=== PATIENT | male | born 1940 | race Caucasian/White ===

== ENCOUNTER 2016-07-08 17:48 | Outpatient (CLI) | payer MEDICARE, MEDICAID | END 2016-07-08 17:49 | disposition critical access hospital (66) | DX: M25.562 Pain in left knee (principal); Z79.02 Long term (current) use of antithrombotics/antiplatelets; W18.39XA Other fall on same level, initial encounter; Y92.199 Unspecified place in other specified residential institution as the place of occurrence of the external cause | CPT/HCPCS: A0425; A0429 ==

== ENCOUNTER 2016-07-08 18:06 | Emergency (ER) | payer MEDICARE, MEDICAID | END 2016-07-08 20:49 | disposition home or self-care (01) | DX: S09.90XA Unspecified injury of head, initial encounter (principal); W05.0XXA Fall from non-moving wheelchair, initial encounter; Z91.81 History of falling; Y92.013 Bedroom of single-family (private) house as the place of occurrence of the external cause; I25.2 Old myocardial infarction; Z86.73 Personal history of transient ischemic attack (TIA), and cerebral infarction without residual deficits; J44.9 Chronic obstructive pulmonary disease, unspecified; E11.9 Type 2 diabetes mellitus without complications; Z79.4 Long term (current) use of insulin; N40.0 Benign prostatic hyperplasia without lower urinary tract symptoms; Z79.01 Long term (current) use of anticoagulants; F17.200 Nicotine dependence, unspecified, uncomplicated ==

== ENCOUNTER 2016-07-08 21:00 | Outpatient (CLI) | payer MEDICARE, MEDICAID | END 2016-07-08 21:01 | disposition home or self-care (01) | DX: S80.212A Abrasion, left knee, initial encounter (principal); W19.XXXA Unspecified fall, initial encounter | CPT/HCPCS: A0425; A0428 ==

== ENCOUNTER 2017-03-27 09:35 | Outpatient (CLI) | payer MEDICARE, MEDICAID | END 2017-03-27 09:36 | disposition critical access hospital (66) | LOC: EMS 09:35 | PROVIDERS: ATTEND Surgery | DX: R06.02 Shortness of breath (principal); R53.1 Weakness; R53.83 Other fatigue | CPT/HCPCS: A0425; A0429 ==

== ENCOUNTER 2017-03-27 09:58 | Inpatient (IN) | payer MEDICARE, MEDICAID ==
[2017-03-27] MEDS ORDERED: IPRATROPIUM/ALBUTEROL 3 ML NEB INH STA (10:12)
[2017-03-27 10:27] LABS: BASOPHILS # (AUTO) 0.1 10^3/uL (0.0-0.1); BASOPHILS % (AUTO) 0.6 %; EOSINOPHILS # (AUTO) 0.1 10^3/uL (0.0-0.7); EOSINOPHILS % (AUTO) 0.5 %; HGB - HEMOGLOBIN 14.4 g/dL (14.0-18.0); LYMPHOCYTES # (AUTO) 1.5 10^3/uL (1.5-3.5); LYMPHOCYTES % (AUTO) 8.6 %; MEAN CORPUSCULAR HEMOGLOBIN 28.8 pg (27.0-31.0); MEAN CORPUSCULAR VOLUME 87.5 fL (80.0-94.0); MEAN PLATELET VOLUME 8.8 fL (7.4-11.4); MONOCYTES # (AUTO) 0.9 10^3/uL (0.0-1.0); MONOCYTES % (AUTO) 5.1 %; NEUTROPHILS # (AUTO) 15.1 10^3/uL (1.5-6.6); NEUTROPHILS % (AUTO) 85.2 %; PLT - PLATELET COUNT 218 10^3/uL (130-450); RED BLOOD COUNT 4.99 10^6/uL (4.70-6.10); RED CELL DISTRIBUTION WIDTH 14.5 % (12.0-15.0); WHITE BLOOD COUNT 17.8 x10^3/uL (4.8-10.8)
[2017-03-27 10:36] LABS: ALBUMIN 3.8 g/dL (3.2-5.5); ALBUMIN/GLOBULIN RATIO 0.8 (1.0-2.2); BILIRUBIN,TOTAL 1.1 mg/dL (0.2-1.0); CALCIUM 9.4 mg/dL (8.5-10.3); CREATININE 1.9 mg/dL (0.6-1.2); TOTAL PROTEIN 8.4 g/dL (6.7-8.2)
--- NOTE | 2017-03-27 10:41 | XRAY Preliminary Report ---
Exam: XR CHEST 1 VIEW X-RAY IMPRESSION: Irregular opacities in left lung base may represent atelectatic changes, aspiration or in fectious process. [facility] SITE ID: [id number]
--- NOTE | 2017-03-27 10:42 | XRAY Report ---
EXAM: CHEST RADIOGRAPHY EXAM DATE: 03/27/2017 10:32 AM. CLINICAL HISTORY: Dyspnea/rhonchi. COMPARISON: Chest radiograph dated 01/10/2016. TECHNIQUE: 1 view. FINDINGS: Lungs/Pleura: Irregular opacities in the left lower lobe blunting of the left hemidiaphragm. Right luis fernando ng is well aerated and clear. Mediastinum: The heart is enlarged. The pulmonary vasculature is within normal limits. Other: None. IMPRESSION: Irregular opacities in left lung base may represent atelectatic changes, aspiration or in fectious process. [facility] Referring Provider Line: [phone] SITE ID: [id number]
--- NOTE | 2017-03-27 10:48 | ED Physician Documentation ---
PD HPI DYSPNEA - Stated complaint Stated Complaint: SOA - Chief complaint Chief Complaint: Resp - History obtained from History obtained from: Patient, EMS - History of Present Illness Timing - onset: Today Timing - onset during: Rest Timing - duration: Hours Timing - details: Gradual onset, Still present Improved by: O2, Rest, Sitting up Worsened by: Exertion Associated symptoms: Cough Similar symptoms before: Diagnosis (pneumonia) Recently seen: Not recently seen - Additional information Additional information: 76-year-old resident of [facility] has developed acute dyspnea today. He has altered level of consciousness as well. He is not able to give adequate history. Review of Systems Unable to obtain: Confused PD PAST MEDICAL HISTORY - Past Medical History Cardiovascular: RI Respiratory: COPD Neuro: CVA Endocrine/Autoimmune: Type 2 diabetes : Benign prostate hypertrophy Psych: Depression, Anxiety - Past Surgical History Past Surgical History: Yes General: Splenectomy Ortho: Amputation - Present Medications Home Medications: Ambulatory Orders Medication Instructions Recorded Confirmed Docusate Sodium 250Mg Capsule 250 mg PO BID 07/08/13 03/27/17 [Colace] Gabapentin [Neurontin] 900 mg PO TID 07/08/13 03/27/17 Senna [Senokot] 2 tab PO HS 07/08/13 03/27/17 Simvastatin [Zocor] 10 mg PO HS 07/08/13 03/27/17 Trazodone HCl 100 mg PO HS 07/08/13 03/27/17 traMADol [Ultram] 50 mg PO QID 07/08/13 03/27/17 Lisinopril 5 mg PO DAILY 04/10/14 03/27/17 Lactulose 15 ml PO BID PRN #1 bottle 08/30/14 03/27/17 Clopidogrel Bisulfate [Plavix] 75 mg PO DAILY 09/15/14 03/27/17 Albuterol [Ventolin Hfa] 2 puffs INH Q4H PRN #1 inhaler 01/30/15 03/27/17 Sevelamer Carbonate [Renvela] 800 mg PO TIDWM 01/30/15 03/27/17 Bupropion HCl [Bupropion HCl Sr] 300 mg PO DAILY 07/29/15 03/27/17 Polyethylene Glycol 3350 [Miralax] 1 packet PO DAILY PRN 10/09/15 03/27/17 DULoxetine [Cymbalta] 20 mg PO DAILY 03/27/17 03/27/17 Insulin Detemir [Levemir Flextouch] 30 unit SQ BID 03/27/17 03/27/17 Insulin Regular Human [NovoLIN R] 2 - 12 unit SUBQ .SLIDINGSCALE 03/27/17 Insulin Regular Human [NovoLIN R] 10 unit SUBQ 1200,1700 03/27/17 03/27/17 Insulin Regular Human [NovoLIN R] 15 unit SUBQ QDBREAKFAST 03/27/17 03/27/17 Ipratropium/Albuterol Sulfate 3 ml IH Q4H 03/27/17 03/27/17 [Iprat-Albut 0.5-3(2.5) mg/3 ml] Loperamide HCl [Imodium A-D] 2 mg PO QID PRN MDD 8 MG 03/27/17 03/27/17 buPROPion [Wellbutrin Sr] 150 mg PO 1200 03/27/17 03/27/17 - Allergies Allergies/Adverse Reactions: Allergies Allergy/AdvReac Type Severity Reaction Status Date / Time Penicillins Allergy Intermediate Rash Verified 07/08/16 18:15 morphine AdvReac Unknown I go Verified 07/08/16 18:15 berserk - Social History Does the pt smoke?: Yes Smoking Status: Current every day smoker Does the pt drink ETOH?: Yes Does the pt have substance abuse?: No - Immunizations Immunizations are current?: Yes - POLST Patient has POLST: Yes POLST Status: DNR PD ED PE NORMAL - Vitals Vital signs reviewed: Yes (hypertensive and tachycardic) - General General: Well developed/nourished, Other (acute respiratory distress with audible "gurggle") - HEENT HEENT: Atraumatic, PERRL, EOMI, Other (dry mucous membranes) - Neck Neck: Supple, no meningeal sign, No bony TTP - Cardiac Cardiac: Other (distant heart sounds ) - Respiratory Respiratory: Other (audible gurgle and transmitted upper airway sounds bilaterally ) - Abdomen Abdomen: Soft, Non tender - Back Back: No CVA TTP, No spinal TTP - Derm Derm: Normal color, Warm and dry, No rash - Extremities Extremities: No deformity, No edema, Other (right lower ext is AKA) - Neuro Neuro: No motor deficit, No sensory deficit Eye Opening: To Voice Motor: Obeys Commands Verbal: Confused GCS Score: 13 Results - Vitals Vitals: Vital Signs - 24 hr 03/27/17 03/27/17 03/27/17 10:01 10:30 10:37 Temperature 36.1 C L Heart Rate 104 H 103 H 104 H Respiratory 20 18 24 Rate Blood Pressure 148/107 H 124/99 H O2 Saturation 98 98 03/27/17 11:04 Temperature Heart Rate 106 H Respiratory 18 Rate Blood Pressure 148/107 H O2 Saturation 93 Oxygen O2 Source Nasal cannula Oxygen Flow Rate 4 - Labs Labs: Laboratory Tests 03/27/17 03/27/17 03/27/17 10:18 10:18 10:18 WBC 17.8 H RBC 4.99 Hgb 14.4 Hct 43.7 MCV 87.5 MCH 28.8 MCHC 33.0 RDW 14.5 Plt Count 218 MPV 8.8 Neut # 15.1 H Lymph # 1.5 [place] # 0.9 Eos # 0.1 Baso # 0.1 Absolute Nucleated RBC 0.00 Nucleated RBC % 0.0 Sodium 133 L Potassium 4.5 Chloride 95 L Carbon Dioxide 29 Anion Gap 9.0 BUN 29 H Creatinine 1.9 H Estimated GFR (MDRD) 35 L Glucose 128 H Lactic Acid Calcium 9.4 Total Bilirubin 1.1 H AST 19 ALT 21 Alkaline Phosphatase 134 H Troponin I < 0.04 B-Natriuretic Peptide Total Protein 8.4 H Albumin 3.8 Globulin 4.6 H Albumin/Globulin Ratio 0.8 L Lipase 15 L 03/27/17 03/27/17 10:18 10:18 WBC RBC Hgb Hct MCV MCH MCHC RDW Plt Count MPV Neut # Lymph # [place] # Eos # Baso # Absolute Nucleated RBC Nucleated RBC % Sodium Potassium Chloride Carbon Dioxide Anion Gap BUN Creatinine Estimated GFR (MDRD) Glucose Lactic Acid 1.2 Calcium Total Bilirubin AST ALT Alkaline Phosphatase Troponin I B-Natriuretic Peptide 44 Total Protein Albumin Globulin Albumin/Globulin Ratio Lipase - Rads (name of study) 1 view chest Radiology: Prelim report reviewed (Impression: Irregular opacities in the left lung base may represent atelectatic changes, aspiration or infectious process.) , EMP read indepedently, See rad report PD MEDICAL DECISION MAKING - ED course Complexity details: reviewed old records, reviewed results, re-evaluated patient , considered differential, d/w patient ED course: 76-year-old male resident of [facility] with a history of COPD diabetes and stroke has developed acute dyspnea with a gurgling respirations and altered level of consciousness today. He arrives to the emergency department with audible gurggle and transmitted sounds in all lung shipman and his chest x-ray demonstrates what appears to be infiltrate in the left base consistent with possible aspiration. The patient has no improvement with use of a DuoNeb treatment. He does have improvement with oxygen. He appears dry as well. Departure - Departure Disposition: 66 [facility] DC/Xfer Clinical Impression: Pneumonia Qualifiers: Pneumonia type: aspiration pneumonia Aspiration pneumonia type: unspecified Laterality: left Lung location: lower lobe of lung Qualified Code(s): J69.0 - Pneumonitis due to inhalation of food and vomit Condition: Serious Discharge Date/Time: 03/27/17 12:10
[2017-03-27] MEDS ORDERED: SODIUM CHLORIDE 0.9% 1,000 ML IV ONE (10:55)
[2017-03-27] MEDS ORDERED: TEMAZEPAM 15 MG CAPSULE PO PRN (11:27)
[2017-03-27] MEDS ORDERED: ONDANSETRON ODT 4 MG TABLET TL PRN (11:27)
[2017-03-27] MEDS ORDERED: ACETAMINOPHEN 325 MG TABLET PO PRN (11:27)
--- NOTE | 2017-03-27 11:58 | HISTORY & PHYSICAL EXAMINATION ---
Chief Complaint - Chief Complaint Chief Complaint: SOB, AMS History of Present Illness - Admitted From Admitted From:: ED - History Obtained From Records Reviewed: yes History obtained from: chart review, -Emma Exam Limitations: AMS, helped complete interview exam questions, PMH, family history,etc - History of Present Illness HPI Comment/Other: Patient is an ill-appearing 76-year old male with a past medical history of BPH , hypertension, MT-status post cardiac stents, CVA-multiple, diabetes mellitus type 2, depression, anxiety, COPD, splenectomy, right AKA leg, blindness, and peripheral neuropathy. [facility] [place] and became acutely short of breath with congestion and worsening altered mental status. Once in the ED, a chest x-ray was completed and represented likely left lobe pneumonia, atelectasis, aspiration or an infectious process. He will be admitted for IV antibiotics, oxygen support, nebulizers, electrolyte balance, and blood sugar control. Confirmed with , patient wishes to be a DNR. History - Past Medical History Cardiovascular: reports: Hypertension, High cholesterol, Coronary artery disease , Peripheral Vascular Disease, MT Respiratory: reports: COPD, Pneumonia, Shortness of breath Neuro: reports: Dementia, CVA, Peripheral neuropathy Endocrine/Autoimmune: reports: Type 2 diabetes GI: reports: GERD, Chronic constipation : reports: Benign prostate hypertrophy, Incontinence, Frequency HEENT: reports: Chronic vision loss Psych: reports: Depression, Anxiety Musculoskeletal: reports: None Derm: reports: None MRSA Hx?: Yes - Past Surgical History General: reports: Splenectomy Ortho: reports: Amputation Cardiovascular: reports: Coronary stent, Cardiac catheterization, Vascular surgery, Angioplasty Neuro: reports: [employer]ER shunt - Family & Social History Family History: Mother: , Father: , Brother: Alive and Well, Cancer, Diabetes, Type 2 Family History Comment/Other: Patient and his brother were placed in an orphanage at a very young age, so no known past medical history of parents. 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.) - POLST Patient has POLST: Yes POLST Status: DNR Meds/Allgy - Home Medications Home Medications: Ambulatory Orders Medication Instructions Recorded Confirmed Docusate Sodium 250Mg Capsule 250 mg PO BID 07/08/13 03/27/17 [Colace] Gabapentin [Neurontin] 900 mg PO TID 07/08/13 03/27/17 Senna [Senokot] 2 tab PO HS 07/08/13 03/27/17 Simvastatin [Zocor] 10 mg PO HS 07/08/13 03/27/17 Trazodone HCl 100 mg PO HS 07/08/13 03/27/17 traMADol [Ultram] 50 mg PO QID 07/08/13 03/27/17 Lisinopril 5 mg PO DAILY 04/10/14 03/27/17 Lactulose 15 ml PO BID PRN #1 bottle 08/30/14 03/27/17 Clopidogrel Bisulfate [Plavix] 75 mg PO DAILY 09/15/14 03/27/17 Albuterol [Ventolin Hfa] 2 puffs INH Q4H PRN #1 inhaler 01/30/15 03/27/17 Sevelamer Carbonate [Renvela] 800 mg PO TIDWM 01/30/15 03/27/17 Bupropion HCl [Bupropion HCl Sr] 300 mg PO DAILY 07/29/15 03/27/17 Polyethylene Glycol 3350 [Miralax] 1 packet PO DAILY PRN 10/09/15 03/27/17 DULoxetine [Cymbalta] 20 mg PO DAILY 03/27/17 03/27/17 Insulin Detemir [Levemir Flextouch] 30 unit SQ BID 03/27/17 03/27/17 Insulin Regular Human [NovoLIN R] 2 - 12 unit SUBQ .SLIDINGSCALE 03/27/17 Insulin Regular Human [NovoLIN R] 10 unit SUBQ 1200,1700 03/27/17 03/27/17 Insulin Regular Human [NovoLIN R] 15 unit SUBQ QDBREAKFAST 03/27/17 03/27/17 Ipratropium/Albuterol Sulfate 3 ml IH Q4H 03/27/17 03/27/17 [Iprat-Albut 0.5-3(2.5) mg/3 ml] Loperamide HCl [Imodium A-D] 2 mg PO QID PRN MDD 8 MG 03/27/17 03/27/17 buPROPion [Wellbutrin Sr] 150 mg PO 1200 03/27/17 03/27/17 - Allergies Allergies/Adverse Reactions: Allergies Allergy/AdvReac Type Severity Reaction Status Date / Time Penicillins Allergy Intermediate Rash Verified 07/08/16 18:15 morphine AdvReac Unknown I go Verified 07/08/16 18:15 berserk Review of Systems - Constitutional Constitutional: reports: Fatigue, Weakness - Eyes Eyes: reports: Vision loss - Ears, Nose & Throat Ears, Nose & Throat: reports: Hearing loss, Dentures - Cardiovascular Cariovascular: reports: Irregular heart rate - Respiratory Respiratory: reports: Cough, Sputum production, Wheezing, Orthopnea, SOB at rest , SOB with exertion - Gastrointestinal Gastrointestinal: reports: Constipation, Reflux/heartburn - Genitourinary Genitourinary: reports: Dysuria, Frequency, Incontinence, Nocturia - Musculoskeletal Musculoskeletal: reports: Limited range of motion, Muscle weakness - Integumentary Integumentary: reports: Dryness - Neurological Neurological: reports: General weakness, Memory problems, Pre-existing deficit - Psychiatric Psychiatric: reports: Depression, Anxiety - All Other Systems All Other Systems: reports: Reviewed and negative Exam - Vital Signs Reviewed Vital Signs: Yes Vital Signs: Temp Pulse Resp BP Pulse Ox 36.6 C 107 H 18 112/76 93 03/27/17 19:43 03/27/17 19:43 03/27/17 19:43 03/27/17 15:50 03/27/17 19:43 Weight 03/25/17 03/26/17 03/27/17 23:59 23:59 23:59 Weight (kg) 127.006 kg - Physical Exam General Appearance: positive: Alert, Moderate distress, Anxious Eyes Bilateral: positive: Other (inability to focus due to chronic blindness.) ENT: positive: ENT inspection nml, Pharynx nml, Dry mucous membranes Neck: positive: Nml inspection, Thyroid nml, No JVD Respiratory: positive: Chest non-tender, Wheezes, Rales, Rhonchi Cardiovascular: positive: Irregularly irregular, Systolic murmur, Decreased pulse(s) Peripheral Pulses: positive: 1+ (left leg) Abdomen: positive: Tenderness, Hepatomegaly, Abnml bowel sounds Back: positive: Nml inspection Skin: positive: No rash, Warm, Dry, Pallor Extremities: positive: Pedal edema, Joint swelling, Other (right AKA) Neurologic/Psychiatric: positive: Disoriented to place, Disoriented to time, Weakness, Sensory loss, Slurred/abnml speech, Depressed mood/affect, Other ( baseline, chronic AMS.) Reflexes: Bicep (R): 2+, Bicep (L): 2+ Conclusion/Plan - Problem List (1) Pneumonia Conclusion/Plan: Left lower lobe pneumonia noted on chest x-ray that was completed in the ED. Copious, thick pale yellow sputum is noted and needs a yankur near the bed to keep his air way clear. Plan: IV antibiotics. Qualifiers: Pneumonia type: aspiration pneumonia Aspiration pneumonia type: unspecified Laterality: left Lung location: lower lobe of lung Qualified Code(s): J69.0 - Pneumonitis due to inhalation of food and vomit (2) Altered mental status Conclusion/Plan: Patient has baseline dementia, and expressive aphasia related to his multiple medical insults including MT, CVA, heavy ETOH use. Emma, who is patient's designated POA can attest to patient's medical condition and was able to be helpful for his exam. Plan: Treat pneumonia and monitor electrolytes. Qualifiers: Altered mental status type: transient alteration of awareness Qualified Code(s): R40.4 - Transient alteration of awareness (3) CKD stage 3 secondary to diabetes Conclusion/Plan: Patient has a creatinine of 1.9 today. He has a baseline creatinine of ~1.5. Choosing antibiotic choices wisely as to not worsen CKD. Plan: Monitor fluid balance. Avoid nephrotoxins. (4) COPD (chronic obstructive pulmonary disease) Conclusion/Plan: Per , Emma patient is a long time smoker and notes that he would typically smoke 3-4 PPD from the age of [age]. Guafenisen will be added. Plan: Continue care with duo-nebs while in the acute PNA phase. The best treatment is by using a LABA, LAMA and a short acting rescue inhaler. (5) Legally blind Conclusion/Plan: Patient's HEENT exam will reflect; patient not able to focus and has been completely blind since about 2 years ago. cannot remember what led to this condition, but I suspect it may have been from uncontrolled diabetes mellitus type 2. Plan: Patient will be noted as a "feeder" to ensure his meals are set up, and he can be guided with eating. Code status: Patient cannot admit to his medical conditions and is non- decisional upon exam. , Emma who is his designated POA attests to patient wishes of DNR. Prophylaxis: DVT prophylaxis with enoxaparin (renal dosing) since patient is missing one leg. - Lab Results Lab results reviewed: Yes Koby Bones: 03/27/17 10:18 03/27/17 10:18 - Diagnostic Imaging Results Diagnostic Imaging Results: positive: Prelim report reviewed, Final report reviewed - EKG Results EKG Interpreted Independently: Yes Core Measures - Anticipated LOS I expect patient to be DC'd or transferred within 96 hours.: Yes - DVT/VTE - Prophylaxis VTE/DVT Device ordered at admit?: Yes VTE/DVT Prophylaxis med ordered at admit?: Yes - Stroke - Rehab Assessment Rehab services assessment to be ordered?: Yes - AMI - Statin at Admit Aspirin Prescribed on Admit: Yes
[2017-03-27] MEDS: SODIUM CHLORIDE FLUSH 0.9% 10 ML SYRINGE IVP SCH ×2 (12:29→21:51)
[2017-03-27] MEDS: SODIUM CHLORIDE 0.9% 1,000 ML IV SCH (13:10)
[2017-03-27] MEDS ORDERED: IPRATROPIUM/ALBUTEROL 3 ML NEB INH PRN (18:01)
[2017-03-27] MEDS ORDERED: LIDOCAINE 2% URO-JET 5 ML SYRINGE UR SCH (18:04)
[2017-03-27] MEDS: IPRATROPIUM/ALBUTEROL 3 ML NEB INH SCH (19:05)
[2017-03-27 19:32] LABS: BILIRUBIN,URINE NEGATIVE (NEGATIVE); GLUCOSE, URINE (UA) NEGATIVE (NEGATIVE); KETONES,URINE (UA) NEGATIVE (NEGATIVE); LEUKOCYTE ESTERASE, URINE NEGATIVE (NEGATIVE); NITRITE,URINE NEGATIVE (NEGATIVE); OCCULT BLOOD,URINE NEGATIVE (NEGATIVE); PROTEIN,URINE NEGATIVE (NEGATIVE); UROBILINOGEN,URINE 0.2 (NORMAL) E.U./dL (NORMAL)
[2017-03-27 19:35] LABS: CLARITY,URINE CLEAR (CLEAR)
[2017-03-27] MEDS ORDERED: LACTULOSE 10 GM/15 ML BOTTLE PO PRN (19:48)
[2017-03-27] MEDS ORDERED: LOPERAMIDE 2 MG CAPSULE PO PRN (19:48)
[2017-03-27] MEDS ORDERED: SEVELAMER CARBONATE 800 MG PO SCH (20:00)
[2017-03-27] MEDS: FUROSEMIDE 40 MG/4 ML VIAL IVP SCH (21:35)
[2017-03-27] MEDS: AZITHROMYCIN INJ 500 MG in SODIUM CHLORIDE 0.9% 250 ML IV SCH (21:38)
[2017-03-27] MEDS: traZODone 50 MG TABLET PO SCH (21:39)
[2017-03-27] MEDS: SENNA 8.6 MG TABLET PO SCH (21:39)
[2017-03-27] MEDS: ENOXAPARIN 40 MG/0.4 ML SYRINGE SUBQ SCH (21:46)
[2017-03-27] MEDS: INSULIN GLARGINE 300 UNIT/3 ML PEN SUBQ SCH (21:47)
[2017-03-27] MEDS: INSULIN ASPART 300 UNIT/3 ML PEN SUBQ SCH (21:47)
[2017-03-27] MEDS ORDERED: CEFOTAXIME 1 GM VIAL ONE (23:00)
[2017-03-27] MEDS: CEFOTAXIME 2 GM in SODIUM CHLORIDE 0.9% MINIBAG 100 ML IV SCH (23:00)
[2017-03-27] MEDS: SODIUM CHLORIDE FLUSH 0.9% 10 ML SYRINGE IVP PRN (23:01)
[2017-03-28] MEDS ORDERED: MIN OIL/DIMETHICON/COCONUT OIL 92 GM TUBE TOP ONE (01:13)
[2017-03-28] MEDS ORDERED: MIN OIL/DIMETHICON/COCONUT OIL 92 GM TUBE TOP PRN (03:24)
[2017-03-28] MEDS: SODIUM CHLORIDE 0.9% 1,000 ML IV SCH (03:31)
[2017-03-28] MEDS ORDERED: CEFOTAXIME 1 GM VIAL ONE ×2 (05:08→11:50)
[2017-03-28] MEDS ORDERED: SODIUM CHLORIDE 0.9% MINIBAG 100 ML IV ONE (05:09)
[2017-03-28] MEDS: CEFOTAXIME 2 GM in SODIUM CHLORIDE 0.9% MINIBAG 100 ML IV SCH (05:14)
[2017-03-28] MEDS: SODIUM CHLORIDE FLUSH 0.9% 10 ML SYRINGE IVP SCH ×3 (06:23→21:34)
[2017-03-28 06:53] LABS: BASOPHILS % (AUTO) 0.2 %; HGB - HEMOGLOBIN 12.8 g/dL (14.0-18.0); LYMPHOCYTES # (AUTO) 1.2 10^3/uL (1.5-3.5); LYMPHOCYTES % (AUTO) 10.8 %; MEAN CORPUSCULAR HEMOGLOBIN 28.7 pg (27.0-31.0); MEAN CORPUSCULAR HGB CONC 32.2 g/dL (32.0-36.0); MEAN PLATELET VOLUME 8.6 fL (7.4-11.4); MONOCYTES # (AUTO) 0.7 10^3/uL (0.0-1.0); MONOCYTES % (AUTO) 6.3 %; NEUTROPHILS # (AUTO) 9.1 10^3/uL (1.5-6.6); NEUTROPHILS % (AUTO) 82.7 %; PLT - PLATELET COUNT 179 10^3/uL (130-450); RED BLOOD COUNT 4.45 10^6/uL (4.70-6.10); RED CELL DISTRIBUTION WIDTH 14.8 % (12.0-15.0)
[2017-03-28 07:09] LABS: ALBUMIN 3.3 g/dL (3.2-5.5); ALBUMIN/GLOBULIN RATIO 0.8 (1.0-2.2); BILIRUBIN,TOTAL 0.7 mg/dL (0.2-1.0); CALCIUM 8.7 mg/dL (8.5-10.3); CREATININE 1.8 mg/dL (0.6-1.2); MAGNESIUM 1.9 mg/dL (1.7-2.8); PHOSPHORUS 3.8 mg/dL (2.5-4.6); TOTAL PROTEIN 7.5 g/dL (6.7-8.2)
[2017-03-28] MEDS: IPRATROPIUM/ALBUTEROL 3 ML NEB INH SCH ×3 (07:20→14:50)
[2017-03-28 07:24] LABS: HB2 TOTAL 13.9 g/dL; HEMOGLOBIN A1C 0.69 g/dL; HEMOGLOBIN A1C % 6.7 % (4.6-6.2)
[2017-03-28] MEDS: INSULIN ASPART 300 UNIT/3 ML PEN SUBQ SCH ×7 (08:11→21:45)
[2017-03-28] MEDS: INSULIN GLARGINE 300 UNIT/3 ML PEN SUBQ SCH ×2 (08:15→21:45)
--- NOTE | 2017-03-28 08:15 | PROVIDER PROGRESS NOTE ---
Subjective - Prog Note Date Prog Note Date: 03/28/17 Prog Note Time: 08:14 - Subjective Pt reports feeling: No change Subjective: Douglas has no complaints when asked, and his states he is looking more like himself today. He denies SOB, chest pain, N/V or a new cough. Copious sputum production continues, so suction with Yankur continues. Current Medications - Current Medications Current Medications: Active Medications Acetaminophen (Tylenol) 650 mg PO Q4HR PRN PRN Reason: Pain 1 to 4 Albuterol/Ipratropium (Duoneb) 3 ml INH Q4HR PRN PRN Reason: Wheezing Albuterol/Ipratropium (Duoneb) 3 ml INH RTQID [facility] Last Admin: 03/28/17 11:40 Dose: 3 ml Bupropion HCl (Wellbutrin Sr) 150 mg PO 1200 [facility] Last Admin: 03/28/17 11:48 Dose: 150 mg Clopidogrel Bisulfate (Plavix) 75 mg PO DAILY [facility] Last Admin: 03/28/17 09:27 Dose: 75 mg Enoxaparin Sodium (Lovenox) 40 mg SUBQ BID [facility] Last Admin: 03/28/17 09:27 Dose: 40 mg Famotidine (Pepcid) 20 mg PO DAILY [facility] Last Admin: 03/28/17 09:27 Dose: 20 mg Furosemide (Lasix Inj 40 Mg Vial) 40 mg IVP DAILY [facility] Last Admin: 03/28/17 09:25 Dose: 40 mg Azithromycin 500 mg/ Sodium (Chloride) 250 mls @ 250 mls/hr IV DAILY [facility] Last Admin: 03/28/17 09:27 Dose: 250 mls/hr Cefotaxime Sodium 1 gm/ Sodium (Chloride) 100 mls @ 100 mls/hr IV Q8H [facility] Insulin Aspart (Novolog) 5 unit SUBQ AC [facility] PRN Reason: Protocol Last Admin: 03/28/17 11:48 Dose: 5 unit Insulin Aspart (Novolog) 1 - 5 unit SUBQ 0800,1200,1700,2100 [facility] PRN Reason: Protocol Last Admin: 03/28/17 11:49 Dose: 1 unit Insulin Glargine (Lantus Solostar) 30 unit SUBQ BID [facility] Last Admin: 03/28/17 08:15 Dose: 30 unit Lactulose (Enulose) 10 gm PO BID PRN PRN Reason: Constipation Loperamide HCl (Imodium) 2 mg PO QID PRN PRN Reason: Diarrhea Mineral Oil (Cavilon) 1 applic TOP PRN PRN PRN Reason: Skin Care Ondansetron HCl (Zofran Odt) 4 mg TL Q6HR PRN PRN Reason: Nausea / Vomiting Polyethylene Glycol (Miralax) 17 gm PO DAILY [facility] Last Admin: 03/28/17 09:27 Dose: 17 gm Senna (Senokot) 17.2 mg PO [facility] Last Admin: 03/27/17 21:39 Dose: 17.2 mg Sodium Chloride (Normal Saline Flush 0.9%) 10 ml IVP PRN PRN PRN Reason: NEEDED PER PROVIDER ORDERS Last Admin: 03/27/17 23:01 Dose: 10 ml Sodium Chloride (Normal Saline Flush 0.9%) 10 ml IVP Q8HR [facility] Last Admin: 03/28/17 11:49 Dose: Not Given Temazepam (Restoril) 15 mg PO QPM PRN PRN Reason: Insomnia Last Admin: 03/27/17 22:41 Dose: 15 mg Trazodone HCl (Desyrel) 100 mg PO [facility] Last Admin: 03/27/17 21:39 Dose: 100 mg Docusate Sodium 250Mg Capsule [Colace] 250 mg PO BID 07/08/13 Gabapentin [Neurontin] 900 mg PO TID 07/08/13 Senna [Senokot] 2 tab PO 07/08/13 Simvastatin [Zocor] 10 mg PO 07/08/13 Trazodone HCl 100 mg PO 07/08/13 traMADol [Ultram] 50 mg PO QID 07/08/13 Lisinopril 5 mg PO DAILY 04/10/14 Clopidogrel Bisulfate [Plavix] 75 mg PO DAILY 09/15/14 Sevelamer Carbonate [Renvela] 800 mg PO TIDWM 01/30/15 Bupropion HCl [Bupropion HCl Sr] 300 mg PO DAILY 07/29/15 Polyethylene Glycol 3350 [Miralax] 1 packet PO DAILY PRN 10/09/15 DULoxetine [Cymbalta] 20 mg PO DAILY 03/27/17 Insulin Detemir [Levemir Flextouch] 30 unit SQ BID 03/27/17 Insulin Regular Human [NovoLIN R] 2 - 12 unit SUBQ .SLIDINGSCALE 03/27/17 Insulin Regular Human [NovoLIN R] 10 unit SUBQ 1200,1700 03/27/17 Insulin Regular Human [NovoLIN R] 15 unit SUBQ QDBREAKFAST 03/27/17 Ipratropium/Albuterol Sulfate [Iprat-Albut 0.5-3(2.5) mg/3 ml] 3 ml IH Q4H 03/27 Loperamide HCl [Imodium A-D] 2 mg PO QID PRN MDD 8 MG 03/27/17 buPROPion [Wellbutrin Sr] 150 mg PO 1200 03/27/17 Objective - Vital Signs/Intake & Output Reviewed Vital Signs: Yes Vital Signs: Vital Signs x48h Temp Pulse Pulse Resp BP BP Pulse Ox 03/28/17 07:23 36.5 C 95 20 143/56 H 100 03/28/17 07:20 96 18 03/28/17 05:15 37.0 C 97 18 108/91 H 98 Intake & Output: Intake & Output 03/25/17 03/26/17 03/27/17 03/28/17 23:59 23:59 23:59 23:59 Intake Total 2070 1380 Output Total 600 Balance 1470 1380 - Objective General Appearance: positive: No acute distress, Alert Eyes Bilateral: positive: Normal inspection, PERRL ENT: positive: ENT inspection nml, Pharynx nml, Dry mucous membranes Neck: positive: Nml inspection, Thyroid nml, Stiff neck Respiratory: positive: Chest non-tender, Wheezes, Rales Cardiovascular: positive: Irregularly irregular, Tachycardia, Systolic murmur Peripheral Pulses: 1+ Radial (R), 1+ Radial (L) Abdomen: positive: Non-tender, No organomegaly, Nml bowel sounds, Other (rounded , soft.) Back: positive: Nml inspection Skin: positive: No rash, Warm Extremities: positive: Full ROM, Pedal edema, Other (Right AKA) Neurologic/Psychiatric: positive: Disoriented to place, Disoriented to time, Weakness, Sensory loss, Depressed mood/affect Reflexes: Bicep (R): 3+, Bicep (L): 3+ - Lab Results Fish Bones: 03/28/17 06:10 03/28/17 06:10 Other Labs: Lab Results x24hrs 03/28/17 03/28/17 03/28/17 Range/Units 06:10 06:10 06:10 WBC 11.0 H (4.8-10.8) x10^3/uL RBC 4.45 L (4.70-6.10) 10^6/uL Hgb 12.8 L (14.0-18.0) g/dL Hct 39.6 L (42.0-52.0) % MCV 89.0 (80.0-94.0) fL MCH 28.7 (27.0-31.0) pg MCHC 32.2 (32.0-36.0) g/dL RDW 14.8 (12.0-15.0) % Plt Count 179 (130-450) 10^3/uL MPV 8.6 (7.4-11.4) fL Neut # 9.1 H (1.5-6.6) 10^3/uL Lymph # 1.2 L (1.5-3.5) 10^3/uL [place] # 0.7 (0.0-1.0) 10^3/uL Eos # 0.0 (0.0-0.7) 10^3/uL Baso # 0.0 (0.0-0.1) 10^3/uL Absolute Nucleated RBC 0.00 x10^3/uL Nucleated RBC % 0.0 /100WBC Sodium 137 (135-145) mmol/L Potassium 4.1 (3.5-5.0) mmol/L Chloride 102 (101-111) mmol/L Carbon Dioxide 29 (21-32) mmol/L Anion Gap 6.0 (6-13) BUN 33 H (6-20) mg/dL Creatinine 1.8 H (0.6-1.2) mg/dL Estimated GFR (MDRD) 37 L (>89) Glucose 143 H (70-100) mg/dL Glycated Hemoglobin 6.7 H (4.6-6.2) % Estim Average Glucose 146 H (70-100) Calcium 8.7 (8.5-10.3) mg/dL Phosphorus 3.8 (2.5-4.6) mg/dL Magnesium 1.9 (1.7-2.8) mg/dL Total Bilirubin 0.7 (0.2-1.0) mg/dL AST 16 (10-42) IU/L ALT 17 (10-60) IU/L Alkaline Phosphatase 105 (42-121) IU/L Total Protein 7.5 (6.7-8.2) g/dL Albumin 3.3 (3.2-5.5) g/dL Globulin 4.2 (2.1-4.2) g/dL Albumin/Globulin Ratio 0.8 L (1.0-2.2) Urine Color Urine Clarity (CLEAR) Urine pH (5.0-7.5) PH Ur Specific [place] (1.002-1.030) Urine Protein (NEGATIVE) mg/dL Urine Glucose (UA) (NEGATIVE) mg/dL Urine Ketones (NEGATIVE) mg/dL Urine Occult Blood (NEGATIVE) Urine Nitrite (NEGATIVE) Urine Bilirubin (NEGATIVE) Urine Urobilinogen (NORMAL) E.U./dL Ur Leukocyte Esterase (NEGATIVE) Ur Microscopic Review Urine Culture Comments 03/27/17 Range/Units 19:20 WBC (4.8-10.8) x10^3/uL RBC (4.70-6.10) 10^6/uL Hgb (14.0-18.0) g/dL Hct (42.0-52.0) % MCV (80.0-94.0) fL MCH (27.0-31.0) pg MCHC (32.0-36.0) g/dL RDW (12.0-15.0) % Plt Count (130-450) 10^3/uL MPV (7.4-11.4) fL Neut # (1.5-6.6) 10^3/uL Lymph # (1.5-3.5) 10^3/uL [place] # (0.0-1.0) 10^3/uL Eos # (0.0-0.7) 10^3/uL Baso # (0.0-0.1) 10^3/uL Absolute Nucleated RBC x10^3/uL Nucleated RBC % /100WBC Sodium (135-145) mmol/L Potassium (3.5-5.0) mmol/L Chloride (101-111) mmol/L Carbon Dioxide (21-32) mmol/L Anion Gap (6-13) BUN (6-20) mg/dL Creatinine (0.6-1.2) mg/dL Estimated GFR (MDRD) (>89) Glucose (70-100) mg/dL Glycated Hemoglobin (4.6-6.2) % Estim Average Glucose (70-100) Calcium (8.5-10.3) mg/dL Phosphorus (2.5-4.6) mg/dL Magnesium (1.7-2.8) mg/dL Total Bilirubin (0.2-1.0) mg/dL AST (10-42) IU/L ALT (10-60) IU/L Alkaline Phosphatase (42-121) IU/L Total Protein (6.7-8.2) g/dL Albumin (3.2-5.5) g/dL Globulin (2.1-4.2) g/dL Albumin/Globulin Ratio (1.0-2.2) Urine Color YELLOW Urine Clarity CLEAR (CLEAR) Urine pH 6.0 (5.0-7.5) PH Ur Specific [place] 1.020 (1.002-1.030) Urine Protein NEGATIVE (NEGATIVE) mg/dL Urine Glucose (UA) NEGATIVE (NEGATIVE) mg/dL Urine Ketones NEGATIVE (NEGATIVE) mg/dL Urine Occult Blood NEGATIVE (NEGATIVE) Urine Nitrite NEGATIVE (NEGATIVE) Urine Bilirubin NEGATIVE (NEGATIVE) Urine Urobilinogen 0.2 (NORMAL) (NORMAL) E.U./dL Ur Leukocyte Esterase NEGATIVE (NEGATIVE) Ur Microscopic Review NOT INDICATED Urine Culture Comments NOT INDICATED - Diagnostic Imaging Diagnostic Imaging Results: positive: Final report reviewed Assessment/Plan - Problem List (1) Pneumonia Impression: Left lower lobe pneumonia noted on chest x-ray that was completed in the ED. Copious, thick pale yellow sputum is noted and needs a yankur near the bed to keep his air way clear. There are somewhat less secretions noted today. Plan: IV antibiotics, nebulizers. Qualifiers: Pneumonia type: aspiration pneumonia Aspiration pneumonia type: unspecified Laterality: left Lung location: lower lobe of lung Qualified Code(s): J69.0 - Pneumonitis due to inhalation of food and vomit (2) Altered mental status Impression: Patient has baseline dementia, and expressive aphasia related to his multiple medical insults including [place], CVA, heavy ETOH use. Emma, who is patient's designated POA can attest to patient's medical condition and was able to be helpful for his exam. Plan: Treat pneumonia and monitor electrolytes. Qualifiers: Altered mental status type: transient alteration of awareness Qualified Code(s): R40.4 - Transient alteration of awareness (3) CKD stage 3 secondary to diabetes Impression: Patient has a creatinine of 1.8 and an estimated GFR of 37 today. He has a baseline creatinine of ~1.5. Choosing antibiotic choices wisely as to not worsen CKD. Plan: Monitor fluid balance. Avoid nephrotoxins. (4) COPD (chronic obstructive pulmonary disease) Impression: Per , Emma patient is a long time smoker and notes that he would typically smoke 3-4 PPD from the age of [age]. Guafenisen was added. Plan: Continue care with xopenex while in the acute PNA phase. The best treatment is by using a LABA, LAMA and a short acting rescue inhaler. (5) Legally blind Impression: Patient's HEENT exam will reflect; patient not able to focus and has been completely blind since about 2 years ago. cannot remember what led to this condition, but I suspect it may have been from uncontrolled diabetes mellitus type 2. Plan: Patient will be noted as a "feeder" to ensure his meals are set up, and he can be guided with eating.
[2017-03-28] MEDS ORDERED: ENOXAPARIN 40 MG/0.4 ML SYRINGE SUBQ SCH (09:00)
[2017-03-28] MEDS: FUROSEMIDE 40 MG/4 ML VIAL IVP SCH (09:25)
[2017-03-28] MEDS: POLYETHYLENE GLYCOL 3350 17 GM PACKET PO SCH (09:27)
[2017-03-28] MEDS: CLOPIDOGREL 75 MG TABLET PO SCH (09:27)
[2017-03-28] MEDS: AZITHROMYCIN INJ 500 MG in SODIUM CHLORIDE 0.9% 250 ML IV SCH (09:27)
[2017-03-28] MEDS: FAMOTIDINE 20 MG TABLET PO SCH (09:27)
[2017-03-28] MEDS: ENOXAPARIN 40 MG/0.4 ML SYRINGE SUBQ SCH ×2 (09:27→21:35)
[2017-03-28] MEDS ORDERED: LACTULOSE 10 GM /15 ML UDC PO PRN (10:15)
[2017-03-28] MEDS: buPROPion SR 150 MG TABLET PO SCH (11:48)
[2017-03-28] MEDS: SODIUM CHLORIDE 0.9% IV SCH ×2 (12:40→21:34)
[2017-03-28] MEDS: CEFOTAXIME IV SCH ×2 (12:40→21:34)
[2017-03-28] MEDS ORDERED: SODIUM CHLORIDE 0.9% IV SCH (13:00)
[2017-03-28] MEDS ORDERED: CEFOTAXIME IV SCH (13:00)
[2017-03-28] MEDS ORDERED: LIDOCAINE 2% URO-JET 5 ML SYRINGE UR SCH (20:04)
[2017-03-28] MEDS: LEVALBUTEROL 1.25 MG/0.5 ML NEB INH SCH (20:50)
[2017-03-28] MEDS ORDERED: SODIUM CHLORIDE 0.9% 100ML 100 ML IV ONE (21:34)
[2017-03-28] MEDS: SODIUM CHLORIDE FLUSH 0.9% 10 ML SYRINGE IVP PRN (21:34)
[2017-03-28] MEDS: SENNA 8.6 MG TABLET PO SCH (21:35)
[2017-03-28] MEDS: traZODone 50 MG TABLET PO SCH (21:35)
[2017-03-28] MEDS ORDERED: LEVALBUTEROL 1.25 MG/3 ML NEB INH ONE (22:08)
[2017-03-29 05:08] LABS: BASOPHILS % (AUTO) 0.5 %; EOSINOPHILS # (AUTO) 0.1 10^3/uL (0.0-0.7); EOSINOPHILS % (AUTO) 1.2 %; HGB - HEMOGLOBIN 12.4 g/dL (14.0-18.0); LYMPHOCYTES # (AUTO) 1.2 10^3/uL (1.5-3.5); MEAN CORPUSCULAR HEMOGLOBIN 28.7 pg (27.0-31.0); MEAN CORPUSCULAR HGB CONC 32.3 g/dL (32.0-36.0); MEAN CORPUSCULAR VOLUME 88.6 fL (80.0-94.0); MEAN PLATELET VOLUME 8.3 fL (7.4-11.4); MONOCYTES # (AUTO) 0.7 10^3/uL (0.0-1.0); MONOCYTES % (AUTO) 7.9 %; NEUTROPHILS # (AUTO) 6.7 10^3/uL (1.5-6.6); NEUTROPHILS % (AUTO) 76.4 %; PLT - PLATELET COUNT 180 10^3/uL (130-450); RED BLOOD COUNT 4.31 10^6/uL (4.70-6.10); RED CELL DISTRIBUTION WIDTH 14.6 % (12.0-15.0); WHITE BLOOD COUNT 8.7 x10^3/uL (4.8-10.8)
[2017-03-29] MEDS: CEFOTAXIME IV SCH ×3 (05:11→21:17)
[2017-03-29] MEDS: SODIUM CHLORIDE 0.9% IV SCH ×3 (05:11→21:17)
[2017-03-29 05:30] LABS: ALBUMIN 3.1 g/dL (3.2-5.5); ALBUMIN/GLOBULIN RATIO 0.7 (1.0-2.2); BILIRUBIN,TOTAL 0.8 mg/dL (0.2-1.0); CALCIUM 8.9 mg/dL (8.5-10.3); CREATININE 1.3 mg/dL (0.6-1.2); TOTAL PROTEIN 7.6 g/dL (6.7-8.2)
[2017-03-29] MEDS: SODIUM CHLORIDE FLUSH 0.9% 10 ML SYRINGE IVP SCH ×3 (06:38→21:10)
[2017-03-29] MEDS: SODIUM CHLORIDE INHALATION 3 ML NEB INH PRN ×2 (08:25→13:14)
[2017-03-29] MEDS: LEVALBUTEROL 1.25 MG/0.5 ML NEB INH SCH ×2 (08:25→13:14)
[2017-03-29] MEDS: INSULIN ASPART 300 UNIT/3 ML PEN SUBQ SCH ×7 (08:48→21:16)
[2017-03-29] MEDS: FAMOTIDINE 20 MG TABLET PO SCH (09:00)
[2017-03-29] MEDS: CLOPIDOGREL 75 MG TABLET PO SCH (09:00)
[2017-03-29] MEDS: INSULIN GLARGINE 300 UNIT/3 ML PEN SUBQ SCH ×2 (09:01→21:17)
[2017-03-29] MEDS: AZITHROMYCIN INJ 500 MG in SODIUM CHLORIDE 0.9% 250 ML IV SCH (09:03)
[2017-03-29] MEDS: ENOXAPARIN 40 MG/0.4 ML SYRINGE SUBQ SCH ×2 (09:07→21:16)
[2017-03-29] MEDS: FUROSEMIDE 40 MG/4 ML VIAL IVP SCH (09:07)
[2017-03-29] MEDS: POLYETHYLENE GLYCOL 3350 17 GM PACKET PO SCH (09:09)
--- NOTE | 2017-03-29 10:08 | PROVIDER PROGRESS NOTE ---
Subjective - Prog Note Date Prog Note Date: 03/29/17 Prog Note Time: 10:08 - Subjective Pt reports feeling: Improved Subjective: Douglas is improving and notes an easier time breathing with less sputum. He denies SOB, chest pain, N/V or an increased cough. He has been enjoying his food. Current Medications - Current Medications Current Medications: Active Medications Acetaminophen (Tylenol) 650 mg PO Q4HR PRN PRN Reason: Pain 1 to 4 Bupropion HCl (Wellbutrin Sr) 150 mg PO 1200 [facility] Last Admin: 03/28/17 11:48 Dose: 150 mg Clopidogrel Bisulfate (Plavix) 75 mg PO DAILY [facility] Last Admin: 03/29/17 09:00 Dose: 75 mg Enoxaparin Sodium (Lovenox) 40 mg SUBQ BID [facility] Last Admin: 03/29/17 09:07 Dose: 40 mg Famotidine (Pepcid) 20 mg PO DAILY [facility] Last Admin: 03/29/17 09:00 Dose: 20 mg Furosemide (Lasix Inj 40 Mg Vial) 40 mg IVP DAILY [facility] Last Admin: 03/29/17 09:07 Dose: 40 mg Azithromycin 500 mg/ Sodium (Chloride) 250 mls @ 250 mls/hr IV DAILY [facility] Last Admin: 03/29/17 09:03 Dose: 250 mls/hr Cefotaxime Sodium 1 gm/ Sodium (Chloride) 100 mls @ 100 mls/hr IV Q8H [facility] Last Infusion: 03/29/17 06:00 Dose: Infused Insulin Aspart (Novolog) 5 unit SUBQ AC [facility] PRN Reason: Protocol Last Admin: 03/29/17 09:01 Dose: 5 unit Insulin Aspart (Novolog) 1 - 5 unit SUBQ 0800,1200,1700,2100 [facility] PRN Reason: Protocol Last Admin: 03/29/17 08:48 Dose: Not Given Insulin Glargine (Lantus Solostar) 30 unit SUBQ BID [facility] Last Admin: 03/29/17 09:01 Dose: 30 unit Lactulose (Enulose) 10 gm PO BID PRN PRN Reason: Constipation Levalbuterol HCl (Xopenex) 1.25 mg INH RTTID [facility] Last Admin: 03/29/17 08:25 Dose: 1.25 mg Loperamide HCl (Imodium) 2 mg PO QID PRN PRN Reason: Diarrhea Mineral Oil (Cavilon) 1 applic TOP PRN PRN PRN Reason: Skin Care Ondansetron HCl (Zofran Odt) 4 mg TL Q6HR PRN PRN Reason: Nausea / Vomiting Polyethylene Glycol (Miralax) 17 gm PO DAILY [facility] Last Admin: 03/29/17 09:09 Dose: 17 gm Senna (Senokot) 17.2 mg PO [facility] Last Admin: 03/28/17 21:35 Dose: 17.2 mg Sodium Chloride (Normal Saline Flush 0.9%) 10 ml IVP PRN PRN PRN Reason: NEEDED PER PROVIDER ORDERS Last Admin: 03/28/17 21:34 Dose: 10 ml Sodium Chloride (Normal Saline Flush 0.9%) 10 ml IVP Q8HR [facility] Last Admin: 03/29/17 06:38 Dose: Not Given Sodium Chloride (Normal Saline) 3 ml INH PRN PRN PRN Reason: Levalbuterol treatment Last Admin: 03/29/17 08:25 Dose: 3 ml Temazepam (Restoril) 15 mg PO QPM PRN PRN Reason: Insomnia Last Admin: 03/27/17 22:41 Dose: 15 mg Trazodone HCl (Desyrel) 100 mg PO [facility] Last Admin: 03/28/17 21:35 Dose: 100 mg Docusate Sodium 250Mg Capsule [Colace] 250 mg PO BID 07/08/13 Gabapentin [Neurontin] 900 mg PO TID 07/08/13 Senna [Senokot] 2 tab PO 07/08/13 Simvastatin [Zocor] 10 mg PO 07/08/13 Trazodone HCl 100 mg PO 07/08/13 traMADol [Ultram] 50 mg PO QID 07/08/13 Lisinopril 5 mg PO DAILY 04/10/14 Clopidogrel Bisulfate [Plavix] 75 mg PO DAILY 09/15/14 Sevelamer Carbonate [Renvela] 800 mg PO TIDWM 01/30/15 Bupropion HCl [Bupropion HCl Sr] 300 mg PO DAILY 07/29/15 Polyethylene Glycol 3350 [Miralax] 1 packet PO DAILY PRN 10/09/15 DULoxetine [Cymbalta] 20 mg PO DAILY 03/27/17 Insulin Detemir [Levemir Flextouch] 30 unit SQ BID 03/27/17 Insulin Regular Human [NovoLIN R] 2 - 12 unit SUBQ .SLIDINGSCALE 03/27/17 Insulin Regular Human [NovoLIN R] 10 unit SUBQ 1200,1700 03/27/17 Insulin Regular Human [NovoLIN R] 15 unit SUBQ QDBREAKFAST 03/27/17 Ipratropium/Albuterol Sulfate [Iprat-Albut 0.5-3(2.5) mg/3 ml] 3 ml IH Q4H 03/27 Loperamide HCl [Imodium A-D] 2 mg PO QID PRN MDD 8 MG 03/27/17 buPROPion [Wellbutrin Sr] 150 mg PO 1200 03/27/17 Objective - Vital Signs/Intake & Output Reviewed Vital Signs: Yes Vital Signs: Vital Signs x48h Temp Pulse Pulse Resp BP Pulse Ox 03/29/17 08:28 88 18 03/29/17 07:49 20 150/101 H 97 03/29/17 07:44 37.0 C 74 19 100/49 L 97 Intake & Output: Intake & Output 03/26/17 03/27/17 03/28/17 03/29/17 23:59 23:59 23:59 23:59 Intake Total 2070 4000 350 Output Total 600 550 Balance 1470 4000 -200 - Objective General Appearance: positive: No acute distress, Alert Eyes Bilateral: positive: Other Eyes: OU Abnormal EOM, OU Conjunctivae pale, OU Scleral icterus ENT: positive: ENT inspection nml, Pharynx nml, Dry mucous membranes Neck: positive: Nml inspection, Thyroid nml, No JVD, Stiff neck Respiratory: positive: Chest non-tender, No respiratory distress, Wheezes, Rales Cardiovascular: positive: No gallop, Irregularly irregular, Systolic murmur Peripheral Pulses: 1+ Radial (R), 1+ Radial (L) Abdomen: positive: Non-tender, Hepatomegaly, Other (rounded, soft) Rectal: positive: Enlarged prostate Back: positive: Nml inspection Skin: positive: No rash, Warm, Dry, Pallor, Decubitus (coccyx) Extremities: positive: Non-tender, Full ROM Neurologic/Psychiatric: positive: Disoriented to time, Weakness, Sensory loss, Depressed mood/affect, Other (baseline) Reflexes: Bicep (R): 2+, Bicep (L): 2+ - Lab Results Fish Bones: 03/29/17 04:47 03/29/17 04:47 Other Labs: Lab Results x24hrs 03/29/17 03/29/17 03/29/17 Range/Units 07:32 04:47 04:47 WBC (4.8-10.8) x10^3/uL RBC (4.70-6.10) 10^6/uL Hgb (14.0-18.0) g/dL Hct (42.0-52.0) % MCV (80.0-94.0) fL MCH (27.0-31.0) pg MCHC (32.0-36.0) g/dL RDW (12.0-15.0) % Plt Count (130-450) 10^3/uL MPV (7.4-11.4) fL Neut # (1.5-6.6) 10^3/uL Lymph # (1.5-3.5) 10^3/uL [place] # (0.0-1.0) 10^3/uL Eos # (0.0-0.7) 10^3/uL Baso # (0.0-0.1) 10^3/uL Absolute Nucleated RBC x10^3/uL Nucleated RBC % /100WBC Sodium 140 (135-145) mmol/L Potassium 3.8 (3.5-5.0) mmol/L Chloride 102 (101-111) mmol/L Carbon Dioxide 30 (21-32) mmol/L Anion Gap 8.0 (6-13) BUN 29 H (6-20) mg/dL Creatinine 1.3 H (0.6-1.2) mg/dL Estimated GFR (MDRD) 54 L (>89) Glucose 105 H (70-100) mg/dL POC Whole Bld Glucose 125 H (70 - 100) mg/dL Calcium 8.9 (8.5-10.3) mg/dL Total Bilirubin 0.8 (0.2-1.0) mg/dL AST 22 (10-42) IU/L ALT 17 (10-60) IU/L Alkaline Phosphatase 101 (42-121) IU/L B-Natriuretic Peptide 141 H (5-100) pg/mL Total Protein 7.6 (6.7-8.2) g/dL Albumin 3.1 L (3.2-5.5) g/dL Globulin 4.5 H (2.1-4.2) g/dL Albumin/Globulin Ratio 0.7 L (1.0-2.2) 03/29/17 03/28/17 03/28/17 Range/Units 04:47 21:02 16:47 WBC 8.7 (4.8-10.8) x10^3/uL RBC 4.31 L (4.70-6.10) 10^6/uL Hgb 12.4 L (14.0-18.0) g/dL Hct 38.2 L (42.0-52.0) % MCV 88.6 (80.0-94.0) fL MCH 28.7 (27.0-31.0) pg MCHC 32.3 (32.0-36.0) g/dL RDW 14.6 (12.0-15.0) % Plt Count 180 (130-450) 10^3/uL MPV 8.3 (7.4-11.4) fL Neut # 6.7 H (1.5-6.6) 10^3/uL Lymph # 1.2 L (1.5-3.5) 10^3/uL [place] # 0.7 (0.0-1.0) 10^3/uL Eos # 0.1 (0.0-0.7) 10^3/uL Baso # 0.0 (0.0-0.1) 10^3/uL Absolute Nucleated RBC 0.00 x10^3/uL Nucleated RBC % 0.0 /100WBC Sodium (135-145) mmol/L Potassium (3.5-5.0) mmol/L Chloride (101-111) mmol/L Carbon Dioxide (21-32) mmol/L Anion Gap (6-13) BUN (6-20) mg/dL Creatinine (0.6-1.2) mg/dL Estimated GFR (MDRD) (>89) Glucose (70-100) mg/dL POC Whole Bld Glucose 143 H 162 H (70 - 100) mg/dL Calcium (8.5-10.3) mg/dL Total Bilirubin (0.2-1.0) mg/dL AST (10-42) IU/L ALT (10-60) IU/L Alkaline Phosphatase (42-121) IU/L B-Natriuretic Peptide (5-100) pg/mL Total Protein (6.7-8.2) g/dL Albumin (3.2-5.5) g/dL Globulin (2.1-4.2) g/dL Albumin/Globulin Ratio (1.0-2.2) 03/28/17 Range/Units 11:15 WBC (4.8-10.8) x10^3/uL RBC (4.70-6.10) 10^6/uL Hgb (14.0-18.0) g/dL Hct (42.0-52.0) % MCV (80.0-94.0) fL MCH (27.0-31.0) pg MCHC (32.0-36.0) g/dL RDW (12.0-15.0) % Plt Count (130-450) 10^3/uL MPV (7.4-11.4) fL Neut # (1.5-6.6) 10^3/uL Lymph # (1.5-3.5) 10^3/uL [place] # (0.0-1.0) 10^3/uL Eos # (0.0-0.7) 10^3/uL Baso # (0.0-0.1) 10^3/uL Absolute Nucleated RBC x10^3/uL Nucleated RBC % /100WBC Sodium (135-145) mmol/L Potassium (3.5-5.0) mmol/L Chloride (101-111) mmol/L Carbon Dioxide (21-32) mmol/L Anion Gap (6-13) BUN (6-20) mg/dL Creatinine (0.6-1.2) mg/dL Estimated GFR (MDRD) (>89) Glucose (70-100) mg/dL POC Whole Bld Glucose 148 H (70 - 100) mg/dL Calcium (8.5-10.3) mg/dL Total Bilirubin (0.2-1.0) mg/dL AST (10-42) IU/L ALT (10-60) IU/L Alkaline Phosphatase (42-121) IU/L B-Natriuretic Peptide (5-100) pg/mL Total Protein (6.7-8.2) g/dL Albumin (3.2-5.5) g/dL Globulin (2.1-4.2) g/dL Albumin/Globulin Ratio (1.0-2.2) - Diagnostic Imaging Diagnostic Imaging Results: positive: Final report reviewed Assessment/Plan - Problem List (1) Pneumonia Impression: Left lower lobe pneumonia noted on chest x-ray that was completed in the ED. Copious, thick pale yellow sputum is noted and needs a yankur near the bed to keep his air way clear. There are somewhat less secretions noted today. Plan: IV antibiotics, nebulizers. Qualifiers: Pneumonia type: aspiration pneumonia Aspiration pneumonia type: unspecified Laterality: left Lung location: lower lobe of lung Qualified Code(s): J69.0 - Pneumonitis due to inhalation of food and vomit (2) Altered mental status Impression: Patient has baseline dementia, and expressive aphasia related to his multiple medical insults including [place], CVA, heavy ETOH use. Emma, who is patient's designated POA can attest to patient's medical condition and was able to be helpful for his exam. Plan: Treat pneumonia and monitor electrolytes. Qualifiers: Altered mental status type: transient alteration of awareness Qualified Code(s): R40.4 - Transient alteration of awareness (3) CKD stage 3 secondary to diabetes Impression: Patient has a creatinine of 1.3 and an estimated GFR of 54 today. He has a baseline creatinine of ~1.5. Choosing antibiotic choices wisely as to not worsen CKD. Plan: Monitor fluid balance. Continue daily IV lasix which should be continued in PO form at facility. Avoid nephrotoxins. (4) COPD (chronic obstructive pulmonary disease) Impression: Per , Emma patient is a long time smoker and notes that he would typically smoke 3-4 PPD from the age of [age]. Guafenisen was added. Plan: Continue care with xopenex while in the acute PNA phase. The best treatment is by using a LABA, LAMA and a short acting rescue inhaler. (5) Legally blind Impression: Patient's HEENT exam will reflect; patient not able to focus and has been completely blind since about 2 years ago. cannot remember what led to this condition, but I suspect it may have been from uncontrolled diabetes mellitus type 2. Plan: Patient will be noted as a "feeder" to ensure his meals are set up, and he can be guided with eating. (6) Sacral decubitus ulcer Impression: Wound care consulted today who suggests continued turns, Extra secura type cream. Head was placed for wound protection. Plan: Continue current plan and minimized patient being left in the same exact position to ensure healing. Qualifiers: Pressure ulcer stage: stage 3 Qualified Code(s): L89.153 - Pressure ulcer of sacral region, stage 3
[2017-03-29] MEDS: buPROPion SR 150 MG TABLET PO SCH (12:44)
[2017-03-29] MEDS: MICONAZOLE CREAM (EXTRA-THICK) 92 GM TUBE TOP SCH ×2 (16:39→21:17)
[2017-03-29] MEDS: LEVALBUTEROL 1.25 MG/3 ML NEB INH SCH (20:07)
[2017-03-29] MEDS: SENNA 8.6 MG TABLET PO SCH (21:10)
[2017-03-29] MEDS: traZODone 50 MG TABLET PO SCH (21:11)
[2017-03-29] MEDS: SODIUM CHLORIDE FLUSH 0.9% 10 ML SYRINGE IVP PRN (22:00)
[2017-03-30] MEDS: SODIUM CHLORIDE FLUSH 0.9% 10 ML SYRINGE IVP SCH ×3 (05:00→20:59)
[2017-03-30] MEDS: CEFOTAXIME IV SCH ×3 (05:00→20:59)
[2017-03-30] MEDS: SODIUM CHLORIDE 0.9% IV SCH ×3 (05:00→20:59)
[2017-03-30 06:21] LABS: BASOPHILS % (AUTO) 0.3 %; EOSINOPHILS # (AUTO) 0.1 10^3/uL (0.0-0.7); EOSINOPHILS % (AUTO) 1.8 %; HGB - HEMOGLOBIN 12.5 g/dL (14.0-18.0); LYMPHOCYTES % (AUTO) 13.3 %; MEAN CORPUSCULAR HGB CONC 32.9 g/dL (32.0-36.0); MEAN PLATELET VOLUME 8.3 fL (7.4-11.4); MONOCYTES # (AUTO) 0.5 10^3/uL (0.0-1.0); MONOCYTES % (AUTO) 6.3 %; NEUTROPHILS # (AUTO) 6.1 10^3/uL (1.5-6.6); NEUTROPHILS % (AUTO) 78.3 %; PLT - PLATELET COUNT 192 10^3/uL (130-450); RED BLOOD COUNT 4.32 10^6/uL (4.70-6.10); RED CELL DISTRIBUTION WIDTH 14.5 % (12.0-15.0); WHITE BLOOD COUNT 7.8 x10^3/uL (4.8-10.8)
[2017-03-30 06:37] LABS: ALBUMIN 3.1 g/dL (3.2-5.5); ALBUMIN/GLOBULIN RATIO 0.7 (1.0-2.2); BILIRUBIN,TOTAL 0.6 mg/dL (0.2-1.0); CALCIUM 8.8 mg/dL (8.5-10.3); CREATININE 1.2 mg/dL (0.6-1.2); TOTAL PROTEIN 7.4 g/dL (6.7-8.2)
[2017-03-30] MEDS: INSULIN ASPART 300 UNIT/3 ML PEN SUBQ SCH ×7 (07:50→21:00)
[2017-03-30] MEDS: POLYETHYLENE GLYCOL 3350 17 GM PACKET PO SCH (07:52)
[2017-03-30] MEDS ORDERED: POTASSIUM CHLORIDE 20 MEQ TABLET PO ONE (08:22)
[2017-03-30] MEDS: INSULIN GLARGINE 300 UNIT/3 ML PEN SUBQ SCH ×2 (08:25→21:01)
[2017-03-30] MEDS: ENOXAPARIN 40 MG/0.4 ML SYRINGE SUBQ SCH ×2 (08:28→20:51)
[2017-03-30] MEDS: MICONAZOLE CREAM (EXTRA-THICK) 92 GM TUBE TOP SCH ×2 (08:28→20:59)
[2017-03-30] MEDS: CLOPIDOGREL 75 MG TABLET PO SCH (08:28)
[2017-03-30] MEDS: AZITHROMYCIN INJ 500 MG in SODIUM CHLORIDE 0.9% 250 ML IV SCH (08:28)
[2017-03-30] MEDS: FAMOTIDINE 20 MG TABLET PO SCH (08:28)
[2017-03-30] MEDS: FUROSEMIDE 40 MG/4 ML VIAL IVP SCH (08:29)
[2017-03-30] MEDS: LEVALBUTEROL 1.25 MG/3 ML NEB INH SCH ×3 (08:37→21:12)
[2017-03-30] MEDS: buPROPion SR 150 MG TABLET PO SCH (11:46)
--- NOTE | 2017-03-30 15:35 | PROVIDER PROGRESS NOTE ---
Subjective - Prog Note Date Prog Note Date: 03/30/17 - Subjective Pt reports feeling: Improved Subjective: pt state he feel fine but still feel weakness, denies fever, chill, chest pain. Current Medications - Current Medications Current Medications: Active Medications Acetaminophen (Tylenol) 650 mg PO Q4HR PRN PRN Reason: Pain 1 to 4 Last Admin: 03/29/17 17:49 Dose: 650 mg Bupropion HCl (Wellbutrin Sr) 150 mg PO 1200 [facility] Last Admin: 03/30/17 11:46 Dose: 150 mg Clopidogrel Bisulfate (Plavix) 75 mg PO DAILY [facility] Last Admin: 03/30/17 08:28 Dose: 75 mg Enoxaparin Sodium (Lovenox) 40 mg SUBQ BID [facility] Last Admin: 03/30/17 08:28 Dose: 40 mg Famotidine (Pepcid) 20 mg PO DAILY [facility] Last Admin: 03/30/17 08:28 Dose: 20 mg Furosemide (Lasix Inj 40 Mg Vial) 40 mg IVP DAILY [facility] Last Admin: 03/30/17 08:29 Dose: 40 mg Azithromycin 500 mg/ Sodium (Chloride) 250 mls @ 250 mls/hr IV DAILY [facility] Last Infusion: 03/30/17 09:28 Dose: Infused Cefotaxime Sodium 1 gm/ Sodium (Chloride) 100 mls @ 100 mls/hr IV Q8H [facility] Last Infusion: 03/30/17 14:53 Dose: Infused Insulin Aspart (Novolog) 5 unit SUBQ AC [facility] PRN Reason: Protocol Last Admin: 03/30/17 11:47 Dose: 5 unit Insulin Aspart (Novolog) 1 - 5 unit SUBQ 0800,1200,1700,2100 [facility] PRN Reason: Protocol Last Admin: 03/30/17 11:48 Dose: Not Given Insulin Glargine (Lantus Solostar) 30 unit SUBQ BID [facility] Last Admin: 03/30/17 08:25 Dose: 30 unit Lactulose (Enulose) 10 gm PO BID PRN PRN Reason: Constipation Levalbuterol HCl (Xopenex) 1.25 mg INH RTTID [facility] Last Admin: 03/30/17 08:37 Dose: 1.25 mg Loperamide HCl (Imodium) 2 mg PO QID PRN PRN Reason: Diarrhea Miconazole (Secura Extra-Thick) 1 applic TOP BID [facility] Last Admin: 03/30/17 08:28 Dose: 1 applic Mineral Oil (Cavilon) 1 applic TOP PRN PRN PRN Reason: Skin Care Ondansetron HCl (Zofran Odt) 4 mg TL Q6HR PRN PRN Reason: Nausea / Vomiting Polyethylene Glycol (Miralax) 17 gm PO DAILY [facility] Last Admin: 03/30/17 07:52 Dose: Not Given Senna (Senokot) 17.2 mg PO HS [facility] Last Admin: 03/29/17 21:10 Dose: 17.2 mg Sodium Chloride (Normal Saline Flush 0.9%) 10 ml IVP PRN PRN PRN Reason: NEEDED PER PROVIDER ORDERS Last Admin: 03/29/17 22:00 Dose: 10 ml Sodium Chloride (Normal Saline Flush 0.9%) 10 ml IVP Q8HR [facility] Last Admin: 03/30/17 13:52 Dose: 10 ml Sodium Chloride (Normal Saline) 3 ml INH PRN PRN PRN Reason: Levalbuterol treatment Last Admin: 03/29/17 13:14 Dose: 3 ml Temazepam (Restoril) 15 mg PO QPM PRN PRN Reason: Insomnia Last Admin: 03/27/17 22:41 Dose: 15 mg Trazodone HCl (Desyrel) 100 mg PO [facility] Last Admin: 03/29/17 21:11 Dose: 100 mg Docusate Sodium 250Mg Capsule [Colace] 250 mg PO BID 07/08/13 Gabapentin [Neurontin] 900 mg PO TID 07/08/13 Senna [Senokot] 2 tab PO 07/08/13 Simvastatin [Zocor] 10 mg PO HS 07/08/13 Trazodone HCl 100 mg PO HS 07/08/13 traMADol [Ultram] 50 mg PO QID 07/08/13 Lisinopril 5 mg PO DAILY 04/10/14 Clopidogrel Bisulfate [Plavix] 75 mg PO DAILY 09/15/14 Sevelamer Carbonate [Renvela] 800 mg PO TIDWM 01/30/15 Bupropion HCl [Bupropion HCl Sr] 300 mg PO DAILY 07/29/15 Polyethylene Glycol 3350 [Miralax] 1 packet PO DAILY PRN 10/09/15 DULoxetine [Cymbalta] 20 mg PO DAILY 03/27/17 Insulin Detemir [Levemir Flextouch] 30 unit SQ BID 03/27/17 Insulin Regular Human [NovoLIN R] 2 - 12 unit SUBQ .SLIDINGSCALE 03/27/17 Insulin Regular Human [NovoLIN R] 10 unit SUBQ 1200,1700 03/27/17 Insulin Regular Human [NovoLIN R] 15 unit SUBQ QDBREAKFAST 03/27/17 Ipratropium/Albuterol Sulfate [Iprat-Albut 0.5-3(2.5) mg/3 ml] 3 ml IH Q4H 03/27 Loperamide HCl [Imodium A-D] 2 mg PO QID PRN MDD 8 MG 03/27/17 buPROPion [Wellbutrin Sr] 150 mg PO 1200 03/27/17 Objective - Vital Signs/Intake & Output Reviewed Vital Signs: Yes Vital Signs: Vital Signs x48h Temp Pulse Pulse Resp BP Pulse Ox 03/30/17 08:37 85 14 03/30/17 08:11 36.8 C 80 19 128/58 L 96 Intake & Output: Intake & Output 03/27/17 03/28/17 03/29/17 03/30/17 23:59 23:59 23:59 23:59 Intake Total 2070 4000 1950 1790 Output Total 600 2325 1650 Balance 1470 4000 -375 140 - Objective General Appearance: positive: No acute distress, Alert. negative: Lethargic Eyes Bilateral: positive: Normal inspection, PERRL, No lid inflammation, Conjunctivae nml ENT: positive: ENT inspection nml, Pharynx nml, No signs of dehydration. negative: Purulent nasal drainage, Pharyngeal erythema, Oral lesions, Dry mucous membranes Neck: positive: Nml inspection, Thyroid nml, No JVD, Trachea midline. negative : Thyromegaly, Lymphadenopathy (R), Lymphadenopathy (L), Stiff neck, Carotid bruit, Swelling/bruising, Tracheal deviation Respiratory: positive: Chest non-tender, No respiratory distress. negative: Wheezes, Rales Cardiovascular: positive: Regular rate & rhythm, No murmur, No gallop. negative : Irregularly irregular, Extrasystoles, Tachycardia, Bradycardia, Systolic murmur Peripheral Pulses: 2+ Radial (R), 2+ Radial (L), 2+ Dorsalis pedis (R), 2+ Dorsalis pedis (L) Abdomen: positive: Non-tender, No organomegaly, Nml bowel sounds, No distention. negative: Tenderness, Guarding, Rebound Back: positive: Nml inspection. negative: CVA tenderness (R), CVA tenderness (L ) Skin: positive: Color nml, No rash, Warm, Dry. negative: Cyanosis, Diaphoresis , Pallor Extremities: positive: Non-tender, Full ROM. negative: Joint swelling, Ruth Ann's sign/cords Neurologic/Psychiatric: positive: Sensation nml, Mood/affect nml. negative: Sensory loss, Facial droop, Slurred/abnml speech, Depressed mood/affect - Lab Results Fish Bones: 03/30/17 06:00 03/30/17 06:00 Other Labs: Lab Results x24hrs 03/30/17 03/30/17 03/30/17 Range/Units 07:41 06:00 06:00 WBC (4.8-10.8) x10^3/uL RBC (4.70-6.10) 10^6/uL Hgb (14.0-18.0) g/dL Hct (42.0-52.0) % MCV (80.0-94.0) fL MCH (27.0-31.0) pg MCHC (32.0-36.0) g/dL RDW (12.0-15.0) % Plt Count (130-450) 10^3/uL MPV (7.4-11.4) fL Neut # (1.5-6.6) 10^3/uL Lymph # (1.5-3.5) 10^3/uL Hartley # (0.0-1.0) 10^3/uL Eos # (0.0-0.7) 10^3/uL Baso # (0.0-0.1) 10^3/uL Absolute Nucleated RBC x10^3/uL Nucleated RBC % /100WBC Sodium 138 (135-145) mmol/L Potassium 3.4 L (3.5-5.0) mmol/L Chloride 100 L (101-111) mmol/L Carbon Dioxide 30 (21-32) mmol/L Anion Gap 8.0 (6-13) BUN 27 H (6-20) mg/dL Creatinine 1.2 (0.6-1.2) mg/dL Estimated GFR (MDRD) 59 L (>89) Glucose 100 (70-100) mg/dL POC Whole Bld Glucose 95 (70 - 100) mg/dL Calcium 8.8 (8.5-10.3) mg/dL Total Bilirubin 0.6 (0.2-1.0) mg/dL AST 31 (10-42) IU/L ALT 28 (10-60) IU/L Alkaline Phosphatase 111 (42-121) IU/L B-Natriuretic Peptide 17 (5-100) pg/mL Total Protein 7.4 (6.7-8.2) g/dL Albumin 3.1 L (3.2-5.5) g/dL Globulin 4.3 H (2.1-4.2) g/dL Albumin/Globulin Ratio 0.7 L (1.0-2.2) 03/30/17 03/29/17 03/29/17 Range/Units 06:00 20:24 16:34 WBC 7.8 (4.8-10.8) x10^3/uL RBC 4.32 L (4.70-6.10) 10^6/uL Hgb 12.5 L (14.0-18.0) g/dL Hct 38.0 L (42.0-52.0) % MCV 88.0 (80.0-94.0) fL MCH 29.0 (27.0-31.0) pg MCHC 32.9 (32.0-36.0) g/dL RDW 14.5 (12.0-15.0) % Plt Count 192 (130-450) 10^3/uL MPV 8.3 (7.4-11.4) fL Neut # 6.1 (1.5-6.6) 10^3/uL Lymph # 1.0 L (1.5-3.5) 10^3/uL Hartley # 0.5 (0.0-1.0) 10^3/uL Eos # 0.1 (0.0-0.7) 10^3/uL Baso # 0.0 (0.0-0.1) 10^3/uL Absolute Nucleated RBC 0.01 x10^3/uL Nucleated RBC % 0.1 /100WBC Sodium (135-145) mmol/L Potassium (3.5-5.0) mmol/L Chloride (101-111) mmol/L Carbon Dioxide (21-32) mmol/L Anion Gap (6-13) BUN (6-20) mg/dL Creatinine (0.6-1.2) mg/dL Estimated GFR (MDRD) (>89) Glucose (70-100) mg/dL POC Whole Bld Glucose 126 H 131 H (70 - 100) mg/dL Calcium (8.5-10.3) mg/dL Total Bilirubin (0.2-1.0) mg/dL AST (10-42) IU/L ALT (10-60) IU/L Alkaline Phosphatase (42-121) IU/L B-Natriuretic Peptide (5-100) pg/mL Total Protein (6.7-8.2) g/dL Albumin (3.2-5.5) g/dL Globulin (2.1-4.2) g/dL Albumin/Globulin Ratio (1.0-2.2) Assessment/Plan - Problem List (1) Pneumonia Impression: (1) Pneumonia Impression: pt is still low SO2 with O2-dependence, will continue antibiotic treatment daily lab, vital monitor Left lower lobe pneumonia noted on chest x-ray that was completed in the ED. Copious, thick pale yellow sputum is noted and needs a yankur near the bed to keep his air way clear. There are somewhat less secretions noted today. Plan: IV antibiotics, nebulizers. (2) Altered mental status Impression: pt has clear mind than prior continue neuro check continue to treat pneumonia Patient has baseline dementia, and expressive aphasia related to his multiple medical insults including NM, CVA, heavy ETOH use. Emma, who is patient's designated POA can attest to patient's medical condition and was able to be helpful for his exam. Plan: Treat pneumonia and monitor electrolytes. (3) CKD stage 3 secondary to diabetes Impression: Patient has a creatinine of 1.3 and an estimated GFR of 54 today. He has a baseline creatinine of ~1.5. Choosing antibiotic choices wisely as to not worsen CKD. Plan: Monitor fluid balance. Continue daily IV lasix which should be continued in PO form at facility. Avoid nephrotoxins. (4) COPD (chronic obstructive pulmonary disease) Impression: continue NIH treatment vital monitor lab monitor Per , Emma patient is a long time smoker and notes that he would typically smoke 3-4 PPD from the age of [age]. Guafenisen was added. Plan: Continue care with xopenex while in the acute PNA phase. The best treatment is by using a LABA, LAMA and a short acting rescue inhaler. (5) Legally blind Impression: continue support Patient's HEENT exam will reflect; patient not able to focus and has been completely blind since about 2 years ago. cannot remember what led to this condition, but I suspect it may have been from uncontrolled diabetes mellitus type 2. Plan: Patient will be noted as a "feeder" to ensure his meals are set up, and he can be guided with eating. (6) Sacral decubitus ulcer Impression: wound consulted with recommendation, will follow up dressing change antibiotics treatment wound consulted, will follow up Wound care consulted today who suggests continued turns, Extra secura type cream. Head was placed for wound protection. Plan: Continue current plan and minimized patient being left in the same exact position to ensure healing. (7) weakness pt is with profound weakness, nurse will assess pt first, follow up with PT/OT treatment and evaluation. pt is admitted for more than 96 hours:1, based on SO2 low with O2 dependence, 2 , profound weakness, 3, continue sacral wound care Qualifiers: Pneumonia type: aspiration pneumonia Aspiration pneumonia type: unspecified Laterality: left Lung location: lower lobe of lung Qualified Code(s): J69.0 - Pneumonitis due to inhalation of food and vomit
[2017-03-30] MEDS: SENNA 8.6 MG TABLET PO SCH (20:59)
[2017-03-30] MEDS: traZODone 50 MG TABLET PO SCH (20:59)
[2017-03-31] MEDS: CEFOTAXIME IV SCH (05:05)
[2017-03-31] MEDS: SODIUM CHLORIDE FLUSH 0.9% 10 ML SYRINGE IVP SCH (05:05)
[2017-03-31] MEDS: SODIUM CHLORIDE 0.9% IV SCH (05:05)
[2017-03-31 05:52] LABS: BASOPHILS % (AUTO) 0.3 %; EOSINOPHILS # (AUTO) 0.1 10^3/uL (0.0-0.7); EOSINOPHILS % (AUTO) 1.8 %; HGB - HEMOGLOBIN 13.2 g/dL (14.0-18.0); LYMPHOCYTES # (AUTO) 1.1 10^3/uL (1.5-3.5); LYMPHOCYTES % (AUTO) 14.2 %; MEAN CORPUSCULAR HEMOGLOBIN 28.5 pg (27.0-31.0); MEAN CORPUSCULAR HGB CONC 32.5 g/dL (32.0-36.0); MEAN CORPUSCULAR VOLUME 87.9 fL (80.0-94.0); MEAN PLATELET VOLUME 8.2 fL (7.4-11.4); MONOCYTES # (AUTO) 0.6 10^3/uL (0.0-1.0); MONOCYTES % (AUTO) 7.8 %; NEUTROPHILS # (AUTO) 5.8 10^3/uL (1.5-6.6); NEUTROPHILS % (AUTO) 75.9 %; PLT - PLATELET COUNT 217 10^3/uL (130-450); RED BLOOD COUNT 4.63 10^6/uL (4.70-6.10); RED CELL DISTRIBUTION WIDTH 14.6 % (12.0-15.0); WHITE BLOOD COUNT 7.6 x10^3/uL (4.8-10.8)
[2017-03-31 06:03] LABS: ALBUMIN 3.4 g/dL (3.2-5.5); ALBUMIN/GLOBULIN RATIO 0.8 (1.0-2.2); BILIRUBIN,TOTAL 0.6 mg/dL (0.2-1.0); CALCIUM 9.3 mg/dL (8.5-10.3); CREATININE 1.2 mg/dL (0.6-1.2); TOTAL PROTEIN 7.9 g/dL (6.7-8.2)
[2017-03-31] MEDS: INSULIN ASPART 300 UNIT/3 ML PEN SUBQ SCH ×4 (08:50→12:05)
[2017-03-31] MEDS: INSULIN GLARGINE 300 UNIT/3 ML PEN SUBQ SCH (08:51)
[2017-03-31] MEDS: FUROSEMIDE 40 MG/4 ML VIAL IVP SCH (08:52)
[2017-03-31] MEDS: AZITHROMYCIN INJ 500 MG in SODIUM CHLORIDE 0.9% 250 ML IV SCH (08:52)
[2017-03-31] MEDS: ENOXAPARIN 40 MG/0.4 ML SYRINGE SUBQ SCH (08:52)
[2017-03-31] MEDS: FAMOTIDINE 20 MG TABLET PO SCH (08:53)
[2017-03-31] MEDS: POLYETHYLENE GLYCOL 3350 17 GM PACKET PO SCH (08:53)
[2017-03-31] MEDS: CLOPIDOGREL 75 MG TABLET PO SCH (08:53)
[2017-03-31] MEDS: SODIUM CHLORIDE FLUSH 0.9% 10 ML SYRINGE IVP PRN (08:55)
[2017-03-31] MEDS: MICONAZOLE CREAM (EXTRA-THICK) 92 GM TUBE TOP SCH (09:06)
[2017-03-31] MEDS: LEVALBUTEROL 1.25 MG/3 ML NEB INH SCH (10:00)
--- NOTE | 2017-03-31 11:25 | Discharge Plan ---
Discharge Plan Disposition: 01 Home, Self Care Condition: Stable Prescriptions: Azithromycin 250 mg PO DAILY #4 tablet Diet: Diabetic Activity Restrictions: Activity as Tolerated Shower Restrictions: No Assistance Devices: Wheelchair Follow-Up Care: [facility] No Smoking: If you smoke, Please STOP! Call for help. Follow-up with: Mariaa Marx MD [Primary Care Provider] -
--- NOTE | 2017-03-31 11:28 | DISCHARGE SUMMARY ---
Discharge Summary Discharge Date: 03/31/17 Discharging Provider: MILTON Primary Care Provider: Mariaa Shah Condition at Discharge: Stable Discharge Disposition: Home, Self Care Discharge Facility Name: home - DIAGNOSES Admission Diagnoses: (1) Pneumonia (2) Altered mental status (3) CKD stage 3 secondary to diabetes (4) COPD (chronic obstructive pulmonary disease) (5) Legally blind (6) Sacral decubitus ulcer (7) weakness Discharge Diagnoses with Status of Each Condition: (1) Pneumonia after treatment, pt is room air with SO 92%, WBC is down to the normal, no fever , chill, cough (2) Altered mental status baseline, stable (3) CKD stage 3 secondary to diabetes improved (4) COPD (chronic obstructive pulmonary disease) stable, room air with SO2 92% (5) Legally blind stable, (6) Sacral decubitus ulcer chronic per many years per pt's report, continue dressing changing per nurse's instruction. (7) weakness stable, pt is status post of right lower extremity amputation. - HPI History of Present Illness: please refer from Ms. Lopez's HPI on 03/27/17 as the following: Patient is an ill-appearing 76-year old male with a past medical history of BPH , hypertension, ID-status post cardiac stents, CVA-multiple, diabetes mellitus type 2, depression, anxiety, COPD, splenectomy, right AKA leg, blindness, and peripheral neuropathy. [facility] [place] and became acutely short of breath with congestion and worsening altered mental status. Once in the ED, a chest x-ray was completed and represented likely left lobe pneumonia, atelectasis, aspiration or an infectious process. He will be admitted for IV antibiotics, oxygen support, nebulizers, electrolyte balance, and blood sugar control. Confirmed with , patient wishes to be a DNR. - HOSPITAL COURSE Hospital Course: pt was admitted for pneumonia. pt has been continuing treated with antibiotics, and dressing change for ulcer at his back. Pt has no fever, chill, cough, SO2 92 % on room air, WBC is down to normal. pt is prescribed antibiotics to continue his pneumonia treatment course. - ALLERGIES Allergies/Adverse Reactions: Allergies Allergy/AdvReac Type Severity Reaction Status Date / Time Penicillins Allergy Intermediate Rash Verified 07/08/16 18:15 morphine AdvReac Unknown I go Verified 07/08/16 18:15 berserk - MEDICATIONS Home Medications: Ambulatory Orders Medication Instructions Recorded Confirmed Docusate Sodium 250Mg Capsule 250 mg PO BID 07/08/13 03/27/17 [Colace 250Mg Capsule] Gabapentin [Neurontin] 900 mg PO TID 07/08/13 03/27/17 Senna [Senokot] 2 tab PO HS 07/08/13 03/27/17 Simvastatin [Zocor] 10 mg PO HS 07/08/13 03/27/17 Trazodone HCl 100 mg PO HS 07/08/13 03/27/17 traMADol [Ultram] 50 mg PO QID 07/08/13 03/27/17 Lisinopril 5 mg PO DAILY 04/10/14 03/27/17 Lactulose 15 ml PO BID PRN #1 bottle 08/30/14 03/27/17 Clopidogrel Bisulfate [Plavix] 75 mg PO DAILY 09/15/14 03/27/17 Albuterol [Ventolin Hfa] 2 puffs INH Q4H PRN #1 inhaler 01/30/15 03/27/17 Sevelamer Carbonate [Renvela] 800 mg PO TIDWM 01/30/15 03/27/17 Bupropion HCl [Bupropion HCl Sr] 300 mg PO DAILY 07/29/15 03/27/17 Polyethylene Glycol 3350 [Miralax] 1 packet PO DAILY PRN 10/09/15 03/27/17 DULoxetine [Cymbalta] 20 mg PO DAILY 03/27/17 03/27/17 Insulin Detemir [Levemir Flextouch] 30 unit SQ BID 03/27/17 03/27/17 Insulin Regular Human [NovoLIN R] 2 - 12 unit SUBQ .SLIDINGSCALE 03/27/17 Insulin Regular Human [NovoLIN R] 10 unit SUBQ 1200,1700 03/27/17 03/27/17 Insulin Regular Human [NovoLIN R] 15 unit SUBQ QDBREAKFAST 03/27/17 03/27/17 Ipratropium/Albuterol Sulfate 3 ml IH Q4H 03/27/17 03/27/17 [Iprat-Albut 0.5-3(2.5) mg/3 ml] Loperamide HCl [Imodium A-D] 2 mg PO QID PRN MDD 8 MG 03/27/17 03/27/17 buPROPion [Wellbutrin Sr] 150 mg PO 1200 03/27/17 03/27/17 Azithromycin 250 mg PO DAILY #4 tablet 03/31/17 - PHYSICAL EXAM AT DISCHARGE General Appearance: positive: No acute distress, Alert. negative: Lethargic Eyes Bilateral: positive: Normal inspection, PERRL, EOMI, No lid inflammation, Conjunctivae nml ENT: positive: ENT inspection nml, Pharynx nml, No signs of dehydration. negative: Purulent nasal drainage, Pharyngeal erythema, Oral lesions Neck: positive: Nml inspection, Thyroid nml, No JVD, Trachea midline. negative : Thyromegaly, Lymphadenopathy (R), Lymphadenopathy (L), Stiff neck, Carotid bruit, Swelling/bruising, Tracheal deviation Respiratory: positive: Chest non-tender, No respiratory distress, Breath sounds nml. negative: Wheezes, Rales, Rhonchi Cardiovascular: positive: Regular rate & rhythm, No murmur, No gallop. negative : Irregularly irregular, Extrasystoles, Tachycardia, Bradycardia, Systolic murmur, Diastolic murmur Peripheral Pulses: positive: 2+ Abdomen: positive: Non-tender, No organomegaly, Nml bowel sounds, No distention. negative: Tenderness, Guarding, Rebound Back: positive: Nml inspection. negative: CVA tenderness (R), CVA tenderness (L ) Skin: positive: Color nml, No rash, Warm, Dry, Skin rash, Decubitus. negative: Cyanosis, Diaphoresis, Pallor Extremities: positive: Non-tender, Full ROM, Nml appearance. negative: Calf tenderness, Ruth Ann's sign/cords Neurologic/Psychiatric: positive: Motor nml, Sensation nml. negative: Sensory loss, Facial droop, Slurred/abnml speech, Depressed mood/affect - LABS Result Diagrams: 03/31/17 05:30 03/31/17 05:30 - FOLLOW UP Follow Up: May follow up PCP in one week, continue to finish antibiotics course for pneumonia.
[2017-03-31] MEDS: buPROPion SR 150 MG TABLET PO SCH (12:03)
[2017-03-31 13:08] VITALS: BP 129/71
== END 2017-03-31 13:05 | disposition home or self-care (01) | DRG 177 ==
LOC: EDUNIT# → ED 09:58 → MS2 11:27
PROVIDERS: ADMIT Nurse Practitioner; ATTEND Nurse Practitioner Gerontology
DX: J69.0 Pneumonitis due to inhalation of food and vomit (principal); L89.153 Pressure ulcer of sacral region, stage 3; J18.9 Pneumonia, unspecified organism; R40.4 Transient alteration of awareness; E11.9 Type 2 diabetes mellitus without complications; I12.9 Hypertensive chronic kidney disease with stage 1 through stage 4 chronic kidney disease, or unspecified chronic kidney disease; E11.22 Type 2 diabetes mellitus with diabetic chronic kidney disease; N18.3 Chronic kidney disease, stage 3 (moderate); J44.9 Chronic obstructive pulmonary disease, unspecified; H54.8 Legal blindness, as defined in USA; N40.0 Benign prostatic hyperplasia without lower urinary tract symptoms; F41.9 Anxiety disorder, unspecified; F32.9 Major depressive disorder, single episode, unspecified; F17.200 Nicotine dependence, unspecified, uncomplicated; E11.42 Type 2 diabetes mellitus with diabetic polyneuropathy; E11.51 Type 2 diabetes mellitus with diabetic peripheral angiopathy without gangrene; F03.90 Unspecified dementia, unspecified severity, without behavioral disturbance, psychotic disturbance, mood disturbance, and anxiety; I69.920 Aphasia following unspecified cerebrovascular disease; K21.9 Gastro-esophageal reflux disease without esophagitis; N40.1 Benign prostatic hyperplasia with lower urinary tract symptoms; N39.498 Other specified urinary incontinence; R35.0 Frequency of micturition; K59.09 Other constipation; Z66 Do not resuscitate; Z79.51 Long term (current) use of inhaled steroids; Z79.02 Long term (current) use of antithrombotics/antiplatelets; Z79.4 Long term (current) use of insulin; Z79.899 Other long term (current) drug therapy; I25.2 Old myocardial infarction; Z95.5 Presence of coronary angioplasty implant and graft; Z90.81 Acquired absence of spleen; Z89.611 Acquired absence of right leg above knee; Z98.2 Presence of cerebrospinal fluid drainage device; Z87.891 Personal history of nicotine dependence; Z72.89 Other problems related to lifestyle
CPT/HCPCS: 36415; 51701; 71045; 80053; 81001; 81003; 83036; 83605; 83690; 83735; 83880; 84100; 84484; 85025; 87040; 87086; 94640; 96360; 99283; 99284; 99285

== ENCOUNTER 2017-03-31 13:06 | Outpatient (CLI) | payer MEDICARE, MEDICAID | END 2017-03-31 13:07 | disposition home or self-care (01) | LOC: EMS 13:06 | PROVIDERS: ATTEND Surgery | DX: J18.9 Pneumonia, unspecified organism (principal) | CPT/HCPCS: A0425; A0428 ==

== ENCOUNTER 2017-04-18 17:47 | Outpatient (CLI) | payer MEDICARE, MEDICAID | END 2017-04-18 17:48 | disposition critical access hospital (66) | LOC: EMS 17:47 | PROVIDERS: ATTEND Surgery | DX: R53.83 Other fatigue (principal); R46.4 Slowness and poor responsiveness | CPT/HCPCS: A0425; A0429 ==

== ENCOUNTER 2017-04-18 17:49 | Emergency (ER) | payer MEDICARE, MEDICAID ==
[2017-04-18 18:51] LABS: BASOPHILS % (AUTO) 0.4 %; EOSINOPHILS # (AUTO) 0.1 10^3/uL (0.0-0.7); EOSINOPHILS % (AUTO) 1.5 %; HGB - HEMOGLOBIN 12.8 g/dL (14.0-18.0); LYMPHOCYTES # (AUTO) 0.6 10^3/uL (1.5-3.5); LYMPHOCYTES % (AUTO) 7.3 %; MEAN CORPUSCULAR HEMOGLOBIN 28.7 pg (27.0-31.0); MEAN CORPUSCULAR HGB CONC 33.7 g/dL (32.0-36.0); MEAN CORPUSCULAR VOLUME 85.2 fL (80.0-94.0); MEAN PLATELET VOLUME 8.2 fL (7.4-11.4); MONOCYTES # (AUTO) 0.6 10^3/uL (0.0-1.0); MONOCYTES % (AUTO) 6.3 %; NEUTROPHILS # (AUTO) 7.4 10^3/uL (1.5-6.6); NEUTROPHILS % (AUTO) 84.5 %; PLT - PLATELET COUNT 215 10^3/uL (130-450); RED BLOOD COUNT 4.45 10^6/uL (4.70-6.10); RED CELL DISTRIBUTION WIDTH 14.5 % (12.0-15.0); WHITE BLOOD COUNT 8.8 x10^3/uL (4.8-10.8)
[2017-04-18 19:03] LABS: ALBUMIN 3.3 g/dL (3.2-5.5); ALBUMIN/GLOBULIN RATIO 0.8 (1.0-2.2); BILIRUBIN,TOTAL 0.7 mg/dL (0.2-1.0); CREATININE 1.4 mg/dL (0.6-1.2); TOTAL PROTEIN 7.6 g/dL (6.7-8.2)
--- NOTE | 2017-04-18 19:17 | XRAY Report ---
EXAM: CHEST RADIOGRAPHY EXAM DATE: 04/18/2017 06:38 PM. CLINICAL HISTORY: Cough. COMPARISON: 03/27/2017. TECHNIQUE: 1 view. FINDINGS: Lungs/Pleura: Mild central congestive changes. Left basilar atelectasis, less likely infiltrate. Mediastinum: Within exam limitations, the cardiomediastinal contour is normal. Other: None. IMPRESSION: Mild central congestion with left basilar atelectasis, less likely infiltrate. [facility] Referring Provider Line: [phone] SITE ID: [id number]
[2017-04-18 19:59] LABS: BILIRUBIN,URINE NEGATIVE (NEGATIVE); GLUCOSE, URINE (UA) NEGATIVE (NEGATIVE); KETONES,URINE (UA) NEGATIVE (NEGATIVE); LEUKOCYTE ESTERASE, URINE LARGE (NEGATIVE); NITRITE,URINE NEGATIVE (NEGATIVE); OCCULT BLOOD,URINE LARGE (NEGATIVE); PROTEIN,URINE 30 mg/dL (NEGATIVE); UROBILINOGEN,URINE 0.2 (NORMAL) E.U./dL (NORMAL)
[2017-04-18 20:00] LABS: CLARITY,URINE CLOUDY (CLEAR)
--- NOTE | 2017-04-18 20:01 | ED Physician Documentation ---
History of Present Illness - Stated complaint Stated Complaint: DEC LOC - Chief complaint Chief Complaint: General - History obtained from History obtained from: Patient, EMS - History of Present Illness Timing: Today Pain level max: 0 Pain level now: 0 Improved by: nothing Worsened by: nothing - Additonal information Additional information: Patient is a 76-year-old male who lives at a assisted living facility. They state he had a decreased level of consciousness earlier today. No appears normal. He is awake and talking in the emergency department. Answering questions coherently. States he currently feels well. States he has had a mild cough for the past few days. No fevers. No vomiting. No diarrhea. Review of Systems Ten Systems: 10 systems reviewed and negative Constitutional: denies: Fever, Chills Ears: denies: Ear pain Nose: denies: Rhinorrhea / runny nose, Congestion Cardiac: denies: Chest pain / pressure Respiratory: reports: Cough. denies: Dyspnea, Wheezing : denies: Dysuria, Frequency, Hesitancy Skin: denies: Rash Musculoskeletal: denies: Neck pain, Back pain Neurologic: denies: Headache PD PAST MEDICAL HISTORY - Past Medical History Cardiovascular: Hypertension, High cholesterol, Coronary artery disease, Peripheral Vascular Disease, [place] Respiratory: COPD, Pneumonia, Shortness of breath Neuro: Dementia, CVA, Peripheral neuropathy Endocrine/Autoimmune: Type 2 diabetes GI: GERD, Chronic constipation : Benign prostate hypertrophy, Incontinence, Frequency HEENT: Chronic vision loss Psych: Depression, Anxiety Musculoskeletal: None Derm: None - Past Surgical History Past Surgical History: Yes General: Splenectomy Ortho: Amputation Cardiovascular: Coronary stent, Cardiac catheterization, Vascular surgery, Angioplasty 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 - Present Medications Home Medications: Ambulatory Orders Medication Instructions Recorded Confirmed Docusate Sodium 250Mg Capsule 250 mg PO BID 07/08/13 04/18/17 [Colace 250Mg Capsule] Gabapentin [Neurontin] 900 mg PO TID 07/08/13 04/18/17 Senna [Senokot] 2 tab PO HS 07/08/13 04/18/17 Simvastatin [Zocor] 10 mg PO HS 07/08/13 04/18/17 Trazodone HCl 100 mg PO HS 07/08/13 04/18/17 traMADol [Ultram] 50 mg PO QID 07/08/13 04/18/17 Lisinopril 5 mg PO DAILY 04/10/14 04/18/17 Lactulose 15 ml PO BID PRN #1 bottle 08/30/14 04/18/17 Clopidogrel Bisulfate [Plavix] 75 mg PO DAILY 09/15/14 04/18/17 Albuterol [Ventolin Hfa] 2 puffs INH Q4H PRN #1 inhaler 01/30/15 04/18/17 Sevelamer Carbonate [Renvela] 800 mg PO TIDWM 01/30/15 04/18/17 Bupropion HCl [Bupropion HCl Sr] 300 mg PO DAILY 07/29/15 04/18/17 Polyethylene Glycol 3350 [Miralax] 1 packet PO DAILY PRN 10/09/15 04/18/17 DULoxetine [Cymbalta] 20 mg PO DAILY 03/27/17 04/18/17 Insulin Detemir [Levemir Flextouch] 30 unit SQ BID 03/27/17 04/18/17 Insulin Regular Human [NovoLIN R] 2 - 12 unit SUBQ .SLIDINGSCALE 03/27/17 Insulin Regular Human [NovoLIN R] 10 unit SUBQ 1200,1700 03/27/17 04/18/17 Insulin Regular Human [NovoLIN R] 15 unit SUBQ QDBREAKFAST 03/27/17 04/18/17 Ipratropium/Albuterol Sulfate 3 ml IH Q4H 03/27/17 04/18/17 [Iprat-Albut 0.5-3(2.5) mg/3 ml] Loperamide HCl [Imodium A-D] 2 mg PO QID PRN MDD 8 MG 03/27/17 04/18/17 buPROPion [Wellbutrin Sr] 150 mg PO 1200 03/27/17 04/18/17 Azithromycin 250 mg PO DAILY #4 tablet 03/31/17 04/18/17 Ciprofloxacin HCl [Cipro] 500 mg PO BID #20 tablet 04/18/17 - Allergies Allergies/Adverse Reactions: Allergies Allergy/AdvReac Type Severity Reaction Status Date / Time Penicillins Allergy Intermediate Rash Verified 04/18/17 18:14 morphine AdvReac Unknown I go Verified 04/18/17 18:14 berserk - Social History Does the pt smoke?: Yes Smoking Status: Current every day smoker Does the pt drink ETOH?: Yes Does the pt have substance abuse?: No - Immunizations Immunizations are current?: Yes - POLST Patient has POLST: Yes POLST Status: DNR PD ED PE NORMAL - Vitals Vital signs reviewed: Yes - General General: Alert and oriented X 3, No acute distress, Well developed/nourished - HEENT HEENT: Atraumatic, PERRL, Ears normal, Moist mucous membranes - Neck Neck: Supple, no meningeal sign - Cardiac Cardiac: RRR, Strong equal pulses - Respiratory Respiratory: No respiratory distress, Clear bilaterally - Abdomen Abdomen: Soft, Non tender, Non distended - Back Back: No spinal TTP - Derm Derm: Warm and dry, No rash - Extremities Extremities: Other (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.) - Neuro Neuro: Alert and oriented X 3 - Psych Psych: Normal mood, Normal affect Results - Vitals Vitals: Vital Signs - 24 hr 04/18/17 04/18/17 04/18/17 18:10 19:50 20:44 Temperature 36.4 C L Heart Rate 91 89 90 Respiratory 18 16 18 Rate Blood Pressure 105/53 L 95/35 L 120/54 L O2 Saturation 93 93 96 04/18/17 20:49 Temperature 36.3 C L Heart Rate Respiratory Rate Blood Pressure O2 Saturation Oxygen O2 Source Room air - EKG (time done) 1800 Rate: Rate (enter#) (89) Rhythm: NSR [place]: LAD Intervals: Normal [place] QRS: Normal Ischemia: Normal ST segments - Labs Labs: Laboratory Tests 04/18/17 04/18/17 04/18/17 18:45 18:45 18:45 WBC 8.8 RBC 4.45 L Hgb 12.8 L Hct 37.9 L MCV 85.2 MCH 28.7 MCHC 33.7 RDW 14.5 Plt Count 215 MPV 8.2 Neut # 7.4 H Lymph # 0.6 L [place] # 0.6 Eos # 0.1 Baso # 0.0 Absolute Nucleated RBC 0.00 Nucleated RBC % 0.0 Sodium 135 Potassium 4.4 Chloride 100 L Carbon Dioxide 28 Anion Gap 7.0 BUN 29 H Creatinine 1.4 H Estimated GFR (MDRD) 49 L Glucose 118 H Lactic Acid Calcium 9.0 Total Bilirubin 0.7 AST 18 ALT 20 Alkaline Phosphatase 134 H Troponin I < 0.04 Total Protein 7.6 Albumin 3.3 Globulin 4.3 H Albumin/Globulin Ratio 0.8 L Lipase 19 L Urine Color Urine Clarity Urine pH Ur Specific [place] Urine Protein Urine Glucose (UA) Urine Ketones Urine Occult Blood Urine Nitrite Urine Bilirubin Urine Urobilinogen Ur Leukocyte Esterase Urine RBC Urine WBC Ur Squamous Epith Cells Urine Bacteria Ur Microscopic Review Urine Culture Comments 04/18/17 04/18/17 18:45 19:40 WBC RBC Hgb Hct MCV MCH MCHC RDW Plt Count MPV Neut # Lymph # [place] # Eos # Baso # Absolute Nucleated RBC Nucleated RBC % Sodium Potassium Chloride Carbon Dioxide Anion Gap BUN Creatinine Estimated GFR (MDRD) Glucose Lactic Acid 1.0 Calcium Total Bilirubin AST ALT Alkaline Phosphatase Troponin I Total Protein Albumin Globulin Albumin/Globulin Ratio Lipase Urine Color YELLOW Urine Clarity CLOUDY Urine pH 6.0 Ur Specific [place] 1.025 Urine Protein 30 H Urine Glucose (UA) NEGATIVE Urine Ketones NEGATIVE Urine Occult Blood LARGE H Urine Nitrite NEGATIVE Urine Bilirubin NEGATIVE Urine Urobilinogen 0.2 (NORMAL) Ur Leukocyte Esterase LARGE H Urine RBC TNTC H Urine WBC >25 H Ur Squamous Epith Cells NONE SEEN Urine Bacteria Many H Ur Microscopic Review INDICATED Urine Culture Comments INDICATED - Rads (name of study) cxr Radiology: Prelim report reviewed, EMP read contemporaneously, See rad report ( Mild central congestion with left basilar atelectasis, less likely infiltrate) PD MEDICAL DECISION MAKING - ED course Complexity details: reviewed old records, reviewed results, re-evaluated patient , considered differential (No stroke, no intracranial hemorrhage, no sepsis, no pneumonia), d/w patient ED course: Patient is a 76-year-old male who presents to the emergency department after allegedly altered mental status and difficulty waking up earlier today. He is awake alert conversant and normal in the emergency department. No lateralizing signs to suggest stroke. No trauma to suggest head injury. He is found to have a UTI and given IV antibiotics for this, given Rocephin. Will place on antibiotics for home and follow-up with his doctor. Patient counseled regarding signs and symptoms for which I believe and urgent re-evaluation would be necessary. Patient with good understanding of and agreement to plan and is comfortable going home at this time This document was made in part using voice recognition software. While efforts are made to proofread this document, sound alike and grammatical errors may occur. Departure - Departure Disposition: 01 Home, Self Care Clinical Impression: UTI (urinary tract infection) Qualifiers: Urinary tract infection type: acute cystitis Hematuria presence: without hematuria Qualified Code(s): N30.00 - Acute cystitis without hematuria Condition: Good Instructions: ED UTI Cystitis Male Follow-Up: Mariaa Marx MD [Primary Care Provider] - Within 1 week Prescriptions: Ciprofloxacin HCl [Cipro] 500 mg PO BID #20 tablet Comments: Take all antibiotics until gone. Return if you worsen. Discharge Date/Time: 04/18/17 20:51
[2017-04-18 20:10] LABS: BACTERIA,URINE Many /HPF (None Seen); RBC,URINE TNTC /HPF (0-5); SQUAMOUS EPITHELIAL CELL,UR NONE SEEN (<= Few)
[2017-04-18] MEDS ORDERED: cefTRIAXone 1 GM VIAL IVP STA (20:16)
[2017-04-18 20:44] VITALS: BP 120/54
== END 2017-04-18 20:51 | disposition home or self-care (01) ==
LOC: EDUNIT# → ED 17:49
DX: I10 Essential (primary) hypertension (principal); E11.51 Type 2 diabetes mellitus with diabetic peripheral angiopathy without gangrene; E78.00 Pure hypercholesterolemia, unspecified; I25.10 Atherosclerotic heart disease of native coronary artery without angina pectoris; I25.2 Old myocardial infarction; F17.200 Nicotine dependence, unspecified, uncomplicated; Z79.4 Long term (current) use of insulin; Z95.5 Presence of coronary angioplasty implant and graft
CPT/HCPCS: 36415; 51701; 71045; 80053; 81001; 81003; 83605; 83690; 84484; 85025; 87077; 87086; 93005; 96374; 99284

== ENCOUNTER 2017-04-18 20:53 | Outpatient (CLI) | payer MEDICARE, MEDICAID | END 2017-04-18 20:54 | disposition home or self-care (01) | LOC: EMS 20:53 | PROVIDERS: ATTEND Surgery | DX: N39.0 Urinary tract infection, site not specified (principal); Z74.01 Bed confinement status | CPT/HCPCS: A0425; A0428 ==

== ENCOUNTER 2017-04-20 17:14 | Outpatient (CLI) | payer MEDICARE, MEDICAID | END 2017-04-20 17:15 | disposition critical access hospital (66) | LOC: EMS 17:14 | PROVIDERS: ATTEND Surgery | DX: R46.4 Slowness and poor responsiveness (principal) | CPT/HCPCS: A0425; A0429 ==

== ENCOUNTER 2017-04-20 17:31 | Inpatient (IN) | payer MEDICARE, MEDICAID ==
--- NOTE | 2017-04-20 17:54 | ED Physician Documentation ---
PD HPI ALTERED MENTAL STATUS - Stated complaint Stated Complaint: DEC LOC - Chief complaint Chief Complaint: Neuro - History obtained from History obtained from: Patient, EMS, Caregiver - History of Present Illness Timing - onset: How many hours ago (past few hours), Today Timing - duration: Hours Timing - details: Abrupt onset, Still present (at SNF, he was found to be poorly responsive to tactile/painful only. Has had some cough for past couple days. Recently seen for altered mentation and improved in ED, Dx with UTI.) Quality / character: Less responsive Associated symptoms: Dyspnea, Cough. No: Fever, NVD Contributing factors: Recent med change (Cipro added 2 days ago), Recent illness. No: Anticoagulated Basline status: Alert and oriented X 3 Similar symptoms before: Diagnosis (UTi recent; pneumonia about a month ago) Recently seen: Emergency Dept (2 days ago with altered mentation then as well. Dx with UTI and other labs were okay. He did become alert and responsive actually just arriving to ED by EMS. Discharged back. Was in [facility] about a month ago for pneumonia and improved after inpatient treatment.) Review of Systems Unable to obtain: Other (rousable to verbal and tactile; answers simple questions. Not very conversant.) Constitutional: reports: Fatigue. denies: Fever Nose: denies: Congestion Throat: denies: Sore throat GI: denies: Abdominal Pain, Vomiting, Diarrhea : denies: Dysuria Skin: reports: Lesions (sore bottom, per patient). denies: Rash PD PAST MEDICAL HISTORY - Past Medical History Cardiovascular: Hypertension, High cholesterol, Coronary artery disease, Peripheral Vascular Disease, [place] Respiratory: COPD, Pneumonia, Shortness of breath Neuro: Dementia, CVA, Peripheral neuropathy Endocrine/Autoimmune: Type 2 diabetes GI: GERD, Chronic constipation : Benign prostate hypertrophy, Incontinence, Frequency HEENT: Chronic vision loss Psych: Depression, Anxiety Musculoskeletal: None Derm: None - Past Surgical History Past Surgical History: Yes General: Splenectomy Ortho: Amputation Cardiovascular: Coronary stent, Cardiac catheterization, Vascular surgery, Angioplasty 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 - Present Medications Home Medications: Ambulatory Orders Medication Instructions Recorded Confirmed Docusate Sodium 250Mg Capsule 250 mg PO BID 07/08/13 04/18/17 [Colace 250Mg Capsule] Gabapentin [Neurontin] 900 mg PO TID 07/08/13 04/18/17 Senna [Senokot] 2 tab PO HS 07/08/13 04/18/17 Simvastatin [Zocor] 10 mg PO HS 07/08/13 04/18/17 Trazodone HCl 100 mg PO HS 07/08/13 04/18/17 traMADol [Ultram] 50 mg PO QID 07/08/13 04/18/17 Lisinopril 5 mg PO DAILY 04/10/14 04/18/17 Lactulose 15 ml PO BID PRN #1 bottle 08/30/14 04/18/17 Clopidogrel Bisulfate [Plavix] 75 mg PO DAILY 09/15/14 04/18/17 Albuterol [Ventolin Hfa] 2 puffs INH Q4H PRN #1 inhaler 01/30/15 04/18/17 Sevelamer Carbonate [Renvela] 800 mg PO TIDWM 01/30/15 04/18/17 Bupropion HCl [Bupropion HCl Sr] 300 mg PO DAILY 07/29/15 04/18/17 Polyethylene Glycol 3350 [Miralax] 1 packet PO DAILY PRN 10/09/15 04/18/17 DULoxetine [Cymbalta] 20 mg PO DAILY 03/27/17 04/18/17 Insulin Detemir [Levemir Flextouch] 30 unit SQ BID 03/27/17 04/18/17 Insulin Regular Human [NovoLIN R] 2 - 12 unit SUBQ .SLIDINGSCALE 03/27/17 Insulin Regular Human [NovoLIN R] 10 unit SUBQ 1200,1700 03/27/17 04/18/17 Insulin Regular Human [NovoLIN R] 15 unit SUBQ QDBREAKFAST 03/27/17 04/18/17 Ipratropium/Albuterol Sulfate 3 ml IH Q4H 03/27/17 04/18/17 [Iprat-Albut 0.5-3(2.5) mg/3 ml] Loperamide HCl [Imodium A-D] 2 mg PO QID PRN MDD 8 MG 03/27/17 04/18/17 buPROPion [Wellbutrin Sr] 150 mg PO 1200 03/27/17 04/18/17 Azithromycin 250 mg PO DAILY #4 tablet 03/31/17 04/18/17 Ciprofloxacin HCl [Cipro] 500 mg PO BID #20 tablet 04/18/17 - Allergies Allergies/Adverse Reactions: Allergies Allergy/AdvReac Type Severity Reaction Status Date / Time Penicillins Allergy Intermediate Rash Verified 04/20/17 17:42 morphine AdvReac Unknown I go Verified 04/20/17 17:42 berserk - Social History Does the pt smoke?: Yes Smoking Status: Current every day smoker Does the pt drink ETOH?: Yes Does the pt have substance abuse?: No - Family History Family history: reports: Non contributory - Immunizations Immunizations are current?: Yes - POLST Patient has POLST: Yes POLST Status: DNR PD ED PE NORMAL - Vitals Vital signs reviewed: Yes - General General: Well developed/nourished, Other (rousable to verbal and tactile. Adequate gag reflex. Intermittent congested cough. ) - HEENT HEENT: Atraumatic, Ears normal, Pharynx benign. No: Moist mucous membranes - Neck Neck: Supple, no meningeal sign, No adenopathy, No JVD - Cardiac Cardiac: RRR, No murmur - Respiratory Respiratory: No: Clear bilaterally (some congestion perihilar) - Abdomen Abdomen: Soft, Non tender - Back Back: No CVA TTP - Derm Derm: Normal color, Warm and dry, Other (sacral decub about palm sized, with some breakdown to subcut level in spots. ) - Extremities Extremities: Normal ROM s pain, No edema, No calf tenderness / cord - Neuro Neuro: No motor deficit, No sensory deficit. No: Alert and oriented X 3 ( oriented to person and place. ) Eye Opening: To Voice Motor: Localizes to Pain Verbal: Confused GCS Score: 12 - Psych Psych: Normal mood Results - Vitals Vitals: Vital Signs - 24 hr 04/20/17 04/20/17 04/20/17 17:36 19:33 19:42 Temperature 35.4 C L Heart Rate 96 96 97 Respiratory 16 17 24 Rate Blood Pressure 110/63 78/52 L 91/58 L O2 Saturation 96 96 95 04/20/17 04/20/17 04/20/17 19:55 20:14 20:50 Temperature Heart Rate 96 96 97 Respiratory 18 17 17 Rate Blood Pressure 91/58 L 95/60 94/60 O2 Saturation 96 96 96 Oxygen O2 Source Nasal cannula - Labs Labs: Laboratory Tests 04/20/17 04/20/1718 18:00 18:00 18:00 WBC 9.4 RBC 4.59 L Hgb 13.1 L Hct 40.2 L MCV 87.5 MCH 28.6 MCHC 32.7 RDW 14.9 Plt Count 222 MPV 8.4 Neut # 7.8 H Lymph # 0.9 L [place] # 0.7 Eos # 0.0 Baso # 0.1 Absolute Nucleated RBC 0.01 Nucleated RBC % 0.1 Sodium 137 Potassium 4.2 Chloride 98 L Carbon Dioxide 28 Anion Gap 11.0 BUN 41 H Creatinine 2.1 H Estimated GFR (MDRD) 31 L Glucose 128 H Glycated Hemoglobin Estim Average Glucose Lactic Acid 0.9 Calcium 9.3 Total Bilirubin 0.5 AST 28 ALT 24 Alkaline Phosphatase 129 H Total Protein 8.1 Albumin 3.3 Globulin 4.8 H Albumin/Globulin Ratio 0.7 L Lipase 29 Urine Color Urine Clarity Urine pH Ur Specific [place] Urine Protein Urine Glucose (UA) Urine Ketones Urine Occult Blood Urine Nitrite Urine Bilirubin Urine Urobilinogen Ur Leukocyte Esterase Urine RBC Urine WBC Urine WBC [place]umps Ur Squamous Epith Cells Urine Bacteria Ur Microscopic Review Urine Culture Comments 04/20/17 04/20/17 18:00 19:45 WBC RBC Hgb Hct MCV MCH MCHC RDW Plt Count MPV Neut # Lymph # [place] # Eos # Baso # Absolute Nucleated RBC Nucleated RBC % Sodium Potassium Chloride Carbon Dioxide Anion Gap BUN Creatinine Estimated GFR (MDRD) Glucose Glycated Hemoglobin 6.2 Estim Average Glucose 131 H Lactic Acid Calcium Total Bilirubin AST ALT Alkaline Phosphatase Total Protein Albumin Globulin Albumin/Globulin Ratio Lipase Urine Color DARK YELLOW Urine Clarity HAZY Urine pH 6.0 Ur Specific [place] >=1.030 H Urine Protein NEGATIVE Urine Glucose (UA) NEGATIVE Urine Ketones NEGATIVE Urine Occult Blood LARGE H Urine Nitrite NEGATIVE Urine Bilirubin SMALL H Urine Urobilinogen 0.2 (NORMAL) Ur Leukocyte Esterase MODERATE H Urine RBC 11-25 H Urine WBC >25 H Urine WBC [place] PRESENT Ur Squamous Epith Cells FEW Squamous Urine Bacteria Moderate H Ur Microscopic Review INDICATED Urine Culture Comments INDICATED - Rads (name of study) head CT Radiology: Prelim report reviewed (no acute bleeding/process) chest Radiology: Prelim report reviewed (new left lower field infiltrate) PD MEDICAL DECISION MAKING - ED course Complexity details: considered differential (does not seem septic but does have diminished alertness and transient low BP that improved with IV fluids. He was here for few hours with persistent lessened alertness. Seemed stable. However not improving, so talked with Hospitalist about admission. Dx with new pneumonia infiltrate. ), d/w patient Departure - Departure Disposition: 66 [facility] DC/Xfer Clinical Impression: Sacral decubitus ulcer, stage II Altered mental status Qualifiers: Altered mental status type: stupor Qualified Code(s): R40.1 - Stupor Pneumonia Qualifiers: Pneumonia type: due to unspecified organism Laterality: left Lung location: lower lobe of lung Qualified Code(s): J18.1 - Lobar pneumonia, unspecified organism Condition: Stable Discharge Date/Time: 04/20/17 21:50
[2017-04-20] MEDS ORDERED: SODIUM CHLORIDE 0.9% 1,000 ML IV ONE (18:20)
[2017-04-20 18:32] LABS: BASOPHILS # (AUTO) 0.1 10^3/uL (0.0-0.1); BASOPHILS % (AUTO) 0.6 %; EOSINOPHILS % (AUTO) 0.2 %; HGB - HEMOGLOBIN 13.1 g/dL (14.0-18.0); LYMPHOCYTES # (AUTO) 0.9 10^3/uL (1.5-3.5); LYMPHOCYTES % (AUTO) 9.6 %; MEAN CORPUSCULAR HEMOGLOBIN 28.6 pg (27.0-31.0); MEAN CORPUSCULAR HGB CONC 32.7 g/dL (32.0-36.0); MEAN CORPUSCULAR VOLUME 87.5 fL (80.0-94.0); MEAN PLATELET VOLUME 8.4 fL (7.4-11.4); MONOCYTES # (AUTO) 0.7 10^3/uL (0.0-1.0); MONOCYTES % (AUTO) 7.1 %; NEUTROPHILS # (AUTO) 7.8 10^3/uL (1.5-6.6); NEUTROPHILS % (AUTO) 82.5 %; PLT - PLATELET COUNT 222 10^3/uL (130-450); RED BLOOD COUNT 4.59 10^6/uL (4.70-6.10); RED CELL DISTRIBUTION WIDTH 14.9 % (12.0-15.0); WHITE BLOOD COUNT 9.4 x10^3/uL (4.8-10.8)
[2017-04-20 18:41] LABS: ALBUMIN 3.3 g/dL (3.2-5.5); ALBUMIN/GLOBULIN RATIO 0.7 (1.0-2.2); BILIRUBIN,TOTAL 0.5 mg/dL (0.2-1.0); CALCIUM 9.3 mg/dL (8.5-10.3); CREATININE 2.1 mg/dL (0.6-1.2); TOTAL PROTEIN 8.1 g/dL (6.7-8.2)
--- NOTE | 2017-04-20 19:32 | XRAY Preliminary Report ---
Exam: XR CHEST 1 VIEW X-RAY IMPRESSION: New left lung base infiltrate and small effusion. [facility] SITE ID: [id number]
--- NOTE | 2017-04-20 19:42 | XRAY Report ---
EXAM: CHEST RADIOGRAPHY EXAM DATE: 04/20/2017 07:24 PM. CLINICAL HISTORY: Diminished alertness. COMPARISON: 04/10/2017. TECHNIQUE: 1 view. FINDINGS: Lungs/Pleura: Interval development of left retrocardiac airspace opacity and new minimal blunting lef t lateral costophrenic angle. Mildly low lung volumes. No vascular congestion nor pneumothorax. Mediastinum: Within exam limitations, the cardiomediastinal contour is normal. Other: None. IMPRESSION: New left lung base infiltrate and small effusion. [facility] Referring Provider Line: [phone] SITE ID: [id number]
--- NOTE | 2017-04-20 20:00 | CT Report ---
EXAM: CT HEAD EXAM DATE: 04/20/2017 07:33 PM. CLINICAL HISTORY: Altered mentation. COMPARISON: 07/08/2016. TECHNIQUE: Multiaxial CT images were obtained from the foramen magnum to the vertex. Reformats: Coron al. IV contrast: None. In accordance with CT protocol optimization, one or more of the following dose reduction techniques w ere utilized for this exam: automated exposure control, adjustment of mA and/or KV based on patient s ize, or use of iterative reconstructive technique. FINDINGS: Parenchyma: No intraparenchymal hemorrhage. No evidence of mass, midline shift, or CT findings of inf arction. [place]-white differentiation is distinct. Extraaxial Spaces: Normal for age. No subdural or epidural collections identified. Ventricles: Normal in size and position. Sinuses and Orbits: There is mucosal thickening and layering fluid in the sphenoid and maxillary sinu ses. Bones: Previous right craniotomy noted. No acute fracture. Other: None. IMPRESSION: 1. No acute focal intracranial abnormality. 2. Paranasal sinus inflammatory disease. [facility] Referring Provider Line: [phone] SITE ID: [id number]
[2017-04-20 20:19] LABS: GLUCOSE, URINE (UA) NEGATIVE (NEGATIVE); KETONES,URINE (UA) NEGATIVE (NEGATIVE); LEUKOCYTE ESTERASE, URINE MODERATE (NEGATIVE); NITRITE,URINE NEGATIVE (NEGATIVE); OCCULT BLOOD,URINE LARGE (NEGATIVE); PROTEIN,URINE NEGATIVE (NEGATIVE); UROBILINOGEN,URINE 0.2 (NORMAL) E.U./dL (NORMAL)
[2017-04-20] MEDS ORDERED: cefTRIAXone 1 GM in SODIUM CHLORIDE 0.9% MINIBAG 100 ML IV STA (20:20)
[2017-04-20] MEDS ORDERED: AZITHROMYCIN INJ 500 MG in SODIUM CHLORIDE 0.9% 250 ML IV STA (20:21)
[2017-04-20 20:36] LABS: CLARITY,URINE HAZY (CLEAR)
[2017-04-20 20:37] LABS: BACTERIA,URINE Moderate /HPF (None Seen); BILIRUBIN,URINE SMALL (NEGATIVE); ICTOTEST,URINE POSITIVE; SQUAMOUS EPITHELIAL CELL,UR FEW Squamous (<= Few); WBC CLUMPS,URINE PRESENT
[2017-04-20] MEDS ORDERED: ONDANSETRON 4 MG/2 ML VIAL IVP PRN (20:56)
[2017-04-20] MEDS ORDERED: ONDANSETRON ODT 4 MG TABLET TL PRN (20:56)
[2017-04-20] MEDS ORDERED: HYDROcod/ACETAM 5/325 MG TABLET PO PRN (20:56)
[2017-04-20] MEDS ORDERED: ACETAMINOPHEN 325 MG TABLET PO PRN (20:56)
[2017-04-20] MEDS ORDERED: LACTULOSE 10 GM /15 ML UDC PO PRN (20:59)
[2017-04-20] MEDS ORDERED: IPRATROPIUM/ALBUTEROL 3 ML NEB INH PRN (20:59)
[2017-04-20] MEDS ORDERED: NON FORMULARY MED (Simvastatin [Zocor] 10 MG) PO SCH (21:00)
[2017-04-20 21:49] LABS: HB2 TOTAL 14.4 g/dL; HEMOGLOBIN A1C 0.64 g/dL; HEMOGLOBIN A1C % 6.2 % (4.6-6.2)
[2017-04-20] MEDS ORDERED: levoFLOXacin 500 MG/100 ML 500 MG/100 ML BAG IV SCH (22:00)
[2017-04-20] MEDS: SODIUM CHLORIDE FLUSH 0.9% 10 ML SYRINGE IVP SCH (22:15)
[2017-04-20] MEDS: GABAPENTIN 300 MG CAPSULE PO SCH (22:15)
[2017-04-20] MEDS: DOCUSATE SODIUM 250 MG CAPSULE PO SCH (22:15)
[2017-04-20] MEDS: SODIUM CHLORIDE 0.9% 1,000 ML IV SCH (22:15)
[2017-04-20] MEDS ORDERED: VANCOMYCIN PER PHARMACY 1 GM in SODIUM CHLORIDE 0.9% 250 ML IV SCH (23:45)
[2017-04-21] MEDS ORDERED: VANCOMYCIN INJ 1.5 GM in SODIUM CHLORIDE 0.9% 500 ML IV SCH (01:00)
[2017-04-21] MEDS: AZTREONAM 1 GM in SODIUM CHLORIDE 0.9% MINIBAG 100 ML IV SCH ×4 (01:34→19:39)
--- NOTE | 2017-04-21 03:53 | HISTORY & PHYSICAL EXAMINATION ---
Physician: Diane Santiago MD DATE OF ADMISSION: 04/20/2017 PRIMARY CARE PROVIDER: Mariaa Marx MD ADMITTING PROVIDER: Diane Santiago MD CHIEF COMPLAINT: Decreasing level of consciousness. HISTORY OF PRESENT ILLNESS: The patient is an unfortunate, elderly gentleman who has been living at an assisted living facility since early 2010. He has suffered the effects of a craniotomy, a stroke and side effects of diabetes with a right AKA. This has left him with some cognitive deficits, and decreased mobility that no longer allows him to stay at home. He is . He is described as a gentleman with his own philosophy of life. He is frequently not compliant with diet and sugars are above 200. He has suffered the complications with scrotal abscesses, buttock wounds, coccyx wounds, heel wounds. He is intermittently followed by Home Health for wound care. He has presented with altered mental status and pneumonia in July 2015 and, again , had altered mental status with shortness of breath 03/29/2017. He was treated with pneumonia here at this facility. He was sent home to his assisted living facility, [facility], and that was on March 31. He then returned to the emergency room April 18, with a UTI. He is on azithromycin and ciprofloxacin. Today, he was noted to have decreasing level of consciousness. Increasing confusion, much like he did in the past in 2015 with pneumonia. He was evaluated by Dr. Saravia and temperature was 35.4, blood pressure was mildly low at 95/60. Blood pressure did improve with a bolus of IV fluids. He is able to respond yes/no to questions. However, this patient is described as in and out of the facility on a wheelchair, usually awake and talkative. This is a definite diminishment in his usual level of consciousness. Head CT showed no acute changes. He has an old craniotomy scar. Chest x-ray shows a new left lung base infiltrate and small effusion when compared to the 04/10/2017 chest x-ray. He is not hypoxic. He has had an acute change in BUN and creatinine at 41 and 2.1 respectively. On April 18 he was 29 and 1.4. On March 31 he was 27 and 1.2. White cell count is normal. Urinalysis from April 18 was felt to be infected. Today, on April 20, the same amount of occult blood, leukocyte esterase, white cells, red cells are present, as well as squamous cells and moderate bacteria. Preliminary culture from April 18 urine shows enterococcus. PAST MEDICAL HISTORY 1. 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 2. Peripheral vascular disease, status post right AKA. 3. Coronary artery disease with a history of CA. 4. COPD, not on home oxygen. 5. History of stroke and subsequent cognitive deficits. 6. Right temporal craniotomy with craniectomy. 7. Cataract removal and lens implant, July 2015. 8. Hypertension. 9. Hyperlipidemia. 10. Depression with anxiety. In the past, he has had thoughts of killing himself. 11. Posttraumatic stress disorder. 12. Benign prostatic hypertrophy with lower urinary tract symptoms of obstruction. 13. Degenerative joint disease with chronic pain in his back and shoulders. 14. Chronic phantom leg pain. 15. Morbid obesity. 16. Tobacco abuse. 17. History of chronic kidney disease stage 3. ALLERGIES 1. PENICILLIN. 2. MORPHINE. MEDICATIONS He is on: 1. Albuterol metered dose inhaler 2 puffs every 4 hours as needed. 2. Falguni cream to affected areas q.i.d. 3. Colace 10 mg daily p.r.n. constipation. 4. Bupropion sustained release 150 mg at noon and 300 mg in the morning. 5. Cymbalta 20 mg daily, and avoid giving with tramadol and trazodone. 6. DuoNeb via nebulizer every 4 hours as needed. 7. Gabapentin 300 mg capsule, 3 capsules 4 times daily at breakfast, lunch, dinner and bedtime. 8. Renvela 800 mg with breakfast, lunch, and dinner. 9. Simvastatin 10 mg in the evening. 10. Tramadol 50 mg in the morning, lunch, dinner bedtime. 11. Trazodone 100 mg at night p.r.n. insomnia, and may repeat once if still awake at 2 a.m. SOCIAL HISTORY: He is , has 5 children. lives in [place]. He was living in [facility] in [place], and then he was moved to [facility] , which is now [facility], on 11/19/2010. With many visits from Home Health, the patient has been told many times that his level of care is quite high. He really should not be living at [facility]. It is unclear where the barriers are for him to be placed. However, is very satisfied with his level of care at [facility] and, as such, he stays there. He is usually in a wheelchair, and goes throughout the facility. Not compliant with diet usually. He smokes daily. Drinks alcohol on occasion. Uses cannabis on occasion. FAMILY HISTORY: Brother and sister have diabetes. He and his brother were placed in an orphanage at a very young age, so he does not know who his parents were. Brother has cancer, diabetes. It does state that although he sneaks a cigarette every once in a while, he did quit most of his smoking 2 years ago. The patient is DNR status with a POLST form. REVIEW OF SYSTEMS: Unobtainable at this time. The patient is only able to answer yes/no with no spontaneous speech. In reviewing home health notes for his wounds, he transfers to and from a wheelchair independently. In not truly compliant with wound care at times. Has chronic rectal incontinence with leakage of stool. PHYSICAL EXAMINATION He is seen in [facility] after having admitting orders done in the ED. In the ED, he did get a liter of normal saline, ceftriaxone and azithromycin. VITAL SIGNS: Temperature is 36.4. Initially was 35.4. Pulse is 93, blood pressure is 159/124, respirations 20, he is 92% with 2 liters. GENERAL: On examination, he is a large, balding, white male who looks stated age. While he may have male pattern baldness, he has a large, full, salt and pepper, red-cervantes morales and mustache. Eyes are closed, and he does open them at my request, but answers are mumbled yes, no. No spontaneous conversation on his part. He does not appear to be in any acute respiratory distress. HEAD AND NECK: Other than the balding shows him to have dry lips, mildly dry tongue, but tongue is pink. Edentulous. Pupils reactive. Sclerae are nonicteric. No facial asymmetry. He does have a right craniotomy indentation in his parietal skull, also partly in the temporal skull. Neck has shotty adenopathy. No goiter or bruits. Supple. LUNGS: Coarse upper airway sounds, but no crackles, rhonchi or wheezing and no increased respiratory effort. HEART: PMI is normally placed with a regular rate and rhythm. No murmurs, rubs or gallops. ABDOMEN: Soft, nontender, hypoactive bowel sounds. No masses palpable. As far as February 2017 home health notes inguinal abscesses and scrotal abscesses. I am not seeing any tonight. EXTREMITIES: Show him to have the right AKA. The stump is closed and healed. Left leg warm. Dorsalis pedis pulse not palpable, but capillary refill is at 4 seconds with the great toe. He seems to have small excoriations along the calf, but there is no abscesses or infection. NEUROLOGIC: The patient is unable to let me know if he is oriented to person, place or time. Again, he responds yes or no with regard to pain questions, but is not spontaneously conversational. Slack facies. Sonorous respiration. Does respond to voice. There is spontaneous movement of upper extremities to move sheets and to be comfortable. LABORATORY STUDIES: Show him to have acute on chronic kidney insufficiency with a BUN of 41 and creatinine 2.1. Random glucose is 128 and A1c is 6.2%. Lactic acid 0.9. Lipase 29. White cell count 9.4, hemoglobin 13.1, hematocrit 40.2. Urinalysis continues to have occult blood, leukocyte esterase, red cells, white cells, squamous cells, moderate bacteria. Again, enterococcus grew out. Again, chest x-ray shows a new acute left lower lobe infiltrate. ASSESSMENT/PLAN 1. Metabolic encephalopathy secondary to infection. Plan is to place the patient in inpatient status with greater than expected 2 midnights. I will attest that I do not plan on admitting this patient greater than 96 hours. In 96 hours, he will be evaluated for discharge and/or transfer. In addition to treating infection, we will monitor for any other causes of encephalopathy. Check urine tox screen. 2. Pneumonia. He has a history of MRSA wound infection. Treated for pneumonia March 31. He was given azithromycin and Rocephin in the emergency room. This is more a healthcare-associated pneumonia since it has been within 30 days of discharge from recent pneumonia. [place] antibiotic guide regimen reviewed. I will give Levaquin and either vancomycin or linezolid. Adjust dose for acute renal insufficiency. Since linezolid has severe drug interaction with SSRI, will go with Vancomycin. He is also allergic to PCN so will also use aztrenam. Blood cultures ordered and will be reviewed. Continue oxygen for low grade hypoxia. 3. Urinary tract infection. Enterococcus on previous culture. Plan will be linezolid to cover both healthcare-associated pneumonia and enterococcus since he is allergic to PCN. Adjust antibiotics as needed. Repeat urinalysis already done and repeat culture ordered. 4. Type 2 diabetes mellitus, controlled, with complications, on long-term insulin. Plan: Because of reduced p.o. intake with obtundation, we will reduce his Levemir dose and change it to Lantus 20 b.i.d. from 30 b.i.d. Start that in the morning. Continue short-acting insulin 15 units before breakfast, 10 before lunch and 10 before dinner. Adjust on the basis if hypoglycemia occurs. 5. Acute kidney insufficiency, superimposed on chronic kidney disease stage 3. IV fluids of 0.9 normal saline at 1-2 liters then IV lock and reassess. Oral mucosa is slightly dry, indicating mild dehydration. 6. Hypertension. Resume usual medications. 7. Depression, posttraumatic stress disorder, anxiety, etc. Resume usual medications of Cymbalta, bupropion, trazodone. We will avoid trazodone too much tonight to see if that is part of his obtundation. 8. Chronic pain syndrome. He is on 900 mg of gabapentin 4 times a day. He seems to tolerate this by description at the assisted living facility. I hesitate to give him so much at this time because of obtundation, but will resume if necessary. 9. DO NOT RESUSCITATE/DO NOT INTUBATE status per POLST form. 10. Deep venous thrombosis prophylaxis will be with Lovenox. TD: 04/21/2017 04:52 PAWEL
[2017-04-21] MEDS: SODIUM CHLORIDE FLUSH 0.9% 10 ML SYRINGE IVP SCH ×3 (05:41→21:48)
[2017-04-21 06:10] LABS: BASOPHILS % (AUTO) 0.4 %; EOSINOPHILS # (AUTO) 0.1 10^3/uL (0.0-0.7); EOSINOPHILS % (AUTO) 0.8 %; HGB - HEMOGLOBIN 11.5 g/dL (14.0-18.0); LYMPHOCYTES # (AUTO) 0.7 10^3/uL (1.5-3.5); LYMPHOCYTES % (AUTO) 10.8 %; MEAN CORPUSCULAR HEMOGLOBIN 29.2 pg (27.0-31.0); MEAN CORPUSCULAR HGB CONC 32.7 g/dL (32.0-36.0); MEAN CORPUSCULAR VOLUME 89.1 fL (80.0-94.0); MEAN PLATELET VOLUME 8.2 fL (7.4-11.4); MONOCYTES # (AUTO) 0.5 10^3/uL (0.0-1.0); MONOCYTES % (AUTO) 7.9 %; NEUTROPHILS # (AUTO) 5.1 10^3/uL (1.5-6.6); NEUTROPHILS % (AUTO) 80.1 %; PLT - PLATELET COUNT 176 10^3/uL (130-450); RED BLOOD COUNT 3.96 10^6/uL (4.70-6.10); RED CELL DISTRIBUTION WIDTH 15.1 % (12.0-15.0); WHITE BLOOD COUNT 6.4 x10^3/uL (4.8-10.8)
[2017-04-21 06:11] LABS: CALCIUM 8.3 mg/dL (8.5-10.3); CREATININE 1.6 mg/dL (0.6-1.2)
[2017-04-21] MEDS: GABAPENTIN 300 MG CAPSULE PO SCH ×3 (07:23→20:40)
[2017-04-21] MEDS: INSULIN ASPART 300 UNIT/3 ML PEN SUBQ SCH ×6 (09:51→21:45)
[2017-04-21] MEDS: ENOXAPARIN 40 MG/0.4 ML SYRINGE SUBQ SCH (10:07)
[2017-04-21] MEDS: SEVELAMER 800 MG TABLET PO SCH ×3 (10:07→16:26)
[2017-04-21] MEDS: LISINOPRIL 5 MG TABLET PO SCH (10:07)
[2017-04-21] MEDS: CLOPIDOGREL 75 MG TABLET PO SCH (10:07)
[2017-04-21] MEDS: INSULIN GLARGINE 300 UNIT/3 ML PEN SUBQ SCH ×2 (10:07→21:44)
[2017-04-21] MEDS: DULoxetine 20 MG CAPSULE PO SCH (10:07)
[2017-04-21] MEDS: buPROPion SR 150 MG TABLET PO SCH ×2 (10:08→11:52)
[2017-04-21] MEDS: LACTOB/S.THERMOPHL/BIFIDO CAPSULE PO SCH ×2 (10:08→16:26)
[2017-04-21] MEDS: DOCUSATE SODIUM 250 MG CAPSULE PO SCH ×2 (10:08→20:41)
[2017-04-21 10:09] LABS: MUDS CUTOFF CONCENTRATIONS CUTOFF CONC BELOW:
[2017-04-21] MEDS: POLYETHYLENE GLYCOL 3350 17 GM PACKET PO SCH (10:09)
[2017-04-21 10:27] LABS: AMPHETAMINE SCREEN,URINE NEGATIVE (NEGATIVE); BENZODIAZEPINES SCREEN, URINE NEGATIVE (NEGATIVE); COCAINE SCREEN URINE NEGATIVE (NEGATIVE); METHADONE SCREEN, URINE NEGATIVE (NEGATIVE); METHAMPHETAMINES SCREEN, URINE NEGATIVE (NEGATIVE); OPIATE SCREEN, URINE POSITIVE (NEGATIVE); OXYCODONE SCREEN, URINE NEGATIVE (NEGATIVE); PROPOXYPHENE SCREEN, URINE NEGATIVE (NEGATIVE); TRICYCLIC ANTIDEPRESSANT,URINE NEGATIVE (NEGATIVE)
[2017-04-21] MEDS: SODIUM CHLORIDE 0.9% 1,000 ML IV SCH (11:51)
--- NOTE | 2017-04-21 13:04 | PROVIDER PROGRESS NOTE ---
Subjective - Prog Note Date Prog Note Date: 04/21/17 Prog Note Time: 08:00 - Subjective Pt reports feeling: Improved Subjective: Douglas offers no complaints and admit to sleeping last night. He denies SOB, chest pain or N/V. He continues to have a chronic productive cough. was not in the room for this exam. Current Medications - Current Medications Current Medications: Active Medications Acetaminophen (Tylenol) 650 mg PO Q4HR PRN PRN Reason: Pain 1 to 4 Acetaminophen/Hydrocodone Bitart ([place] 5/325) 1 tab PO Q4HR PRN PRN Reason: Pain 5 to 7 Last Admin: 04/21/17 02:12 Dose: 1 tab Albuterol/Ipratropium (Duoneb) 3 ml INH Q4H PRN PRN Reason: Wheezing Atorvastatin Calcium (Lipitor) 10 mg PO [facility] Bupropion HCl (Wellbutrin Sr) 150 mg PO 1200 [facility] Last Admin: 04/21/17 11:52 Dose: 150 mg Bupropion HCl (Wellbutrin Sr) 300 mg PO 0800 [facility] Last Admin: 04/21/17 10:08 Dose: 300 mg Clopidogrel Bisulfate (Plavix) 75 mg PO DAILY [facility] Last Admin: 04/21/17 10:07 Dose: 75 mg Docusate Sodium (Colace 250mg Capsule) 250 mg PO BID [facility] Last Admin: 04/21/17 10:08 Dose: 250 mg Duloxetine HCl (Cymbalta) 20 mg PO DAILY [facility] Last Admin: 04/21/17 10:07 Dose: 20 mg Enoxaparin Sodium (Lovenox) 40 mg SUBQ DAILY [facility] Last Admin: 04/21/17 10:07 Dose: 40 mg Gabapentin (Neurontin) 900 mg PO TID [facility] Last Admin: 04/21/17 07:23 Dose: 900 mg Sodium Chloride (Normal Saline 0.9%) 1,000 mls @ 100 mls/hr IV .Q10H [facility] Last Admin: 04/21/17 11:51 Dose: 100 mls/hr Levofloxacin (Levaquin 250 Mg/50 Ml) 250 mg in 50 mls @ 50 mls/hr IV Q24H [facility] Aztreonam 1 gm/ Sodium (Chloride) 100 mls @ 200 mls/hr IV Q6HR [facility] Last Admin: 04/21/17 11:51 Dose: 200 mls/hr Vancomycin HCl 1 gm/ Sodium (Chloride) 250 mls @ 167 mls/hr IV Q12H [facility] Insulin Aspart (Novolog) 15 unit SUBQ QDBREAKFAST EILEEN PRN Reason: Protocol Last Admin: 04/21/17 10:08 Dose: 15 unit Insulin Aspart (Novolog) 10 unit SUBQ QDLUNCH EILEEN PRN Reason: Protocol Last Admin: 04/21/17 11:55 Dose: 10 unit Insulin Aspart (Novolog) 10 unit SUBQ QDDINNER [facility] PRN Reason: Protocol Insulin Aspart (Novolog) 1 - 5 unit SUBQ 0800,1200,1700,2100 E[facility] PRN Reason: Protocol Last Admin: 04/21/17 11:28 Dose: Not Given Insulin Glargine (Lantus Solostar) 20 unit SUBQ QDBREAKFAST [facility] Last Admin: 04/21/17 10:07 Dose: 20 unit Insulin Glargine (Lantus Solostar) 20 unit SUBQ QPM [facility] Lactobacil/Bifidobact/Streptococcus (Vsl#3) 1 cap PO BIDWM [facility] Last Admin: 04/21/17 10:08 Dose: 1 cap Lactulose (Enulose) 10 gm PO BID PRN PRN Reason: Constipation Lisinopril (Zestril) 5 mg PO DAILY [facility] Last Admin: 04/21/17 10:07 Dose: 5 mg Ondansetron HCl (Zofran Inj) 4 mg IVP Q6HR PRN PRN Reason: Nausea / Vomiting Ondansetron HCl (Zofran Odt) 4 mg TL Q6HR PRN PRN Reason: Nausea / Vomiting Polyethylene Glycol (Miralax) 17 gm PO DAILY [facility] Last Admin: 04/21/17 10:09 Dose: 17 gm Sevelamer HCl (Renagel) 800 mg PO TIDWM [facility] Last Admin: 04/21/17 11:52 Dose: 800 mg Sodium Chloride (Normal Saline Flush 0.9%) 10 ml IVP PRN PRN PRN Reason: NEEDED PER PROVIDER ORDERS Sodium Chloride (Normal Saline Flush 0.9%) 10 ml IVP Q8HR [facility] Last Admin: 04/21/17 12:02 Dose: 10 ml Docusate Sodium 250Mg Capsule [Colace 250Mg Capsule] 250 mg PO BID 07/08/13 Gabapentin [Neurontin] 900 mg PO 0800,1200,1700,2100 07/08/13 Simvastatin [Zocor] 10 mg PO QPM 07/08/13 Trazodone HCl 100 mg PO QPM 07/08/13 traMADol [Ultram] 50 mg PO 0800,1200,1700,2100 07/08/13 Lisinopril 5 mg PO DAILY 04/10/14 Clopidogrel Bisulfate [Plavix] 75 mg PO DAILY 09/15/14 Sevelamer Carbonate [Renvela] 800 mg PO TIDWM 01/30/15 DULoxetine [Cymbalta] 20 mg PO QPM 03/27/17 Insulin Detemir [Levemir Flextouch] 30 unit SQ BID 03/27/17 Insulin Regular Human [NovoLIN R] 2 - 12 unit SUBQ TIDWM PRN 03/27/17 Insulin Regular Human [NovoLIN R] 10 unit SUBQ 1200,1700 03/27/17 Insulin Regular Human [NovoLIN R] 15 unit SUBQ QDBREAKFAST 03/27/17 Ipratropium/Albuterol Sulfate [Iprat-Albut 0.5-3(2.5) mg/3 ml] 3 ml IH Q4H PRN 03/27/17 buPROPion [Wellbutrin Sr] 150 mg PO 1200 03/27/17 Bupropion HCl [Bupropion HCl Sr] 300 mg PO 0800 04/21/17 Polyethylene Glycol 3350 [Miralax] 17 gm PO DAILY 04/21/17 Senna [Senokot] 17.2 mg PO QPM 04/21/17 traZODone [Desyrel] 100 mg PO 0200 PRN 04/21/17 Objective - Vital Signs/Intake & Output Reviewed Vital Signs: Yes Vital Signs: Vital Signs x48h Temp Pulse Resp BP 04/21/17 07:45 36.1 C L 86 20 130/70 Intake & Output: Intake & Output 04/18/17 04/19/17 04/20/17 04/21/17 23:59 23:59 23:59 23:59 Intake Total 840 1943.333 Balance 840 1943.333 - Objective General Appearance: positive: No acute distress, Alert Eyes Bilateral: positive: Normal inspection Eyes: OU Conjunctivae pale, OU Scleral icterus ENT: positive: ENT inspection nml, Pharynx nml, Dry mucous membranes Neck: positive: Nml inspection, Thyroid nml, No JVD, Stiff neck Respiratory: positive: Chest non-tender, No respiratory distress, Wheezes, Rales , Rhonchi Cardiovascular: positive: Irregularly irregular, Systolic murmur, Decreased pulse(s) Peripheral Pulses: 1+ Popliteal (R), 1+ Popliteal (L) Abdomen: positive: Non-tender, Hepatomegaly, Other (obese, firm-chronic) Back: positive: Nml inspection Skin: positive: No rash, Warm, Dry Extremities: positive: Non-tender, Full ROM, Pedal edema (mild-left leg. right AKA) Neurologic/Psychiatric: positive: Disoriented to time, Weakness, Sensory loss, Slurred/abnml speech, Depressed mood/affect - Lab Results Fish Bones: 04/22/17 05:40 04/22/17 05:40 Other Labs: Lab Results x24hrs 04/21/17 04/21/17 04/21/17 Range/Units 09:25 05:50 05:50 WBC 6.4 (4.8-10.8) x10^3/uL RBC 3.96 L (4.70-6.10) 10^6/uL Hgb 11.5 L (14.0-18.0) g/dL Hct 35.3 L (42.0-52.0) % MCV 89.1 (80.0-94.0) fL MCH 29.2 (27.0-31.0) pg MCHC 32.7 (32.0-36.0) g/dL RDW 15.1 H (12.0-15.0) % Plt Count 176 (130-450) 10^3/uL MPV 8.2 (7.4-11.4) fL Neut # 5.1 (1.5-6.6) 10^3/uL Lymph # 0.7 L (1.5-3.5) 10^3/uL Knott # 0.5 (0.0-1.0) 10^3/uL Eos # 0.1 (0.0-0.7) 10^3/uL Baso # 0.0 (0.0-0.1) 10^3/uL Absolute Nucleated RBC 0.00 x10^3/uL Nucleated RBC % 0.0 /100WBC Sodium 139 (135-145) mmol/L Potassium 4.0 (3.5-5.0) mmol/L Chloride 106 (101-111) mmol/L Carbon Dioxide 25 (21-32) mmol/L Anion Gap 8.0 (6-13) BUN 40 H (6-20) mg/dL Creatinine 1.6 H (0.6-1.2) mg/dL Estimated GFR (MDRD) 42 L (>89) Glucose 109 H (70-100) mg/dL Calcium 8.3 L (8.5-10.3) mg/dL Urine Opiates Screen POSITIVE H (NEGATIVE) Ur Oxycodone Screen NEGATIVE (NEGATIVE) Urine Methadone Screen NEGATIVE (NEGATIVE) Ur Propoxyphene Screen NEGATIVE (NEGATIVE) Ur Barbiturates Screen NEGATIVE (NEGATIVE) Ur Tricyclics Screen NEGATIVE (NEGATIVE) Ur Phencyclidine Scrn NEGATIVE (NEGATIVE) Ur Amphetamine Screen NEGATIVE (NEGATIVE) U Methamphetamines Scrn NEGATIVE (NEGATIVE) U Benzodiazepines Scrn NEGATIVE (NEGATIVE) Urine Cocaine Screen NEGATIVE (NEGATIVE) U Cannabinoids Screen NEGATIVE (NEGATIVE) - Diagnostic Imaging Diagnostic Imaging Results: positive: Final report reviewed, Discussed with radiologist Diagnostic Imaging Comments: FINDINGS: Lungs/Pleura: Interval development of left retrocardiac airspace opacity and new minimal blunting left lateral costophrenic angle. Mildly low lung volumes. No vascular congestion nor pneumothorax. Mediastinum: Within exam limitations, the cardiomediastinal contour is normal. Other: None. IMPRESSION: New left lung base infiltrate and small effusion. Assessment/Plan - Problem List (1) Acute metabolic encephalopathy Impression: This is likely secondary to infection, but testing for other causes were completed on admission. Plan: Monitor mental status. (2) HCAP (healthcare-associated pneumonia) Impression: A chest x-ray at the time of admission indicates a left lobe infiltrate and a small effusion, that appears to be a new finding. Patient was given Azithromycin and Rocephin in the ED. Plan: Continue with IV antibiotics, attempt to obtain a sputum sample and respiratory therapy using nebulizers and oxygen. (3) UTI (urinary tract infection) Impression: Patient was noted to be + for Enterococcus on a previous culture. A new UA was obtained and is pending. Plan: Continue with IV antibiotics as per admitting MD. Qualifiers: Urinary tract infection type: acute cystitis Hematuria presence: without hematuria Qualified Code(s): N30.00 - Acute cystitis without hematuria (4) CKD stage 3 secondary to diabetes Impression: Baseline creatinine is 1.2 and GFR is 73 at the time of admission. Plan: Continue gentle IVFs. 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 Plan: SSI, blood sugar checks and monitor labs. (6) Hypertension Impression: Patient was hypertensive upon arriving in ED, now down to 100's systolic and 60' s diastolic. Plan: Monitor vital signs, and continue home medications with parameters.
[2017-04-21 13:45] LABS: VANCOMYCIN,RANDOM 11.5 ug/mL
[2017-04-21] MEDS ORDERED: VANCOMYCIN INJ 1 GM in SODIUM CHLORIDE 0.9% 250 ML IV SCH (14:00)
[2017-04-21] MEDS ORDERED: INSULIN ASPART 300 UNIT/3 ML PEN SUBQ SCH (17:00)
[2017-04-21] MEDS: ATORVASTATIN 10 MG TABLET PO SCH (20:40)
[2017-04-22] MEDS: AZTREONAM 1 GM in SODIUM CHLORIDE 0.9% MINIBAG 100 ML IV SCH ×4 (01:05→18:24)
[2017-04-22] MEDS: SODIUM CHLORIDE 0.9% 1,000 ML IV SCH ×3 (02:10→13:48)
[2017-04-22] MEDS: SODIUM CHLORIDE FLUSH 0.9% 10 ML SYRINGE IVP SCH ×3 (05:49→21:03)
[2017-04-22 05:55] LABS: BASOPHILS % (AUTO) 0.5 %; EOSINOPHILS # (AUTO) 0.1 10^3/uL (0.0-0.7); EOSINOPHILS % (AUTO) 2.6 %; HGB - HEMOGLOBIN 11.3 g/dL (14.0-18.0); LYMPHOCYTES # (AUTO) 0.6 10^3/uL (1.5-3.5); LYMPHOCYTES % (AUTO) 13.8 %; MEAN CORPUSCULAR HEMOGLOBIN 28.5 pg (27.0-31.0); MEAN CORPUSCULAR HGB CONC 32.6 g/dL (32.0-36.0); MEAN CORPUSCULAR VOLUME 87.4 fL (80.0-94.0); MONOCYTES # (AUTO) 0.4 10^3/uL (0.0-1.0); MONOCYTES % (AUTO) 8.3 %; NEUTROPHILS # (AUTO) 3.4 10^3/uL (1.5-6.6); NEUTROPHILS % (AUTO) 74.8 %; PLT - PLATELET COUNT 163 10^3/uL (130-450); RED BLOOD COUNT 3.96 10^6/uL (4.70-6.10); RED CELL DISTRIBUTION WIDTH 15.1 % (12.0-15.0); WHITE BLOOD COUNT 4.5 x10^3/uL (4.8-10.8)
[2017-04-22 06:05] LABS: ALBUMIN 2.5 g/dL (3.2-5.5); ALBUMIN/GLOBULIN RATIO 0.6 (1.0-2.2); BILIRUBIN,TOTAL 0.3 mg/dL (0.2-1.0); CALCIUM 8.1 mg/dL (8.5-10.3); MAGNESIUM 1.8 mg/dL (1.7-2.8); TOTAL PROTEIN 6.6 g/dL (6.7-8.2)
[2017-04-22] MEDS: GABAPENTIN 300 MG CAPSULE PO SCH ×3 (06:10→21:02)
--- NOTE | 2017-04-22 08:26 | PROVIDER PROGRESS NOTE ---
Subjective - Prog Note Date Prog Note Date: 04/22/17 Prog Note Time: 08:26 - Subjective Pt reports feeling: Improved Subjective: Douglas offers no complaints but complaints of having no appetite. He denies discomfort or a new cough. He was updated about a call to his for a medical update. Current Medications - Current Medications Current Medications: Active Medications Acetaminophen (Tylenol) 650 mg PO Q4HR PRN PRN Reason: Pain 1 to 4 Acetaminophen/Hydrocodone Bitart ([place] 5/325) 1 tab PO Q4HR PRN PRN Reason: Pain 5 to 7 Last Admin: 04/21/17 02:12 Dose: 1 tab Albuterol/Ipratropium (Duoneb) 3 ml INH Q4H PRN PRN Reason: Wheezing Atorvastatin Calcium (Lipitor) 10 mg PO HS [facility] Last Admin: 04/23/17 21:25 Dose: 10 mg Bupropion HCl (Wellbutrin Sr) 300 mg PO 0800 [facility] Last Admin: 04/23/17 10:45 Dose: 300 mg Clopidogrel Bisulfate (Plavix) 75 mg PO DAILY [facility] Last Admin: 04/23/17 10:45 Dose: 75 mg Duloxetine HCl (Cymbalta) 20 mg PO DAILY [facility] Last Admin: 04/23/17 10:45 Dose: 20 mg Enoxaparin Sodium (Lovenox) 40 mg SUBQ DAILY [facility] Last Admin: 04/23/17 10:48 Dose: 40 mg Gabapentin (Neurontin) 600 mg PO TID [facility] Last Admin: 04/23/17 21:26 Dose: 600 mg Aztreonam 1 gm/ Sodium (Chloride) 100 mls @ 200 mls/hr IV Q6HR [facility] Last Infusion: 04/23/17 20:02 Dose: Infused Vancomycin HCl 1 gm/ Sodium (Chloride) 250 mls @ 167 mls/hr IV Q12H [facility] Last Infusion: 04/23/17 15:51 Dose: Infused Insulin Aspart (Novolog) 1 - 5 unit SUBQ 0800,1200,1700,2100 EILEEN PRN Reason: Protocol Last Admin: 04/23/17 21:14 Dose: Not Given Insulin Aspart (Novolog) 5 unit SUBQ TIDWM [facility] Last Admin: 04/23/17 16:58 Dose: Not Given Insulin Glargine (Lantus Solostar) 20 unit SUBQ QDBREAKFAST [facility] Last Admin: 04/23/17 10:43 Dose: 20 unit Lactulose (Enulose) 10 gm PO BID PRN PRN Reason: Constipation Lisinopril (Zestril) 5 mg PO DAILY [facility] Last Admin: 04/23/17 10:45 Dose: 5 mg Miconazole (Secura Extra-Thick) 1 applic TOP BID [facility] Last Admin: 04/23/17 21:14 Dose: Not Given Multivitamins/Minerals (Theragran M) 1 tab PO DAILYWM [facility] Last Admin: 04/23/17 10:46 Dose: 1 tab Ondansetron HCl (Zofran Inj) 4 mg IVP Q6HR PRN PRN Reason: Nausea / Vomiting Ondansetron HCl (Zofran Odt) 4 mg TL Q6HR PRN PRN Reason: Nausea / Vomiting Polyethylene Glycol (Miralax) 17 gm PO DAILY [facility] Last Admin: 04/23/17 10:45 Dose: 17 gm Polyethylene Glycol (Miralax) 17 gm PO DAILY [facility] Saccharomyces Boulardii (Florastor) 250 mg PO BIDWM [facility] Last Admin: 04/23/17 16:58 Dose: 250 mg Senna (Senokot) 17.2 mg PO QPM [facility] Last Admin: 04/23/17 21:25 Dose: 17.2 mg Sodium Chloride (Normal Saline Flush 0.9%) 10 ml IVP PRN PRN PRN Reason: NEEDED PER PROVIDER ORDERS Sodium Chloride (Normal Saline Flush 0.9%) 10 ml IVP Q8HR [facility] Last Admin: 04/23/17 21:30 Dose: 10 ml Docusate Sodium 250Mg Capsule [Colace 250Mg Capsule] 250 mg PO BID 07/08/13 Gabapentin [Neurontin] 900 mg PO 0800,1200,1700,2100 07/08/13 Simvastatin [Zocor] 10 mg PO QPM 07/08/13 Trazodone HCl 100 mg PO QPM 07/08/13 traMADol [Ultram] 50 mg PO 0800,1200,1700,2100 07/08/13 Lisinopril 5 mg PO DAILY 04/10/14 Clopidogrel Bisulfate [Plavix] 75 mg PO DAILY 09/15/14 Sevelamer Carbonate [Renvela] 800 mg PO TIDWM 01/30/15 DULoxetine [Cymbalta] 20 mg PO QPM 03/27/17 Insulin Detemir [Levemir Flextouch] 30 unit SQ BID 03/27/17 Insulin Regular Human [NovoLIN R] 2 - 12 unit SUBQ TIDWM PRN 03/27/17 Insulin Regular Human [NovoLIN R] 10 unit SUBQ 1200,1700 03/27/17 Insulin Regular Human [NovoLIN R] 15 unit SUBQ QDBREAKFAST 03/27/17 Ipratropium/Albuterol Sulfate [Iprat-Albut 0.5-3(2.5) mg/3 ml] 3 ml IH Q4H PRN 03/27/17 buPROPion [Wellbutrin Sr] 150 mg PO 1200 03/27/17 Bupropion HCl [Bupropion HCl Sr] 300 mg PO 0800 04/21/17 Polyethylene Glycol 3350 [Miralax] 17 gm PO DAILY 04/21/17 Senna [Senokot] 17.2 mg PO QPM 04/21/17 traZODone [Desyrel] 100 mg PO 0200 PRN 04/21/17 Objective - Vital Signs/Intake & Output Reviewed Vital Signs: Yes Vital Signs: Vital Signs x48h Temp Pulse Resp BP Pulse Ox 04/22/17 07:40 36.4 C L 73 20 123/59 L 99 04/22/17 00:43 36.1 C L 85 20 122/73 94 Intake & Output: Intake & Output 04/19/17 04/20/17 04/21/17 04/22/17 23:59 23:59 23:59 23:59 Intake Total 840 3783.333 350 Balance 840 3783.333 350 - Objective General Appearance: positive: No acute distress, Alert, Lethargic Eyes Bilateral: positive: Normal inspection Eyes: OU Abnormal pupil, OU Scleral icterus ENT: positive: ENT inspection nml, Pharynx nml, Dry mucous membranes Neck: positive: Nml inspection, Thyroid nml, No JVD, Trachea midline, Stiff neck Respiratory: positive: Chest non-tender, Rhonchi (low bases.) Cardiovascular: positive: Irregularly irregular, Systolic murmur, Decreased pulse(s) Abdomen: positive: Non-tender, Nml bowel sounds, Other (obese, soft.) Back: positive: Nml inspection Skin: positive: No rash, Warm, Dry Extremities: positive: Non-tender, Full ROM, Pedal edema, Other (R AKA, chronic) Neurologic/Psychiatric: positive: Disoriented to place, Disoriented to time, Weakness, Sensory loss Reflexes: Bicep (R): 1+, Bicep (L): 1+ - Lab Results Fish Bones: 04/23/17 04:52 04/23/17 04:52 Other Labs: Lab Results x24hrs 04/22/17 04/22/17 04/21/17 Range/Units 05:40 05:40 13:29 WBC 4.5 L (4.8-10.8) x10^3/uL RBC 3.96 L (4.70-6.10) 10^6/uL Hgb 11.3 L (14.0-18.0) g/dL Hct 34.7 L (42.0-52.0) % MCV 87.4 (80.0-94.0) fL MCH 28.5 (27.0-31.0) pg MCHC 32.6 (32.0-36.0) g/dL RDW 15.1 H (12.0-15.0) % Plt Count 163 (130-450) 10^3/uL MPV 8.0 (7.4-11.4) fL Neut # 3.4 (1.5-6.6) 10^3/uL Lymph # 0.6 L (1.5-3.5) 10^3/uL [place] # 0.4 (0.0-1.0) 10^3/uL Eos # 0.1 (0.0-0.7) 10^3/uL Baso # 0.0 (0.0-0.1) 10^3/uL Absolute Nucleated RBC 0.00 x10^3/uL Nucleated RBC % 0.0 /100WBC Sodium 135 (135-145) mmol/L Potassium 3.9 (3.5-5.0) mmol/L Chloride 103 (101-111) mmol/L Carbon Dioxide 24 (21-32) mmol/L Anion Gap 8.0 (6-13) BUN 21 H (6-20) mg/dL Creatinine 1.0 (0.6-1.2) mg/dL Estimated GFR (MDRD) 73 L (>89) Glucose 89 (70-100) mg/dL Calcium 8.1 L (8.5-10.3) mg/dL Magnesium 1.8 (1.7-2.8) mg/dL Total Bilirubin 0.3 (0.2-1.0) mg/dL AST 28 (10-42) IU/L ALT 26 (10-60) IU/L Alkaline Phosphatase 92 (42-121) IU/L Total Protein 6.6 L (6.7-8.2) g/dL Albumin 2.5 L (3.2-5.5) g/dL Globulin 4.1 (2.1-4.2) g/dL Albumin/Globulin Ratio 0.6 L (1.0-2.2) Last Dose Date 04/21/17 Last Dose Time 04:20 Random Vancomycin 11.5 ug/mL Urine Opiates Screen (NEGATIVE) Ur Oxycodone Screen (NEGATIVE) Urine Methadone Screen (NEGATIVE) Ur Propoxyphene Screen (NEGATIVE) Ur Barbiturates Screen (NEGATIVE) Ur Tricyclics Screen (NEGATIVE) Ur Phencyclidine Scrn (NEGATIVE) Ur Amphetamine Screen (NEGATIVE) U Methamphetamines Scrn (NEGATIVE) U Benzodiazepines Scrn (NEGATIVE) Urine Cocaine Screen (NEGATIVE) U Cannabinoids Screen (NEGATIVE) 04/21/17 Range/Units 09:25 WBC (4.8-10.8) x10^3/uL RBC (4.70-6.10) 10^6/uL Hgb (14.0-18.0) g/dL Hct (42.0-52.0) % MCV (80.0-94.0) fL MCH (27.0-31.0) pg MCHC (32.0-36.0) g/dL RDW (12.0-15.0) % Plt Count (130-450) 10^3/uL MPV (7.4-11.4) fL Neut # (1.5-6.6) 10^3/uL Lymph # (1.5-3.5) 10^3/uL [place] # (0.0-1.0) 10^3/uL Eos # (0.0-0.7) 10^3/uL Baso # (0.0-0.1) 10^3/uL Absolute Nucleated RBC x10^3/uL Nucleated RBC % /100WBC Sodium (135-145) mmol/L Potassium (3.5-5.0) mmol/L Chloride (101-111) mmol/L Carbon Dioxide (21-32) mmol/L Anion Gap (6-13) BUN (6-20) mg/dL Creatinine (0.6-1.2) mg/dL Estimated GFR (MDRD) (>89) Glucose (70-100) mg/dL Calcium (8.5-10.3) mg/dL Magnesium (1.7-2.8) mg/dL Total Bilirubin (0.2-1.0) mg/dL AST (10-42) IU/L ALT (10-60) IU/L Alkaline Phosphatase (42-121) IU/L Total Protein (6.7-8.2) g/dL Albumin (3.2-5.5) g/dL Globulin (2.1-4.2) g/dL Albumin/Globulin Ratio (1.0-2.2) Last Dose Date Last Dose Time Random Vancomycin ug/mL Urine Opiates Screen POSITIVE H (NEGATIVE) Ur Oxycodone Screen NEGATIVE (NEGATIVE) Urine Methadone Screen NEGATIVE (NEGATIVE) Ur Propoxyphene Screen NEGATIVE (NEGATIVE) Ur Barbiturates Screen NEGATIVE (NEGATIVE) Ur Tricyclics Screen NEGATIVE (NEGATIVE) Ur Phencyclidine Scrn NEGATIVE (NEGATIVE) Ur Amphetamine Screen NEGATIVE (NEGATIVE) U Methamphetamines Scrn NEGATIVE (NEGATIVE) U Benzodiazepines Scrn NEGATIVE (NEGATIVE) Urine Cocaine Screen NEGATIVE (NEGATIVE) U Cannabinoids Screen NEGATIVE (NEGATIVE) Assessment/Plan - Problem List (1) Acute metabolic encephalopathy Impression: This is likely secondary to infection, but testing for other causes were completed on admission. Lactic acid was normal on 04/20/17. Patient nearing baseline mental status during today's exam. , Emma was updated via phone. Plan: Monitor mental status. (2) HCAP (healthcare-associated pneumonia) Impression: A chest x-ray at the time of admission indicates a left lobe infiltrate and a small effusion, that appears to be a new finding. Patient was given Azithromycin and Rocephin in the ED. Patient remains on vancomycin and Aztreonam 1GM every 6 hours IV. Cultures are pending. Plan: Continue with IV antibiotics, attempt to obtain a sputum sample and respiratory therapy using nebulizers and oxygen. (3) UTI (urinary tract infection) Impression: A urine sample from 04/18/17 show sensitivites to Vancomycin, so patient will remain on this treatment. Plan: Monitor urine output and watch for worsening mental status. Qualifiers: Urinary tract infection type: acute cystitis Hematuria presence: without hematuria Qualified Code(s): N30.00 - Acute cystitis without hematuria (4) CKD stage 3 secondary to diabetes Impression: Baseline creatinine is 1.2 and GFR is 73 at the time of admission. Plan: IVFs were discontinued due to heart failure history and potential of fluid overload. 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 On this admission, it was determined that patient is down at least 60 lbs from a few months ago and has had a poor appetite. Lantus and SSI have been adjusted based on blood glucose, which has been low. Plan: SSI, blood sugar checks and monitor labs. (6) Hypertension Impression: Patient was hypertensive upon arriving in ED, now down to 100's systolic and 60' s diastolic. Blood pressure today was 158/74. Plan: Monitor vital signs, and continue home medications with parameters.
[2017-04-22] MEDS: INSULIN ASPART 300 UNIT/3 ML PEN SUBQ SCH ×8 (09:07→21:04)
[2017-04-22] MEDS: INSULIN GLARGINE 300 UNIT/3 ML PEN SUBQ SCH ×2 (09:08→21:14)
[2017-04-22] MEDS: SEVELAMER 800 MG TABLET PO SCH ×2 (09:09→12:47)
[2017-04-22] MEDS: LACTOB/S.THERMOPHL/BIFIDO CAPSULE PO SCH (09:09)
[2017-04-22] MEDS: CLOPIDOGREL 75 MG TABLET PO SCH (09:09)
[2017-04-22] MEDS: DULoxetine 20 MG CAPSULE PO SCH (09:09)
[2017-04-22] MEDS: DOCUSATE SODIUM 250 MG CAPSULE PO SCH ×2 (09:09→21:02)
[2017-04-22] MEDS: ENOXAPARIN 40 MG/0.4 ML SYRINGE SUBQ SCH (09:09)
[2017-04-22] MEDS: LISINOPRIL 5 MG TABLET PO SCH (09:09)
[2017-04-22] MEDS: buPROPion SR 150 MG TABLET PO SCH ×2 (09:09→12:47)
[2017-04-22] MEDS: MICONAZOLE CREAM (EXTRA-THICK) 92 GM TUBE TOP SCH ×2 (09:10→21:03)
[2017-04-22] MEDS: POLYETHYLENE GLYCOL 3350 17 GM PACKET PO SCH (09:10)
[2017-04-22] MEDS ORDERED: VANCOMYCIN INJ 1 GM in SODIUM CHLORIDE 0.9% 250 ML IV SCH (14:00)
[2017-04-22 14:08] LABS: VANCOMYCIN,RANDOM 7.4 ug/mL
[2017-04-22] MEDS: MULTIVITAMIN W/MINERALS TABLET PO SCH (16:37)
[2017-04-22] MEDS: SACCHAROMYCES BOULARDII 250 MG CAPSULE PO SCH ×2 (16:37→16:38)
[2017-04-22] MEDS: ATORVASTATIN 10 MG TABLET PO SCH (21:02)
[2017-04-23] MEDS: AZTREONAM 1 GM in SODIUM CHLORIDE 0.9% MINIBAG 100 ML IV SCH ×4 (00:03→19:19)
[2017-04-23] MEDS: VANCOMYCIN INJ 1 GM in SODIUM CHLORIDE 0.9% 250 ML IV SCH ×2 (02:21→13:59)
[2017-04-23] MEDS: SODIUM CHLORIDE 0.9% 1,000 ML IV SCH ×2 (02:22→02:25)
[2017-04-23] MEDS: SODIUM CHLORIDE FLUSH 0.9% 10 ML SYRINGE IVP SCH ×3 (02:29→21:30)
[2017-04-23 05:34] LABS: BASOPHILS % (AUTO) 0.3 %; EOSINOPHILS # (AUTO) 0.1 10^3/uL (0.0-0.7); EOSINOPHILS % (AUTO) 1.3 %; HGB - HEMOGLOBIN 11.8 g/dL (14.0-18.0); LYMPHOCYTES # (AUTO) 0.9 10^3/uL (1.5-3.5); LYMPHOCYTES % (AUTO) 17.7 %; MEAN CORPUSCULAR HEMOGLOBIN 28.6 pg (27.0-31.0); MEAN CORPUSCULAR HGB CONC 32.6 g/dL (32.0-36.0); MEAN CORPUSCULAR VOLUME 87.7 fL (80.0-94.0); MEAN PLATELET VOLUME 8.2 fL (7.4-11.4); MONOCYTES # (AUTO) 0.4 10^3/uL (0.0-1.0); MONOCYTES % (AUTO) 7.1 %; NEUTROPHILS # (AUTO) 3.9 10^3/uL (1.5-6.6); NEUTROPHILS % (AUTO) 73.6 %; PLT - PLATELET COUNT 190 10^3/uL (130-450); RED BLOOD COUNT 4.14 10^6/uL (4.70-6.10); RED CELL DISTRIBUTION WIDTH 14.5 % (12.0-15.0); WHITE BLOOD COUNT 5.2 x10^3/uL (4.8-10.8)
[2017-04-23 05:40] LABS: ALBUMIN 2.7 g/dL (3.2-5.5); ALBUMIN/GLOBULIN RATIO 0.6 (1.0-2.2); BILIRUBIN,TOTAL 0.4 mg/dL (0.2-1.0); CALCIUM 8.5 mg/dL (8.5-10.3); MAGNESIUM 1.8 mg/dL (1.7-2.8); PHOSPHORUS 2.7 mg/dL (2.5-4.6); TOTAL PROTEIN 6.9 g/dL (6.7-8.2)
[2017-04-23] MEDS: GABAPENTIN 300 MG CAPSULE PO SCH ×3 (05:41→21:26)
[2017-04-23] MEDS: INSULIN ASPART 300 UNIT/3 ML PEN SUBQ SCH ×7 (10:40→21:14)
[2017-04-23] MEDS: INSULIN GLARGINE 300 UNIT/3 ML PEN SUBQ SCH (10:43)
[2017-04-23] MEDS: SACCHAROMYCES BOULARDII 250 MG CAPSULE PO SCH ×2 (10:44→16:58)
[2017-04-23] MEDS: DOCUSATE SODIUM 250 MG CAPSULE PO SCH (10:44)
[2017-04-23] MEDS: MICONAZOLE CREAM (EXTRA-THICK) 92 GM TUBE TOP SCH ×2 (10:45→21:14)
[2017-04-23] MEDS: buPROPion SR 150 MG TABLET PO SCH ×2 (10:45→14:00)
[2017-04-23] MEDS: DULoxetine 20 MG CAPSULE PO SCH (10:45)
[2017-04-23] MEDS: POLYETHYLENE GLYCOL 3350 17 GM PACKET PO SCH (10:45)
[2017-04-23] MEDS: CLOPIDOGREL 75 MG TABLET PO SCH (10:45)
[2017-04-23] MEDS: LISINOPRIL 5 MG TABLET PO SCH (10:45)
[2017-04-23] MEDS: MULTIVITAMIN W/MINERALS TABLET PO SCH (10:46)
[2017-04-23] MEDS: ENOXAPARIN 40 MG/0.4 ML SYRINGE SUBQ SCH (10:48)
--- NOTE | 2017-04-23 14:04 | PROVIDER PROGRESS NOTE ---
Subjective - Prog Note Date Prog Note Date: 04/23/17 Prog Note Time: 14:04 - Subjective Pt reports feeling: No change Subjective: Douglas offers no complaints and was informed of , Emma's update via phone. He denies pain or increased SOB. Chronic cough still noted. Current Medications - Current Medications Current Medications: Active Medications Acetaminophen (Tylenol) 650 mg PO Q4HR PRN PRN Reason: Pain 1 to 4 Acetaminophen/Hydrocodone Bitart ([place] 5/325) 1 tab PO Q4HR PRN PRN Reason: Pain 5 to 7 Last Admin: 04/21/17 02:12 Dose: 1 tab Albuterol/Ipratropium (Duoneb) 3 ml INH Q4H PRN PRN Reason: Wheezing Atorvastatin Calcium (Lipitor) 10 mg PO HS [facility] Last Admin: 04/23/17 21:25 Dose: 10 mg Bupropion HCl (Wellbutrin Sr) 300 mg PO 0800 [facility] Last Admin: 04/23/17 10:45 Dose: 300 mg Clopidogrel Bisulfate (Plavix) 75 mg PO DAILY [facility] Last Admin: 04/23/17 10:45 Dose: 75 mg Duloxetine HCl (Cymbalta) 20 mg PO DAILY [facility] Last Admin: 04/23/17 10:45 Dose: 20 mg Enoxaparin Sodium (Lovenox) 40 mg SUBQ DAILY [facility] Last Admin: 04/23/17 10:48 Dose: 40 mg Gabapentin (Neurontin) 600 mg PO TID [facility] Last Admin: 04/23/17 21:26 Dose: 600 mg Aztreonam 1 gm/ Sodium (Chloride) 100 mls @ 200 mls/hr IV Q6HR [facility] Last Infusion: 04/23/17 20:02 Dose: Infused Vancomycin HCl 1 gm/ Sodium (Chloride) 250 mls @ 167 mls/hr IV Q12H [facility] Last Infusion: 04/23/17 15:51 Dose: Infused Insulin Aspart (Novolog) 1 - 5 unit SUBQ 0800,1200,1700,2100 EILEEN PRN Reason: Protocol Last Admin: 04/23/17 21:14 Dose: Not Given Insulin Aspart (Novolog) 5 unit SUBQ TIDWM [facility] Last Admin: 04/23/17 16:58 Dose: Not Given Insulin Glargine (Lantus Solostar) 20 unit SUBQ QDBREAKFAST [facility] Last Admin: 04/23/17 10:43 Dose: 20 unit Lactulose (Enulose) 10 gm PO BID PRN PRN Reason: Constipation Lisinopril (Zestril) 5 mg PO DAILY [facility] Last Admin: 04/23/17 10:45 Dose: 5 mg Miconazole (Secura Extra-Thick) 1 applic TOP BID [facility] Last Admin: 04/23/17 21:14 Dose: Not Given Multivitamins/Minerals (Theragran M) 1 tab PO DAILYWM [facility] Last Admin: 04/23/17 10:46 Dose: 1 tab Ondansetron HCl (Zofran Inj) 4 mg IVP Q6HR PRN PRN Reason: Nausea / Vomiting Ondansetron HCl (Zofran Odt) 4 mg TL Q6HR PRN PRN Reason: Nausea / Vomiting Polyethylene Glycol (Miralax) 17 gm PO DAILY [facility] Last Admin: 04/23/17 10:45 Dose: 17 gm Polyethylene Glycol (Miralax) 17 gm PO DAILY [facility] Saccharomyces Boulardii (Florastor) 250 mg PO BIDWM [facility] Last Admin: 04/23/17 16:58 Dose: 250 mg Senna (Senokot) 17.2 mg PO QPM [facility] Last Admin: 04/23/17 21:25 Dose: 17.2 mg Sodium Chloride (Normal Saline Flush 0.9%) 10 ml IVP PRN PRN PRN Reason: NEEDED PER PROVIDER ORDERS Sodium Chloride (Normal Saline Flush 0.9%) 10 ml IVP Q8HR [facility] Last Admin: 04/23/17 21:30 Dose: 10 ml Docusate Sodium 250Mg Capsule [Colace 250Mg Capsule] 250 mg PO BID 07/08/13 Gabapentin [Neurontin] 900 mg PO 0800,1200,1700,2100 07/08/13 Simvastatin [Zocor] 10 mg PO QPM 07/08/13 Trazodone HCl 100 mg PO QPM 07/08/13 traMADol [Ultram] 50 mg PO 0800,1200,1700,2100 07/08/13 Lisinopril 5 mg PO DAILY 04/10/14 Clopidogrel Bisulfate [Plavix] 75 mg PO DAILY 09/15/14 Sevelamer Carbonate [Renvela] 800 mg PO TIDWM 01/30/15 DULoxetine [Cymbalta] 20 mg PO QPM 03/27/17 Insulin Detemir [Levemir Flextouch] 30 unit SQ BID 03/27/17 Insulin Regular Human [NovoLIN R] 2 - 12 unit SUBQ TIDWM PRN 03/27/17 Insulin Regular Human [NovoLIN R] 10 unit SUBQ 1200,1700 03/27/17 Insulin Regular Human [NovoLIN R] 15 unit SUBQ QDBREAKFAST 03/27/17 Ipratropium/Albuterol Sulfate [Iprat-Albut 0.5-3(2.5) mg/3 ml] 3 ml IH Q4H PRN 03/27/17 buPROPion [Wellbutrin Sr] 150 mg PO 1200 03/27/17 Bupropion HCl [Bupropion HCl Sr] 300 mg PO 0800 04/21/17 Polyethylene Glycol 3350 [Miralax] 17 gm PO DAILY 04/21/17 Senna [Senokot] 17.2 mg PO QPM 04/21/17 traZODone [Desyrel] 100 mg PO 0200 PRN 04/21/17 Objective - Vital Signs/Intake & Output Reviewed Vital Signs: Yes Vital Signs: Vital Signs x48h Temp Pulse Resp BP Pulse Ox 04/23/17 08:00 36.2 C L 81 18 147/84 H 97 Intake & Output: Intake & Output 04/20/17 04/21/17 04/22/17 04/23/17 23:59 23:59 23:59 23:59 Intake Total 840 3783.333 2483.333 1566.667 Balance 840 3783.333 2483.333 1566.667 - Objective General Appearance: positive: No acute distress, Alert Eyes Bilateral: positive: Normal inspection Eyes: OU Conjunctivae pale, OU Scleral icterus ENT: positive: ENT inspection nml, Pharynx nml, Dry mucous membranes Neck: positive: Nml inspection, Thyroid nml Respiratory: positive: Chest non-tender, No respiratory distress, Rhonchi Cardiovascular: positive: No gallop, Irregularly irregular, Systolic murmur Abdomen: positive: Non-tender, Nml bowel sounds, Hepatomegaly Back: positive: Nml inspection Skin: positive: No rash, Warm, Dry Extremities: positive: Non-tender, Pedal edema, Joint swelling, Other (R AKA) Neurologic/Psychiatric: positive: Disoriented to place, Disoriented to time, Weakness, Sensory loss, Slurred/abnml speech, Depressed mood/affect, Other ( baseline) Reflexes: Bicep (R): 1+, Bicep (L): 1+ - Lab Results Fish Bones: 04/23/17 04:52 04/23/17 04:52 Other Labs: Lab Results x24hrs 04/23/17 04/23/17 04/22/17 Range/Units 04:52 04:52 13:33 WBC 5.2 (4.8-10.8) x10^3/uL RBC 4.14 L (4.70-6.10) 10^6/uL Hgb 11.8 L (14.0-18.0) g/dL Hct 36.3 L (42.0-52.0) % MCV 87.7 (80.0-94.0) fL MCH 28.6 (27.0-31.0) pg MCHC 32.6 (32.0-36.0) g/dL RDW 14.5 (12.0-15.0) % Plt Count 190 (130-450) 10^3/uL MPV 8.2 (7.4-11.4) fL Neut # 3.9 (1.5-6.6) 10^3/uL Lymph # 0.9 L (1.5-3.5) 10^3/uL [place] # 0.4 (0.0-1.0) 10^3/uL Eos # 0.1 (0.0-0.7) 10^3/uL Baso # 0.0 (0.0-0.1) 10^3/uL Absolute Nucleated RBC 0.00 x10^3/uL Nucleated RBC % 0.0 /100WBC Sodium 138 (135-145) mmol/L Potassium 3.9 (3.5-5.0) mmol/L Chloride 103 (101-111) mmol/L Carbon Dioxide 24 (21-32) mmol/L Anion Gap 11.0 (6-13) BUN 14 (6-20) mg/dL Creatinine 1.0 (0.6-1.2) mg/dL Estimated GFR (MDRD) 73 L (>89) Glucose 95 (70-100) mg/dL Calcium 8.5 (8.5-10.3) mg/dL Phosphorus 2.7 (2.5-4.6) mg/dL Magnesium 1.8 (1.7-2.8) mg/dL Total Bilirubin 0.4 (0.2-1.0) mg/dL AST 25 (10-42) IU/L ALT 23 (10-60) IU/L Alkaline Phosphatase 108 (42-121) IU/L Total Protein 6.9 (6.7-8.2) g/dL Albumin 2.7 L (3.2-5.5) g/dL Globulin 4.2 (2.1-4.2) g/dL Albumin/Globulin Ratio 0.6 L (1.0-2.2) Last Dose Date 04/21/17 Last Dose Time 20:52 Random Vancomycin 7.4 ug/mL Assessment/Plan - Problem List (1) Acute metabolic encephalopathy Impression: This is likely secondary to infection, but testing for other causes were completed on admission. Lactic acid was normal on 04/20/17. Patient nearing baseline mental status during today's exam. , Emma was updated via phone again this morning and she will likely visit tomorrow as she has been ill. Plan: Monitor mental status. (2) HCAP (healthcare-associated pneumonia) Impression: A chest x-ray at the time of admission indicates a left lobe infiltrate and a small effusion, that appears to be a new finding. Patient was given Azithromycin and Rocephin in the ED. Patient remains on vancomycin and Aztreonam 1GM every 6 hours IV. Cultures are were +MRSA and +UA. Plan: Continue with IV antibiotics, attempt to obtain a sputum sample and respiratory therapy using nebulizers and oxygen. (3) UTI (urinary tract infection) Impression: A urine sample from 04/18/17 and 04/20/17 show sensitivites to Vancomycin, so patient will remain on this treatment. Plan: Monitor urine output and watch for worsening mental status. Qualifiers: Urinary tract infection type: acute cystitis Hematuria presence: without hematuria Qualified Code(s): N30.00 - Acute cystitis without hematuria (4) CKD stage 3 secondary to diabetes Impression: Baseline creatinine is 1.2 and GFR is 73 at the time of admission. Plan: IVFs were discontinued due to heart failure history and potential of fluid overload. We will continue to monitor labs. 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 On this admission, it was determined that patient is down at least 60 lbs from a few months ago and has had a poor appetite. Lantus and SSI have been adjusted based on blood glucose, which has been low. Plan: SSI, blood sugar checks and monitor labs. (6) Hypertension Impression: Patient was hypertensive upon arriving in ED, now down to 100's systolic and 60' s diastolic. Blood pressure today was 158/74. Plan: Monitor vital signs, and continue home medications with parameters.
[2017-04-23] MEDS ORDERED: SENNA 8.6 MG TABLET PO SCH (21:00)
[2017-04-23] MEDS: ATORVASTATIN 10 MG TABLET PO SCH (21:25)
[2017-04-24] MEDS: AZTREONAM 1 GM in SODIUM CHLORIDE 0.9% MINIBAG 100 ML IV SCH ×2 (01:21→06:07)
[2017-04-24] MEDS: SODIUM CHLORIDE FLUSH 0.9% 10 ML SYRINGE IVP PRN ×2 (01:24→03:34)
[2017-04-24 01:41] LABS: VANCOMYCIN,TROUGH 13.7 ug/mL (5.0-15.0)
[2017-04-24 01:52] LABS: ALBUMIN 2.9 g/dL (3.2-5.5); ALBUMIN/GLOBULIN RATIO 0.7 (1.0-2.2); BILIRUBIN,TOTAL 0.5 mg/dL (0.2-1.0); CALCIUM 8.4 mg/dL (8.5-10.3); CREATININE 0.9 mg/dL (0.6-1.2); MAGNESIUM 1.8 mg/dL (1.7-2.8); PHOSPHORUS 2.9 mg/dL (2.5-4.6); TOTAL PROTEIN 7.1 g/dL (6.7-8.2)
[2017-04-24] MEDS: VANCOMYCIN INJ 1 GM in SODIUM CHLORIDE 0.9% 250 ML IV SCH (01:57)
[2017-04-24] MEDS: GABAPENTIN 300 MG CAPSULE PO SCH (06:04)
[2017-04-24] MEDS: SODIUM CHLORIDE FLUSH 0.9% 10 ML SYRINGE IVP SCH (06:07)
[2017-04-24] MEDS: ENOXAPARIN 40 MG/0.4 ML SYRINGE SUBQ SCH (08:56)
[2017-04-24] MEDS: buPROPion SR 150 MG TABLET PO SCH (08:56)
[2017-04-24] MEDS: LISINOPRIL 5 MG TABLET PO SCH (08:56)
[2017-04-24] MEDS: CLOPIDOGREL 75 MG TABLET PO SCH (08:56)
[2017-04-24] MEDS: SACCHAROMYCES BOULARDII 250 MG CAPSULE PO SCH (08:56)
[2017-04-24] MEDS: MULTIVITAMIN W/MINERALS TABLET PO SCH (08:56)
[2017-04-24] MEDS: DULoxetine 20 MG CAPSULE PO SCH (08:56)
[2017-04-24] MEDS: INSULIN ASPART 300 UNIT/3 ML PEN SUBQ SCH ×4 (08:59→11:54)
[2017-04-24] MEDS ORDERED: POLYETHYLENE GLYCOL 3350 17 GM PACKET PO SCH (09:00)
[2017-04-24] MEDS: POLYETHYLENE GLYCOL 3350 17 GM PACKET PO SCH (09:00)
[2017-04-24] MEDS: INSULIN GLARGINE 300 UNIT/3 ML PEN SUBQ SCH (09:04)
--- NOTE | 2017-04-24 10:23 | Discharge Plan ---
"Discharge Plan for SNF / [facility] - DC Plan and Transition Orders Disposition: 03 SNF DC/Xfer Condition: Stable SNF Transition [facility] Discharge Diagnosis: Metabolic encephalopathy, Pneumonia, UTI, DM type 2, chronic pain syndrome, hypertension. Medicare Certification: I certify that [facility] Hospital detention care is medically necessary on a continuing basis for any of the conditions for which she/he is receiving care during hospitalization. Notify PCP of admission and forward orders to primary provider for signature. Weight on admission and weekly. Call PCP immediately if weight increases by 10 pounds or if patient develops dyspnea, chest pain/tightness or edema. House Bowel Program: yes If no BM after 2 days, nurse may give M.O.M. 30ml PO PRN and /or ducolax Supp 1 [place] and /or PATI 250mg P.O., and/or senna 1-2 tabs PO. On day 3 nurse may give repeat above order until residents constipation is resolved. Immunizations:Annual Influenza Vaccine: yes.(between Nov 20 and June 19.) Unless allergy or already given Two-Step PPD: yes per [facility] [id number] or appropriate documentation of approved exceptions Treatments & Other Orders: Wound care to buttock/coccyx wound Oxygen Orders: 1-4L nasal cannula to keep oxygen greater than 90%. Lab Tests or X-Rays Orders: not indicated. Orthopedic Orders: N/A. Medications: PLEASE REFER TO THE DISCHARGE MEDICATION LIST. Insulin Orders? yes Diagnosis: Diabetes Initiate hypo and hyperglycemia protocols for BG <70 and BG >375. May check BG prn for signs/symptoms of dysglycemia. Frequency of BG checks: AC/Meal/HS Basal Insulin: Lantus 30 units at HS Correction Insulin: - Select the type of insulin below Choose: Novolog/[id number] units /ml insulin inject subq per orders indicate below LOW DOSE XX MODERATE DOSE MODERATE/HIGH DOSE HIGH DOSE GB UNITS GB UNITS GB UNITS GB UNITS 61-140 0 UNITS 61-140 0 UNITS 61-140 0 UNITS 61-140 0 UNITS 141-175 1 UNITS 141-175 1 UNITS 141-175 2 UNITS 141-175 3 UNITS 176-225 2 UNITS 176-225 3 UNITS 176-225 4 UNITS 176-225 5 UNITS 226-275 3 UNITS 226-275 5 UNITS 226-275 6 UNITS 226-275 7 UNITS 276-325 4 UNITS 276-325 7 UNITS 276-325 8 UNITS 276-325 9 UNITS 326-375 5 UNITS 326-375 9 UNITS 326-375 10 UNITS 326-375 11 UNITS >375 CONTACT MD >375 CONTACT MD >375 CONTACT MD >375 CONTACT MD Allergies and Adverse Reactions: Allergies Allergy/AdvReac Type Severity Reaction Status Date / Time Penicillins Allergy Intermediate Rash Verified 04/20/17 17:42 morphine AdvReac Unknown I go Verified 04/20/17 17:42 [email or web address] - Medications New Prescriptions: Gabapentin [Neurontin] 600 mg PO TID #540 capsule Insulin Detemir [Levemir Flextouch] 100 unit SQ DAILY PM #1 insuln.pen Levofloxacin [Levaquin] 750 mg PO DAILY 7 Days #7 tablet Saccharomyces Boulardii [Florastor] 250 mg PO BID 14 Days #28 capsule - Diet Type: Geriatric Texture: Regular May have monthly special meal: Yes - Therapies | Activity Therapy: Evaluation | Treat if indicated: Speech, PT, OT Rehabilitation Potential: Maximize functional status, Maintain present ADL Functional Weight Bearing: Full Weight Assistance Devices: Wheelchair, Walker Additional Instructions: Care to continue at [facility]. Continue a short coarse of antibiotics and please note some daily medication changes."
[2017-04-24 10:53] VITALS: BP 135/54
--- NOTE | 2017-04-24 11:28 | DISCHARGE SUMMARY ---
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) Controlled type 2 diabetes mellitus with complication, with long-term current use of insulin (E11.8) Hypertension (I10) Chronic pain disorder (G89.4) Discharge Diagnoses with Status of Each Condition: Acute metabolic encephalopathy (G93.41) HCAP (healthcare-associated pneumonia) (J18.9) UTI (urinary tract infection) (N39.0) 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) Chronic pain disorder (G89.4) Controlled type 2 diabetes mellitus with complication, with long-term current use of insulin (E11.8) Hypertension (I10) - ALLERGIES Allergies/Adverse Reactions: Allergies Allergy/AdvReac Type Severity Reaction Status Date / Time Penicillins Allergy Intermediate Rash Verified 04/20/17 17:42 morphine AdvReac Unknown I go Verified 04/20/17 17:42 berserk - MEDICATIONS Home Medications: Ambulatory Orders Medication Instructions Recorded Confirmed Trazodone HCl 100 mg PO QPM 07/08/13 04/21/17 Clopidogrel Bisulfate [Plavix] 75 mg PO DAILY 09/15/14 04/21/17 Albuterol [Ventolin Hfa] 2 puffs INH Q4H PRN #1 inhaler 01/30/15 04/21/17 Bupropion HCl [Bupropion HCl Sr] 300 mg PO 0800 #30 04/24/17 04/21/17 DULoxetine [Cymbalta] 20 mg PO QPM #30 04/24/17 04/21/17 Docusate Sodium 250Mg Capsule 250 mg PO BID #30 04/24/17 04/21/17 [Colace 250Mg Capsule] Gabapentin [Neurontin] 600 mg PO TID #540 capsule 04/24/17 Insulin Detemir [Levemir Flextouch] 100 unit SQ DAILY PM #1 insuln.pen 04/24/17 Ipratropium/Albuterol Sulfate 3 ml IH Q4H PRN #1 04/24/17 04/21/17 [Iprat-Albut 0.5-3(2.5) mg/3 ml] Levofloxacin [Levaquin] 750 mg PO DAILY 7 Days #7 tablet 04/24/17 Lisinopril 5 mg PO DAILY #30 04/24/17 04/21/17 Multivitamin W/Minerals [Theragran 1 tab PO DAILYWM #30 tablet 04/24/17 M] Polyethylene Glycol 3350 [Miralax] 17 gm PO DAILY #30 04/24/17 04/21/17 Saccharomyces Boulardii [Florastor] 250 mg PO BID 14 Days #28 capsule 04/24/17 Senna [Senokot] 17.2 mg PO QPM #30 04/24/17 04/21/17 Simvastatin [Zocor] 10 mg PO QPM #30 04/24/17 04/21/17 traMADol [Ultram] 50 mg PO DAILY #30 04/24/17 04/21/17 - PHYSICAL EXAM AT DISCHARGE General Appearance: positive: No acute distress, Alert Eyes Bilateral: positive: Normal inspection ENT: positive: ENT inspection nml, Dry mucous membranes Neck: positive: Nml inspection, Thyroid nml, No JVD Respiratory: positive: Chest non-tender, No respiratory distress, Wheezes, Rhonchi Cardiovascular: positive: No gallop, Irregularly irregular, Systolic murmur, Decreased pulse(s) Peripheral Pulses: positive: 1+ Abdomen: positive: Non-tender, No organomegaly, Nml bowel sounds, No distention Back: positive: Nml inspection Skin: positive: No rash, Warm, Dry Extremities: positive: Non-tender, Full ROM, Pedal edema Neurologic/Psychiatric: positive: Disoriented to time, Weakness, Sensory loss, Depressed mood/affect Reflexes: Bicep (R): 3+, Bicep (L): 3+ - LABS Result Diagrams: 04/23/17 04:52 04/24/17 01:25 - DIAGNOSTIC IMAGING Diagnostic Imaging Results: Final report reviewed - FOLLOW UP Follow Up: Disposition: SNF DC/Xfer Condition: Stable SNF Transition Orders: Admit to: [facility] under the care of Mariaa Marx. Discharge Diagnosis: Metabolic encephalopathy, Pneumonia, UTI, DM type 2, chronic pain syndrome, hypertension. Medicare Certification: I certify that [facility] care is medically necessary on a continuing basis for any of the conditions for which she/he is receiving care during hospitalization. Notify PCP of admission and forward orders to primary provider for signature. Weight on admission and weekly. Call PCP immediately if weight increases by 10 pounds or if patient develops dyspnea, chest pain/tightness or edema. House Bowel Program: yes If no BM after 2 days, nurse may give M.O.M. 30ml PO PRN and /or ducolax Supp 1 DC and /or PATI 250mg P.O., and/or senna 1-2 tabs PO. On day 3 nurse may give repeat above order until residents constipation is resolved. Immunizations:Annual Influenza Vaccine: yes.(between Nov 20 and June 19.) Unless allergy or already given Two-Step PPD: yes per [facility] [id number] or appropriate documentation of approved exceptions Treatments & Other Orders: Wound care to buttock/coccyx wound Oxygen Orders: 1-4L nasal cannula to keep oxygen greater than 90%. Lab Tests or X-Rays Orders: not indicated. Orthopedic Orders: N/A. Medications: PLEASE REFER TO THE DISCHARGE MEDICATION LIST. - TIME SPENT Time Spent in Discharge (Minutes): 45
== END 2017-04-24 13:45 | disposition home or self-care (01) | DRG 70 ==
LOC: EDUNIT# → SUPCPDRO 17:31 → ED 17:31 → MS2 20:56
PROVIDERS: ADMIT Specialist; ATTEND Nurse Practitioner
DX: L89.152 Pressure ulcer of sacral region, stage 2 (principal); R40.1 Stupor; J18.1 Lobar pneumonia, unspecified organism; I10 Essential (primary) hypertension; E78.00 Pure hypercholesterolemia, unspecified; G93.41 Metabolic encephalopathy; J18.9 Pneumonia, unspecified organism; F03.90 Unspecified dementia, unspecified severity, without behavioral disturbance, psychotic disturbance, mood disturbance, and anxiety; Q04.3 Other reduction deformities of brain; N39.0 Urinary tract infection, site not specified; N17.9 Acute kidney failure, unspecified; I12.9 Hypertensive chronic kidney disease with stage 1 through stage 4 chronic kidney disease, or unspecified chronic kidney disease; E11.22 Type 2 diabetes mellitus with diabetic chronic kidney disease; N18.3 Chronic kidney disease, stage 3 (moderate); G89.4 Chronic pain syndrome; J44.9 Chronic obstructive pulmonary disease, unspecified; F17.210 Nicotine dependence, cigarettes, uncomplicated; B95.2 Enterococcus as the cause of diseases classified elsewhere; Y95 Nosocomial condition; E11.42 Type 2 diabetes mellitus with diabetic polyneuropathy; E11.51 Type 2 diabetes mellitus with diabetic peripheral angiopathy without gangrene; I25.10 Atherosclerotic heart disease of native coronary artery without angina pectoris; E78.5 Hyperlipidemia, unspecified; F41.8 Other specified anxiety disorders; F43.10 Post-traumatic stress disorder, unspecified; N40.1 Benign prostatic hyperplasia with lower urinary tract symptoms; N39.498 Other specified urinary incontinence; R35.0 Frequency of micturition; R15.9 Full incontinence of feces; K59.09 Other constipation; I69.319 Unspecified symptoms and signs involving cognitive functions following cerebral infarction; R26.2 Difficulty in walking, not elsewhere classified; H54.7 Unspecified visual loss; E66.01 Morbid (severe) obesity due to excess calories; Z68.29 Body mass index [BMI] 29.0-29.9, adult; M19.90 Unspecified osteoarthritis, unspecified site; M54.9 Dorsalgia, unspecified; M25.512 Pain in left shoulder; M25.511 Pain in right shoulder; G54.6 Phantom limb syndrome with pain; Z66 Do not resuscitate; Z79.02 Long term (current) use of antithrombotics/antiplatelets; Z79.51 Long term (current) use of inhaled steroids; Z79.4 Long term (current) use of insulin; Z79.2 Long term (current) use of antibiotics; Z79.899 Other long term (current) drug therapy; Z90.49 Acquired absence of other specified parts of digestive tract; Z89.611 Acquired absence of right leg above knee; Z87.01 Personal history of pneumonia (recurrent); I25.2 Old myocardial infarction; Z99.3 Dependence on wheelchair
CPT/HCPCS: 36415; 70450; 71045; 80048; 80053; 80202; 80306; 81001; 81003; 83036; 83605; 83690; 83735; 84100; 85025; 87040; 87077; 87086; 87640; 93005; 96361; 96365; 96366; 96368; 99283; 99284

== ENCOUNTER 2017-05-30 11:26 | Outpatient (CLI) | payer MEDICARE, MEDICAID | END 2017-05-30 11:27 | disposition critical access hospital (66) | LOC: EMS 11:26 | PROVIDERS: ATTEND Surgery | DX: M25.551 Pain in right hip (principal); M25.552 Pain in left hip; W06.XXXA Fall from bed, initial encounter; Y92.122 Bedroom in nursing home as the place of occurrence of the external cause | CPT/HCPCS: A0425; A0429 ==

== ENCOUNTER 2017-05-30 11:45 | Emergency (ER) | payer MEDICARE, MEDICAID ==
[2017-05-30] MEDS ORDERED: ACETAMINOPHEN 325 MG TABLET PO STA (11:53)
--- NOTE | 2017-05-30 11:58 | ED Physician Documentation ---
History of Present Illness - Stated complaint Stated Complaint: PNA - Additonal information Additional information: hx from pt and EMS 76 male lives at [facility] back to [facility] X 1 week after a long inpt stay for pna he is supposed to have assistance for transfers but tried to transfer him self and fell eddie hip and R femur pain (AKA on that side) he did not hit his head - no JONES or neck pain Review of Systems Ears: denies: Drainage/discharge Nose: denies: Epistaxis Cardiac: denies: Chest pain / pressure GI: denies: Abdominal Pain Musculoskeletal: reports: Extremity pain, Joint pain. denies: Neck pain, Back pain Neurologic: denies: Headache, Head injury Endocrine: reports: Easy bruising / bleeding (plavix) PD PAST MEDICAL HISTORY - Past Medical History Cardiovascular: Hypertension, High cholesterol, Coronary artery disease, Peripheral Vascular Disease, [place] Respiratory: COPD, Pneumonia, Shortness of breath Neuro: Dementia, CVA, Peripheral neuropathy Endocrine/Autoimmune: Type 2 diabetes GI: GERD, Chronic constipation : Benign prostate hypertrophy, Incontinence, Frequency HEENT: Chronic vision loss Psych: Depression, Anxiety Musculoskeletal: None Derm: None - Past Surgical History Past Surgical History: Yes General: Splenectomy Ortho: Amputation Cardiovascular: Coronary stent, Cardiac catheterization, Vascular surgery, Angioplasty 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 - Present Medications Home Medications: Ambulatory Orders Medication Instructions Recorded Confirmed Trazodone HCl 100 mg PO QPM 07/08/13 04/21/17 Clopidogrel Bisulfate [Plavix] 75 mg PO DAILY 09/15/14 04/21/17 Albuterol [Ventolin Hfa] 2 puffs INH Q4H PRN #1 inhaler 01/30/15 04/21/17 Bupropion HCl [Bupropion HCl Sr] 300 mg PO 0800 #30 04/24/17 04/21/17 DULoxetine [Cymbalta] 20 mg PO QPM #30 04/24/17 04/21/17 Docusate Sodium 250Mg Capsule 250 mg PO BID #30 04/24/17 04/21/17 [Colace 250Mg Capsule] Gabapentin [Neurontin] 600 mg PO TID #540 capsule 04/24/17 Insulin Detemir [Levemir Flextouch] 100 unit SQ DAILY PM #1 insuln.pen 04/24/17 Ipratropium/Albuterol Sulfate 3 ml IH Q4H PRN #1 04/24/17 04/21/17 [Iprat-Albut 0.5-3(2.5) mg/3 ml] Levofloxacin [Levaquin] 750 mg PO DAILY 7 Days #7 tablet 04/24/17 Lisinopril 5 mg PO DAILY #30 04/24/17 04/21/17 Multivitamin W/Minerals [Theragran 1 tab PO DAILYWM #30 tablet 04/24/17 M] Polyethylene Glycol 3350 [Miralax] 17 gm PO DAILY #30 04/24/17 04/21/17 Saccharomyces Boulardii [Florastor] 250 mg PO BID 14 Days #28 capsule 04/24/17 Senna [Senokot] 17.2 mg PO QPM #30 04/24/17 04/21/17 Simvastatin [Zocor] 10 mg PO QPM #30 04/24/17 04/21/17 traMADol [Ultram] 50 mg PO DAILY #30 04/24/17 04/21/17 - Allergies Allergies/Adverse Reactions: Allergies Allergy/AdvReac Type Severity Reaction Status Date / Time Penicillins Allergy Intermediate Rash Verified 05/30/17 12:06 morphine AdvReac Unknown I go Verified 05/30/17 12:06 berserk - Social History Does the pt smoke?: Yes Smoking Status: Current every day smoker Does the pt drink ETOH?: Yes Does the pt have substance abuse?: No - Immunizations Immunizations are current?: Yes - POLST Patient has POLST: Yes POLST Status: DNR PD ED PE NORMAL - Vitals Vital signs reviewed: Yes - General General: Alert and oriented X 3 - HEENT HEENT: Atraumatic, PERRL - Neck Neck: Supple, no meningeal sign, No bony TTP - Cardiac Cardiac: RRR - Respiratory Respiratory: No respiratory distress, Clear bilaterally - Abdomen Abdomen: Non tender - Derm Derm: Normal color - Extremities Extremities: Other (no randall deformity, both hips TTP and some pain with ROM, also TTP to tump of R AKA wchihc pt states is unusual, no bruising, MSV intact to L foot) - Neuro Neuro: Alert and oriented X 3 Results - Vitals Vitals: Vital Signs - 24 hr 05/30/17 11:58 Temperature 36.4 C L Heart Rate 84 Respiratory 15 Rate Blood Pressure 157/60 H O2 Saturation 95 Oxygen O2 Source Room air - Rads (name of study) pelvis eddie hips Radiology: See rad report (no fx seen but less than optimal of L hip consider CT ) R femur Radiology: See rad report (no fx) CT pelvis hips Radiology: See rad report (no fx, stool in rectal vault) PD MEDICAL DECISION MAKING - ED course ED course: no fx on xray or CT long stay as CT read was delayed contipation on imaging - pt had BM while in ED will rec miralax pt nurse Lilo called and [facility]/ [facility] advised nurse Lilo that the pt cannot safely sit in a wheelchair unassisted (see her note) - therefore he qualified for BLS transport back Departure - Departure Disposition: 01 Home, Self Care Clinical Impression: Fall Qualifiers: Encounter type: initial encounter Qualified Code(s): W19.XXXA - Unspecified fall, initial encounter Contusion, hip Qualifiers: Encounter type: initial encounter Laterality: unspecified laterality Qualified Code(s): S70.00XA - Contusion of unspecified hip, initial encounter Condition: Good Instructions: ED Contusion Hip Follow-Up: Mariaa Marx MD [Primary Care Provider] - Comments: Thankfully the xrays and CT scan did not show any fractures of your pelvis hip or femur It is OK for you to go back to [facility] Continue your usual medications for pain - ice may help as well Always ask for assistance with transfers Also the imaging showed that you may be constipated - Continue the miralax and senna that your were prescribed when you were discharged from the hospital. Can also use a Fleets enema or glycerin suppository as needed
[2017-05-30] MEDS ORDERED: oxyCODONE 5 MG TABLET PO STA (12:37)
--- NOTE | 2017-05-30 13:52 | XRAY Report ---
EXAM: RIGHT FEMUR RADIOGRAPHY EXAM DATE: 05/30/2017 01:32 PM. CLINICAL HISTORY: Right leg pain after fall. COMPARISON: None. TECHNIQUE: 2 views, 4 films. FINDINGS: Bones: Status post above-knee amputation without evidence of fracture. Joints: No dislocation. Small clips overlie the right hip joint. Soft Tissues: Atherosclerosis. IMPRESSION: 1. Status post right above-knee amputation without evidence of acute fracture. [facility] Referring Provider Line: [phone] SITE ID: [id number]
--- NOTE | 2017-05-30 13:52 | XRAY Preliminary Report ---
Exam: XR FEMUR 2V RT IMPRESSION: 1. Status post right above-knee amputation without evidence of acute fracture. [facility] SITE ID: [id number]
--- NOTE | 2017-05-30 14:09 | XRAY Report ---
EXAM: BILATERAL HIP RADIOGRAPHY EXAM DATE: 05/30/2017 01:33 PM. CLINICAL HISTORY: Fall bilateral hip pain. COMPARISON: Left hip and pelvis 01/10/2016. TECHNIQUE: 2 views each. FINDINGS: Bones: Underlying osteopenia. The left proximal femur is suboptimally seen due to internal rotation o n the AP view. Medial cortical margin of the femur may be slightly offset, but this may be projection al. Right Hip: No dislocation. Left Hip: No dislocation. Soft Tissues: Atherosclerosis. IMPRESSION: 1. Osteopenia without definite pelvic or right hip fracture although the left femoral neck is subopti maria antonia seen due to prominent internal rotation of the left hip on the AP view. This could obscure a manzo btle or nondisplaced fracture. Suggest repeat AP view of the left hip in external rotation (if the pa tient is unable to externally rotate, then CT of the left hip would be indicated). [facility] Referring Provider Line: [phone] SITE ID: [id number]
[2017-05-30] MEDS ORDERED: GABAPENTIN 100 MG CAPSULE PO STA (15:30)
[2017-05-30] MEDS ORDERED: traMADol 50 MG TABLET PO STA (15:31)
--- NOTE | 2017-05-30 17:59 | CT Report ---
EXAM: CT BONY PELVIS WITHOUT CONTRAST EXAM DATE: 05/30/2017 03:39 PM. CLINICAL HISTORY: Grey hips / pelvis. COMPARISON: None. TECHNIQUE: Thin-section axial images were acquired of the pelvis without contrast. Post-processing: C oronal and sagittal reformats. In accordance with CT protocol optimization, one or more of the following dose reduction techniques w ere utilized for this exam: automated exposure control, adjustment of mA and/or KV based on patient s ize, or use of iterative reconstructive technique. FINDINGS: Bones: No fracture or bone lesion. There are moderate to severe degenerative changes of the lumbar sa cral spine. Sacroiliac Joints: No widening, erosions, or sclerosis. Symphysis Pubis: Unremarkable. Right Hip: The joint space is preserved. No calcified loose bodies. Left Hip: The joint space is preserved. No calcified loose bodies. Musculature: No fatty atrophy. I right renal stone is noted, 4 mm. There is a distal stool ball. Pelvic Cavity: The visualized bowel, bladder, and reproductive organs are unremarkable on this noncon trast exam. Other: No lymphadenopathy. No free air or free fluid. There is scarring of the right groin soft tissu es. The other visualized soft tissues are unremarkable. IMPRESSION: No acute bone findings. No significant degenerative changes of the hips. There is a distal stool ball. Correlate clinically for obstipation. [facility] Referring Provider Line: [phone] SITE ID: [id number]
[2017-05-30 19:21] VITALS: BP 144/62
== END 2017-05-30 19:21 | disposition home or self-care (01) ==
LOC: EDUNIT# → ED 11:45
DX: S70.00XA Contusion of unspecified hip, initial encounter (principal); W05.0XXA Fall from non-moving wheelchair, initial encounter; I25.10 Atherosclerotic heart disease of native coronary artery without angina pectoris; I10 Essential (primary) hypertension; E11.51 Type 2 diabetes mellitus with diabetic peripheral angiopathy without gangrene; Z79.4 Long term (current) use of insulin; F03.90 Unspecified dementia, unspecified severity, without behavioral disturbance, psychotic disturbance, mood disturbance, and anxiety; F17.200 Nicotine dependence, unspecified, uncomplicated; Z95.5 Presence of coronary angioplasty implant and graft; Z89.611 Acquired absence of right leg above knee; Z86.73 Personal history of transient ischemic attack (TIA), and cerebral infarction without residual deficits; Z90.81 Acquired absence of spleen; Z98.2 Presence of cerebrospinal fluid drainage device
CPT/HCPCS: 72192; 73521; 73552; 99283; A9270

== ENCOUNTER 2017-05-30 19:18 | Outpatient (CLI) | payer MEDICARE, MEDICAID | END 2017-05-30 19:19 | disposition home or self-care (01) | LOC: EMS 19:18 | PROVIDERS: ATTEND Surgery | DX: S70.02XA Contusion of left hip, initial encounter (principal); M54.9 Dorsalgia, unspecified; W19.XXXA Unspecified fall, initial encounter; Y92.099 Unspecified place in other non-institutional residence as the place of occurrence of the external cause | CPT/HCPCS: A0425; A0429 ==

== ENCOUNTER 2017-08-01 14:14 | Outpatient (CLI) | payer MEDICARE, MEDICAID | END 2017-08-01 14:15 | disposition critical access hospital (66) | LOC: EMS 14:14 | PROVIDERS: ATTEND Surgery | DX: R73.09 Other abnormal glucose (principal); R40.1 Stupor | CPT/HCPCS: A0425; A0427 ==

== ENCOUNTER 2017-08-01 14:32 | Inpatient (IN) | payer MEDICARE, MEDICAID ==
[2017-08-01] MEDS ORDERED: SODIUM CHLORIDE 0.9% 1,000 ML IV ONE (14:43)
--- NOTE | 2017-08-01 14:48 | ED Physician Documentation ---
PD HPI ALTERED MENTAL STATUS - Stated complaint Stated Complaint: diabetic problem - History obtained from History obtained from: EMS - History of Present Illness Timing - onset: Today Timing - duration: Hours Timing - details: Abrupt onset, Still present Quality / character: Unresponsive Associated symptoms: Seizure activity, Other (diaphoresis) Contributing factors: Diabetic. 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 He is brought to the hospital unresponsive and when medics arrived they found his blood sugar was 60 they administered D50 and got no response from the patient. Sugar did go up to 170. He was diaphoretic. The patient is reliant on lift to get him in and out of bed and he spends most of his time in a wheelchair. He is usually interactive and talkative. The patient's visited him yesterday and states that yesterday she had lunch with him and that he felt very fatigued but was otherwise interactive. Today he has had bouts of upper extremity shaking that appear to be seizure-like activity. He has had a history previously of metabolic encephalopathy related to infection. He spent significant time in the hospital in March with pneumonia and then with urinary tract infection. His last organism cultured was Enterococcus faecalis. Review of Systems Unable to obtain: Unresponsive, Other (The is able to indicate that yesterday he was interactive but fatigued.) PD PAST MEDICAL HISTORY - Past Medical History Cardiovascular: Hypertension, High cholesterol, Coronary artery disease, Peripheral Vascular Disease, [place] Respiratory: COPD, Pneumonia, Shortness of breath Endocrine/Autoimmune: Type 2 diabetes GI: GERD, Chronic constipation : Benign prostate hypertrophy, Incontinence, Frequency HEENT: Chronic vision loss Psych: Depression, Anxiety Musculoskeletal: None Derm: None - Past Surgical History Past Surgical History: Yes General: Splenectomy Ortho: Amputation Cardiovascular: Coronary stent, Cardiac catheterization, Vascular surgery, Angioplasty 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 - Present Medications Home Medications: Ambulatory Orders Medication Instructions Recorded Confirmed Trazodone HCl 100 mg PO QPM 07/08/13 04/21/17 Clopidogrel Bisulfate [Plavix] 75 mg PO DAILY 09/15/14 04/21/17 Albuterol [Ventolin Hfa] 2 puffs INH Q4H PRN #1 inhaler 01/30/15 04/21/17 Bupropion HCl [Bupropion HCl Sr] 300 mg PO 0800 #30 04/24/17 04/21/17 DULoxetine [Cymbalta] 20 mg PO QPM #30 04/24/17 04/21/17 Docusate Sodium 250Mg Capsule 250 mg PO BID #30 04/24/17 04/21/17 [Colace 250Mg Capsule] Gabapentin [Neurontin] 600 mg PO TID #540 capsule 04/24/17 Insulin Detemir [Levemir Flextouch] 100 unit SQ DAILY PM #1 insuln.pen 04/24/17 Ipratropium/Albuterol Sulfate 3 ml IH Q4H PRN #1 04/24/17 04/21/17 [Iprat-Albut 0.5-3(2.5) mg/3 ml] Levofloxacin [Levaquin] 750 mg PO DAILY 7 Days #7 tablet 04/24/17 Lisinopril 5 mg PO DAILY #30 04/24/17 04/21/17 Multivitamin W/Minerals [Theragran 1 tab PO DAILYWM #30 tablet 04/24/17 M] Polyethylene Glycol 3350 [Miralax] 17 gm PO DAILY #30 04/24/17 04/21/17 Saccharomyces Boulardii [Florastor] 250 mg PO BID 14 Days #28 capsule 04/24/17 Senna [Senokot] 17.2 mg PO QPM #30 04/24/17 04/21/17 Simvastatin [Zocor] 10 mg PO QPM #30 04/24/17 04/21/17 traMADol [Ultram] 50 mg PO DAILY #30 04/24/17 04/21/17 - Allergies Allergies/Adverse Reactions: Allergies Allergy/AdvReac Type Severity Reaction Status Date / Time Penicillins Allergy Intermediate Rash Verified 05/30/17 12:06 morphine AdvReac Unknown I go Verified 05/30/17 12:06 berserk - Social History Does the pt smoke?: Yes Smoking Status: Current every day smoker Does the pt drink ETOH?: Yes Does the pt have substance abuse?: No - Immunizations Immunizations are current?: Yes - POLST Patient has POLST: Yes POLST Status: DNR PD ED PE NORMAL - Vitals Vital signs reviewed: Yes (hypotensive ) - General General: Well developed/nourished, Other (The patient is unresponsive lying with his eyes closed breathing regularly and does not appear to be in distress. ) - HEENT HEENT: Atraumatic, PERRL, Other (The eyes are closed tightly and deviated upward. ) - Neck Neck: Supple, no meningeal sign, No bony TTP - Cardiac Cardiac: Other (heart sounds are distant) - Respiratory Respiratory: No respiratory distress, Other (diminished breath sounds bilaterally ) - Abdomen Abdomen: Soft, Non tender, Other (obese) - Back Back: No CVA TTP, No spinal TTP - Derm Derm: Normal color, Warm and dry - Extremities Extremities: Other (There is ) - Neuro Neuro: Other (unresponsive moves all ext with painful stimuli) Eye Opening: To Pain Motor: Withdraws to Pain Verbal: Incomprehensible GCS Score: 8 Results - Vitals Vitals: Vital Signs - 24 hr 08/01/17 08/01/17 14:43 16:46 Temperature 35.8 C L Heart Rate 74 75 Respiratory 12 76 H Rate Blood Pressure 107/57 L 128/65 O2 Saturation 93 99 Oxygen O2 Source Nasal cannula - EKG (time done) 1449 Rate: Rate (enter#) (83) Rhythm: NSR Intervals: Prolonged AL QRS: Poor R wave progression Ischemia: Q waves (inferior ) Compare to prior EKG: Changed from prior EKG (03-24-2017 rate has decreased) Computer interpretation: Agree with computer - Labs Labs: Laboratory Tests 08/01/17 08/01/17 08/01/17 14:45 14:45 14:45 WBC 7.8 RBC 4.74 Hgb 13.2 L Hct 40.1 L MCV 84.5 MCH 27.8 MCHC 32.9 RDW 14.9 Plt Count 206 MPV 8.2 Neut # 6.1 Lymph # 1.[address] [place] # 0.5 Eos # 0.2 Baso # 0.0 Absolute Nucleated RBC 0.01 Nucleated RBC % 0.1 Sodium 134 L Potassium 4.1 Chloride 99 L Carbon Dioxide 28 Anion Gap 7.0 BUN 28 H Creatinine 1.6 H Estimated GFR (MDRD) 42 L Glucose 140 H Lactic Acid 0.7 Calcium 9.0 Total Bilirubin 0.6 AST 21 ALT 17 Alkaline Phosphatase 133 H Total Protein 8.1 Albumin 3.6 Globulin 4.5 H Albumin/Globulin Ratio 0.8 L Lipase 19 L Urine Color Urine Clarity Urine pH Ur Specific [place] Urine Protein Urine Glucose (UA) Urine Ketones Urine Occult Blood Urine Nitrite Urine Bilirubin Urine Urobilinogen Ur Leukocyte Esterase Urine RBC Urine WBC Urine WBC Clumps Ur Squamous Epith Cells Urine Bacteria Urine Yeast Ur Microscopic Review Urine Culture Comments 08/01/17 16:35 WBC RBC Hgb Hct MCV MCH MCHC RDW Plt Count MPV Neut # Lymph # [place] # Eos # Baso # Absolute Nucleated RBC Nucleated RBC % Sodium Potassium Chloride Carbon Dioxide Anion Gap BUN Creatinine Estimated GFR (MDRD) Glucose Lactic Acid Calcium Total Bilirubin AST ALT Alkaline Phosphatase Total Protein Albumin Globulin Albumin/Globulin Ratio Lipase Urine Color YELLOW Urine Clarity HAZY Urine pH 6.0 Ur Specific [place] >=1.030 H Urine Protein NEGATIVE Urine Glucose (UA) NEGATIVE Urine Ketones NEGATIVE Urine Occult Blood MODERATE H Urine Nitrite NEGATIVE Urine Bilirubin NEGATIVE Urine Urobilinogen 0.2 (NORMAL) Ur Leukocyte Esterase SMALL H Urine RBC TNTC H Urine WBC >25 H Urine WBC Clumps PRESENT Ur Squamous Epith Cells NONE SEEN Urine Bacteria Moderate H Urine Yeast PRESENT Ur Microscopic Review INDICATED Urine Culture Comments INDICATED - Rads (name of study) 1 view chest Radiology: Prelim report reviewed (Impression: 1. Low lung volumes. No radiographic acute cardiopulmonary process evident.), EMP read indepedently, See rad report CT head without Radiology: Prelim report reviewed (Impression: No intracranial hemorrhage, masses, or other discrete acute intracranial process identified. Additional findings as above.), EMP read indepedently, See rad report PD MEDICAL DECISION MAKING - ED course Complexity details: reviewed old records, reviewed results, re-evaluated patient , considered differential, d/w family ED course: 76-year-old diabetic male has developed altered level of consciousness and is significantly altered. He has a [place] Coma Scale of 8. He has had this happen to him previously with infection. He has been diagnosed previously with metabolic encephalopathy related to infection. On initial evaluation the patient's chest appears clear he is afebrile has a normal white blood cell count he does have pyuria and bacteriuria. A Head catheter is placed and he is begun on ceftriaxone and vancomycin. His prior urine grew Enterococcus faecalis. allergic to pcn. Dr. Foss is consulted in the case and graciously agrees to care for the patient in the hospital. Departure - Departure Disposition: 66 [facility] DC/Xfer Clinical Impression: Acute metabolic encephalopathy UTI (urinary tract infection) Qualifiers: Urinary tract infection type: acute cystitis Hematuria presence: without hematuria Qualified Code(s): N30.00 - Acute cystitis without hematuria Condition: Serious
[2017-08-01 14:53] LABS: BASOPHILS % (AUTO) 0.6 %; EOSINOPHILS # (AUTO) 0.2 10^3/uL (0.0-0.7); HGB - HEMOGLOBIN 13.2 g/dL (14.0-18.0); LYMPHOCYTES % (AUTO) 13.3 %; MEAN CORPUSCULAR HEMOGLOBIN 27.8 pg (27.0-31.0); MEAN CORPUSCULAR HGB CONC 32.9 g/dL (32.0-36.0); MEAN CORPUSCULAR VOLUME 84.5 fL (80.0-94.0); MEAN PLATELET VOLUME 8.2 fL (7.4-11.4); MONOCYTES # (AUTO) 0.5 10^3/uL (0.0-1.0); MONOCYTES % (AUTO) 5.9 %; NEUTROPHILS # (AUTO) 6.1 10^3/uL (1.5-6.6); NEUTROPHILS % (AUTO) 78.2 %; PLT - PLATELET COUNT 206 10^3/uL (130-450); RED BLOOD COUNT 4.74 10^6/uL (4.70-6.10); RED CELL DISTRIBUTION WIDTH 14.9 % (12.0-15.0); WHITE BLOOD COUNT 7.8 x10^3/uL (4.8-10.8)
[2017-08-01 15:06] LABS: ALBUMIN 3.6 g/dL (3.2-5.5); ALBUMIN/GLOBULIN RATIO 0.8 (1.0-2.2); BILIRUBIN,TOTAL 0.6 mg/dL (0.2-1.0); CREATININE 1.6 mg/dL (0.6-1.2); TOTAL PROTEIN 8.1 g/dL (6.7-8.2)
--- NOTE | 2017-08-01 15:30 | XRAY Report ---
EXAM: CHEST RADIOGRAPHY EXAM DATE: 08/01/2017 03:22 PM. CLINICAL HISTORY: Altered LOC. COMPARISON: 04/20/2017. TECHNIQUE: 1 view. FINDINGS: Lungs/Pleura: Lung volumes are low. Linear basilar opacities likely reflect atelectasis. No other con solidation. No pneumothorax. Mediastinum: Stable heart size and mediastinum. Other: None. IMPRESSION: 1. Low lung volumes. No radiographic acute cardiopulmonary process evident. [facility] Referring Provider Line: [phone] SITE ID: [id number]
--- NOTE | 2017-08-01 15:30 | CT Preliminary Report ---
Exam: CT HEAD W/O Impression: No intracranial hemorrhage, masses, or other discrete acute intracranial process identified. Addition al findings as above. SITE ID: [id number]
--- NOTE | 2017-08-01 15:35 | CT Report ---
EXAM: CT HEAD WITHOUT CONTRAST COMPARISON: CT head, 04/20/2017. CLINICAL HISTORY: Unresponsive.No trauma. TECHNIQUE: Axial CT images were obtained from the foramen magnum to the vertex without contrast In accordance with CT protocol optimization, one or more of the following dose reduction techniques w ere utilized for this exam: automated exposure control, adjustment of mA and/or KV based on patient s ize, or use of iterative reconstructive technique. FINDINGS: No intracranial hemorrhage. No masses. No unexpected intra-axial or extra-axial fluid collections. Asymmetric enlargement of the right temporal horn is likely related to asymmetric right hippocampal v olume loss. Postoperative findings after prior right-sided craniotomy are noted. Ventriculomegaly is concordant with volume loss. No lytic or blastic bone lesions are seen. No middle ear effusions. Mastoids are clear. Temporomandibular joints are normally located. Zygomatic arches are intact. No dense vessels. IMPRESSION: No intracranial hemorrhage, masses, or other discrete acute intracranial process identified. Addition al findings as above. Referring Provider Line: [phone] SITE ID: [id number]
[2017-08-01] MEDS ORDERED: LORazepam 2 MG/ML VIAL IVP STA (16:15)
[2017-08-01] MEDS ORDERED: LORazepam 2 MG/ML VIAL ONE (16:27)
[2017-08-01 16:38] LABS: BILIRUBIN,URINE NEGATIVE (NEGATIVE); GLUCOSE, URINE (UA) NEGATIVE (NEGATIVE); KETONES,URINE (UA) NEGATIVE (NEGATIVE); LEUKOCYTE ESTERASE, URINE SMALL (NEGATIVE); NITRITE,URINE NEGATIVE (NEGATIVE); OCCULT BLOOD,URINE MODERATE (NEGATIVE); PROTEIN,URINE NEGATIVE (NEGATIVE); UROBILINOGEN,URINE 0.2 (NORMAL) E.U./dL (NORMAL)
[2017-08-01 16:39] LABS: CLARITY,URINE HAZY (CLEAR)
[2017-08-01 16:44] LABS: BACTERIA,URINE Moderate /HPF (None Seen); RBC,URINE TNTC /HPF (0-5); SQUAMOUS EPITHELIAL CELL,UR NONE SEEN (<= Few); WBC CLUMPS,URINE PRESENT; YEAST,URINE PRESENT
[2017-08-01] MEDS ORDERED: cefTRIAXone 1 GM in SODIUM CHLORIDE 0.9% MINIBAG 100 ML IV STA (16:54)
[2017-08-01] MEDS ORDERED: VANCOMYCIN INJ 1 GM in SODIUM CHLORIDE 0.9% 500 ML IV STA (16:55)
--- NOTE | 2017-08-01 17:26 | HISTORY & PHYSICAL EXAMINATION ---
Chief Complaint - Chief Complaint Chief Complaint: unresponsive History of Present Illness - Admitted From Admitted From:: ED - History Obtained From Records Reviewed: yes History obtained from: chart review, , patient Exam Limitations: AMS - History of Present Illness HPI Comment/Other: Douglas Bowles is an ill-appearing 76-year old male with an extensive past medical history of BPH, hypertension, IN-status post cardiac stents, CVA- multiple, diabetes mellitus type 2, depression, anxiety, COPD, splenectomy, right AKA leg, blindness, and peripheral neuropathy. He resides at [facility] in [place] and was found unresponsive with little movement. EMS was called and he had a blood sugar of only 60, and continued to be unresponsive and once in the ED showed little improvement. A chest x-ray was completed and showed atelectasis with low lung volumes, a head CT shows no bleeding, masses or other discrete intracranial process identified. A urine sample taken is suspicious for UTI, and appeared "milky". He will be admitted for IV antibiotics, oxygen support, nebulizers, electrolyte balance, and blood sugar control. Confirmed with , patient wishes to be a DNR. History - Past Medical History Cardiovascular: reports: Hypertension, High cholesterol, Coronary artery disease , Peripheral Vascular Disease, IN Respiratory: reports: COPD, Pneumonia, Shortness of breath Endocrine/Autoimmune: reports: Type 2 diabetes GI: reports: GERD, Chronic constipation : reports: Benign prostate hypertrophy, Incontinence, Frequency HEENT: reports: Chronic vision loss Psych: reports: Depression, Anxiety Musculoskeletal: reports: None Derm: reports: None MRSA Hx?: Yes - Past Surgical History General: reports: Splenectomy Ortho: reports: Amputation Cardiovascular: reports: Coronary stent, Cardiac catheterization, Vascular surgery, Angioplasty Neuro: reports: PART TIME FLEXIBLE CLERK shunt - Family & Social History Family History: Mother: , Father: , Brother: Alive and Well Family History Comment/Other: Mother: , Father: , Brother: Alive and Well, Cancer,. Patient and his brother were placed in an orphanage at a very young age, so no known past medical history of parents. Living arrangement: half-way Living arrangement: Assisted living ([facility] resident) Social History Notes: The patient is to [place]. Has 5 children, his lives in [place]. He resides at [facility]. He is wheelchair bound, he has been a life long smoker, alcoholism, and occasionally has used marijuana. He is a DNR. - Substance History Use: Uses substance without health or social issues: NONE, Tobacco, Alcohol Abuse: Recurrent use of substance despite neg consequences: NONE Dependence: Experiences withdrawal or developed tolerances: NONE - POLST Patient has POLST: Yes POLST Status: DNR Meds/Allgy - Home Medications Home Medications: Ambulatory Orders Medication Instructions Recorded Confirmed Trazodone HCl 100 mg PO QPM 07/08/13 08/02/17 Clopidogrel Bisulfate [Plavix] 75 mg PO DAILY 09/15/14 08/02/17 Albuterol [Ventolin Hfa] 2 puffs INH Q4H PRN #1 inhaler 01/30/15 08/02/17 Bupropion HCl [Bupropion HCl Sr] 300 mg PO 0800 #30 04/24/17 08/02/17 DULoxetine [Cymbalta] 20 mg PO QPM #30 04/24/17 08/02/17 Docusate Sodium 250Mg Capsule 250 mg PO BID #30 04/24/17 08/02/17 [Colace 250Mg Capsule] Gabapentin [Neurontin] 600 mg PO TID #540 capsule 04/24/17 08/02/17 Ipratropium/Albuterol Sulfate 3 ml IH Q4H PRN #1 04/24/17 08/02/17 [Iprat-Albut 0.5-3(2.5) mg/3 ml] Lisinopril 5 mg PO DAILY #30 04/24/17 08/02/17 Multivitamin W/Minerals [Theragran 1 tab PO DAILYWM #30 tablet 04/24/17 08/02/17 M] Senna [Senokot] 17.2 mg PO QPM #30 04/24/17 08/02/17 Simvastatin [Zocor] 10 mg PO QPM #30 04/24/17 08/02/17 Acetaminophen 650 mg PO Q6H PRN 08/02/17 08/02/17 Insulin Detemir [Levemir Flextouch] 30 unit SQ BID 08/02/17 08/02/17 Insulin Regular Human [NovoLIN R] 10 unit SUBQ TIDWM 08/02/17 08/02/17 Lactulose 15 ml PO BID PRN 08/02/17 08/02/17 Polyethylene Glycol 3350 17 g PO DAILY 08/02/17 08/02/17 traMADol [Ultram] 50 mg PO QID 08/02/17 08/02/17 - Allergies Allergies/Adverse Reactions: Allergies Allergy/AdvReac Type Severity Reaction Status Date / Time Penicillins Allergy Intermediate Rash Verified 05/30/17 12:06 morphine AdvReac Unknown I go Verified 05/30/17 12:06 berserk Review of Systems - Constitutional Constitutional: reports: Fatigue, Fever, Chills, Weakness, Poor appetite - Eyes Eyes: reports: Field loss, Vision loss - Ears, Nose & Throat Ears, Nose & Throat: reports: Hearing loss, Postnasal drainage - Cardiovascular Cariovascular: reports: Decr. exercise tolerance - Gastrointestinal Gastrointestinal: reports: Poor appetite - Genitourinary Genitourinary: reports: Dysuria, Frequency, Incontinence, Nocturia - Integumentary Integumentary: reports: Dryness - Neurological Neurological: reports: General weakness, Memory problems, Pre-existing deficit, Incoordination - Hematologic/Lymphatic Hematologic/Lymphatic: reports: Recurrent infections - All Other Systems All Other Systems: reports: Reviewed and negative Exam - Vital Signs Reviewed Vital Signs: Yes Vital Signs: Vital Signs x48h Temp Pulse Resp BP Pulse Ox 08/01/17 16:46 75 76 H 128/65 99 08/01/17 14:43 35.8 C L 74 12 107/57 L 93 - Physical Exam General Appearance: positive: No acute distress, Lethargic ENT: positive: Pharyngeal erythema, Dry mucous membranes Neck: positive: No JVD, Stiff neck Respiratory: positive: Chest non-tender, Wheezes, Rhonchi Cardiovascular: positive: No gallop, Irregularly irregular, Systolic murmur, Decreased pulse(s) Conclusion/Plan - Problem List (1) Unresponsive Conclusion/Plan: The patient was found down for an unknown amount of time and has been unresponsive in the ED. According to his , Emma, this has happened before. She explains, "Last time he woke up in 3 days". The patient had a recorded blood glucose of 60, and dextrose was given. Plan: Telemetry to record any episodes of asystole, or other signs of cardiac damage. Troponins are ordered for later this evening. (2) UTI (urinary tract infection) Conclusion/Plan: A new indwelling webb was inserted and there is milky, yellow urine in the tubing. A urine sample was obtained and preliminary results are + for UA. The patient also shows signs of sepsis, so blood cultures were obtained. Plan: Treat with IV antibiotics and await culture results. Qualifiers: Urinary tract infection type: acute cystitis Hematuria presence: without hematuria Qualified Code(s): N30.00 - Acute cystitis without hematuria (3) Fall Conclusion/Plan: The patient has a history of falls with injury. He was found down, so I suspect that he fell to the floor to get that way. Unknown etiology for this event, but it may have been in the setting of this acute illness. 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 Plan: Continue to monitor, fall precautions. Qualifiers: Encounter type: initial encounter Qualified Code(s): W19.XXXA - Unspecified fall, initial encounter (4) T2DM (type 2 diabetes mellitus) Conclusion/Plan: Per our most recent medication list the patient is on a very large long acting insulin dose. The last known blood sugar was 140 this afternoon when a BMP was checked. The patient was reported to have good control lately of daily Blood sugars per 's report. His appetite has been unchanged until yesterday, when he had a poor appetite and began showing signs of confusion. Plan: SSI ordered for during meals, monitor BS at the bedside, and a very gentle dose of 20 units Lantus was prescribed in this acute illness setting. Qualifiers: Diabetes mellitus retirement insulin use: unspecified retirement insulin use status Diabetes mellitus complication status: without complication Qualified Code(s): E11.9 - Type 2 diabetes mellitus without complications (5) Legally blind Conclusion/Plan: The patient has been blind for several years, but can usually recognize at least his . Upon arriving to the nursing floor, nursing reports the patient being able to state his name, but his claims that he does not see her. Plan: Continuity of nursing care and frequent nursing rounds. - Lab Results Lab results reviewed: Yes Fish Bones: 08/02/17 05:13 08/02/17 05:13 - Diagnostic Imaging Results Diagnostic Imaging Results: positive: Prelim report reviewed, Final report reviewed Diagnostic Imaging Results Comments: EXAM: CT HEAD WITHOUT CONTRAST COMPARISON: CT head, 04/20/2017. CLINICAL HISTORY: Unresponsive.No trauma. TECHNIQUE: Axial CT images were obtained from the foramen magnum to the vertex without contrast In accordance with CT protocol optimization, one or more of the following dose reduction techniques were utilized for this exam: automated exposure control, adjustment of mA and/or KV based on patient size, or use of iterative reconstructive technique. FINDINGS: No intracranial hemorrhage. No masses. No unexpected intra-axial or extra-axial fluid collections. Asymmetric enlargement of the right temporal horn is likely related to asymmetric right hippocampal volume loss. Postoperative findings after prior right-sided craniotomy are noted. Ventriculomegaly is concordant with volume loss. No lytic or blastic bone lesions are seen. No middle ear effusions. Mastoids are clear. Temporomandibular joints are normally located. Zygomatic arches are intact. No dense vessels. IMPRESSION: No intracranial hemorrhage, masses, or other discrete acute intracranial process identified. Additional findings as above. EXAM: CHEST RADIOGRAPHY EXAM DATE: 08/01/2017 03:22 PM. CLINICAL HISTORY: Altered LOC. COMPARISON: 04/20/2017. TECHNIQUE: 1 view. FINDINGS: Lungs/Pleura: Lung volumes are low. Linear basilar opacities likely reflect atelectasis. No other consolidation. No pneumothorax. Mediastinum: Stable heart size and mediastinum. Other: None. IMPRESSION: 1. Low lung volumes. No radiographic acute cardiopulmonary process evident. - EKG Results EKG Interpreted Independently: Yes EKG Comparison: Unchanged from prior EKG Core Measures - Anticipated LOS I expect patient to be DC'd or transferred within 96 hours.: Yes - DVT/VTE - Prophylaxis VTE/DVT Device ordered at admit?: No Not Ordered - Medical Reason: Contraindicated (no legs) VTE/DVT Prophylaxis med ordered at admit?: Yes - Stroke - Rehab Assessment Rehab services assessment to be ordered?: Yes - AMI - Statin at Admit Aspirin Prescribed on Admit: Yes
[2017-08-01] MEDS ORDERED: VANCOMYCIN PER PHARMACY 100 GM in SODIUM CHLORIDE 0.9% 250 ML IV SCH (22:00)
[2017-08-01] MEDS: INSULIN GLARGINE 300 UNIT/3 ML PEN SUBQ SCH (22:40)
[2017-08-01] MEDS: INSULIN ASPART 300 UNIT/3 ML PEN SUBQ SCH (22:41)
[2017-08-01] MEDS ORDERED: ZINC OXIDE 20% OINT 28.35 GM TUBE TOP PRN (23:01)
[2017-08-01] MEDS ORDERED: MIN OIL/DIMETHICON/COCONUT OIL 92 GM TUBE TOP PRN (23:01)
[2017-08-01] MEDS: LEVALBUTEROL 1.25 MG/3 ML NEB INH SCH (23:49)
[2017-08-02] MEDS: SODIUM CHLORIDE FLUSH 0.9% 10 ML SYRINGE IVP SCH ×3 (00:36→17:17)
[2017-08-02] MEDS: SODIUM CHLORIDE FLUSH 0.9% 10 ML SYRINGE IVP PRN ×3 (01:03→17:24)
[2017-08-02] MEDS: LORazepam 2 MG/ML VIAL IVP PRN ×4 (01:03→19:26)
[2017-08-02 05:22] LABS: BASOPHILS # (AUTO) 0.1 10^3/uL (0.0-0.1); EOSINOPHILS # (AUTO) 0.1 10^3/uL (0.0-0.7); EOSINOPHILS % (AUTO) 1.6 %; HGB - HEMOGLOBIN 12.9 g/dL (14.0-18.0); LYMPHOCYTES # (AUTO) 1.2 10^3/uL (1.5-3.5); LYMPHOCYTES % (AUTO) 13.3 %; MEAN CORPUSCULAR HEMOGLOBIN 28.3 pg (27.0-31.0); MEAN CORPUSCULAR HGB CONC 33.1 g/dL (32.0-36.0); MEAN CORPUSCULAR VOLUME 85.4 fL (80.0-94.0); MEAN PLATELET VOLUME 8.4 fL (7.4-11.4); MONOCYTES # (AUTO) 0.5 10^3/uL (0.0-1.0); NEUTROPHILS # (AUTO) 6.9 10^3/uL (1.5-6.6); NEUTROPHILS % (AUTO) 78.1 %; PLT - PLATELET COUNT 240 10^3/uL (130-450); RED BLOOD COUNT 4.56 10^6/uL (4.70-6.10); RED CELL DISTRIBUTION WIDTH 15.1 % (12.0-15.0); WHITE BLOOD COUNT 8.9 x10^3/uL (4.8-10.8)
[2017-08-02 05:44] LABS: ALBUMIN 3.6 g/dL (3.2-5.5); ALBUMIN/GLOBULIN RATIO 0.8 (1.0-2.2); BILIRUBIN,TOTAL 0.7 mg/dL (0.2-1.0); CREATININE 1.3 mg/dL (0.6-1.2); TOTAL PROTEIN 7.9 g/dL (6.7-8.2)
[2017-08-02 05:46] LABS: HB2 TOTAL 14.9 g/dL; HEMOGLOBIN A1C 0.85 g/dL; HEMOGLOBIN A1C % 7.4 % (4.6-6.2)
[2017-08-02] MEDS ORDERED: LINEZOLID 600 MG/300 ML 600 MG/300 ML BAG IV SCH (07:00)
[2017-08-02] MEDS: LEVALBUTEROL 1.25 MG/3 ML NEB INH SCH (07:40)
[2017-08-02] MEDS: INSULIN ASPART 300 UNIT/3 ML PEN SUBQ SCH ×4 (09:57→21:08)
[2017-08-02] MEDS: POLYETHYLENE GLYCOL 3350 17 GM PACKET PO SCH (09:58)
[2017-08-02] MEDS: PIPERACILLIN/TAZOBACTAM 3.375 GM in SODIUM CHLORIDE 0.9% MINIBAG 100 ML IV SCH ×2 (16:15→23:13)
[2017-08-02] MEDS: VANCOMYCIN INJ 1 GM in SODIUM CHLORIDE 0.9% 500 ML IV SCH (16:16)
--- NOTE | 2017-08-02 19:08 | PROVIDER PROGRESS NOTE ---
Subjective - Prog Note Date Prog Note Date: 08/02/17 Prog Note Time: 09:00 - Subjective Pt reports feeling: Improved Subjective: is at the bedside and states that she believes her can recognize her presence. He appears more agitated. Current Medications - Current Medications Current Medications: Active Medications Vancomycin HCl 1 gm/ Sodium (Chloride) 500 mls @ 250 mls/hr IV Q12H [facility] Last Infusion: 08/02/17 18:40 Dose: Infused Piperacillin Sod/Tazobactam (Sod 3.375 gm/ Sodium Chloride) 100 mls @ 25 mls/ hr IV Q8H [facility] Last Admin: 08/02/17 16:15 Dose: 25 mls/hr Insulin Aspart (Novolog) 1 - 5 unit SUBQ 0800,1200,1700,2100 [facility] PRN Reason: Protocol Last Admin: 08/02/17 17:24 Dose: 1 unit Insulin Glargine (Lantus Solostar) 20 unit SUBQ QPM [facility] Last Admin: 08/01/17 22:40 Dose: 20 unit Levalbuterol HCl (Xopenex) 1.25 mg INH Q4H PRN PRN Reason: Shortness of Air/Wheezing Lorazepam (Ativan Inj (Vial)) 0.5 mg IVP Q2H PRN PRN Reason: Anxiety Last Admin: 08/02/17 17:23 Dose: 0.5 mg Mineral Oil (Cavilon) 1 applic TOP PRN PRN PRN Reason: Skin Care Last Admin: 08/02/17 01:02 Dose: 1 applic Multi-Ingredient Ointment (Zinc Oxide) 1 applic TOP PRN PRN PRN Reason: Skin Care Polyethylene Glycol (Miralax) 17 gm PO DAILY [facility] Last Admin: 08/02/17 09:58 Dose: 17 gm Sodium Chloride (Normal Saline Flush 0.9%) 10 ml IVP PRN PRN PRN Reason: NEEDED PER PROVIDER ORDERS Last Admin: 08/02/17 17:24 Dose: 10 ml Sodium Chloride (Normal Saline Flush 0.9%) 10 ml IVP 0100,0900,1700 [facility] Last Admin: 08/02/17 17:17 Dose: Not Given Trazodone HCl 100 mg PO QPM 07/08/13 Clopidogrel Bisulfate [Plavix] 75 mg PO DAILY 09/15/14 Acetaminophen 650 mg PO Q6H PRN 08/02/17 Insulin Detemir [Levemir Flextouch] 30 unit SQ BID 08/02/17 Insulin Regular Human [NovoLIN R] 10 unit SUBQ TIDWM 08/02/17 Lactulose 15 ml PO BID PRN 08/02/17 Polyethylene Glycol 3350 17 g PO DAILY 08/02/17 traMADol [Ultram] 50 mg PO QID 08/02/17 Objective - Vital Signs/Intake & Output Reviewed Vital Signs: Yes Vital Signs: Vital Signs x48h Temp Pulse Resp BP Pulse Ox 08/02/17 16:30 37.3 C 97 18 196/75 H 95 08/02/17 14:26 36.2 C L 129 H 21 149/95 H 99 Intake & Output: Intake & Output 07/30/17 07/31/17 08/01/17 08/02/17 23:59 23:59 23:59 23:59 Intake Total 600 1045 Output Total 550 1450 Balance 50 -405 - Objective General Appearance: positive: Alert, Moderate distress, Anxious Eyes Bilateral: positive: Other (pre-existing deficits related to chronic blindness.) Eyes: OU Conjunctivae pale, OU Scleral icterus ENT: positive: Pharyngeal erythema, Dry mucous membranes Neck: positive: No JVD, Trachea midline Respiratory: positive: Chest non-tender, No respiratory distress, Rhonchi Cardiovascular: positive: No gallop, Irregularly irregular, Systolic murmur, Decreased pulse(s) Peripheral Pulses: 1+ Radial (R), 1+ Radial (L) Abdomen: positive: Non-tender, Abnml bowel sounds, Other (obese, soft) Back: positive: Nml inspection Skin: positive: No rash, Warm, Dry, Cyanosis, Pallor, Decubitus (chronic buttock , see chart) Extremities: positive: Pedal edema, Joint swelling, Other (R BKA) Neurologic/Psychiatric: positive: Disoriented to person, Disoriented to place, Disoriented to time, Weakness, Sensory loss, Slurred/abnml speech (appears to have hallucinations, reaching for items in the air, talking to people who are not present.), Depressed mood/affect Reflexes: Bicep (R): 1+, Bicep (L): 1+ - Lab Results Fish Bones: 08/05/17 08:53 08/05/17 04:30 Other Labs: Lab Results x24hrs 08/02/17 08/02/17 08/02/17 Range/Units 05:13 05:13 05:13 WBC (4.8-10.8) x10^3/uL RBC (4.70-6.10) 10^6/uL Hgb (14.0-18.0) g/dL Hct (42.0-52.0) % MCV (80.0-94.0) fL MCH (27.0-31.0) pg MCHC (32.0-36.0) g/dL RDW (12.0-15.0) % Plt Count (130-450) 10^3/uL MPV (7.4-11.4) fL Neut # (1.5-6.6) 10^3/uL Lymph # (1.5-3.5) 10^3/uL Ritchie # (0.0-1.0) 10^3/uL Eos # (0.0-0.7) 10^3/uL Baso # (0.0-0.1) 10^3/uL Absolute Nucleated RBC x10^3/uL Nucleated RBC % /100WBC ESR 39 H (0-20) mm/Hr Sodium (135-145) mmol/L Potassium (3.5-5.0) mmol/L Chloride (101-111) mmol/L Carbon Dioxide (21-32) mmol/L Anion Gap (6-13) BUN (6-20) mg/dL Creatinine (0.6-1.2) mg/dL Estimated GFR (MDRD) (>89) Glucose (70-100) mg/dL Glycated Hemoglobin (4.6-6.2) % Estim Average Glucose (70-100) Lactic Acid 0.8 (0.5-2.2) mmol/L Calcium (8.5-10.3) mg/dL Total Bilirubin (0.2-1.0) mg/dL AST (10-42) IU/L ALT (10-60) IU/L Alkaline Phosphatase (42-121) IU/L Troponin I < 0.04 (<0.49) ng/mL C-Reactive Protein (0-1.0) mg/dL Total Protein (6.7-8.2) g/dL Albumin (3.2-5.5) g/dL Globulin (2.1-4.2) g/dL Albumin/Globulin Ratio (1.0-2.2) 08/02/17 08/02/17 08/02/17 Range/Units 05:13 05:13 05:13 WBC 8.9 (4.8-10.8) x10^3/uL RBC 4.56 L (4.70-6.10) 10^6/uL Hgb 12.9 L (14.0-18.0) g/dL Hct 38.9 L (42.0-52.0) % MCV 85.4 (80.0-94.0) fL MCH 28.3 (27.0-31.0) pg MCHC 33.1 (32.0-36.0) g/dL RDW 15.1 H (12.0-15.0) % Plt Count 240 (130-450) 10^3/uL MPV 8.4 (7.4-11.4) fL Neut # 6.9 H (1.5-6.6) 10^3/uL Lymph # 1.2 L (1.5-3.5) 10^3/uL Ritchie # 0.5 (0.0-1.0) 10^3/uL Eos # 0.1 (0.0-0.7) 10^3/uL Baso # 0.1 (0.0-0.1) 10^3/uL Absolute Nucleated RBC 0.00 x10^3/uL Nucleated RBC % 0.0 /100WBC ESR (0-20) mm/Hr Sodium 135 (135-145) mmol/L Potassium 4.8 (3.5-5.0) mmol/L Chloride 101 (101-111) mmol/L Carbon Dioxide 27 (21-32) mmol/L Anion Gap 7.0 (6-13) BUN 23 H (6-20) mg/dL Creatinine 1.3 H (0.6-1.2) mg/dL Estimated GFR (MDRD) 54 L (>89) Glucose 106 H (70-100) mg/dL Glycated Hemoglobin 7.4 H (4.6-6.2) % Estim Average Glucose 166 H (70-100) Lactic Acid (0.5-2.2) mmol/L Calcium 9.0 (8.5-10.3) mg/dL Total Bilirubin 0.7 (0.2-1.0) mg/dL AST 20 (10-42) IU/L ALT 16 (10-60) IU/L Alkaline Phosphatase 126 H (42-121) IU/L Troponin I (<0.49) ng/mL C-Reactive Protein 3.0 H (0-1.0) mg/dL Total Protein 7.9 (6.7-8.2) g/dL Albumin 3.6 (3.2-5.5) g/dL Globulin 4.3 H (2.1-4.2) g/dL Albumin/Globulin Ratio 0.8 L (1.0-2.2) 08/01/17 08/01/17 Range/Units 22:03 22:03 WBC (4.8-10.8) x10^3/uL RBC (4.70-6.10) 10^6/uL Hgb (14.0-18.0) g/dL Hct (42.0-52.0) % MCV (80.0-94.0) fL MCH (27.0-31.0) pg MCHC (32.0-36.0) g/dL RDW (12.0-15.0) % Plt Count (130-450) 10^3/uL MPV (7.4-11.4) fL Neut # (1.5-6.6) 10^3/uL Lymph # (1.5-3.5) 10^3/uL Ritchie # (0.0-1.0) 10^3/uL Eos # (0.0-0.7) 10^3/uL Baso # (0.0-0.1) 10^3/uL Absolute Nucleated RBC x10^3/uL Nucleated RBC % /100WBC ESR (0-20) mm/Hr Sodium (135-145) mmol/L Potassium (3.5-5.0) mmol/L Chloride (101-111) mmol/L Carbon Dioxide (21-32) mmol/L Anion Gap (6-13) BUN (6-20) mg/dL Creatinine (0.6-1.2) mg/dL Estimated GFR (MDRD) (>89) Glucose (70-100) mg/dL Glycated Hemoglobin (4.6-6.2) % Estim Average Glucose (70-100) Lactic Acid 0.7 (0.5-2.2) mmol/L Calcium (8.5-10.3) mg/dL Total Bilirubin (0.2-1.0) mg/dL AST (10-42) IU/L ALT (10-60) IU/L Alkaline Phosphatase (42-121) IU/L Troponin I < 0.04 (<0.49) ng/mL C-Reactive Protein (0-1.0) mg/dL Total Protein (6.7-8.2) g/dL Albumin (3.2-5.5) g/dL Globulin (2.1-4.2) g/dL Albumin/Globulin Ratio (1.0-2.2) - Diagnostic Imaging Diagnostic Imaging Results: positive: Final report reviewed ABX Reporting Has patient been on IV antibiotics over the past 48 hours?: Yes Assessment/Plan - Problem List (1) Unresponsive Impression: The patient was found down for an unknown amount of time and has been unresponsive in the ED. According to his , Emma, this has happened before. She explains, "Last time he woke up in 3 days". The patient had a recorded blood glucose of 60, and dextrose was given by EMS. Once he arrived on the nursing floor, he was minimally responsive and later today upon exam he could at least state his name and was hallucinating. I suspect that his unresponsiveness was caused by his acute illness and now that he has antibiotics , and gentle IV fluids, this will continue to improve. Plan: Continue to monitor and provide frequent nursing care. , Emma remains at the bedside and will plan on spending a few nights. (2) UTI (urinary tract infection) Impression: A new indwelling webb was inserted and there is milky, yellow urine in the tubing while in the ED. A urine sample was obtained and preliminary results are + for UA. The patient also shows signs of sepsis, so blood cultures were obtained, which are reported as NGTD today. The appearance of his urine today is now normal without sediment or mucous and is a medium yellow color. Plan: Treat with IV antibiotics and await culture results. Qualifiers: Urinary tract infection type: acute cystitis Hematuria presence: without hematuria Qualified Code(s): N30.00 - Acute cystitis without hematuria (3) Fall Impression: The patient has a history of falls with injury. He was found down, so it is likely that he also encountered a fall. Unknown etiology for this event, but it may have been in the setting of this acute illness. The patient is status post right BKA and he is blind, which makes falls likely, especially in the setting of AMS. Plan: Continue to monitor, fall precautions. Qualifiers: Encounter type: initial encounter Qualified Code(s): W19.XXXA - Unspecified fall, initial encounter (4) T2DM (type 2 diabetes mellitus) Impression: The patient is a known diabetic and is insulin dependent. Pharmacy was able to clarify the actual doses, and he remains on Lantus daily at 20 units, SSI and blood sugar checks before meals. I appreciate nutritional consult and on past hospital stays, he has been hypoglycemic so we will make discrete changes if any to his routine and allow for hyperglycemia. An early AM blood sugar was 108. The patient was reported to have good control lately of daily Blood sugars per 's report. His denies recent weight loss or hypoglycemia. Plan: SSI ordered for during meals, monitor BS at the bedside, and a very gentle dose of 20 units Lantus continues. Qualifiers: Diabetes mellitus intermediate card tender insulin use: unspecified intermediate card tender insulin use status Diabetes mellitus complication status: without complication Qualified Code(s): E11.9 - Type 2 diabetes mellitus without complications (5) Legally blind Impression: The patient has been blind for several years, but can usually recognize at least his . Upon exam today, Douglas appears at his baseline regarding vision loss. Plan: Continuity of nursing care and frequent nursing rounds.
[2017-08-02] MEDS ORDERED: SODIUM CHLORIDE 0.9% 500 ML IV PRN (20:13)
[2017-08-02] MEDS ORDERED: HALOPERIDOL 5 MG/ML VIAL IM SCH (21:01)
[2017-08-02] MEDS: INSULIN GLARGINE 300 UNIT/3 ML PEN SUBQ SCH (22:05)
[2017-08-03] MEDS: SODIUM CHLORIDE FLUSH 0.9% 10 ML SYRINGE IVP SCH ×3 (01:26→16:34)
[2017-08-03] MEDS: ACETAMINOPHEN 325 MG TABLET PO PRN ×2 (02:08→21:06)
[2017-08-03] MEDS: LORazepam 2 MG/ML VIAL IVP PRN (02:08)
[2017-08-03] MEDS: VANCOMYCIN INJ 1 GM in SODIUM CHLORIDE 0.9% 500 ML IV SCH ×2 (03:00→15:11)
[2017-08-03 06:06] LABS: BASOPHILS % (AUTO) 0.4 %; EOSINOPHILS # (AUTO) 0.1 10^3/uL (0.0-0.7); EOSINOPHILS % (AUTO) 0.9 %; HGB - HEMOGLOBIN 13.2 g/dL (14.0-18.0); LYMPHOCYTES # (AUTO) 1.7 10^3/uL (1.5-3.5); MEAN CORPUSCULAR HEMOGLOBIN 27.2 pg (27.0-31.0); MEAN CORPUSCULAR HGB CONC 32.4 g/dL (32.0-36.0); MEAN CORPUSCULAR VOLUME 83.9 fL (80.0-94.0); MEAN PLATELET VOLUME 8.4 fL (7.4-11.4); MONOCYTES # (AUTO) 0.5 10^3/uL (0.0-1.0); MONOCYTES % (AUTO) 5.5 %; NEUTROPHILS # (AUTO) 7.4 10^3/uL (1.5-6.6); NEUTROPHILS % (AUTO) 76.2 %; PLT - PLATELET COUNT 234 10^3/uL (130-450); RED BLOOD COUNT 4.85 10^6/uL (4.70-6.10); RED CELL DISTRIBUTION WIDTH 14.6 % (12.0-15.0); WHITE BLOOD COUNT 9.7 x10^3/uL (4.8-10.8)
[2017-08-03 06:32] LABS: ALBUMIN 3.5 g/dL (3.2-5.5); ALBUMIN/GLOBULIN RATIO 0.8 (1.0-2.2); BILIRUBIN,TOTAL 0.8 mg/dL (0.2-1.0); CREATININE 1.2 mg/dL (0.6-1.2); CRP - C-REACTIVE PROTEIN 3.2 mg/dL (0-1.0); HB2 TOTAL 14.7 g/dL; HEMOGLOBIN A1C 0.82 g/dL; HEMOGLOBIN A1C % 7.3 % (4.6-6.2); TOTAL PROTEIN 8.1 g/dL (6.7-8.2)
[2017-08-03] MEDS: GABAPENTIN 300 MG CAPSULE PO SCH ×3 (06:57→21:06)
[2017-08-03] MEDS: PIPERACILLIN/TAZOBACTAM 3.375 GM in SODIUM CHLORIDE 0.9% MINIBAG 100 ML IV SCH ×3 (06:57→22:26)
[2017-08-03] MEDS: LEVALBUTEROL 1.25 MG/3 ML NEB INH PRN ×2 (07:46→15:33)
[2017-08-03] MEDS ORDERED: POLYETHYLENE GLYCOL 3350 238 GM BOTTLE PO SCH (09:00)
[2017-08-03] MEDS ORDERED: POLYETHYLENE GLYCOL 3350 17 GM PACKET PO SCH (09:00)
--- NOTE | 2017-08-03 10:53 | PROVIDER PROGRESS NOTE ---
Subjective - Prog Note Date Prog Note Date: 08/03/17 - Subjective Pt reports feeling: Improved Subjective: pt is alert and sleep, difficult to be aroused. pt's report he is much better than before. No fever, chill, chest pain and SOB are reported. Current Medications - Current Medications Current Medications: Active Medications Acetaminophen (Tylenol) 650 mg PO Q6H PRN PRN Reason: PAIN Last Admin: 08/03/17 02:08 Dose: 650 mg Atorvastatin Calcium (Lipitor) 5 mg PO QPM EILEEN Bupropion HCl (Wellbutrin Sr) 300 mg PO 0800 EILEEN Clopidogrel Bisulfate (Plavix) 75 mg PO DAILY EILEEN Docusate Sodium (Colace 250mg Capsule) 250 mg PO BID EILEEN Duloxetine HCl (Cymbalta) 20 mg PO QPM EILEEN Gabapentin (Neurontin) 600 mg PO TID [facility] Last Admin: 08/03/17 06:57 Dose: 600 mg Vancomycin HCl 1 gm/ Sodium (Chloride) 500 mls @ 250 mls/hr IV Q12H [facility] Last Infusion: 08/03/17 05:00 Dose: Infused Piperacillin Sod/Tazobactam (Sod 3.375 gm/ Sodium Chloride) 100 mls @ 25 mls/ hr IV Q8H EILEEN Last Infusion: 08/03/17 11:03 Dose: Infused Sodium Chloride (Normal Saline 0.9%) 500 mls @ 10 mls/hr IV .Q48H PRN PRN Reason: Peripheral Line Protocol Last Admin: 08/02/17 20:45 Dose: 10 mls/hr Insulin Aspart (Novolog) 1 - 5 unit SUBQ 0800,1200,1700,2100 EILEEN PRN Reason: Protocol Last Admin: 08/02/17 21:08 Dose: Not Given Insulin Glargine (Lantus Solostar) 20 unit SUBQ QPM EILEEN Last Admin: 08/02/17 22:05 Dose: 20 unit Levalbuterol HCl (Xopenex) 1.25 mg INH Q4H PRN PRN Reason: Shortness of Air/Wheezing Last Admin: 08/03/17 07:46 Dose: 1.25 mg Lisinopril (Zestril) 5 mg PO DAILY EILEEN Lorazepam (Ativan Inj (Vial)) 0.5 mg IVP Q2H PRN PRN Reason: Anxiety Last Admin: 08/03/17 02:08 Dose: 0.5 mg Mineral Oil (Cavilon) 1 applic TOP PRN PRN PRN Reason: Skin Care Last Admin: 08/02/17 01:02 Dose: 1 applic Multi-Ingredient Ointment (Zinc Oxide) 1 applic TOP PRN PRN PRN Reason: Skin Care Polyethylene Glycol (Miralax) 17 gm PO DAILY [facility] Last Admin: 08/02/17 09:58 Dose: 17 gm Senna (Senokot) 17.2 mg PO QPM [facility] Sodium Chloride (Normal Saline Flush 0.9%) 10 ml IVP PRN PRN PRN Reason: NEEDED PER PROVIDER ORDERS Last Admin: 08/02/17 17:24 Dose: 10 ml Sodium Chloride (Normal Saline Flush 0.9%) 10 ml IVP 0100,0900,1700 [facility] Last Admin: 08/03/17 01:26 Dose: Not Given Trazodone HCl 100 mg PO QPM 07/08/13 Clopidogrel Bisulfate [Plavix] 75 mg PO DAILY 09/15/14 Acetaminophen 650 mg PO Q6H PRN 08/02/17 Insulin Detemir [Levemir Flextouch] 30 unit SQ BID 08/02/17 Insulin Regular Human [NovoLIN R] 10 unit SUBQ TIDWM 08/02/17 Lactulose 15 ml PO BID PRN 08/02/17 Polyethylene Glycol 3350 17 g PO DAILY 08/02/17 traMADol [Ultram] 50 mg PO QID 08/02/17 Objective - Vital Signs/Intake & Output Reviewed Vital Signs: Yes Vital Signs: Vital Signs x48h Temp Pulse Pulse Resp BP Pulse Ox 08/03/17 08:55 36.9 C 80 20 150/64 H 93 08/03/17 07:48 89 16 Intake & Output: Intake & Output 07/31/17 08/01/17 08/02/17 08/03/17 23:59 23:59 23:59 23:59 Intake Total 600 1145 830 Output Total 550 1450 500 Balance 50 -305 330 - Objective General Appearance: positive: No acute distress, Alert Eyes Bilateral: positive: Normal inspection, PERRL. negative: No lid inflammation, Conjunctivae nml ENT: positive: ENT inspection nml, Pharynx nml, No signs of dehydration. negative: Purulent nasal drainage, Pharyngeal erythema, Oral lesions Neck: positive: Nml inspection, Thyroid nml, No JVD, Trachea midline. negative : Thyromegaly, Lymphadenopathy (R), Lymphadenopathy (L), Stiff neck, Carotid bruit, Swelling/bruising, Tracheal deviation Respiratory: positive: Chest non-tender, No respiratory distress, Breath sounds nml. negative: Wheezes, Rales, Rhonchi Cardiovascular: positive: Regular rate & rhythm, No murmur, No gallop. negative : Irregularly irregular, Extrasystoles, Tachycardia, Bradycardia, Systolic murmur, Diastolic murmur Peripheral Pulses: 2+ Radial (R), 2+ Radial (L), 2+ Dorsalis pedis (R), 2+ Dorsalis pedis (L) Abdomen: positive: Non-tender, No organomegaly, Nml bowel sounds, No distention. negative: Tenderness, Guarding, Rebound Back: positive: Nml inspection. negative: CVA tenderness (R), CVA tenderness (L ) Skin: positive: Color nml, Warm, Dry, Decubitus. negative: Cyanosis, Diaphoresis, Pallor Neurologic/Psychiatric: positive: Sensation nml. negative: Sensory loss, Facial droop - Lab Results Fish Bones: 08/03/17 05:44 08/03/17 05:44 Other Labs: Lab Results x24hrs 08/03/17 08/03/17 08/03/17 Range/Units 07:56 05:44 05:44 WBC (4.8-10.8) x10^3/uL RBC (4.70-6.10) 10^6/uL Hgb (14.0-18.0) g/dL Hct (42.0-52.0) % MCV (80.0-94.0) fL MCH (27.0-31.0) pg MCHC (32.0-36.0) g/dL RDW (12.0-15.0) % Plt Count (130-450) 10^3/uL MPV (7.4-11.4) fL Neut # (1.5-6.6) 10^3/uL Lymph # (1.5-3.5) 10^3/uL [place] # (0.0-1.0) 10^3/uL Eos # (0.0-0.7) 10^3/uL Baso # (0.0-0.1) 10^3/uL Absolute Nucleated RBC x10^3/uL Nucleated RBC % /100WBC ESR (0-20) mm/Hr Sodium (135-145) mmol/L Potassium (3.5-5.0) mmol/L Chloride (101-111) mmol/L Carbon Dioxide (21-32) mmol/L Anion Gap (6-13) BUN (6-20) mg/dL Creatinine (0.6-1.2) mg/dL Estimated GFR (MDRD) (>89) Glucose (70-100) mg/dL POC Whole Bld Glucose 102 H (70 - 100) mg/dL Glycated Hemoglobin 7.3 H (4.6-6.2) % Estim Average Glucose 163 H (70-100) Calcium (8.5-10.3) mg/dL Magnesium (1.7-2.8) mg/dL Total Bilirubin (0.2-1.0) mg/dL AST (10-42) IU/L ALT (10-60) IU/L Alkaline Phosphatase (42-121) IU/L C-Reactive Protein (0-1.0) mg/dL B-Natriuretic Peptide 54 (5-100) pg/mL Total Protein (6.7-8.2) g/dL Albumin (3.2-5.5) g/dL Globulin (2.1-4.2) g/dL Albumin/Globulin Ratio (1.0-2.2) 08/03/17 08/03/17 08/03/17 Range/Units 05:44 05:44 05:44 WBC 9.7 (4.8-10.8) x10^3/uL RBC 4.85 (4.70-6.10) 10^6/uL Hgb 13.2 L (14.0-18.0) g/dL Hct 40.7 L (42.0-52.0) % MCV 83.9 (80.0-94.0) fL MCH 27.2 (27.0-31.0) pg MCHC 32.4 (32.0-36.0) g/dL RDW 14.6 (12.0-15.0) % Plt Count 234 (130-450) 10^3/uL MPV 8.4 (7.4-11.4) fL Neut # 7.4 H (1.5-6.6) 10^3/uL Lymph # 1.7 (1.5-3.5) 10^3/uL [place] # 0.5 (0.0-1.0) 10^3/uL Eos # 0.1 (0.0-0.7) 10^3/uL Baso # 0.0 (0.0-0.1) 10^3/uL Absolute Nucleated RBC 0.00 x10^3/uL Nucleated RBC % 0.1 /100WBC ESR 45 H (0-20) mm/Hr Sodium 138 (135-145) mmol/L Potassium 4.2 (3.5-5.0) mmol/L Chloride 105 (101-111) mmol/L Carbon Dioxide 26 (21-32) mmol/L Anion Gap 7.0 (6-13) BUN 22 H (6-20) mg/dL Creatinine 1.2 (0.6-1.2) mg/dL Estimated GFR (MDRD) 59 L (>89) Glucose 102 H (70-100) mg/dL POC Whole Bld Glucose (70 - 100) mg/dL Glycated Hemoglobin (4.6-6.2) % Estim Average Glucose (70-100) Calcium 9.0 (8.5-10.3) mg/dL Magnesium 2.0 (1.7-2.8) mg/dL Total Bilirubin 0.8 (0.2-1.0) mg/dL AST 25 (10-42) IU/L ALT 19 (10-60) IU/L Alkaline Phosphatase 129 H (42-121) IU/L C-Reactive Protein 3.2 H (0-1.0) mg/dL B-Natriuretic Peptide (5-100) pg/mL Total Protein 8.1 (6.7-8.2) g/dL Albumin 3.5 (3.2-5.5) g/dL Globulin 4.6 H (2.1-4.2) g/dL Albumin/Globulin Ratio 0.8 L (1.0-2.2) 08/02/17 08/02/17 08/02/17 Range/Units 20:46 16:46 11:54 WBC (4.8-10.8) x10^3/uL RBC (4.70-6.10) 10^6/uL Hgb (14.0-18.0) g/dL Hct (42.0-52.0) % MCV (80.0-94.0) fL MCH (27.0-31.0) pg MCHC (32.0-36.0) g/dL RDW (12.0-15.0) % Plt Count (130-450) 10^3/uL MPV (7.4-11.4) fL Neut # (1.5-6.6) 10^3/uL Lymph # (1.5-3.5) 10^3/uL [place] # (0.0-1.0) 10^3/uL Eos # (0.0-0.7) 10^3/uL Baso # (0.0-0.1) 10^3/uL Absolute Nucleated RBC x10^3/uL Nucleated RBC % /100WBC ESR (0-20) mm/Hr Sodium (135-145) mmol/L Potassium (3.5-5.0) mmol/L Chloride (101-111) mmol/L Carbon Dioxide (21-32) mmol/L Anion Gap (6-13) BUN (6-20) mg/dL Creatinine (0.6-1.2) mg/dL Estimated GFR (MDRD) (>89) Glucose (70-100) mg/dL POC Whole Bld Glucose 160 H 148 H 149 H (70 - 100) mg/dL Glycated Hemoglobin (4.6-6.2) % Estim Average Glucose (70-100) Calcium (8.5-10.3) mg/dL Magnesium (1.7-2.8) mg/dL Total Bilirubin (0.2-1.0) mg/dL AST (10-42) IU/L ALT (10-60) IU/L Alkaline Phosphatase (42-121) IU/L C-Reactive Protein (0-1.0) mg/dL B-Natriuretic Peptide (5-100) pg/mL Total Protein (6.7-8.2) g/dL Albumin (3.2-5.5) g/dL Globulin (2.1-4.2) g/dL Albumin/Globulin Ratio (1.0-2.2) 08/02/17 08/01/17 Range/Units 07:45 20:31 WBC (4.8-10.8) x10^3/uL RBC (4.70-6.10) 10^6/uL Hgb (14.0-18.0) g/dL Hct (42.0-52.0) % MCV (80.0-94.0) fL MCH (27.0-31.0) pg MCHC (32.0-36.0) g/dL RDW (12.0-15.0) % Plt Count (130-450) 10^3/uL MPV (7.4-11.4) fL Neut # (1.5-6.6) 10^3/uL Lymph # (1.5-3.5) 10^3/uL [place] # (0.0-1.0) 10^3/uL Eos # (0.0-0.7) 10^3/uL Baso # (0.0-0.1) 10^3/uL Absolute Nucleated RBC x10^3/uL Nucleated RBC % /100WBC ESR (0-20) mm/Hr Sodium (135-145) mmol/L Potassium (3.5-5.0) mmol/L Chloride (101-111) mmol/L Carbon Dioxide (21-32) mmol/L Anion Gap (6-13) BUN (6-20) mg/dL Creatinine (0.6-1.2) mg/dL Estimated GFR (MDRD) (>89) Glucose (70-100) mg/dL POC Whole Bld Glucose 108 H 93 (70 - 100) mg/dL Glycated Hemoglobin (4.6-6.2) % Estim Average Glucose (70-100) Calcium (8.5-10.3) mg/dL Magnesium (1.7-2.8) mg/dL Total Bilirubin (0.2-1.0) mg/dL AST (10-42) IU/L ALT (10-60) IU/L Alkaline Phosphatase (42-121) IU/L C-Reactive Protein (0-1.0) mg/dL B-Natriuretic Peptide (5-100) pg/mL Total Protein (6.7-8.2) g/dL Albumin (3.2-5.5) g/dL Globulin (2.1-4.2) g/dL Albumin/Globulin Ratio (1.0-2.2) ABX Reporting Has patient been on IV antibiotics over the past 48 hours?: Yes Assessment/Plan - Problem List (1) Altered mental status Impression: Conclusion/Plan: CT of head unremarkable pt is alert, response. per pt's report, he is close to his baseline order ammonia level, B12, TSH neuro check, The patient was found down for an unknown amount of time and has been unresponsive in the ED. According to his , Emma, this has happened before. She explains, "Last time he woke up in 3 days". The patient had a recorded blood glucose of 60, and dextrose was given. Plan: Telemetry to record any episodes of asystole, or other signs of cardiac damage. Troponins are ordered for later this evening. (2) UTI (urinary tract infection) Conclusion/Plan: continue Zosyn, follow up UA culture A new indwelling webb was inserted and there is milky, yellow urine in the tubing. A urine sample was obtained and preliminary results are + for UA. The patient also shows signs of sepsis, so blood cultures were obtained. Plan: Treat with IV antibiotics and await culture results. (3) Fall/syncope Conclusion/Plan: ECHO reveals unremarkable neuro check, fall precaution EKG without acute findings The patient has a history of falls with injury. He was found down, so I suspect that he fell to the floor to get that way. Unknown etiology for this event, but it may have been in the setting of this acute illness. 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 Plan: Continue to monitor, fall precautions. (4) T2DM (type 2 diabetes mellitus) Conclusion/Plan: continue slide scale, hypoglycemia protocol continue ACHS Per our most recent medication list the patient is on a very large long acting insulin dose. The last known blood sugar was 140 this afternoon when a BMP was checked. The patient was reported to have good control lately of daily Blood sugars per 's report. His appetite has been unchanged until yesterday, when he had a poor appetite and began showing signs of confusion. Plan: SSI ordered for during meals, monitor BS at the bedside, and a very gentle dose of 20 units Lantus was prescribed in this acute illness setting. (5) Legally blind Conclusion/Plan: no acute abnormal finding. continue support The patient has been blind for several years, but can usually recognize at least his . Upon arriving to the nursing floor, nursing reports the patient being able to state his name, but his claims that he does not see her. Plan: Continuity of nursing care and frequent nursing rounds. (6) chronic pressure ulcer consult with MAC, follow up with dress change continue antibiotics treatment continue Q2H pressure release, turn side to side.
[2017-08-03] MEDS: INSULIN ASPART 300 UNIT/3 ML PEN SUBQ SCH ×3 (12:17→21:07)
[2017-08-03] MEDS: buPROPion SR 150 MG TABLET PO SCH (15:10)
[2017-08-03] MEDS: DOCUSATE SODIUM 250 MG CAPSULE PO SCH ×2 (15:10→21:07)
[2017-08-03] MEDS: CLOPIDOGREL 75 MG TABLET PO SCH (15:10)
[2017-08-03] MEDS: LISINOPRIL 5 MG TABLET PO SCH (15:11)
[2017-08-03] MEDS: POLYETHYLENE GLYCOL 3350 17 GM PACKET PO SCH (15:11)
[2017-08-03] MEDS ORDERED: NON FORMULARY MED (Simvastatin [Zocor] 10 MG) PO SCH (21:00)
[2017-08-03] MEDS: SENNA 8.6 MG TABLET PO SCH (21:06)
[2017-08-03] MEDS: ATORVASTATIN 10 MG TABLET PO SCH (21:06)
[2017-08-03] MEDS: DULoxetine 20 MG CAPSULE PO SCH (21:07)
[2017-08-03] MEDS: INSULIN GLARGINE 300 UNIT/3 ML PEN SUBQ SCH (21:11)
[2017-08-04] MEDS: SODIUM CHLORIDE FLUSH 0.9% 10 ML SYRINGE IVP SCH ×3 (01:22→21:13)
[2017-08-04 03:01] LABS: BASOPHILS # (AUTO) 0.3 10^3/uL (0.0-0.1); BASOPHILS % (AUTO) 2.8 %; EOSINOPHILS # (AUTO) 0.2 10^3/uL (0.0-0.7); EOSINOPHILS % (AUTO) 1.9 %; HGB - HEMOGLOBIN 12.9 g/dL (14.0-18.0); LYMPHOCYTES % (AUTO) 11.1 %; MEAN CORPUSCULAR HEMOGLOBIN 27.8 pg (27.0-31.0); MEAN CORPUSCULAR VOLUME 84.3 fL (80.0-94.0); MEAN PLATELET VOLUME 8.6 fL (7.4-11.4); MONOCYTES # (AUTO) 0.4 10^3/uL (0.0-1.0); NEUTROPHILS # (AUTO) 7.5 10^3/uL (1.5-6.6); NEUTROPHILS % (AUTO) 80.2 %; PLT - PLATELET COUNT 234 10^3/uL (130-450); RED BLOOD COUNT 4.65 10^6/uL (4.70-6.10); RED CELL DISTRIBUTION WIDTH 14.5 % (12.0-15.0); WHITE BLOOD COUNT 9.4 x10^3/uL (4.8-10.8)
[2017-08-04 03:10] LABS: VANCOMYCIN,TROUGH 15.2 ug/mL (5.0-15.0)
[2017-08-04 03:26] LABS: ALBUMIN 3.4 g/dL (3.2-5.5); ALBUMIN/GLOBULIN RATIO 0.8 (1.0-2.2); BILIRUBIN,TOTAL 0.7 mg/dL (0.2-1.0); CALCIUM 9.1 mg/dL (8.5-10.3); CREATININE 1.1 mg/dL (0.6-1.2); CRP - C-REACTIVE PROTEIN 2.8 mg/dL (0-1.0); MAGNESIUM 1.9 mg/dL (1.7-2.8); TOTAL PROTEIN 7.8 g/dL (6.7-8.2)
[2017-08-04] MEDS: VANCOMYCIN INJ 1 GM in SODIUM CHLORIDE 0.9% 500 ML IV SCH ×2 (04:06→18:40)
[2017-08-04] MEDS: GABAPENTIN 300 MG CAPSULE PO SCH ×3 (06:30→23:42)
[2017-08-04] MEDS: PIPERACILLIN/TAZOBACTAM 3.375 GM in SODIUM CHLORIDE 0.9% MINIBAG 100 ML IV SCH ×3 (07:01→21:13)
[2017-08-04] MEDS: INSULIN ASPART 300 UNIT/3 ML PEN SUBQ SCH ×4 (10:25→21:09)
[2017-08-04] MEDS: POLYETHYLENE GLYCOL 3350 17 GM PACKET PO SCH (10:38)
[2017-08-04] MEDS: LISINOPRIL 5 MG TABLET PO SCH (10:39)
[2017-08-04] MEDS: buPROPion SR 150 MG TABLET PO SCH (10:39)
[2017-08-04] MEDS: DOCUSATE SODIUM 250 MG CAPSULE PO SCH ×2 (10:39→21:02)
[2017-08-04] MEDS: CLOPIDOGREL 75 MG TABLET PO SCH (10:39)
--- NOTE | 2017-08-04 14:37 | PROVIDER PROGRESS NOTE ---
Subjective - Prog Note Date Prog Note Date: 08/04/17 - Subjective Pt reports feeling: Improved Subjective: pt is alert and oriented, and answer questions logically. pt denies fever, cough , CP, SOB. plan to d/c on tomorrow Current Medications - Current Medications Current Medications: Active Medications Acetaminophen (Tylenol) 650 mg PO Q6H PRN PRN Reason: PAIN Last Admin: 08/03/17 21:06 Dose: 650 mg Atorvastatin Calcium (Lipitor) 5 mg PO QPM [facility] Last Admin: 08/03/17 21:06 Dose: 5 mg Bupropion HCl (Wellbutrin Sr) 300 mg PO 0800 [facility] Last Admin: 08/04/17 10:39 Dose: 300 mg Clopidogrel Bisulfate (Plavix) 75 mg PO DAILY [facility] Last Admin: 08/04/17 10:39 Dose: 75 mg Docusate Sodium (Colace 250mg Capsule) 250 mg PO BID [facility] Last Admin: 08/04/17 10:39 Dose: 250 mg Duloxetine HCl (Cymbalta) 20 mg PO QPM [facility] Last Admin: 08/03/17 21:07 Dose: 20 mg Gabapentin (Neurontin) 600 mg PO TID [facility] Last Admin: 08/04/17 06:30 Dose: 600 mg Sodium Chloride (Normal Saline 0.9%) 500 mls @ 10 mls/hr IV .Q48H PRN PRN Reason: Peripheral Line Protocol Last Admin: 08/02/17 20:45 Dose: 10 mls/hr Vancomycin HCl 1 gm/ Sodium (Chloride) 500 mls @ 250 mls/hr IV Q12H [facility] Piperacillin Sod/Tazobactam (Sod 3.375 gm/ Sodium Chloride) 100 mls @ 200 mls/ hr IV Q6H [facility] Insulin Aspart (Novolog) 1 - 5 unit SUBQ 0800,1200,1700,2100 EILEEN PRN Reason: Protocol Last Admin: 08/04/17 12:46 Dose: Not Given Insulin Glargine (Lantus Solostar) 20 unit SUBQ QPM [facility] Last Admin: 08/03/17 21:11 Dose: 20 unit Levalbuterol HCl (Xopenex) 1.25 mg INH Q4H PRN PRN Reason: Shortness of Air/Wheezing Last Admin: 08/03/17 15:33 Dose: 1.25 mg Lisinopril (Zestril) 5 mg PO DAILY [facility] Last Admin: 08/04/17 10:39 Dose: 5 mg Lorazepam (Ativan Inj (Vial)) 0.5 mg IVP Q2H PRN PRN Reason: Anxiety Last Admin: 08/03/17 02:08 Dose: 0.5 mg Mineral Oil (Cavilon) 1 applic TOP PRN PRN PRN Reason: Skin Care Last Admin: 08/02/17 01:02 Dose: 1 applic Multi-Ingredient Ointment (Zinc Oxide) 1 applic TOP PRN PRN PRN Reason: Skin Care Polyethylene Glycol (Miralax) 17 gm PO DAILY [facility] Last Admin: 08/04/17 10:38 Dose: 17 gm Senna (Senokot) 17.2 mg PO QPM [facility] Last Admin: 08/03/17 21:06 Dose: 17.2 mg Sodium Chloride (Normal Saline Flush 0.9%) 10 ml IVP PRN PRN PRN Reason: NEEDED PER PROVIDER ORDERS Last Admin: 08/02/17 17:24 Dose: 10 ml Sodium Chloride (Normal Saline Flush 0.9%) 10 ml IVP 0100,0900,1700 [facility] Last Admin: 08/04/17 10:26 Dose: Not Given Trazodone HCl 100 mg PO QPM 07/08/13 Clopidogrel Bisulfate [Plavix] 75 mg PO DAILY 09/15/14 Acetaminophen 650 mg PO Q6H PRN 08/02/17 Insulin Detemir [Levemir Flextouch] 30 unit SQ BID 08/02/17 Insulin Regular Human [NovoLIN R] 10 unit SUBQ TIDWM 08/02/17 Lactulose 15 ml PO BID PRN 08/02/17 Polyethylene Glycol 3350 17 g PO DAILY 08/02/17 traMADol [Ultram] 50 mg PO QID 08/02/17 Objective - Vital Signs/Intake & Output Reviewed Vital Signs: Yes Vital Signs: Vital Signs x48h Temp Pulse Resp BP Pulse Ox 08/04/17 07:45 36.7 C 83 19 137/75 H 96 Intake & Output: Intake & Output 08/01/17 08/02/17 08/03/17 08/04/17 23:59 23:59 23:59 23:59 Intake Total 600 1145 2170.000 1140 Output Total 550 1450 1300 500 Balance 50 -305 870.000 640 - Objective General Appearance: positive: No acute distress, Alert. negative: Lethargic Eyes Bilateral: positive: Normal inspection, PERRL, No lid inflammation, Conjunctivae nml ENT: positive: ENT inspection nml, Pharynx nml, No signs of dehydration. negative: Purulent nasal drainage, Pharyngeal erythema, Oral lesions Neck: positive: Nml inspection, Thyroid nml, No JVD, Trachea midline. negative : Thyromegaly, Lymphadenopathy (R), Lymphadenopathy (L), Stiff neck, Carotid bruit, Swelling/bruising, Tracheal deviation Respiratory: positive: Chest non-tender, No respiratory distress, Breath sounds nml. negative: Wheezes, Rales, Rhonchi Cardiovascular: positive: Regular rate & rhythm, No murmur, No gallop. negative : Irregularly irregular, Extrasystoles, Tachycardia, Bradycardia, JVD present, Systolic murmur, Diastolic murmur Peripheral Pulses: 2+ Radial (R), 2+ Radial (L), 2+ Dorsalis pedis (R), 2+ Dorsalis pedis (L) Abdomen: positive: Non-tender, No organomegaly, Nml bowel sounds, No distention. negative: Tenderness, Guarding, Rebound Back: positive: Nml inspection. negative: CVA tenderness (R), CVA tenderness (L ) Skin: positive: Color nml, No rash, Warm, Dry, Decubitus. negative: Cyanosis, Diaphoresis, Pallor Extremities: positive: Non-tender, Nml appearance. negative: Calf tenderness, Joint swelling, Ruth Ann's sign/cords Neurologic/Psychiatric: positive: Oriented x3, Sensation nml, Mood/affect nml. negative: Sensory loss, Facial droop, Slurred/abnml speech, Depressed mood/ affect - Lab Results Fish Bones: 08/04/17 02:49 08/04/17 02:49 Other Labs: Lab Results x24hrs 08/04/17 08/04/17 08/04/17 Range/Units 11:32 07:48 02:49 WBC (4.8-10.8) x10^3/uL RBC (4.70-6.10) 10^6/uL Hgb (14.0-18.0) g/dL Hct (42.0-52.0) % MCV (80.0-94.0) fL MCH (27.0-31.0) pg MCHC (32.0-36.0) g/dL RDW (12.0-15.0) % Plt Count (130-450) 10^3/uL MPV (7.4-11.4) fL Neut # (1.5-6.6) 10^3/uL Lymph # (1.5-3.5) 10^3/uL [place] # (0.0-1.0) 10^3/uL Eos # (0.0-0.7) 10^3/uL Baso # (0.0-0.1) 10^3/uL Absolute Nucleated RBC x10^3/uL Nucleated RBC % /100WBC ESR (0-20) mm/Hr Sodium (135-145) mmol/L Potassium (3.5-5.0) mmol/L Chloride (101-111) mmol/L Carbon Dioxide (21-32) mmol/L Anion Gap (6-13) BUN (6-20) mg/dL Creatinine (0.6-1.2) mg/dL Estimated GFR (MDRD) (>89) Glucose (70-100) mg/dL POC Whole Bld Glucose 121 H 117 H (70 - 100) mg/dL Calcium (8.5-10.3) mg/dL Magnesium (1.7-2.8) mg/dL Total Bilirubin (0.2-1.0) mg/dL AST (10-42) IU/L ALT (10-60) IU/L Alkaline Phosphatase (42-121) IU/L Ammonia (7-35) umol/L C-Reactive Protein (0-1.0) mg/dL B-Natriuretic Peptide (5-100) pg/mL Total Protein (6.7-8.2) g/dL Albumin (3.2-5.5) g/dL Globulin (2.1-4.2) g/dL Albumin/Globulin Ratio (1.0-2.2) Vitamin B12 (180-914) pg/mL TSH 0.53 (0.34-5.60) uIU/mL Last Dose Date Last Dose Time Vancomycin Trough (5.0-15.0) ug/mL 0508/04/17 08/04/17 Range/Units 02:49 02:49 02:49 WBC (4.8-10.8) x10^3/uL RBC (4.70-6.10) 10^6/uL Hgb (14.0-18.0) g/dL Hct (42.0-52.0) % MCV (80.0-94.0) fL MCH (27.0-31.0) pg MCHC (32.0-36.0) g/dL RDW (12.0-15.0) % Plt Count (130-450) 10^3/uL MPV (7.4-11.4) fL Neut # (1.5-6.6) 10^3/uL Lymph # (1.5-3.5) 10^3/uL [place] # (0.0-1.0) 10^3/uL Eos # (0.0-0.7) 10^3/uL Baso # (0.0-0.1) 10^3/uL Absolute Nucleated RBC x10^3/uL Nucleated RBC % /100WBC ESR (0-20) mm/Hr Sodium (135-145) mmol/L Potassium (3.5-5.0) mmol/L Chloride (101-111) mmol/L Carbon Dioxide (21-32) mmol/L Anion Gap (6-13) BUN (6-20) mg/dL Creatinine (0.6-1.2) mg/dL Estimated GFR (MDRD) (>89) Glucose (70-100) mg/dL POC Whole Bld Glucose (70 - 100) mg/dL Calcium (8.5-10.3) mg/dL Magnesium (1.7-2.8) mg/dL Total Bilirubin (0.2-1.0) mg/dL AST (10-42) IU/L ALT (10-60) IU/L Alkaline Phosphatase (42-121) IU/L Ammonia 14.9 (7-35) umol/L C-Reactive Protein (0-1.0) mg/dL B-Natriuretic Peptide 30 (5-100) pg/mL Total Protein (6.7-8.2) g/dL Albumin (3.2-5.5) g/dL Globulin (2.1-4.2) g/dL Albumin/Globulin Ratio (1.0-2.2) Vitamin B12 486 (180-914) pg/mL TSH (0.34-5.60) uIU/mL Last Dose Date Last Dose Time Vancomycin Trough (5.0-15.0) ug/mL 08/04/17 08/04/17 08/04/17 Range/Units 02:49 02:49 02:49 WBC (4.8-10.8) x10^3/uL RBC (4.70-6.10) 10^6/uL Hgb (14.0-18.0) g/dL Hct (42.0-52.0) % MCV (80.0-94.0) fL MCH (27.0-31.0) pg MCHC (32.0-36.0) g/dL RDW (12.0-15.0) % Plt Count (130-450) 10^3/uL MPV (7.4-11.4) fL Neut # (1.5-6.6) 10^3/uL Lymph # (1.5-3.5) 10^3/uL [place] # (0.0-1.0) 10^3/uL Eos # (0.0-0.7) 10^3/uL Baso # (0.0-0.1) 10^3/uL Absolute Nucleated RBC x10^3/uL Nucleated RBC % /100WBC ESR 48 H (0-20) mm/Hr Sodium 138 (135-145) mmol/L Potassium 3.9 (3.5-5.0) mmol/L Chloride 105 (101-111) mmol/L Carbon Dioxide 25 (21-32) mmol/L Anion Gap 8.0 (6-13) BUN 22 H (6-20) mg/dL Creatinine 1.1 (0.6-1.2) mg/dL Estimated GFR (MDRD) 65 L (>89) Glucose 140 H (70-100) mg/dL POC Whole Bld Glucose (70 - 100) mg/dL Calcium 9.1 (8.5-10.3) mg/dL Magnesium 1.9 (1.7-2.8) mg/dL Total Bilirubin 0.7 (0.2-1.0) mg/dL AST 22 (10-42) IU/L ALT 19 (10-60) IU/L Alkaline Phosphatase 118 (42-121) IU/L Ammonia (7-35) umol/L C-Reactive Protein 2.8 H (0-1.0) mg/dL B-Natriuretic Peptide (5-100) pg/mL Total Protein 7.8 (6.7-8.2) g/dL Albumin 3.4 (3.2-5.5) g/dL Globulin 4.4 H (2.1-4.2) g/dL Albumin/Globulin Ratio 0.8 L (1.0-2.2) Vitamin B12 (180-914) pg/mL TSH (0.34-5.60) uIU/mL Last Dose Date UNK Last Dose Time UNK Vancomycin Trough 15.2 H (5.0-15.0) ug/mL 08/04/17 08/03/17 08/03/17 Range/Units 02:49 20:19 16:02 WBC 9.4 (4.8-10.8) x10^3/uL RBC 4.65 L (4.70-6.10) 10^6/uL Hgb 12.9 L (14.0-18.0) g/dL Hct 39.2 L (42.0-52.0) % MCV 84.3 (80.0-94.0) fL MCH 27.8 (27.0-31.0) pg MCHC 33.0 (32.0-36.0) g/dL RDW 14.5 (12.0-15.0) % Plt Count 234 (130-450) 10^3/uL MPV 8.6 (7.4-11.4) fL Neut # 7.5 H (1.5-6.6) 10^3/uL Lymph # 1.0 L (1.5-3.5) 10^3/uL [place] # 0.4 (0.0-1.0) 10^3/uL Eos # 0.2 (0.0-0.7) 10^3/uL Baso # 0.3 H (0.0-0.1) 10^3/uL Absolute Nucleated RBC 0.00 x10^3/uL Nucleated RBC % 0.0 /100WBC ESR (0-20) mm/Hr Sodium (135-145) mmol/L Potassium (3.5-5.0) mmol/L Chloride (101-111) mmol/L Carbon Dioxide (21-32) mmol/L Anion Gap (6-13) BUN (6-20) mg/dL Creatinine (0.6-1.2) mg/dL Estimated GFR (MDRD) (>89) Glucose (70-100) mg/dL POC Whole Bld Glucose 136 H 128 H (70 - 100) mg/dL Calcium (8.5-10.3) mg/dL Magnesium (1.7-2.8) mg/dL Total Bilirubin (0.2-1.0) mg/dL AST (10-42) IU/L ALT (10-60) IU/L Alkaline Phosphatase (42-121) IU/L Ammonia (7-35) umol/L C-Reactive Protein (0-1.0) mg/dL B-Natriuretic Peptide (5-100) pg/mL Total Protein (6.7-8.2) g/dL Albumin (3.2-5.5) g/dL Globulin (2.1-4.2) g/dL Albumin/Globulin Ratio (1.0-2.2) Vitamin B12 (180-914) pg/mL TSH (0.34-5.60) uIU/mL Last Dose Date Last Dose Time Vancomycin Trough (5.0-15.0) ug/mL ABX Reporting Has patient been on IV antibiotics over the past 48 hours?: Yes Assessment/Plan - Problem List (1) Altered mental status Impression: Impression: resolved today, pt logically talked with and answer questions with me. continue neuro check CT of head unremarkable pt is alert, response. per pt's report, he is close to his baseline order ammonia level, B12, TSH neuro check, The patient was found down for an unknown amount of time and has been unresponsive in the ED. According to his , Emma, this has happened before. She explains, "Last time he woke up in 3 days". The patient had a recorded blood glucose of 60, and dextrose was given. Plan: Telemetry to record any episodes of asystole, or other signs of cardiac damage. Troponins are ordered for later this evening. (2) UTI (urinary tract infection) Conclusion/Plan: UA culture negative continue antibiotics to finish the course continue Zosyn, follow up UA culture A new indwelling webb was inserted and there is milky, yellow urine in the tubing. A urine sample was obtained and preliminary results are + for UA. The patient also shows signs of sepsis, so blood cultures were obtained. Plan: Treat with IV antibiotics and await culture results. (3) Fall/syncope Conclusion/Plan: continue neuro check, fall precaution ECHO reveals unremarkable neuro check, fall precaution EKG without acute findings The patient has a history of falls with injury. He was found down, so I suspect that he fell to the floor to get that way. Unknown etiology for this event, but it may have been in the setting of this acute illness. 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 Plan: Continue to monitor, fall precautions. (4) T2DM (type 2 diabetes mellitus) Conclusion/Plan: continue slide scale, hypoglycemia protocol continue ACHS Per our most recent medication list the patient is on a very large long acting insulin dose. The last known blood sugar was 140 this afternoon when a BMP was checked. The patient was reported to have good control lately of daily Blood sugars per 's report. His appetite has been unchanged until yesterday, when he had a poor appetite and began showing signs of confusion. Plan: SSI ordered for during meals, monitor BS at the bedside, and a very gentle dose of 20 units Lantus was prescribed in this acute illness setting. (5) Legally blind Conclusion/Plan: no acute abnormal finding. continue support The patient has been blind for several years, but can usually recognize at least his . Upon arriving to the nursing floor, nursing reports the patient being able to state his name, but his claims that he does not see her. Plan: Continuity of nursing care and frequent nursing rounds. (6) chronic pressure ulcer continue dress change continue Q2H pressure release, turn side to side. consult with MAC, follow up with dress change continue antibiotics treatment continue Q2H pressure release, turn side to side.
[2017-08-04] MEDS: ATORVASTATIN 10 MG TABLET PO SCH (20:57)
[2017-08-04] MEDS: SENNA 8.6 MG TABLET PO SCH (20:58)
[2017-08-04] MEDS: DULoxetine 20 MG CAPSULE PO SCH (21:08)
[2017-08-04] MEDS: INSULIN GLARGINE 300 UNIT/3 ML PEN SUBQ SCH (21:11)
[2017-08-05] MEDS: PIPERACILLIN/TAZOBACTAM 3.375 GM in SODIUM CHLORIDE 0.9% MINIBAG 100 ML IV SCH ×4 (01:46→20:14)
[2017-08-05] MEDS: SODIUM CHLORIDE FLUSH 0.9% 10 ML SYRINGE IVP SCH ×3 (02:43→17:36)
[2017-08-05] MEDS: ACETAMINOPHEN 325 MG TABLET PO PRN (03:52)
[2017-08-05] MEDS: VANCOMYCIN INJ 1 GM in SODIUM CHLORIDE 0.9% 500 ML IV SCH ×2 (03:52→17:27)
[2017-08-05] MEDS: GABAPENTIN 300 MG CAPSULE PO SCH ×3 (05:46→21:50)
[2017-08-05 07:44] LABS: ALBUMIN 3.1 g/dL (3.2-5.5); ALBUMIN/GLOBULIN RATIO 0.7 (1.0-2.2); BILIRUBIN,TOTAL 0.6 mg/dL (0.2-1.0); CALCIUM 8.6 mg/dL (8.5-10.3); CREATININE 1.2 mg/dL (0.6-1.2); TOTAL PROTEIN 7.3 g/dL (6.7-8.2)
[2017-08-05] MEDS: buPROPion SR 150 MG TABLET PO SCH (07:59)
[2017-08-05] MEDS: CLOPIDOGREL 75 MG TABLET PO SCH (08:00)
[2017-08-05] MEDS: INSULIN ASPART 300 UNIT/3 ML PEN SUBQ SCH ×4 (08:00→21:57)
[2017-08-05] MEDS: LISINOPRIL 5 MG TABLET PO SCH (08:00)
[2017-08-05] MEDS: DOCUSATE SODIUM 250 MG CAPSULE PO SCH ×2 (08:01→21:50)
[2017-08-05] MEDS: POLYETHYLENE GLYCOL 3350 17 GM PACKET PO SCH (08:01)
[2017-08-05 09:38] LABS: BASOPHILS # (AUTO) 0.4 10^3/uL (0.0-0.1); BASOPHILS % (AUTO) 4.1 %; EOSINOPHILS # (AUTO) 0.1 10^3/uL (0.0-0.7); EOSINOPHILS % (AUTO) 1.5 %; HGB - HEMOGLOBIN 12.4 g/dL (14.0-18.0); LYMPHOCYTES # (AUTO) 1.3 10^3/uL (1.5-3.5); LYMPHOCYTES % (AUTO) 14.9 %; MEAN CORPUSCULAR HEMOGLOBIN 27.6 pg (27.0-31.0); MEAN CORPUSCULAR HGB CONC 32.8 g/dL (32.0-36.0); MEAN CORPUSCULAR VOLUME 84.3 fL (80.0-94.0); MEAN PLATELET VOLUME 8.6 fL (7.4-11.4); MONOCYTES # (AUTO) 0.5 10^3/uL (0.0-1.0); MONOCYTES % (AUTO) 5.1 %; NEUTROPHILS # (AUTO) 6.6 10^3/uL (1.5-6.6); NEUTROPHILS % (AUTO) 74.4 %; PLT - PLATELET COUNT 229 10^3/uL (130-450); RED BLOOD COUNT 4.49 10^6/uL (4.70-6.10); WHITE BLOOD COUNT 8.9 x10^3/uL (4.8-10.8)
[2017-08-05] MEDS: SACCHAROMYCES BOULARDII 250 MG CAPSULE PO SCH ×2 (10:48→17:27)
--- NOTE | 2017-08-05 12:54 | Discharge Plan ---
"Discharge Plan for SNF / [facility] - DC Plan and Transition Orders Disposition: 06 Home Health Service Condition: Poor SNF Transition Orders: Admit to: [[facility] home in [place]] under the care of [Doctor REDDY Marx] Discharge Diagnosis: [UTI, unresponsive, DM2, CVA, Fall, legally blind] Medicare Certification: I khanna not certify that Post Hospital half-way care is medically necessary on a continuing basis for any of the conditions for which she/he is receiving care during hospitalization. Notify PCP of admission and forward orders to primary provider for signature. Weight on admission and [94kg]. Call PCP immediately if weight increases by [4 ] pounds or if patient develops dyspnea, chest pain/tightness or edema. House Bowel Program: [Yes] If no BM after 2 days, nurse may give M.O.M. 30ml PO PRN and /or ducolax Supp 1 [place] and /or PATI 250mg P.O., and/or senna 1-2 tabs PO. On day 3 nurse may give repeat above order until residents constipation is resolved. Immunizations: Annual Influenza Vaccine: [Yes]. (between Nov 20 and June 19.) Unless allergy or already given Two-Step PPD: [Yes] per [facility] 248-235 or appropriate documentation of approved exceptions Treatments & Other Orders: [May follow up Dr. Reddy Marx at arrival to the facility, have home health nurse for nurse and wound care] Oxygen Orders: [PRN] Lab Tests or X-Rays Orders: [follow up PCP] Orthopedic Orders: [N]. Medications: PLEASE REFER TO THE DISCHARGE MEDICATION LIST. Insulin Orders? [Yes, may follow up home medication list] Diagnosis: Diabetes Initiate hypo and hyperglycemia protocols for BG <70 and BG >375. May check BG prn for signs/symptoms of dysglycemia. Frequency of BG checks: [AC/Meal/HS] Basal Insulin: [] Lantus 100 units / ml inject subq as follows: [] [] Other: [] Correction Insulin: - Select the type of insulin below [Choose: Novolog/Humalog]100 units /ml insulin inject subq per orders indicate below [] LOW DOSE [] MODERATE DOSE [] MODERATE/HIGH DOSE [] HIGH DOSE GB UNITS GB UNITS GB UNITS GB UNITS 61-140 0 UNITS 61-140 0 UNITS 61-140 0 UNITS 61-140 0 UNITS 141-175 1 UNITS 141-175 1 UNITS 141-175 2 UNITS 141-175 3 UNITS 176-225 2 UNITS 176-225 3 UNITS 176-225 4 UNITS 176-225 5 UNITS 226-275 3 UNITS 226-275 5 UNITS 226-275 6 UNITS 226-275 7 UNITS 276-325 4 UNITS 276-325 7 UNITS 276-325 8 UNITS 276-325 9 UNITS 326-375 5 UNITS 326-375 9 UNITS 326-375 10 UNITS 326-375 11 UNITS >375 CONTACT MD >375 CONTACT MD >375 CONTACT MD >375 CONTACT MD Custom Dosing: [Choose: None/Novolog/Humalog] 100 units/ml Insulin inject subq as follows: GB Units 61-140 [] Units 141-175 [] Units 176-225 [] Units 226-275 [] Units 276-325 []Units 326-375 [] Units >375 Contact MD Allergies and Adverse Reactions: Allergies Allergy/AdvReac Type Severity Reaction Status Date / Time Penicillins Allergy Intermediate Rash Verified 05/30/17 12:06 morphine AdvReac Unknown I go Verified 05/30/17 12:06 [email or web address] - Medications New Prescriptions: Sulfamethox/Trimeth 800/160 [Bactrim Ds 800/160] 1 each PO BID #14 tablet - Diet Type: Geriatric Texture: Regular Liquids: Thin May have monthly special meal: Yes - Therapies | Activity Activity: Activity as Tolerated Additional Instructions: May follow up PCP at the arrival to the facility, have home health nurse for nurse and wound care"
--- NOTE | 2017-08-05 13:17 | DISCHARGE SUMMARY ---
Discharge Summary Discharge Date: 08/05/17 Condition at Discharge: Poor Discharge Disposition: 06 Home Health Service - ALLERGIES Allergies/Adverse Reactions: Allergies Allergy/AdvReac Type Severity Reaction Status Date / Time Penicillins Allergy Intermediate Rash Verified 05/30/17 12:06 morphine AdvReac Unknown I go Verified 05/30/17 12:06 [email or web address] - MEDICATIONS Home Medications: Ambulatory Orders Medication Instructions Recorded Confirmed Trazodone HCl 100 mg PO QPM 07/08/13 08/02/17 Clopidogrel Bisulfate [Plavix] 75 mg PO DAILY 09/15/14 08/02/17 Albuterol [Ventolin Hfa] 2 puffs INH Q4H PRN #1 inhaler 01/30/15 08/02/17 Bupropion HCl [Bupropion HCl Sr] 300 mg PO 0800 #30 04/24/17 08/02/17 DULoxetine [Cymbalta] 20 mg PO QPM #30 04/24/17 08/02/17 Docusate Sodium 250Mg Capsule 250 mg PO BID #30 04/24/17 08/02/17 [Colace 250Mg Capsule] Gabapentin [Neurontin] 600 mg PO TID #540 capsule 04/24/17 08/02/17 Ipratropium/Albuterol Sulfate 3 ml IH Q4H PRN #1 04/24/17 08/02/17 [Iprat-Albut 0.5-3(2.5) mg/3 ml] Lisinopril 5 mg PO DAILY #30 04/24/17 08/02/17 Multivitamin W/Minerals [Theragran 1 tab PO DAILYWM #30 tablet 04/24/17 08/02/17 M] Senna [Senokot] 17.2 mg PO QPM #30 04/24/17 08/02/17 Simvastatin [Zocor] 10 mg PO QPM #30 04/24/17 08/02/17 Acetaminophen 650 mg PO Q6H PRN 08/02/17 08/02/17 Insulin Detemir [Levemir Flextouch] 30 unit SQ BID 08/02/17 08/02/17 Insulin Regular Human [NovoLIN R] 10 unit SUBQ TIDWM 08/02/17 08/02/17 Lactulose 15 ml PO BID PRN 08/02/17 08/02/17 Polyethylene Glycol 3350 17 g PO DAILY 08/02/17 08/02/17 traMADol [Ultram] 50 mg PO QID 08/02/17 08/02/17 Sulfamethox/Trimeth 800/160 1 each PO BID #14 tablet 08/05/17 [Bactrim Ds 800/160] - LABS Result Diagrams: 08/05/17 08:53 08/05/17 04:30
--- NOTE | 2017-08-05 14:59 | PROVIDER PROGRESS NOTE ---
Subjective - Prog Note Date Prog Note Date: 08/05/17 - Subjective Pt reports feeling: Improved Subjective: pt was alert and oriented when I assessed pt at the morning. I was planning to d /c pt. After I put the discharge order in [facility]i-Care's, the nurse report pt's report pt is not oriented, and confused again. I am very surprised as the nurse' s review. I went to see pt again, pt state" it is not daytime, it is night time , can I go to home tomorrow?" but it is daytime. Hold the d/c order now. Current Medications - Current Medications Current Medications: Active Medications Acetaminophen (Tylenol) 650 mg PO Q6H PRN PRN Reason: PAIN Last Admin: 08/05/17 03:52 Dose: 650 mg Atorvastatin Calcium (Lipitor) 5 mg PO QPM [facility] Last Admin: 08/04/17 20:57 Dose: 5 mg Bupropion HCl (Wellbutrin Sr) 300 mg PO 0800 EILEEN Last Admin: 08/05/17 07:59 Dose: 300 mg Clopidogrel Bisulfate (Plavix) 75 mg PO DAILY [facility] Last Admin: 08/05/17 08:00 Dose: 75 mg Docusate Sodium (Colace 250mg Capsule) 250 mg PO BID EILEEN Last Admin: 08/05/17 08:01 Dose: 250 mg Duloxetine HCl (Cymbalta) 20 mg PO QPM EILEEN Last Admin: 08/04/17 21:08 Dose: 20 mg Gabapentin (Neurontin) 600 mg PO TID [facility] Last Admin: 08/05/17 14:28 Dose: 600 mg Sodium Chloride (Normal Saline 0.9%) 500 mls @ 10 mls/hr IV .Q48H PRN PRN Reason: Peripheral Line Protocol Last Admin: 08/02/17 20:45 Dose: 10 mls/hr Vancomycin HCl 1 gm/ Sodium (Chloride) 500 mls @ 250 mls/hr IV Q12H [facility] Last Infusion: 08/05/17 07:33 Dose: Infused Piperacillin Sod/Tazobactam (Sod 3.375 gm/ Sodium Chloride) 100 mls @ 200 mls/ hr IV Q6H [facility] Last Admin: 08/05/17 14:33 Dose: 200 mls/hr Insulin Aspart (Novolog) 1 - 5 unit SUBQ 0800,1200,1700,2100 EILEEN PRN Reason: Protocol Last Admin: 08/05/17 13:00 Dose: 1 unit Insulin Glargine (Lantus Solostar) 20 unit SUBQ QPM [facility] Last Admin: 08/04/17 21:11 Dose: 20 unit Levalbuterol HCl (Xopenex) 1.25 mg INH Q4H PRN PRN Reason: Shortness of Air/Wheezing Last Admin: 08/03/17 15:33 Dose: 1.25 mg Lisinopril (Zestril) 5 mg PO DAILY [facility] Last Admin: 08/05/17 08:00 Dose: 5 mg Lorazepam (Ativan Inj (Vial)) 0.5 mg IVP Q2H PRN PRN Reason: Anxiety Last Admin: 08/03/17 02:08 Dose: 0.5 mg Mineral Oil (Cavilon) 1 applic TOP PRN PRN PRN Reason: Skin Care Last Admin: 08/02/17 01:02 Dose: 1 applic Multi-Ingredient Ointment (Zinc Oxide) 1 applic TOP PRN PRN PRN Reason: Skin Care Polyethylene Glycol (Miralax) 17 gm PO DAILY [facility] Last Admin: 08/05/17 08:01 Dose: 17 gm Saccharomyces Boulardii (Florastor) 250 mg PO BIDWM [facility] Last Admin: 08/05/17 10:48 Dose: 250 mg Senna (Senokot) 17.2 mg PO QPM [facility] Last Admin: 08/04/17 20:58 Dose: 17.2 mg Sodium Chloride (Normal Saline Flush 0.9%) 10 ml IVP PRN PRN PRN Reason: NEEDED PER PROVIDER ORDERS Last Admin: 08/02/17 17:24 Dose: 10 ml Sodium Chloride (Normal Saline Flush 0.9%) 10 ml IVP 0100,0900,1700 [facility] Last Admin: 08/05/17 08:49 Dose: Not Given Trazodone HCl 100 mg PO QPM 07/08/13 Clopidogrel Bisulfate [Plavix] 75 mg PO DAILY 09/15/14 Acetaminophen 650 mg PO Q6H PRN 08/02/17 Insulin Detemir [Levemir Flextouch] 30 unit SQ BID 08/02/17 Insulin Regular Human [NovoLIN R] 10 unit SUBQ TIDWM 08/02/17 Lactulose 15 ml PO BID PRN 08/02/17 Polyethylene Glycol 3350 17 g PO DAILY 08/02/17 traMADol [Ultram] 50 mg PO QID 08/02/17 Objective - Vital Signs/Intake & Output Vital Signs: Vital Signs x48h Temp Pulse Resp BP Pulse Ox 08/05/17 09:36 36.5 C 79 18 125/62 94 Intake & Output: Intake & Output 08/02/17 08/03/17 08/04/17 08/05/17 23:59 23:59 23:59 23:59 Intake Total 1145 2170.000 1940 1620 Output Total 1450 1300 1750 450 Balance -305 870.867 928 7131 - Objective General Appearance: positive: No acute distress, Alert. negative: Lethargic Eyes Bilateral: positive: Normal inspection, PERRL, No lid inflammation, Conjunctivae nml ENT: positive: ENT inspection nml, Pharynx nml, No signs of dehydration. negative: Purulent nasal drainage, Pharyngeal erythema, Oral lesions Neck: positive: Nml inspection, Thyroid nml, No JVD, Trachea midline. negative : Thyromegaly, Lymphadenopathy (R), Lymphadenopathy (L), Stiff neck, Carotid bruit, Swelling/bruising, Tracheal deviation Respiratory: positive: Chest non-tender, No respiratory distress, Breath sounds nml. negative: Wheezes, Rales, Rhonchi Cardiovascular: positive: Regular rate & rhythm, No murmur, No gallop. negative : Irregularly irregular, Extrasystoles, Tachycardia, Bradycardia, Systolic murmur, Diastolic murmur Peripheral Pulses: 2+ Radial (R), 2+ Radial (L), 2+ Dorsalis pedis (L) Abdomen: positive: Non-tender, No organomegaly, Nml bowel sounds, No distention. negative: Tenderness, Guarding, Rebound Back: positive: Nml inspection. negative: CVA tenderness (R), CVA tenderness (L ) Skin: positive: Color nml, No rash, Warm, Dry. negative: Cyanosis, Diaphoresis , Pallor Extremities: positive: Non-tender, Full ROM. negative: Calf tenderness, Joint swelling, Ruth Ann's sign/cords Neurologic/Psychiatric: positive: Sensation nml. negative: Weakness, Sensory loss, Facial droop, Slurred/abnml speech, Depressed mood/affect - Lab Results Fish Bones: 08/05/17 08:53 08/05/17 04:30 Other Labs: Lab Results x24hrs 08/05/17 08/05/17 08/05/17 Range/Units 11:23 08:53 07:44 WBC 8.9 (4.8-10.8) x10^3/uL RBC 4.49 L (4.70-6.10) 10^6/uL Hgb 12.4 L (14.0-18.0) g/dL Hct 37.9 L (42.0-52.0) % MCV 84.3 (80.0-94.0) fL MCH 27.6 (27.0-31.0) pg MCHC 32.8 (32.0-36.0) g/dL RDW 15.0 (12.0-15.0) % Plt Count 229 (130-450) 10^3/uL MPV 8.6 (7.4-11.4) fL Neut # 6.6 (1.5-6.6) 10^3/uL Lymph # 1.3 L (1.5-3.5) 10^3/uL [place] # 0.5 (0.0-1.0) 10^3/uL Eos # 0.1 (0.0-0.7) 10^3/uL Baso # 0.4 H (0.0-0.1) 10^3/uL Absolute Nucleated RBC 0.00 x10^3/uL Nucleated RBC % 0.0 /100WBC Sodium (135-145) mmol/L Potassium (3.5-5.0) mmol/L Chloride (101-111) mmol/L Carbon Dioxide (21-32) mmol/L Anion Gap (6-13) BUN (6-20) mg/dL Creatinine (0.6-1.2) mg/dL Estimated GFR (MDRD) (>89) Glucose (70-100) mg/dL POC Whole Bld Glucose 159 H 115 H (70 - 100) mg/dL Calcium (8.5-10.3) mg/dL Magnesium (1.7-2.8) mg/dL Total Bilirubin (0.2-1.0) mg/dL AST (10-42) IU/L ALT (10-60) IU/L Alkaline Phosphatase (42-121) IU/L B-Natriuretic Peptide (5-100) pg/mL Total Protein (6.7-8.2) g/dL Albumin (3.2-5.5) g/dL Globulin (2.1-4.2) g/dL Albumin/Globulin Ratio (1.0-2.2) 08/05/17 08/05/17 08/05/17 Range/Units 04:30 04:30 04:30 WBC (4.8-10.8) x10^3/uL RBC (4.70-6.10) 10^6/uL Hgb (14.0-18.0) g/dL Hct (42.0-52.0) % MCV (80.0-94.0) fL MCH (27.0-31.0) pg MCHC (32.0-36.0) g/dL RDW (12.0-15.0) % Plt Count (130-450) 10^3/uL MPV (7.4-11.4) fL Neut # (1.5-6.6) 10^3/uL Lymph # (1.5-3.5) 10^3/uL [place] # (0.0-1.0) 10^3/uL Eos # (0.0-0.7) 10^3/uL Baso # (0.0-0.1) 10^3/uL Absolute Nucleated RBC x10^3/uL Nucleated RBC % /100WBC Sodium 136 (135-145) mmol/L Potassium 3.5 (3.5-5.0) mmol/L Chloride 104 (101-111) mmol/L Carbon Dioxide 25 (21-32) mmol/L Anion Gap 7.0 (6-13) BUN 14 (6-20) mg/dL Creatinine 1.2 (0.6-1.2) mg/dL Estimated GFR (MDRD) 59 L (>89) Glucose 161 H (70-100) mg/dL POC Whole Bld Glucose (70 - 100) mg/dL Calcium 8.6 (8.5-10.3) mg/dL Magnesium 1.9 (1.7-2.8) mg/dL Total Bilirubin 0.6 (0.2-1.0) mg/dL AST 23 (10-42) IU/L ALT 19 (10-60) IU/L Alkaline Phosphatase 103 (42-121) IU/L B-Natriuretic Peptide 39 (5-100) pg/mL Total Protein 7.3 (6.7-8.2) g/dL Albumin 3.1 L (3.2-5.5) g/dL Globulin 4.2 (2.1-4.2) g/dL Albumin/Globulin Ratio 0.7 L (1.0-2.2) / Range/Units 16:58 WBC (4.8-10.8) x10^3/uL RBC (4.70-6.10) 10^6/uL Hgb (14.0-18.0) g/dL Hct (42.0-52.0) % MCV (80.0-94.0) fL MCH (27.0-31.0) pg MCHC (32.0-36.0) g/dL RDW (12.0-15.0) % Plt Count (130-450) 10^3/uL MPV (7.4-11.4) fL Neut # (1.5-6.6) 10^3/uL Lymph # (1.5-3.5) 10^3/uL [place] # (0.0-1.0) 10^3/uL Eos # (0.0-0.7) 10^3/uL Baso # (0.0-0.1) 10^3/uL Absolute Nucleated RBC x10^3/uL Nucleated RBC % /100WBC Sodium (135-145) mmol/L Potassium (3.5-5.0) mmol/L Chloride (101-111) mmol/L Carbon Dioxide (21-32) mmol/L Anion Gap (6-13) BUN (6-20) mg/dL Creatinine (0.6-1.2) mg/dL Estimated GFR (MDRD) (>89) Glucose (70-100) mg/dL POC Whole Bld Glucose 157 H (70 - 100) mg/dL Calcium (8.5-10.3) mg/dL Magnesium (1.7-2.8) mg/dL Total Bilirubin (0.2-1.0) mg/dL AST (10-42) IU/L ALT (10-60) IU/L Alkaline Phosphatase (42-121) IU/L B-Natriuretic Peptide (5-100) pg/mL Total Protein (6.7-8.2) g/dL Albumin (3.2-5.5) g/dL Globulin (2.1-4.2) g/dL Albumin/Globulin Ratio (1.0-2.2) ABX Reporting Has patient been on IV antibiotics over the past 48 hours?: Yes Assessment/Plan - Problem List (1) Altered mental status Impression: sudden onset of questionable confusion hold d/c order for over night order selector neuro check resolved today, pt logically talked with and answer questions with me. continue neuro check CT of head unremarkable pt is alert, response. per pt's report, he is close to his baseline order ammonia level, B12, TSH neuro check, The patient was found down for an unknown amount of time and has been unresponsive in the ED. According to his , Emma, this has happened before. She explains, "Last time he woke up in 3 days". The patient had a recorded blood glucose of 60, and dextrose was given. Plan: Telemetry to record any episodes of asystole, or other signs of cardiac damage. Troponins are ordered for later this evening. (2) UTI (urinary tract infection) Conclusion/Plan: continue antibiotics UA culture negative continue antibiotics to finish the course continue Zosyn, follow up UA culture A new indwelling webb was inserted and there is milky, yellow urine in the tubing. A urine sample was obtained and preliminary results are + for UA. The patient also shows signs of sepsis, so blood cultures were obtained. Plan: Treat with IV antibiotics and await culture results. (3) Fall/syncope Conclusion/Plan: continue neuro check, fall precaution ECHO reveals unremarkable neuro check, fall precaution EKG without acute findings The patient has a history of falls with injury. He was found down, so I suspect that he fell to the floor to get that way. Unknown etiology for this event, but it may have been in the setting of this acute illness. 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 Plan: Continue to monitor, fall precautions. (4) T2DM (type 2 diabetes mellitus) Conclusion/Plan: continue slide scale, hypoglycemia protocol continue ACHS Per our most recent medication list the patient is on a very large long acting insulin dose. The last known blood sugar was 140 this afternoon when a BMP was checked. The patient was reported to have good control lately of daily Blood sugars per 's report. His appetite has been unchanged until yesterday, when he had a poor appetite and began showing signs of confusion. Plan: SSI ordered for during meals, monitor BS at the bedside, and a very gentle dose of 20 units Lantus was prescribed in this acute illness setting. (5) Legally blind Conclusion/Plan: no acute abnormal finding. continue support The patient has been blind for several years, but can usually recognize at least his . Upon arriving to the nursing floor, nursing reports the patient being able to state his name, but his claims that he does not see her. Plan: Continuity of nursing care and frequent nursing rounds. (6) chronic pressure ulcer continue antibiotics, and dress change continue dress change continue Q2H pressure release, turn side to side. consult with MAC, follow up with dress change continue antibiotics treatment continue Q2H pressure release, turn side to side.
[2017-08-05] MEDS: DULoxetine 20 MG CAPSULE PO SCH (21:47)
[2017-08-05] MEDS: ATORVASTATIN 10 MG TABLET PO SCH (21:48)
[2017-08-05] MEDS: SENNA 8.6 MG TABLET PO SCH (21:49)
[2017-08-05] MEDS: INSULIN GLARGINE 300 UNIT/3 ML PEN SUBQ SCH (21:58)
[2017-08-06] MEDS: SODIUM CHLORIDE FLUSH 0.9% 10 ML SYRINGE IVP SCH ×2 (01:05→09:07)
[2017-08-06] MEDS: PIPERACILLIN/TAZOBACTAM 3.375 GM in SODIUM CHLORIDE 0.9% MINIBAG 100 ML IV SCH ×2 (02:05→09:07)
[2017-08-06] MEDS: VANCOMYCIN INJ 1 GM in SODIUM CHLORIDE 0.9% 500 ML IV SCH (03:57)
[2017-08-06] MEDS: ACETAMINOPHEN 325 MG TABLET PO PRN (04:55)
[2017-08-06] MEDS: GABAPENTIN 300 MG CAPSULE PO SCH (05:43)
--- NOTE | 2017-08-06 08:52 | Discharge Plan ---
"Discharge Plan for SNF / [facility] - DC Plan and Transition Orders Disposition: 06 Home Health Service Condition: Poor SNF Transition Orders: Admit to: [Welcome home at [place]] under the care of [Doctor Mariaa Marx] Discharge Diagnosis: [UTI, urinary incontinence, AMS, legal blind, chronic pressure ulcer, DM2, CKD] Medicare Certification: I do not certify that Post Hospital long term care is medically necessary on a continuing basis for any of the conditions for which she/he is receiving care during hospitalization. Notify PCP of admission and forward orders to primary provider for signature. Weight on admission and [92kg]. Call PCP immediately if weight increases by [4 ] pounds or if patient develops dyspnea, chest pain/tightness or edema. House Bowel Program: [Yes] If no BM after 2 days, nurse may give M.O.M. 30ml PO PRN and /or ducolax Supp 1 LA and /or PATI 250mg P.O., and/or senna 1-2 tabs PO. On day 3 nurse may give repeat above order until residents constipation is resolved. Immunizations: Annual Influenza Vaccine: [Yes]. (between Nov 20 and June 19.) Unless allergy or already given Two-Step PPD: [Yes] per [facility] 248-235 or appropriate documentation of approved exceptions Treatments & Other Orders: [May follow up your PCP at arrival to the facility, may have Head with nurse care for two weeks] Oxygen Orders: [PRN] Lab Tests or X-Rays Orders: [follow up PCP] Orthopedic Orders: [n]. Medications: PLEASE REFER TO THE DISCHARGE MEDICATION LIST. Insulin Orders? [Yes, see home medications list] Diagnosis: Diabetes Initiate hypo and hyperglycemia protocols for BG <70 and BG >375. May check BG prn for signs/symptoms of dysglycemia. Frequency of BG checks: [AC/Meal/HS] Basal Insulin: [] Lantus 100 units / ml inject subq as follows: [] [] Other: [] Correction Insulin: - Select the type of insulin below [Choose: Novolog/Humalog]100 units /ml insulin inject subq per orders indicate below [] LOW DOSE [] MODERATE DOSE [] MODERATE/HIGH DOSE [] HIGH DOSE GB UNITS GB UNITS GB UNITS GB UNITS 61-140 0 UNITS 61-140 0 UNITS 61-140 0 UNITS 61-140 0 UNITS 141-175 1 UNITS 141-175 1 UNITS 141-175 2 UNITS 141-175 3 UNITS 176-225 2 UNITS 176-225 3 UNITS 176-225 4 UNITS 176-225 5 UNITS 226-275 3 UNITS 226-275 5 UNITS 226-275 6 UNITS 226-275 7 UNITS 276-325 4 UNITS 276-325 7 UNITS 276-325 8 UNITS 276-325 9 UNITS 326-375 5 UNITS 326-375 9 UNITS 326-375 10 UNITS 326-375 11 UNITS >375 CONTACT MD >375 CONTACT MD >375 CONTACT MD >375 CONTACT MD Custom Dosing: [Choose: None/Novolog/Humalog] 100 units/ml Insulin inject subq as follows: GB Units 61-140 [] Units 141-175 [] Units 176-225 [] Units 226-275 [] Units 276-325 []Units 326-375 [] Units >375 Contact MD Allergies and Adverse Reactions: Allergies Allergy/AdvReac Type Severity Reaction Status Date / Time Penicillins Allergy Intermediate Rash Verified 05/30/17 12:06 morphine AdvReac Unknown I go Verified 05/30/17 12:06 [email or web address] - Medications New Prescriptions: Ciprofloxacin HCl [Cipro] 500 mg PO BID #14 tablet Saccharomyces Boulardii [Florastor] 250 mg PO BID #14 capsule - Diet Type: Geriatric Texture: Regular Liquids: Thin May have monthly special meal: Yes - Therapies | Activity Rehabilitation Potential: Maximize functional status Activity: Activity as Tolerated Additional Instructions: May follow up PCP at the arrival to the facility, have home health nurse for nurse care, Head care and wound care."
[2017-08-06] MEDS: CLOPIDOGREL 75 MG TABLET PO SCH (09:06)
[2017-08-06] MEDS: INSULIN ASPART 300 UNIT/3 ML PEN SUBQ SCH (09:06)
[2017-08-06] MEDS: buPROPion SR 150 MG TABLET PO SCH (09:06)
[2017-08-06] MEDS: LISINOPRIL 5 MG TABLET PO SCH (09:06)
[2017-08-06] MEDS: DOCUSATE SODIUM 250 MG CAPSULE PO SCH (09:06)
[2017-08-06] MEDS: POLYETHYLENE GLYCOL 3350 17 GM PACKET PO SCH (09:07)
[2017-08-06] MEDS: SACCHAROMYCES BOULARDII 250 MG CAPSULE PO SCH (09:07)
[2017-08-06 13:12] VITALS: BP 146/58
--- NOTE | 2017-08-09 19:05 | DISCHARGE SUMMARY ---
Discharge Summary Discharge Date: 08/06/17 Discharging Provider: MILTON Primary Care Provider: Dr. Mariaa Marx Condition at Discharge: Poor Discharge Disposition: Home Health Service Discharge Facility [facility]: [facility] - DIAGNOSES Admission Diagnoses: (1) Unresponsive (2) UTI (urinary tract infection) (3) Fall (4) T2DM (type 2 diabetes mellitus) (5) Legally blind Discharge Diagnoses with Status of Each Condition: (1) Altered mental status resolved. pt is alert and oriented at discharge time (2) UTI (urinary tract infection) continue to use antibiotic to finish the course (3) Fall return [facility], nurse care (4) T2DM (type 2 diabetes mellitus) stable, continue to be managed by PCP (5) Legally blind return [facility] care (6) chronic pressure ulcer home health nurse for dressing change, continue to use PO antibiotic, and managed by PCP - HPI History of Present Illness: refer from Ms. Bensonse's HPI for pt as the following: Douglas Bowles is an ill-appearing 76-year old male with an extensive past medical history of BPH, hypertension, CT-status post cardiac stents, CVA- multiple, diabetes mellitus type 2, depression, anxiety, COPD, splenectomy, right AKA leg, blindness, and peripheral neuropathy. He resides at [facility] in [place] and was found unresponsive with little movement. EMS was called and he had a blood sugar of only 60, and continued to be unresponsive and once in the ED showed little improvement. A chest x-ray was completed and showed atelectasis with low lung volumes, a head CT shows no bleeding, masses or other discrete intracranial process identified. A urine sample taken is suspicious for UTI, and appeared "milky". He will be admitted for IV antibiotics, oxygen support, nebulizers, electrolyte balance, and blood sugar control. Confirmed with , patient wishes to be a DNR. - ALLERGIES Allergies/Adverse Reactions: Allergies Allergy/AdvReac Type Severity Reaction Status Date / Time Penicillins Allergy Intermediate Rash Verified 05/30/17 12:06 morphine AdvReac Unknown I go Verified 05/30/17 12:06 [email or web address] - MEDICATIONS Home Medications: Ambulatory Orders Medication Instructions Recorded Confirmed Trazodone HCl 100 mg PO QPM 07/08/13 08/02/17 Clopidogrel Bisulfate [Plavix] 75 mg PO DAILY 09/15/14 08/02/17 Albuterol [Ventolin Hfa] 2 puffs INH Q4H PRN #1 inhaler 01/30/15 08/02/17 Bupropion HCl [Bupropion HCl Sr] 300 mg PO 0800 #30 04/24/17 08/02/17 DULoxetine [Cymbalta] 20 mg PO QPM #30 04/24/17 08/02/17 Docusate Sodium 250Mg Capsule 250 mg PO BID #30 04/24/17 08/02/17 [Colace 250Mg Capsule] Gabapentin [Neurontin] 600 mg PO TID #540 capsule 04/24/17 08/02/17 Ipratropium/Albuterol Sulfate 3 ml IH Q4H PRN #1 04/24/17 08/02/17 [Iprat-Albut 0.5-3(2.5) mg/3 ml] Lisinopril 5 mg PO DAILY #30 04/24/17 08/02/17 Multivitamin W/Minerals [Theragran 1 tab PO DAILYWM #30 tablet 04/24/17 08/02/17 M] Senna [Senokot] 17.2 mg PO QPM #30 04/24/17 08/02/17 Simvastatin [Zocor] 10 mg PO QPM #30 04/24/17 08/02/17 Acetaminophen 650 mg PO Q6H PRN 08/02/17 08/02/17 Insulin Detemir [Levemir Flextouch] 30 unit SQ BID 08/02/17 08/02/17 Insulin Regular Human [NovoLIN R] 10 unit SUBQ TIDWM 08/02/17 08/02/17 Lactulose 15 ml PO BID PRN 08/02/17 08/02/17 Polyethylene Glycol 3350 17 g PO DAILY 08/02/17 08/02/17 traMADol [Ultram] 50 mg PO QID 08/02/17 08/02/17 Saccharomyces Boulardii [Florastor] 250 mg PO BID #14 capsule 08/05/17 Ciprofloxacin HCl [Cipro] 500 mg PO BID #14 tablet 08/06/17 - PHYSICAL EXAM AT DISCHARGE General Appearance: positive: No acute distress, Alert. negative: Lethargic Eyes Bilateral: positive: Normal inspection, PERRL, No lid inflammation, Conjunctivae nml ENT: positive: ENT inspection nml, Pharynx nml, No signs of dehydration. negative: Purulent nasal drainage, Pharyngeal erythema, Oral lesions Neck: positive: Nml inspection, Thyroid nml, No JVD, Trachea midline. negative : Thyromegaly, Lymphadenopathy (R), Lymphadenopathy (L), Stiff neck, Swelling/ bruising, Tracheal deviation Respiratory: positive: Chest non-tender, No respiratory distress, Breath sounds nml. negative: Wheezes, Rales, Rhonchi Cardiovascular: positive: Regular rate & rhythm, No murmur, No gallop. negative : Irregularly irregular, Extrasystoles, Tachycardia, Bradycardia, Systolic murmur, Diastolic murmur Peripheral Pulses: positive: 2+, Other (right BKA) Abdomen: positive: Non-tender, No organomegaly, Nml bowel sounds, No distention. negative: Tenderness, Guarding, Rebound Back: positive: Nml inspection. negative: CVA tenderness (R), CVA tenderness (L ) Skin: positive: Color nml, No rash, Warm, Dry. negative: Cyanosis, Diaphoresis , Pallor Extremities: positive: Non-tender, Nml appearance. negative: Calf tenderness, Joint swelling, Ruth Ann's sign/cords Neurologic/Psychiatric: positive: Oriented x3, Sensation nml. negative: Weakness, Sensory loss, Facial droop, Slurred/abnml speech, Depressed mood/ affect - LABS Result Diagrams: 08/05/17 08:53 08/05/17 04:30 - FOLLOW UP Follow Up: May follow up PCP at the arrival to the facility, have home health nurse for nurse care, Head care and wound care - TIME SPENT Time Spent in Discharge (Minutes): 40
== END 2017-08-06 12:45 | disposition home health service (06) | DRG 948 ==
LOC: EDUNIT# → ED 14:32 → MS3 17:20
PROVIDERS: ADMIT Nurse Practitioner; ATTEND Nurse Practitioner Gerontology
DX: G93.41 Metabolic encephalopathy (principal); R40.2430 Glasgow coma scale score 3-8, unspecified time; N30.00 Acute cystitis without hematuria; F17.200 Nicotine dependence, unspecified, uncomplicated; R41.82 Altered mental status, unspecified; N39.0 Urinary tract infection, site not specified; K21.9 Gastro-esophageal reflux disease without esophagitis; E11.9 Type 2 diabetes mellitus without complications; F32.9 Major depressive disorder, single episode, unspecified; F41.9 Anxiety disorder, unspecified; N40.1 Benign prostatic hyperplasia with lower urinary tract symptoms; H54.7 Unspecified visual loss; N39.498 Other specified urinary incontinence; Z99.3 Dependence on wheelchair; R35.0 Frequency of micturition; Z95.5 Presence of coronary angioplasty implant and graft; Z86.73 Personal history of transient ischemic attack (TIA), and cerebral infarction without residual deficits; I10 Essential (primary) hypertension; E78.00 Pure hypercholesterolemia, unspecified; I25.10 Atherosclerotic heart disease of native coronary artery without angina pectoris; I25.2 Old myocardial infarction; J44.9 Chronic obstructive pulmonary disease, unspecified; I73.9 Peripheral vascular disease, unspecified; H54.8 Legal blindness, as defined in USA; Z89.611 Acquired absence of right leg above knee; Z66 Do not resuscitate; W19.XXXA Unspecified fall, initial encounter; Z91.81 History of falling
CPT/HCPCS: 36415; 51702; 70450; 71045; 80053; 81001; 81003; 82140; 82607; 83036; 83605; 83690; 83735; 83880; 84443; 84484; 85025; 85651; 86140; 87040; 87070; 87075; 87077; 87086; 87186; 87205; 93005; 93306; 94640; 96361; 96365; 96375; 99283; 99284; 99285

== ENCOUNTER 2017-08-06 12:50 | Outpatient (CLI) | payer MEDICARE, MEDICAID | END 2017-08-06 12:51 | disposition home or self-care (01) | LOC: EMS 12:50 | PROVIDERS: ATTEND Surgery | DX: N39.0 Urinary tract infection, site not specified (principal); Z74.01 Bed confinement status | CPT/HCPCS: A0425; A0428 ==

== ENCOUNTER 2017-10-07 13:01 | Outpatient (CLI) | payer MEDICARE, MEDICAID ==
--- NOTE | 2017-10-07 16:37 | Ultrasound Report ---
Procedure Date: 10/07/2017 Accession Number: [id number] / [id number] Procedure: US - Duplex Lwr Ext Arterial LT CPT Code: FULL RESULT: EXAM: LEFT LOWER EXTREMITY ARTERIAL DOPPLER ULTRASOUND EXAM DATE: 10/07/2017 03:24 PM. CLINICAL HISTORY: No DP pulse. COMPARISON: None. TECHNIQUE: Real-time sonographic vascular imaging was performed by the catalyst operator gasoline, utilizing color-flow, Doppler flow, and spectral analysis. Multiple labor union business representative static images were saved for review. FINDINGS: At least mild diffuse atherosclerotic calcific plaque throughout the left lower extremity arteries, with more focal foci of moderate plaque causing up to at least 50% stenosis by grayscale and color Doppler, particularly in the left popliteal artery. No evidence of a severe focal stenosis by velocity measurements. Biphasic waveforms present throughout the lower extremity, with the exception of the dorsalis pedis artery which demonstrates monophasic waveform and slowed upstroke, parvus tardus type waveform, suggesting severe upstream stenosis. Peroneal, posterior tibial and anterior tibial arteries demonstrate normal brisk upstrokes. Ankle brachial index of 0.64 consistent with moderate arterial disease. Left Leg: SUPERVISOR MILL: PSV 123 cm/sec. Biphasic waveform. PSFA: PSV 68 cm/sec. Biphasic waveform. MSFA: PSV 82 cm/sec. Biphasic waveform. DSFA: PSV 22 cm/sec. Biphasic waveform. PFA: PSV 99 cm/sec. Biphasic waveform. POP: PSV 19 cm/sec. Biphasic waveform. DOMINIC: PSV 54 cm/sec. Biphasic waveform. BANDAGE WINDING MACHINE OPERATOR: PSV 26 cm/sec. Biphasic waveform. PER: PSV 51 cm/sec. Biphasic waveform. DPA: PSV 17 cm/sec. Monophasic waveform. IMPRESSION: 1. Parvus tardus waveform in the dorsalis pedis artery suggesting significant upstream stenosis, though not definitively visualized by ultrasound. 2. EMILY 0.64 suggesting moderate arterial disease with multifocal calcific atherosclerotic plaque as above. RADIA
== END 2017-10-07 13:02 | disposition home or self-care (01) ==
LOC: DI 13:01
PROVIDERS: ATTEND Internal Medicine
DX: R20.0 Anesthesia of skin (principal); R03.1 Nonspecific low blood-pressure reading
CPT/HCPCS: 93922

== ENCOUNTER 2017-12-19 09:54 | Outpatient (CLI) | payer MEDICARE, MEDICAID | END 2017-12-19 09:55 | disposition critical access hospital (66) | LOC: EMS 09:54 | PROVIDERS: ATTEND Surgery | DX: R53.1 Weakness (principal); R51 Headache; R10.9 Unspecified abdominal pain | CPT/HCPCS: A0425; A0429 ==

== ENCOUNTER 2017-12-19 10:09 | Inpatient (IN) | payer MEDICARE, MEDICAID ==
[2017-12-19] MEDS ORDERED: VANCOMYCIN INJ 1 GM in SODIUM CHLORIDE 0.9% 500 ML IV STA (10:28)
[2017-12-19] MEDS ORDERED: CEFEPIME 1 GM in SODIUM CHLORIDE 0.9% MINIBAG 100 ML IV STA (10:28)
--- NOTE | 2017-12-19 10:32 | ED Physician Documentation ---
History of Present Illness - Stated complaint Stated Complaint: LETHARGIC - Chief complaint Chief Complaint: Neuro - Additonal information Additional information: hx from pt 77 male to ER BIB for hypotension AMS JONES and abd pain lives at [place] apparently was fine at 0530 at 9 noted to be slow to respond to EMS called EMS noted SBP in the 80s and pt to be slow and lethargic but non focal exam no reported fever cough NVD hx UTI s/p RLE amputation uses yanna lift and has sacral breakdown no fall or injury Review of Systems Constitutional: denies: Fever, Chills Cardiac: denies: Chest pain / pressure Respiratory: denies: Dyspnea, Cough GI: reports: Abdominal Pain (upper). denies: Nausea, Vomiting, Diarrhea : denies: Dysuria Skin: reports: Rash (sacral) Neurologic: reports: Generalized weakness, Headache. denies: Head injury Immunocompromised: denies: Immunocompromised PD PAST MEDICAL HISTORY - Past Medical History Cardiovascular: Hypertension, High cholesterol, Coronary artery disease, Peripheral Vascular Disease, [place] Respiratory: COPD, Pneumonia, Shortness of breath Neuro: Dementia, CVA, Other Endocrine/Autoimmune: Type 2 diabetes GI: GERD, Chronic constipation : Benign prostate hypertrophy, Incontinence, Frequency HEENT: Chronic vision loss Psych: Depression, Anxiety Musculoskeletal: None Derm: None - Past Surgical History Past Surgical History: Yes General: Splenectomy Ortho: Amputation Cardiovascular: Coronary stent, Cardiac catheterization, Vascular surgery, Angioplasty Neuro: PROJECT LEAD shunt - Present Medications Home Medications: Ambulatory Orders Medication Instructions Recorded Confirmed Trazodone HCl 50 mg PO QPM PRN 07/08/13 12/19/17 Clopidogrel Bisulfate [Plavix] 75 mg PO DAILY 09/15/14 12/19/17 Albuterol [Ventolin Hfa] 2 puffs INH Q4H PRN #1 inhaler 01/30/15 12/19/17 Bupropion HCl [Bupropion HCl Sr] 300 mg PO 0800 #30 04/24/17 12/19/17 Docusate Sodium 250Mg Capsule 250 mg PO BID #30 04/24/17 12/19/17 [Colace 250Mg Capsule] Ipratropium/Albuterol Sulfate 3 ml IH Q4H PRN #1 04/24/17 12/19/17 [Iprat-Albut 0.5-3(2.5) mg/3 ml] Lisinopril 5 mg PO DAILY #30 04/24/17 12/19/17 Multivitamin W/Minerals [Theragran 1 tab PO DAILYWM #30 tablet 04/24/17 12/19/17 M] Senna [Senokot] 17.2 mg PO QPM #30 04/24/17 12/19/17 Simvastatin [Zocor] 10 mg PO QPM #30 04/24/17 12/19/17 Acetaminophen 650 mg PO Q6H PRN 08/02/17 12/19/17 Insulin Detemir [Levemir Flextouch] 20 unit SQ BID 08/02/17 12/19/17 Insulin Regular Human [NovoLIN R] 0 - 5 unit SUBQ TIDWM 08/02/17 12/19/17 Lactulose 15 ml PO BID PRN 08/02/17 12/19/17 Polyethylene Glycol 3350 17 g PO DAILY 08/02/17 12/19/17 traMADol [Ultram] 50 mg PO 0800,1200,1700,2100 08/02/17 12/19/17 DULoxetine [Cymbalta] 20 mg PO 1400 12/19/17 12/19/17 Gabapentin [Neurontin] 600 mg PO 0800,1200,1700 12/19/17 12/19/17 LORazepam [Lorazepam] 1 mg PO TID PRN 12/19/17 12/19/17 Loperamide HCl [Loperamide] 2 mg PO DAILY PRN MDD 8MG 12/19/17 12/19/17 Magnesium Hydroxide [Milk of 2,400 mg PO TID PRN 12/19/17 12/19/17 Magnesia] Trazodone HCl 100 mg PO QPM 12/19/17 12/19/17 - Allergies Allergies/Adverse Reactions: Allergies Allergy/AdvReac Type Severity Reaction Status Date / Time Penicillins Allergy Intermediate Rash Verified 05/30/17 12:06 morphine AdvReac Unknown I go Verified 05/30/17 12:06 berserk - Social History Does the pt smoke?: Yes Smoking Status: Current every day smoker Does the pt drink ETOH?: Yes Does the pt have substance abuse?: No - Immunizations Immunizations are current?: Yes - POLST Patient has POLST: Yes POLST Status: DNR PD ED PE NORMAL - Vitals Vital signs reviewed: Yes - General General: Other (slow to respond and confused) - HEENT HEENT: Atraumatic, PERRL - Neck Neck: Supple, no meningeal sign - Cardiac Cardiac: RRR - Respiratory Respiratory: Clear bilaterally (anterior) - Abdomen Abdomen: Soft, Other (mild TTP upper abd s peritoneal sx) - Derm Derm: Other (sacral skin breakdown) - Extremities Extremities: Other (R BKA s infection) - Neuro Neuro: Other (arousable, moves all ext, slow and confused) Results - Vitals Vitals: Vital Signs - 24 hr 12/19/17 12/19/17 12/19/17 10:14 10:30 11:24 Temperature 36.1 C L Heart Rate 62 66 67 Respiratory 14 14 14 Rate Blood Pressure 104/53 L 106/57 L 118/35 L O2 Saturation 96 93 94 12/19/17 12/19/17 12/19/17 11:45 11:59 12:16 Temperature Heart Rate 63 73 68 Respiratory 14 20 24 Rate Blood Pressure 94/50 L 92/47 L 85/72 L O2 Saturation 93 97 94 12/19/17 12/19/17 12:32 12:45 Temperature Heart Rate 65 64 Respiratory 12 11 L Rate Blood Pressure 101/52 L 98/49 L O2 Saturation 97 94 Oxygen O2 Source Room air - EKG (time done) 1021 Rate: Rate (enter#) Rhythm: NSR [place]: LAD Intervals: Normal IN Ischemia: Non specific changes - Labs Labs: Laboratory Tests 12/19/17 12/19/17 12/19/17 11:18 11:18 11:18 WBC 7.7 RBC 4.42 L Hgb 12.9 L Hct 38.2 L MCV 86.5 MCH 29.2 MCHC 33.7 RDW 14.5 Plt Count 214 MPV 8.2 Neut # (Auto) 4.9 Lymph # (Auto) 2.0 Lamar # (Auto) 0.4 Eos # (Auto) 0.3 Baso # (Auto) 0.1 Absolute Nucleated RBC 0.00 Nucleated RBC % 0.1 Sodium 136 Potassium 4.0 Chloride 99 L Carbon Dioxide 29 Anion Gap 8.0 BUN 31 H Creatinine 1.3 H Estimated GFR (MDRD) 54 L Glucose 103 H POC Whole Bld Glucose Lactic Acid Calcium 9.0 Total Bilirubin 0.4 AST 18 ALT 22 Alkaline Phosphatase 118 Troponin I < 0.04 Total Protein 8.0 Albumin 3.3 Globulin 4.7 H Albumin/Globulin Ratio 0.7 L Lipase 34 Urine Color Urine Clarity Urine pH Ur Specific Vivian Urine Protein Urine Glucose (UA) Urine Ketones Urine Occult Blood Urine Nitrite Urine Bilirubin Urine Urobilinogen Ur Leukocyte Esterase Urine RBC Urine WBC Ur Squamous Epith Cells Urine Bacteria Ur Microscopic Review Urine Culture Comments 12/19/17 12/19/17 12/19/17 11:18 11:20 11:56 WBC RBC Hgb Hct MCV MCH MCHC RDW Plt Count MPV Neut # (Auto) Lymph # (Auto) Lamar # (Auto) Eos # (Auto) Baso # (Auto) Absolute Nucleated RBC Nucleated RBC % Sodium Potassium Chloride Carbon Dioxide Anion Gap BUN Creatinine Estimated GFR (MDRD) Glucose POC Whole Bld Glucose 194 H Lactic Acid 1.0 Calcium Total Bilirubin AST ALT Alkaline Phosphatase Troponin I Total Protein Albumin Globulin Albumin/Globulin Ratio Lipase Urine Color YELLOW Urine Clarity CLOUDY Urine pH 6.0 Ur Specific Vivian 1.025 Urine Protein NEGATIVE Urine Glucose (UA) NEGATIVE Urine Ketones NEGATIVE Urine Occult Blood MODERATE H Urine Nitrite NEGATIVE Urine Bilirubin NEGATIVE Urine Urobilinogen 0.2 (NORMAL) Ur Leukocyte Esterase LARGE H Urine RBC 6-10 H Urine WBC >25 H Ur Squamous Epith Cells RARE Squamous Urine Bacteria Moderate H Ur Microscopic Review INDICATED Urine Culture Comments INDICATED - Rads (name of study) CTH Radiology: See rad report (no acute) CXR Radiology: See rad report (LLL atelectasis vs less likely pna) CT AP Radiology: See rad report (large amt stool, renal stones, bladder wall thickening suggests cystitis) PD MEDICAL DECISION MAKING - ED course ED course: IVF order from sepsis set did not cross over - so delay in EVF - but antibitoics were ordered immed - Sepsis Event Vital Signs: Vital Signs - 24 hr 12/19/17 12/19/17 12/19/17 10:14 10:30 11:24 Temperature 36.1 C L Heart Rate 62 66 67 Respiratory 14 14 14 Rate Blood Pressure 104/53 L 106/57 L 118/35 L O2 Saturation 96 93 94 12/19/17 12/19/17 12/19/17 11:45 11:59 12:16 Temperature Heart Rate 63 73 68 Respiratory 14 20 24 Rate Blood Pressure 94/50 L 92/47 L 85/72 L O2 Saturation 93 97 94 12/19/17 12/19/17 12:32 12:45 Temperature Heart Rate 65 64 Respiratory 12 11 L Rate Blood Pressure 101/52 L 98/49 L O2 Saturation 97 94 Oxygen O2 Source Room air Departure - Departure Disposition: 66 [facility] DC/Xfer Clinical Impression: UTI (urinary tract infection), Sepsis Discharge Date/Time: 12/19/17 13:47
--- NOTE | 2017-12-19 11:11 | XRAY Report ---
Reason: ams hypotension Procedure Date: 12/19/2017 Accession Number: [id number] / [id number] Procedure: XR - Chest 2 View X-Ray CPT Code: 51161 FULL RESULT: EXAM: CHEST RADIOGRAPHY EXAM DATE: 12/19/2017 10:55 AM. CLINICAL HISTORY: Ams hypotension. COMPARISON: 08/01/2017, 04/20/2017, 04/18/2017, 10/14/2011, chest radiographs. .. TECHNIQUE: 2 views. FINDINGS: Lungs/Pleura: Small lung volumes, likely related to shallow inspiratory effort, results in pulmonary vasculature crowding. Left lower lobe airspace opacification. No pleural effusion or pneumothorax Mediastinum: Heart and mediastinal contours are unremarkable. Other: Healed left clavicular fracture deformity IMPRESSION: Mild left lower lobe airspace disease, favor atelectasis on hypoventilatory image, less likely pneumonia. RADIA
[2017-12-19 11:24] LABS: BASOPHILS # (AUTO) 0.1 10^3/uL (0.0-0.1); BASOPHILS % (AUTO) 0.8 %; EOSINOPHILS # (AUTO) 0.3 10^3/uL (0.0-0.7); EOSINOPHILS % (AUTO) 3.9 %; HGB - HEMOGLOBIN 12.9 g/dL (14.0-18.0); LYMPHOCYTES % (AUTO) 26.2 %; MEAN CORPUSCULAR HEMOGLOBIN 29.2 pg (27.0-31.0); MEAN CORPUSCULAR HGB CONC 33.7 g/dL (32.0-36.0); MEAN CORPUSCULAR VOLUME 86.5 fL (80.0-94.0); MEAN PLATELET VOLUME 8.2 fL (7.4-11.4); MONOCYTES # (AUTO) 0.4 10^3/uL (0.0-1.0); MONOCYTES % (AUTO) 5.7 %; NEUTROPHILS # (AUTO) 4.9 10^3/uL (1.5-6.6); NEUTROPHILS % (AUTO) 63.4 %; PLT - PLATELET COUNT 214 10^3/uL (130-450); RED BLOOD COUNT 4.42 10^6/uL (4.70-6.10); RED CELL DISTRIBUTION WIDTH 14.5 % (12.0-15.0); WHITE BLOOD COUNT 7.7 x10^3/uL (4.8-10.8)
[2017-12-19] MEDS ORDERED: GABAPENTIN 100 MG CAPSULE PO STA (11:27)
[2017-12-19] MEDS ORDERED: ACETAMINOPHEN 325 MG TABLET PO STA (11:28)
[2017-12-19 11:30] LABS: BILIRUBIN,URINE NEGATIVE (NEGATIVE); GLUCOSE, URINE (UA) NEGATIVE (NEGATIVE); KETONES,URINE (UA) NEGATIVE (NEGATIVE); LEUKOCYTE ESTERASE, URINE LARGE (NEGATIVE); NITRITE,URINE NEGATIVE (NEGATIVE); OCCULT BLOOD,URINE MODERATE (NEGATIVE); PROTEIN,URINE NEGATIVE (NEGATIVE); UROBILINOGEN,URINE 0.2 (NORMAL) E.U./dL (NORMAL)
[2017-12-19 11:32] LABS: CLARITY,URINE CLOUDY (CLEAR)
[2017-12-19 11:36] LABS: ALBUMIN 3.3 g/dL (3.2-5.5); ALBUMIN/GLOBULIN RATIO 0.7 (1.0-2.2); BILIRUBIN,TOTAL 0.4 mg/dL (0.2-1.0); CREATININE 1.3 mg/dL (0.6-1.2)
[2017-12-19 11:41] LABS: SQUAMOUS EPITHELIAL CELL,UR RARE Squamous (<= Few)
[2017-12-19] MEDS ORDERED: SODIUM CHLORIDE 0.9% 2,400 ML IV ONE (11:41)
[2017-12-19 11:42] LABS: BACTERIA,URINE Moderate /HPF (None Seen)
--- NOTE | 2017-12-19 12:05 | CT Report ---
Reason: JONES AMS Procedure Date: 12/19/2017 Accession Number: [id number] / [id number] Procedure: CT - Head W/O CPT Code: FULL RESULT: EXAM: CT HEAD EXAM DATE: 12/19/2017 11:12 AM. CLINICAL HISTORY: JONES AMS. COMPARISON: CT head 08/01/2017. TECHNIQUE: Multiaxial CT images were obtained from the foramen magnum to the vertex. Reformats: Sagittal and coronal. IV contrast: None. In accordance with CT protocol optimization, one or more of the following dose reduction techniques were utilized for this exam: automated exposure control, adjustment of mA and/or KV based on patient size, or use of iterative reconstructive technique. FINDINGS: Stable right sided craniotomy changes. Similar mild asymmetric enlargement of the temporal horn of the right lateral ventricle, which may relate to right hippocampal volume loss. Parenchyma: No intraparenchymal hemorrhage. No evidence of mass, midline shift, or CT findings of acute infarction. Montalvo-white differentiation is distinct. Diffuse chronic microangiopathic white matter changes are evident. Extraaxial Spaces: Normal for age. No subdural or epidural collections identified. Ventricles: The ventricles and cortical sulci are enlarged, consistent with age-related tissue loss. Sinuses and orbits: Mild left maxillary sinus mucosal thickening. Imaged paranasal sinuses, orbits, and mastoids otherwise show no significant abnormality. Bones: No evidence of acute fracture or calvarial defect. Other: None. IMPRESSION: 1. No definite acute intracranial abnormality. 2. Stable chronic findings as noted above. RADIA
--- NOTE | 2017-12-19 12:09 | CT Report ---
Reason: upper abd pain AMS hypotension Procedure Date: 12/19/2017 Accession Number: [id number] / [id number] Procedure: CT - Abdomen/Pelvis W/O CPT Code: FULL RESULT: EXAM: CT ABDOMEN AND PELVIS WITHOUT CONTRAST EXAM DATE: 12/19/2017 11:12 AM. CLINICAL HISTORY: Upper abd pain AMS hypotension. COMPARISONS: ABDOMEN/PELVIS W/O 09/15/2014 7:00 PM PELVIS W/O 05/30/2017 3:33 PM. TECHNIQUE: Routine helical CT imaging was performed through the abdomen and pelvis. IV contrast: None. Enteric contrast: No. Reconstructions: Coronal and sagittal. In accordance with CT protocol optimization, one or more of the following dose reduction techniques were utilized for this exam: automated exposure control, adjustment of mA and/or KV based on patient size, or use of iterative reconstructive technique. FINDINGS: Lung Bases: There is a calcified granuloma in the lingula measuring 5 mm. There is mild atelectasis or scarring of the bilateral lung bases. Coronary artery calcifications are present. Liver: Unremarkable noncontrast appearance. Gallbladder/Bile Ducts: The gallbladder is contracted or surgically absent. No biliary dilatation. Spleen: Multiple calcified granulomas are present. The spleen is otherwise unremarkable. Pancreas: Mild fatty atrophy. The pancreas is otherwise unremarkable. Adrenal Glands: Normal. Kidneys: There is a nonobstructing calyceal calculus at the superior pole of the right kidney measuring 7 mm. There is a nonobstructing calyceal calculus near the right inferior pole measuring 3 mm. There is a calculus within the right renal pelvis measuring 7 x 5 mm (series 3 image 43). No left renal calculi visualized. No hydronephrosis of the bilateral kidneys. Peritoneal Cavity/Bowel: No free fluid, free air, or betsey adenopathy. No dilatation of small bowel. There is a moderate to large amount of formed stool throughout the colon. There is a large amount of formed stool in the rectum, which measures up to 8.7 cm in transverse diameter. The appendix is not visualized and may be surgically absent. There is no fluid or inflammatory change adjacent to the cecum to suggest acute appendicitis. Pelvic Organs: There is mild diffuse bladder wall thickening, which may be exaggerated by incomplete distention of the bladder. No bladder calculi. The visualized pelvic organs are otherwise unremarkable. Vasculature: There is extensive atherosclerotic calcification of the abdominal aorta and iliac arteries. No aneurysm. Bones: No acute osseous abnormality. There are multilevel moderate to severe degenerative disk changes of the lumbar spine with at least moderate spinal canal narrowing at the L4-L5 level. There are multiple smooth anterior bridging osteophytes of the lower thoracic spine. There are mild degenerative changes of the bilateral sacroiliac joints and bilateral hip joints. Other: None. IMPRESSION: 1. Moderate to large amount of formed stool throughout the colon, and large amount of formed stool in the rectum. No evidence of small bowel obstruction. 2. Nonobstructing right renal calyceal calculi. No hydronephrosis. 3. Mild diffuse bladder wall thickening raises the possibility of acute cystitis. Bladder wall thickening may be exaggerated by incomplete distention of the bladder. RADIA
--- NOTE | 2017-12-19 13:07 | HISTORY & PHYSICAL EXAMINATION ---
Chief Complaint - Chief Complaint Chief Complaint: AMS, increased fatigue History of Present Illness - Admitted From Admitted From:: ED - History Obtained From Records Reviewed: yes History obtained from: chart review, patient's Exam Limitations: AMS - History of Present Illness HPI Comment/Other: Douglas Bowles is an ill-appearing 77-year old male with an extensive past medical history of BPH, urinary incontinence, urinary frequency, hypertension, hyperlipidemia, CAD, NE-status post cardiac stents, CVA-multiple, dementia, diabetes mellitus type 2-insulin dependent, depression, anxiety, COPD, pneumonia, splenectomy, PVD, right AKA leg, blindness, and peripheral neuropathy. He resides at [facility] in [place] and was found to below his baseline mentation and more lethargic for the past 48 hours. EMS was called and he was brought to the ED for complaints of altered mental status, headaches, and abdominal pain. A chest x-ray was completed and showed atelectasis with low lung volumes, a head CT shows no bleeding, masses or other discrete intracranial process identified. A urine sample taken is suspicious for UTI with cultures indicated. Kidney function seems altered with an elevated creatinine of 1.3, an elevated BUN of 31, and a reduced GFR of 54. A phone called was made by myself to Emma, the patient's to assist with this H & P and re-confirm his code status. The patient normally speaks daily on the phone with Emma, and for the past 2 days, he has been more sluggish in his speech, cannot remember the things that he used to, and she states, "it was almost like he forgot how to talk". Nursing reports from [facility] anithade deny recent falls or injury. On my exam, the patient is not able to answer questions when asked, but will become more alert if touched on the shoulder. He is disorientated, and does not appear to be in respiratory distress. He will be admitted for IV antibiotics, IV fluids for his CESARIO, electrolyte balance, and blood sugar control. Confirmed with , patient wishes to be a DNR. History - Past Medical History Cardiovascular: reports: Hypertension, High cholesterol, Coronary artery disease, Peripheral Vascular Disease, NE, Murmur Respiratory: reports: COPD, Pneumonia, Shortness of breath Neuro: reports: Dementia, CVA, Headaches, Peripheral neuropathy, Other Endocrine/Autoimmune: reports: Type 2 diabetes GI: reports: GERD, Chronic constipation : reports: Benign prostate hypertrophy, Incontinence, Chronic bladder infection, Nocturia, Frequency HEENT: reports: Chronic vision loss, Chronic sinusitis, Chronic hearing loss Psych: reports: Depression, Anxiety Musculoskeletal: reports: Osteoarthritis, Hemiplegia Derm: reports: None MRSA Hx?: Yes - Past Surgical History General: reports: Splenectomy Ortho: reports: Amputation (R AKA) Cardiovascular: reports: Coronary stent, Cardiac catheterization, Vascular surgery, Angioplasty 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 Patient and his brother were placed in an orphanage at a very young age, so no known past medical history of parents. Living arrangement: [facility] Living arrangement: Assisted living ([facility]) Living Situation: With caregiver(s) Social History Notes: The patient is to [place]. Has 5 children, his lives in [place]. He resides at [facility]. He is wheelchair bound, he has been a life long smoker, alcoholism, and occasionally has used marijuana. He is a DNR. - Substance History Use: Uses substance without health or social issues: NONE Abuse: Recurrent use of substance despite neg consequences: NONE Dependence: Experiences withdrawal or developed tolerances: NONE - POLST Patient has POLST: Yes POLST Status: DNR Meds/Allgy - Home Medications Home Medications: Ambulatory Orders Medication Instructions Recorded Confirmed Trazodone HCl 50 mg PO QPM PRN 07/08/13 12/19/17 Clopidogrel Bisulfate [Plavix] 75 mg PO DAILY 09/15/14 12/19/17 Albuterol [Ventolin Hfa] 2 puffs INH Q4H PRN #1 inhaler 01/30/15 12/19/17 Bupropion HCl [Bupropion HCl Sr] 300 mg PO 0800 #30 04/24/17 12/19/17 Docusate Sodium 250Mg Capsule 250 mg PO BID #30 04/24/17 12/19/17 [Colace 250Mg Capsule] Ipratropium/Albuterol Sulfate 3 ml IH Q4H PRN #1 04/24/17 12/19/17 [Iprat-Albut 0.5-3(2.5) mg/3 ml] Lisinopril 5 mg PO DAILY #30 04/24/17 12/19/17 Multivitamin W/Minerals [Theragran 1 tab PO DAILYWM #30 tablet 04/24/17 12/19/17 M] Senna [Senokot] 17.2 mg PO QPM #30 04/24/17 12/19/17 Simvastatin [Zocor] 10 mg PO QPM #30 04/24/17 12/19/17 Acetaminophen 650 mg PO Q6H PRN 08/02/17 12/19/17 Insulin Detemir [Levemir Flextouch] 20 unit SQ BID 08/02/17 12/19/17 Insulin Regular Human [NovoLIN R] 0 - 5 unit SUBQ TIDWM 08/02/17 12/19/17 Lactulose 15 ml PO BID PRN 08/02/17 12/19/17 Polyethylene Glycol 3350 17 g PO DAILY 08/02/17 12/19/17 traMADol [Ultram] 50 mg PO 0800,1200,1700,2100 08/02/17 12/19/17 DULoxetine [Cymbalta] 20 mg PO 1400 12/19/17 12/19/17 Gabapentin [Neurontin] 600 mg PO 0800,1200,1700 12/19/17 12/19/17 LORazepam [Lorazepam] 1 mg PO TID PRN 12/19/17 12/19/17 Loperamide HCl [Loperamide] 2 mg PO DAILY PRN MDD 8MG 12/19/17 12/19/17 Magnesium Hydroxide [Milk of 2,400 mg PO TID PRN 12/19/17 12/19/17 Magnesia] Trazodone HCl 100 mg PO QPM 12/19/17 12/19/17 - Allergies Allergies/Adverse Reactions: Allergies Allergy/AdvReac Type Severity Reaction Status Date / Time Penicillins Allergy Intermediate Rash Verified 05/30/17 12:06 morphine AdvReac Unknown I go Verified 05/30/17 12:06 berserk Review of Systems - Constitutional Constitutional: reports: Fatigue, Malaise, Weakness, Poor appetite - Eyes Eyes: reports: Vision loss - Ears, Nose & Throat Ears, Nose & Throat: reports: Hearing loss, Postnasal drainage - Cardiovascular Cariovascular: reports: Edema, Decr. exercise tolerance - Respiratory Respiratory: reports: SOB with exertion - Gastrointestinal Gastrointestinal: reports: Abdominal distention, Nausea, Reflux/heartburn, Poor appetite - Genitourinary Genitourinary: reports: Dysuria, Incontinence, Nocturia - Musculoskeletal Musculoskeletal: reports: Muscle aches, Limited range of motion, Muscle weakness, Joint swelling - Integumentary Integumentary: reports: Lesions, Dryness, Other (chronic sacral ulcer) - Neurological Neurological: reports: General weakness, Headache, Memory problems, Pre-existing deficit, Abnormal gait, Incoordination, Slurred speech - Psychiatric Psychiatric: reports: Depression - Hematologic/Lymphatic Hematologic/Lymphatic: reports: Anemia, Bruising, Recurrent infections - All Other Systems All Other Systems: reports: Reviewed and negative Prior Level of Functionality: Is dependent on a Rich lift to the chair with care staff where he lives at [facility]. Limited ADL ability. Needs assistance with eating due to blindness. Needs his medications to be administered due to lack of sight. Exam - Vital Signs Reviewed Vital Signs: Yes Vital Signs: Vital Signs x48h Temp Pulse Resp BP Pulse Ox 12/19/17 12:45 64 11 L 98/49 L 94 12/19/17 12:32 65 12 101/52 L 97 12/19/17 12:16 68 24 85/72 L 94 12/19/17 11:59 73 20 92/47 L 97 12/19/17 11:45 63 14 94/50 L 93 12/19/17 11:24 67 14 118/35 L 94 12/19/17 10:30 66 14 106/57 L 93 12/19/17 10:14 36.1 C L 62 14 104/53 L 96 - Physical Exam General Appearance: positive: No acute distress, Lethargic Eyes Bilateral: positive: No lid inflammation, No scleral icterus ENT: positive: Dry mucous membranes Neck: positive: No JVD, Trachea midline Respiratory: positive: Chest non-tender, No respiratory distress, Other (diminished bilaterally) Cardiovascular: positive: Regular rate & rhythm, No gallop, Systolic murmur Peripheral Pulses: positive: 1+ Abdomen: positive: Nml bowel sounds, Guarding, Hepatomegaly, Other (chronically obese, firm) Back: positive: Nml inspection Skin: positive: No rash, Warm, Dry, Cyanosis, Pallor Extremities: positive: Pedal edema (chronic edema to LLE, RLE with AKA), Joint swelling Neurologic/Psychiatric: positive: Disoriented to place, Disoriented to time, Weakness, Sensory loss, Slurred/abnml speech, Depressed mood/affect Reflexes: Bicep (R): 1+, Bicep (L): 1+ Conclusion/Plan - Problem List (1) Pyelonephritis Conclusion/Plan: The patient has a urine sample that shows a likely UTI with having a cloudy appearance, moderate bacteria, elevated urine WBCs of >25. He has been continued on IV Cipro that was first given in the ED. He has profound altered mental status and this is a frequent cause of his admission. Imaging showed a t hickened bladder wall. His presenting complaints were headache, and abdominal pain that are not present after arriving to the nursing floor. Plan: Continue IV cipro, gentle IVFs, strict I/O, bladder scans, and await culture results. (2) Altered mental status Conclusion/Plan: The patient is profoundly disorientated and is not answering questions when asked. Emma, his via phone interview, states that for the past 2 days his mentation has been getting worse with more sluggish speech, and she states, "it is almost like he forgot how to talk". A head CT was completed on this admit, and shows no evidence of acute ischemia or bleeding. This is common for this patient when he presents with acute infections. Plan: Continue to monitor and treat acute illness with IV antibiotics. Qualifiers: Altered mental status type: delirium Qualified Code(s): R41.0 - Disorientation, unspecified (3) CESARIO (acute kidney injury) Conclusion/Plan: The patient has evidence of acute kidney injury with an elevated creatinine of 1.3, an elevated BUN of 31, and a reduced GFR of 54. This is likely a consequence of mild dehydration in the setting of acute illness verses urinary retention caused by chronic BPH. His Lisinopril will be on hold until these labs improve. Plan: Gentle IVFs, bladder scans, monitor daily labs, continue to hold lisinopril. (4) Type 2 diabetes mellitus with diabetic chronic kidney disease Conclusion/Plan: The patient has long standing disease with both microvascular and macrovascular disease. He is prescribed Levemir 20 units BID with a SSI of Novolin R 0-5 units with meals. I have ordered SSI using Aspart and daily lantus at 15 units since I do not have a current HgA1C. Plan: Continue to monitor sugars, encourage meals and use SSI with scheduled Lantus. Qualifiers: Diabetes mellitus terminologist insulin use: with mcc use (5) Dementia Conclusion/Plan: The patient has a history of CVA and had life long alcoholism and life long tobacco dependence. He has cervantes-white matter differentiation that is distinct, diffuse chronic microangiopathic with matter changes that are evident on his current head CT that was completed in the ED for AMS and headaches. Even with the patient's advanced dementia, Emma, the patient's admits to some what meaningful phone conversations on a daily basis prior to this acute infection. Plan: Continue to treat underlying infection, monitor mental status. Qualifiers: Dementia type: vascular dementia Dementia behavioral disturbance: with behavioral disturbance Qualified Code(s): F01.51 - Vascular dementia with behavioral disturbance (6) Phantom limb syndrome Conclusion/Plan: The patient has a right AKA and has had phantom limp pain likely caused by peripheral neuropathy. He is prescribed gabapentin, and Cymbalta at home. Plan: Continue to monitor and hold gabapentin this evening for CESARIO. (7) Legally blind Conclusion/Plan: The patient has been legally blind for the past several years as a consequence to his years of uncontrolled diabetes, and chronic alcoholism. Plan: Fall precautions and frequent nursing cares. (8) COPD (chronic obstructive pulmonary disease) Conclusion/Plan: The patient likely has COPD as a consequence of his life long tobacco dependence. It is not clear as to his current smoking status. The patient is prescribed Proair, and duo-nebs at [facility]. He is not thought to be in any exacerbation upon admission and his lungs are diminished, without wheezes on exam. Plan: Continue Duo-nebs, PRN and incentive spirometry. Qualifiers: COPD type: unspecified COPD Qualified Code(s): J44.9 - Chronic obstructive pulmonary disease, unspecified (9) Hypertension Conclusion/Plan: The patient is prescribed only Lisinopril at home at 5mg PO daily. Upon admission the patient is found to have a blood pressure of 124/53. With his CESARIO, I will hold this for a few days. Plan: Continue to monitor vital signs, telemetry for 24 hours, and hold Lisinopril until kidney function improves. Qualifiers: Hypertension type: secondary to endocrine disorders Qualified Code(s): I15.2 - Hypertension secondary to endocrine disorders (10) Sacral decubitus ulcer, stage II Conclusion/Plan: This is a long standing issue for Douglas, see chart for detailed pictures. The patient has one area of tunnelling and continues to get home health nursing that comes to [facility] for ongoing wound care. It does not appear to be infected and this non-healing wound is most likely from being in his wheelchair for prolonged periods and fail to heal due to his long list of chronic diseases. Plan: Continue wound care, frequent nursing cares with every 2 hour turns, and obtain a WCON consult. (11) MRSA nasal colonization Conclusion/Plan: The patient has this chronically, and a new nasal swab is positive for MRSA upon this admission. He does not currently have purulent wounds on his body. Plan: Contact precautions and infection control to review case. - Lab Results Lab results reviewed: Yes Fish Bones: 12/20/17 06:30 12/20/17 06:30 - Diagnostic Imaging Results Diagnostic Imaging Results: positive: Prelim report reviewed, See rad report - EKG Results EKG Interpreted Independently: Yes EKG Comparison: Unchanged from prior EKG EKG Findings: Junctional in the 60's. Core Measures - Anticipated LOS I expect patient to be DC'd or transferred within 96 hours.: Yes - DVT/VTE - Prophylaxis VTE/DVT Device ordered at admit?: Yes VTE/DVT Prophylaxis med ordered at admit?: Yes - Stroke - Rehab Assessment Rehab services assessment to be ordered?: Yes - AMI - Statin at Admit Aspirin Prescribed on Admit: Yes
[2017-12-19] MEDS ORDERED: LOPERAMIDE 2 MG CAPSULE PO PRN (14:25)
[2017-12-19] MEDS ORDERED: LACTULOSE 10 GM/15 ML BOTTLE PO PRN (14:25)
[2017-12-19] MEDS ORDERED: IPRATROPIUM/ALBUTEROL 3 ML NEB INH PRN (14:28)
[2017-12-19] MEDS ORDERED: MAGNESIUM HYDROXIDE 2,400 MG/30 ML UDC PO PRN (14:49)
[2017-12-19] MEDS: SODIUM CHLORIDE FLUSH 0.9% 10 ML SYRINGE IVP PRN (14:59)
[2017-12-19] MEDS ORDERED: MIN OIL/DIMETHICON/COCONUT OIL 92 GM TUBE TOP PRN (18:59)
[2017-12-19] MEDS: IPRATROPIUM/ALBUTEROL 3 ML NEB INH SCH ×2 (19:30→19:31)
[2017-12-19] MEDS: SODIUM CHLORIDE FLUSH 0.9% 10 ML SYRINGE IVP SCH (20:10)
[2017-12-19] MEDS: CIPROFLOXACIN 400 MG/200 ML 200 ML IV SCH (20:10)
[2017-12-19] MEDS: SODIUM CHLORIDE 0.9% 1,000 ML IV SCH (20:10)
[2017-12-19] MEDS: traZODone 50 MG TABLET PO SCH (21:27)
[2017-12-19] MEDS: SENNA 8.6 MG TABLET PO SCH (21:27)
[2017-12-19] MEDS: ATORVASTATIN 10 MG TABLET PO SCH (21:27)
[2017-12-19] MEDS: DOCUSATE SODIUM 250 MG CAPSULE PO SCH (21:27)
[2017-12-19] MEDS: ACETAMINOPHEN 325 MG TABLET PO PRN (22:56)
[2017-12-20] MEDS ORDERED: traZODone 50 MG TABLET PO PRN
[2017-12-20] MEDS: SODIUM CHLORIDE FLUSH 0.9% 10 ML SYRINGE IVP SCH ×3 (00:55→16:39)
[2017-12-20] MEDS: LORazepam 1 MG TABLET PO PRN (02:12)
[2017-12-20] MEDS: ACETAMINOPHEN 325 MG TABLET PO PRN ×2 (04:46→16:35)
[2017-12-20 06:36] LABS: BASOPHILS # (AUTO) 0.1 10^3/uL (0.0-0.1); BASOPHILS % (AUTO) 0.8 %; EOSINOPHILS # (AUTO) 0.2 10^3/uL (0.0-0.7); EOSINOPHILS % (AUTO) 3.3 %; HGB - HEMOGLOBIN 11.7 g/dL (14.0-18.0); LYMPHOCYTES # (AUTO) 1.1 10^3/uL (1.5-3.5); LYMPHOCYTES % (AUTO) 15.5 %; MEAN CORPUSCULAR HEMOGLOBIN 29.1 pg (27.0-31.0); MEAN CORPUSCULAR HGB CONC 33.8 g/dL (32.0-36.0); MEAN CORPUSCULAR VOLUME 86.1 fL (80.0-94.0); MEAN PLATELET VOLUME 8.1 fL (7.4-11.4); MONOCYTES # (AUTO) 0.3 10^3/uL (0.0-1.0); MONOCYTES % (AUTO) 4.3 %; NEUTROPHILS # (AUTO) 5.5 10^3/uL (1.5-6.6); NEUTROPHILS % (AUTO) 76.1 %; PLT - PLATELET COUNT 180 10^3/uL (130-450); RED BLOOD COUNT 4.02 10^6/uL (4.70-6.10); RED CELL DISTRIBUTION WIDTH 14.4 % (12.0-15.0); WHITE BLOOD COUNT 7.2 x10^3/uL (4.8-10.8)
[2017-12-20 06:49] LABS: ALBUMIN 2.7 g/dL (3.2-5.5); ALBUMIN/GLOBULIN RATIO 0.7 (1.0-2.2); BILIRUBIN,TOTAL 0.4 mg/dL (0.2-1.0); CALCIUM 8.4 mg/dL (8.5-10.3); CREATININE 1.1 mg/dL (0.6-1.2); MAGNESIUM 1.8 mg/dL (1.7-2.8); PHOSPHORUS 2.4 mg/dL (2.5-4.6); TOTAL PROTEIN 6.4 g/dL (6.7-8.2)
[2017-12-20 08:02] LABS: HB2 TOTAL 11.8 g/dL; HEMOGLOBIN A1C 0.54 g/dL; HEMOGLOBIN A1C % 6.3 % (4.6-6.2)
[2017-12-20] MEDS: IPRATROPIUM/ALBUTEROL 3 ML NEB INH SCH (08:35)
[2017-12-20] MEDS: CIPROFLOXACIN 400 MG/200 ML 200 ML IV SCH ×2 (08:45→21:29)
[2017-12-20] MEDS: SODIUM CHLORIDE 0.9% 1,000 ML IV SCH ×2 (08:45→21:44)
[2017-12-20] MEDS: buPROPion SR 150 MG TABLET PO SCH (08:47)
[2017-12-20] MEDS: INSULIN ASPART 300 UNIT/3 ML PEN SUBQ SCH ×4 (08:47→21:32)
[2017-12-20] MEDS: DOCUSATE SODIUM 250 MG CAPSULE PO SCH ×2 (08:47→21:32)
[2017-12-20] MEDS: MAGNESIUM OXIDE 400 MG TABLET PO SCH ×2 (08:47→21:32)
[2017-12-20] MEDS: CLOPIDOGREL 75 MG TABLET PO SCH (08:47)
[2017-12-20] MEDS: INSULIN GLARGINE 300 UNIT/3 ML PEN SUBQ SCH ×2 (08:49→21:37)
[2017-12-20] MEDS: POLYETHYLENE GLYCOL 3350 17 GM PACKET PO SCH ×2 (08:53→08:54)
[2017-12-20] MEDS ORDERED: LACTULOSE 10 GM /15 ML UDC PO PRN (09:00)
[2017-12-20] MEDS: GABAPENTIN 300 MG CAPSULE PO SCH ×2 (12:13→16:35)
[2017-12-20] MEDS: MULTIVITAMIN W/MINERALS TABLET PO SCH (13:44)
[2017-12-20] MEDS: SACCHAROMYCES BOULARDII 250 MG CAPSULE PO SCH (16:35)
--- NOTE | 2017-12-20 17:23 | PROVIDER PROGRESS NOTE ---
Subjective - Prog Note Date Prog Note Date: 12/20/17 Prog Note Time: 17:23 - Subjective Pt reports feeling: Improved Subjective: Douglas is more responsive today and will respond to verbal stimuli, and by the end of today, he was able to talk to Emma on the phone. He denies increased shortness of breath, nausea, vomiting, rashes, increased cough, or chest pain. Current Medications - Current Medications Current Medications: Active Medications Acetaminophen (Tylenol) 650 mg PO Q6HR PRN PRN Reason: Pain or Fever > 38C (100.4F) Last Admin: 12/20/17 16:35 Dose: 650 mg Albuterol/Ipratropium (Duoneb) 3 ml INH RTQ4H PRN PRN Reason: Wheezing Atorvastatin Calcium (Lipitor) 10 mg PO QPM [facility] Last Admin: 12/20/17 21:32 Dose: 10 mg Bupropion HCl (Wellbutrin Sr) 300 mg PO 0800 [facility] Last Admin: 12/20/17 08:47 Dose: 300 mg Clopidogrel Bisulfate (Plavix) 75 mg PO DAILY [facility] Last Admin: 12/20/17 08:47 Dose: 75 mg Docusate Sodium (Colace 250mg Capsule) 250 mg PO BID [facility] Last Admin: 12/20/17 21:32 Dose: 250 mg Gabapentin (Neurontin) 300 mg PO 0800,1200,1700 [facility] Last Admin: 12/20/17 16:35 Dose: 300 mg Ciprofloxacin (Cipro 400 Mg/200 Ml) 200 mls @ 200 mls/hr IV Q12H [facility] Last Admin: 12/20/17 21:29 Dose: 200 mls/hr Sodium Chloride (Normal Saline 0.9%) 1,000 mls @ 50 mls/hr IV .Q20H [facility] Last Infusion: 12/20/17 21:45 Dose: 0 mls/hr Insulin Aspart (Novolog) 1 - 5 unit SUBQ 0800,1200,1700,2100 [facility]; Protocol Last Admin: 12/20/17 21:32 Dose: 2 unit Insulin Glargine (Lantus Solostar) 12 unit SUBQ BID [facility] Lactulose (Enulose) 10 gm PO BID PRN PRN Reason: CONSTIPATION Loperamide HCl (Imodium) 2 mg PO DAILY PRN PRN Reason: LOOSE STOOL Lorazepam (Ativan) 1 mg PO TID PRN PRN Reason: Anxiety Last Admin: 12/20/17 02:12 Dose: 1 mg Magnesium Hydroxide (Milk Of Magnesia) 2,400 mg PO TID PRN PRN Reason: CONSTIPATION Magnesium Oxide (Mag Ox) 400 mg PO BID [facility] Last Admin: 12/20/17 21:32 Dose: 400 mg Mineral Oil (Cavilon) 1 applic TOP PRN PRN PRN Reason: Skin Care Multivitamins/Minerals (Theragran M) 1 tab PO DAILYWM [facility] Last Admin: 12/20/17 13:44 Dose: 1 tab Polyethylene Glycol (Miralax) 17 gm PO DAILY [facility] Last Admin: 12/20/17 08:53 Dose: 17 gm Polyethylene Glycol (Miralax) 17 gm PO DAILY [facility] Last Admin: 12/20/17 08:54 Dose: Not Given Saccharomyces Boulardii (Florastor) 250 mg PO BIDWM [facility] Last Admin: 12/20/17 16:35 Dose: 250 mg Senna (Senokot) 17.2 mg PO QPM [facility] Last Admin: 12/20/17 21:32 Dose: 17.2 mg Sodium Chloride (Normal Saline Flush 0.9%) 10 ml IVP PRN PRN PRN Reason: NEEDED PER PROVIDER ORDERS Last Admin: 12/19/17 14:59 Dose: 10 ml Sodium Chloride (Normal Saline Flush 0.9%) 10 ml IVP 0100,0900,1700 [facility] Last Admin: 12/20/17 16:39 Dose: 10 ml Trazodone HCl (Desyrel) 50 mg PO QPM PRN PRN Reason: SLEEP Trazodone HCl (Desyrel) 100 mg PO QPM [facility] Last Admin: 12/20/17 21:32 Dose: 100 mg Trazodone HCl 50 mg PO QPM PRN 07/08/13 Clopidogrel Bisulfate [Plavix] 75 mg PO DAILY 09/15/14 Acetaminophen 650 mg PO Q6H PRN 08/02/17 Insulin Detemir [Levemir Flextouch] 20 unit SQ BID 08/02/17 Insulin Regular Human [NovoLIN R] 0 - 5 unit SUBQ TIDWM 08/02/17 Lactulose 15 ml PO BID PRN 08/02/17 Polyethylene Glycol 3350 17 g PO DAILY 08/02/17 traMADol [Ultram] 50 mg PO 0800,1200,1700,2100 08/02/17 DULoxetine [Cymbalta] 20 mg PO 1400 12/19/17 Gabapentin [Neurontin] 600 mg PO 0800,1200,1700 12/19/17 LORazepam [Lorazepam] 1 mg PO TID PRN 12/19/17 Loperamide HCl [Loperamide] 2 mg PO DAILY PRN MDD 8MG 12/19/17 Magnesium Hydroxide [Milk of Magnesia] 2,400 mg PO TID PRN 12/19/17 Trazodone HCl 100 mg PO QPM 12/19/17 Objective - Vital Signs/Intake & Output Reviewed Vital Signs: Yes Intake & Output: Intake & Output 12/17/17 12/18/17 12/19/17 12/20/17 23:59 23:59 23:59 23:59 Intake Total 3620 1910 Output Total 700 225 Balance 2920 1685 - Objective General Appearance: positive: No acute distress, Alert, Lethargic Eyes Bilateral: positive: No lid inflammation Eyes: OU Conjunctivae pale ENT: positive: No signs of dehydration Neck: positive: No JVD Respiratory: positive: Chest non-tender, No respiratory distress, Other (diminished throughout) Cardiovascular: positive: Regular rate & rhythm, No gallop, Bradycardia, Systolic murmur Peripheral Pulses: 1+ Radial (R), 1+ Radial (L) Abdomen: positive: Non-tender, Nml bowel sounds, Other (rounded, soft) Back: positive: Nml inspection Skin: positive: No rash, Warm, Dry, Pallor Extremities: positive: Non-tender, Pedal edema, Joint swelling, Other (right BKA, LLE mild edema, chronic.) Neurologic/Psychiatric: positive: Disoriented to place, Disoriented to time, Weakness, Sensory loss, Slurred/abnml speech, Depressed mood/affect, Other (AMS continues) Reflexes: Bicep (R): 2+, Bicep (L): 2+ - Lab Results Fish Bones: 12/20/17 06:30 12/20/17 06:30 Other Labs: Lab Results x24hrs 12/20/17 12/20/17 12/20/17 Range/Units 16:42 11:55 07:43 WBC (4.8-10.8) x10^3/uL RBC (4.70-6.10) 10^6/uL Hgb (14.0-18.0) g/dL Hct (42.0-52.0) % MCV (80.0-94.0) fL MCH (27.0-31.0) pg MCHC (32.0-36.0) g/dL RDW (12.0-15.0) % Plt Count (130-450) 10^3/uL MPV (7.4-11.4) fL Neut # (Auto) (1.5-6.6) 10^3/uL Lymph # (Auto) (1.5-3.5) 10^3/uL York # (Auto) (0.0-1.0) 10^3/uL Eos # (Auto) (0.0-0.7) 10^3/uL Baso # (Auto) (0.0-0.1) 10^3/uL Absolute Nucleated RBC x10^3/uL Nucleated RBC % /100WBC Sodium (135-145) mmol/L Potassium (3.5-5.0) mmol/L Chloride (101-111) mmol/L Carbon Dioxide (21-32) mmol/L Anion Gap (6-13) BUN (6-20) mg/dL Creatinine (0.6-1.2) mg/dL Estimated GFR (MDRD) (>89) Glucose (70-100) mg/dL POC Whole Bld Glucose 129 H 139 H 113 H (70 - 100) mg/dL Glycated Hemoglobin (4.6-6.2) % Estim Average Glucose (70-100) Lactic Acid (0.5-2.2) mmol/L Calcium (8.5-10.3) mg/dL Phosphorus (2.5-4.6) mg/dL Magnesium (1.7-2.8) mg/dL Total Bilirubin (0.2-1.0) mg/dL AST (10-42) IU/L ALT (10-60) IU/L Alkaline Phosphatase (42-121) IU/L Total Protein (6.7-8.2) g/dL Albumin (3.2-5.5) g/dL Globulin (2.1-4.2) g/dL Albumin/Globulin Ratio (1.0-2.2) 12/20/17 12/20/17 12/20/17 Range/Units 06:30 06:30 06:30 WBC 7.2 (4.8-10.8) x10^3/uL RBC 4.02 L (4.70-6.10) 10^6/uL Hgb 11.7 L (14.0-18.0) g/dL Hct 34.6 L (42.0-52.0) % MCV 86.1 (80.0-94.0) fL MCH 29.1 (27.0-31.0) pg MCHC 33.8 (32.0-36.0) g/dL RDW 14.4 (12.0-15.0) % Plt Count 180 (130-450) 10^3/uL MPV 8.1 (7.4-11.4) fL Neut # (Auto) 5.5 (1.5-6.6) 10^3/uL Lymph # (Auto) 1.1 L (1.5-3.5) 10^3/uL York # (Auto) 0.3 (0.0-1.0) 10^3/uL Eos # (Auto) 0.2 (0.0-0.7) 10^3/uL Baso # (Auto) 0.1 (0.0-0.1) 10^3/uL Absolute Nucleated RBC 0.00 x10^3/uL Nucleated RBC % 0.1 /100WBC Sodium 138 (135-145) mmol/L Potassium 4.0 (3.5-5.0) mmol/L Chloride 105 (101-111) mmol/L Carbon Dioxide 26 (21-32) mmol/L Anion Gap 7.0 (6-13) BUN 19 (6-20) mg/dL Creatinine 1.1 (0.6-1.2) mg/dL Estimated GFR (MDRD) 65 L (>89) Glucose 134 H (70-100) mg/dL POC Whole Bld Glucose (70 - 100) mg/dL Glycated Hemoglobin (4.6-6.2) % Estim Average Glucose (70-100) Lactic Acid 1.1 (0.5-2.2) mmol/L Calcium 8.4 L (8.5-10.3) mg/dL Phosphorus 2.4 L (2.5-4.6) mg/dL Magnesium 1.8 (1.7-2.8) mg/dL Total Bilirubin 0.4 (0.2-1.0) mg/dL AST 18 (10-42) IU/L ALT 18 (10-60) IU/L Alkaline Phosphatase 96 (42-121) IU/L Total Protein 6.4 L (6.7-8.2) g/dL Albumin 2.7 L (3.2-5.5) g/dL Globulin 3.7 (2.1-4.2) g/dL Albumin/Globulin Ratio 0.7 L (1.0-2.2) 12/20/17 12/19/17 Range/Units 06:30 20:57 WBC (4.8-10.8) x10^3/uL RBC (4.70-6.10) 10^6/uL Hgb (14.0-18.0) g/dL Hct (42.0-52.0) % MCV (80.0-94.0) fL MCH (27.0-31.0) pg MCHC (32.0-36.0) g/dL RDW (12.0-15.0) % Plt Count (130-450) 10^3/uL MPV (7.4-11.4) fL Neut # (Auto) (1.5-6.6) 10^3/uL Lymph # (Auto) (1.5-3.5) 10^3/uL York # (Auto) (0.0-1.0) 10^3/uL Eos # (Auto) (0.0-0.7) 10^3/uL Baso # (Auto) (0.0-0.1) 10^3/uL Absolute Nucleated RBC x10^3/uL Nucleated RBC % /100WBC Sodium (135-145) mmol/L Potassium (3.5-5.0) mmol/L Chloride (101-111) mmol/L Carbon Dioxide (21-32) mmol/L Anion Gap (6-13) BUN (6-20) mg/dL Creatinine (0.6-1.2) mg/dL Estimated GFR (MDRD) (>89) Glucose (70-100) mg/dL POC Whole Bld Glucose 148 H (70 - 100) mg/dL Glycated Hemoglobin 6.3 H (4.6-6.2) % Estim Average Glucose 134 H (70-100) Lactic Acid (0.5-2.2) mmol/L Calcium (8.5-10.3) mg/dL Phosphorus (2.5-4.6) mg/dL Magnesium (1.7-2.8) mg/dL Total Bilirubin (0.2-1.0) mg/dL AST (10-42) IU/L ALT (10-60) IU/L Alkaline Phosphatase (42-121) IU/L Total Protein (6.7-8.2) g/dL Albumin (3.2-5.5) g/dL Globulin (2.1-4.2) g/dL Albumin/Globulin Ratio (1.0-2.2) ABX Reporting Has patient been on IV antibiotics over the past 48 hours?: Yes Assessment/Plan - Problem List (1) Pyelonephritis Impression: The patient has a urine sample that shows a likely UTI with having a cloudy appearance, moderate bacteria, elevated urine WBCs of >25. He has been continued on IV Cipro that was first given in the ED. He has profound altered mental status and this is a frequent cause of his admission. Imaging showed a thickened bladder wall. His presenting complaints were headache, and abdominal pain that are not present after arriving to the nursing floor. Preliminary urine culture results show gram negative rods, with final cultures pending. Plan: Continue IV cipro, gentle IVFs, strict I/O, bladder scans, and await culture results. (2) CESARIO (acute kidney injury) Impression: The patient had evidence of acute kidney injury with improved labs today; tonya wing an elevated creatinine of 1.1, a BUN of 19, and a reduced GFR of 65. This is likely a consequence of mild dehydration in the setting of acute illness verses urinary retention caused by chronic BPH. His Lisinopril will be on hold until these labs improve. Today, I have adjusted his hourly IVF rate lower to prevent fluid overload. Plan: Gentle IVFs, bladder scans, monitor daily labs, strict I/O, continue to hold lisinopril. (3) Altered mental status Impression: The patient is profoundly disorientated and is not answering questions when asked. Emma, his via phone interview, states that for the past 2 days his mentation has been getting worse with more sluggish speech, and she states, "it is almost like he forgot how to talk". A head CT was completed on this admit, and shows no evidence of acute ischemia or bleeding. This is common for this patient when he presents with acute infections. Plan: Continue to monitor and treat acute illness with IV antibiotics. Qualifiers: Altered mental status type: delirium Qualified Code(s): R41.0 - Disorientation, unspecified (4) Type 2 diabetes mellitus with diabetic chronic kidney disease Impression: The patient has long standing disease with both microvascular and macrovascular disease. He is prescribed Levemir 20 units BID with a SSI of Novolin R 0-5 units with meals. The patient continues on SSI using Aspart and daily lantus that was reduced to 12 units BID based on early AM sugars. A current HgA1C is 6.3%, showing good control and this morning his early AM sugar was a bit low at 113. Plan: Continue to monitor sugars, encourage meals and use SSI with scheduled Lantus. Qualifiers: Diabetes mellitus custodial insulin use: with joint terminal attack controller use (5) Dementia Impression: The patient has a history of CVA and had life long alcoholism and life long tobacco dependence. He has cervantes-white matter differentiation that is distinct, diffuse chronic microangiopathic with matter changes that are evident on head CT that was completed in the ED for AMS and headaches. Even with the patient's advanced dementia, Emma, the patient's admits to some what meaningful phone conversations on a daily basis prior to this acute infection. His AMS is mildly improved today. Plan: Continue to treat underlying infection, monitor mental status. Qualifiers: Dementia type: vascular dementia Dementia behavioral disturbance: with behavioral disturbance Qualified Code(s): F01.51 - Vascular dementia with behavioral disturbance (6) Phantom limb syndrome Impression: The patient has a right AKA and has had phantom limp pain likely caused by peripheral neuropathy. He is prescribed gabapentin, and Cymbalta at home. Plan: Continue to monitor and start gabapentin at 1/2 his usual dose for CESARIO. (7) Legally blind Impression: The patient has been legally blind for the past several years as a consequence to his years of uncontrolled diabetes, and chronic alcoholism. Plan: Fall precautions and frequent nursing cares. (8) COPD (chronic obstructive pulmonary disease) Impression: The patient likely has COPD as a consequence of his life long tobacco dependence. It is not clear as to his current smoking status. The patient is prescribed Proair, and duo-nebs at [facility]. He is not thought to be in any exacerbation upon admission and his lungs are diminished, without wheezes on exam. Plan: Continue Duo-nebs, PRN and incentive spirometry. Qualifiers: COPD type: unspecified COPD Qualified Code(s): J44.9 - Chronic obstructive pulmonary disease, unspecified (9) Hypertension Impression: The patient is prescribed only Lisinopril at home at 5mg PO daily. Upon admission the patient is found to have a blood pressure of 124/53. With his CESARIO, the lisinopril remains on hold. Plan: Continue to monitor vital signs, and hold Lisinopril until kidney function improves. Qualifiers: Hypertension type: secondary to endocrine disorders Qualified Code(s): I15.2 - Hypertension secondary to endocrine disorders (10) Sacral decubitus ulcer, stage II Impression: This is a long standing issue for Douglas, see chart for detailed pictures. The patient has one area of tunnelling and continues to get home health nursing that comes to [facility] for ongoing wound care. It does not appear to be in fected and this non-healing wound is most likely from being in his wheelchair for prolonged periods and fail to heal due to his long list of chronic diseases. Plan: Continue wound care, frequent nursing cares with every 2 hour turns, and obtain a WCON consult. (11) MRSA nasal colonization Impression: The patient has this chronically, and a current nasal swab is positive for MRSA upon this admission. He does not currently have purulent wounds on his body. Plan: Contact precautions and infection control to review case.
[2017-12-20] MEDS: traZODone 50 MG TABLET PO SCH (21:32)
[2017-12-20] MEDS: ATORVASTATIN 10 MG TABLET PO SCH (21:32)
[2017-12-20] MEDS: SENNA 8.6 MG TABLET PO SCH (21:32)
[2017-12-21] MEDS: ACETAMINOPHEN 325 MG TABLET PO PRN (01:59)
[2017-12-21] MEDS: LORazepam 1 MG TABLET PO PRN (02:00)
[2017-12-21 06:47] LABS: BASOPHILS # (AUTO) 0.1 10^3/uL (0.0-0.1); BASOPHILS % (AUTO) 0.7 %; EOSINOPHILS # (AUTO) 0.2 10^3/uL (0.0-0.7); EOSINOPHILS % (AUTO) 2.2 %; HGB - HEMOGLOBIN 11.8 g/dL (14.0-18.0); LYMPHOCYTES # (AUTO) 1.5 10^3/uL (1.5-3.5); LYMPHOCYTES % (AUTO) 15.9 %; MEAN CORPUSCULAR HEMOGLOBIN 29.4 pg (27.0-31.0); MEAN CORPUSCULAR HGB CONC 34.6 g/dL (32.0-36.0); MEAN PLATELET VOLUME 8.2 fL (7.4-11.4); MONOCYTES # (AUTO) 0.5 10^3/uL (0.0-1.0); MONOCYTES % (AUTO) 5.6 %; NEUTROPHILS # (AUTO) 7.2 10^3/uL (1.5-6.6); NEUTROPHILS % (AUTO) 75.6 %; PLT - PLATELET COUNT 203 10^3/uL (130-450); RED BLOOD COUNT 4.02 10^6/uL (4.70-6.10); RED CELL DISTRIBUTION WIDTH 14.4 % (12.0-15.0); WHITE BLOOD COUNT 9.5 x10^3/uL (4.8-10.8)
[2017-12-21] MEDS: SODIUM CHLORIDE FLUSH 0.9% 10 ML SYRINGE IVP SCH ×4 (06:58→16:13)
[2017-12-21 07:03] LABS: ALBUMIN/GLOBULIN RATIO 0.8 (1.0-2.2); BILIRUBIN,TOTAL 0.6 mg/dL (0.2-1.0); CALCIUM 8.9 mg/dL (8.5-10.3); TOTAL PROTEIN 6.9 g/dL (6.7-8.2)
[2017-12-21] MEDS: SODIUM CHLORIDE FLUSH 0.9% 10 ML SYRINGE IVP PRN (07:08)
[2017-12-21] MEDS: NICOTINE 21 MG PATCH TOP SCH (08:40)
[2017-12-21] MEDS: MAGNESIUM OXIDE 400 MG TABLET PO SCH ×2 (08:40→20:16)
[2017-12-21] MEDS: DOCUSATE SODIUM 250 MG CAPSULE PO SCH ×2 (08:40→20:16)
[2017-12-21] MEDS: buPROPion SR 150 MG TABLET PO SCH (08:41)
[2017-12-21] MEDS: CIPROFLOXACIN 400 MG/200 ML 200 ML IV SCH (08:41)
[2017-12-21] MEDS: GABAPENTIN 300 MG CAPSULE PO SCH ×3 (08:41→16:13)
[2017-12-21] MEDS: SACCHAROMYCES BOULARDII 250 MG CAPSULE PO SCH ×2 (08:41→16:13)
[2017-12-21] MEDS: CLOPIDOGREL 75 MG TABLET PO SCH (08:41)
[2017-12-21] MEDS: MULTIVITAMIN W/MINERALS TABLET PO SCH (08:44)
[2017-12-21] MEDS: INSULIN ASPART 300 UNIT/3 ML PEN SUBQ SCH ×4 (08:44→20:48)
[2017-12-21] MEDS: POLYETHYLENE GLYCOL 3350 17 GM PACKET PO SCH ×2 (08:45)
[2017-12-21] MEDS: INSULIN GLARGINE 300 UNIT/3 ML PEN SUBQ SCH ×2 (08:47→20:48)
[2017-12-21] MEDS ORDERED: NITROFURANTOIN MACRO 100 MG CAPSULE PO SCH (10:00)
[2017-12-21] MEDS ORDERED: GENTAMICIN IV SCH (12:00)
[2017-12-21] MEDS ORDERED: GENTAMICIN PER PHARMACY IV SCH (12:00)
[2017-12-21] MEDS ORDERED: SODIUM CHLORIDE 0.9% IV SCH ×2 (12:00)
--- NOTE | 2017-12-21 14:30 | PROVIDER PROGRESS NOTE ---
Subjective - Prog Note Date Prog Note Date: 12/21/17 - Subjective Pt reports feeling: Improved Subjective: pt denies complaints, no fever, chill, CP, SOB. but state his has been on SNF for her fall injury for two months, and he missed his , and did not see his as well. Discuss with pt about the management of his recurrence of UTI, and discharge plan. Current Medications - Current Medications Current Medications: Active Medications Acetaminophen (Tylenol) 650 mg PO Q6HR PRN PRN Reason: Pain or Fever > 38C (100.4F) Last Admin: 12/21/17 01:59 Dose: 650 mg Albuterol/Ipratropium (Duoneb) 3 ml INH RTQ4H PRN PRN Reason: Wheezing Atorvastatin Calcium (Lipitor) 10 mg PO QPM [facility] Last Admin: 12/20/17 21:32 Dose: 10 mg Bupropion HCl (Wellbutrin Sr) 300 mg PO 0800 [facility] Last Admin: 12/21/17 08:41 Dose: 300 mg Clopidogrel Bisulfate (Plavix) 75 mg PO DAILY [facility] Last Admin: 12/21/17 08:41 Dose: 75 mg Docusate Sodium (Colace 250mg Capsule) 250 mg PO BID [facility] Last Admin: 12/21/17 08:40 Dose: 250 mg Gabapentin (Neurontin) 300 mg PO 0800,1200,1700 [facility] Last Admin: 12/21/17 12:25 Dose: 300 mg Sodium Chloride (Normal Saline 0.9%) 1,000 mls @ 50 mls/hr IV .Q20H [facility] Last Infusion: 12/20/17 22:57 Dose: 50 mls/hr Gentamicin Sulfate 500 mg/ (Sodium Chloride) 112.5 mls @ 100 mls/hr IV Q24H [facility] Last Infusion: 12/21/17 13:42 Dose: Infused Insulin Aspart (Novolog) 1 - 5 unit SUBQ 0800,1200,1700,2100 [facility]; Protocol Last Admin: 12/21/17 12:15 Dose: Not Given Insulin Glargine (Lantus Solostar) 12 unit SUBQ BID [facility] Last Admin: 12/21/17 08:47 Dose: 12 unit Lactulose (Enulose) 10 gm PO BID PRN PRN Reason: CONSTIPATION Loperamide HCl (Imodium) 2 mg PO DAILY PRN PRN Reason: LOOSE STOOL Lorazepam (Ativan) 1 mg PO TID PRN PRN Reason: Anxiety Last Admin: 12/21/17 02:00 Dose: 1 mg Magnesium Hydroxide (Milk Of Magnesia) 2,400 mg PO TID PRN PRN Reason: CONSTIPATION Magnesium Oxide (Mag Ox) 400 mg PO BID [facility] Last Admin: 12/21/17 08:40 Dose: 400 mg Mineral Oil (Cavilon) 1 applic TOP PRN PRN PRN Reason: Skin Care Multivitamins/Minerals (Theragran M) 1 tab PO DAILYWM [facility] Last Admin: 12/21/17 08:44 Dose: 1 tab Nicotine (Nicoderm) 1 patch TOP DAILY [facility] Last Admin: 12/21/17 08:40 Dose: 1 patch Polyethylene Glycol (Miralax) 17 gm PO DAILY [facility] Last Admin: 12/21/17 08:45 Dose: Not Given Polyethylene Glycol (Miralax) 17 gm PO DAILY [facility] Last Admin: 12/21/17 08:45 Dose: Not Given Saccharomyces Boulardii (Florastor) 250 mg PO BIDWM [facility] Last Admin: 12/21/17 08:41 Dose: 250 mg Senna (Senokot) 17.2 mg PO QPM [facility] Last Admin: 12/20/17 21:32 Dose: 17.2 mg Sodium Chloride (Normal Saline Flush 0.9%) 10 ml IVP PRN PRN PRN Reason: NEEDED PER PROVIDER ORDERS Last Admin: 12/21/17 07:08 Dose: 10 ml Sodium Chloride (Normal Saline Flush 0.9%) 10 ml IVP 0100,0900,1700 [facility] Last Admin: 12/21/17 08:56 Dose: 10 ml Trazodone HCl (Desyrel) 50 mg PO QPM PRN PRN Reason: SLEEP Trazodone HCl (Desyrel) 100 mg PO QPM [facility] Last Admin: 12/20/17 21:32 Dose: 100 mg Zinc Oxide (Desitin) 113 gm TOP PRN PRN PRN Reason: Skin Care Trazodone HCl 50 mg PO QPM PRN 07/08/13 Clopidogrel Bisulfate [Plavix] 75 mg PO DAILY 09/15/14 Acetaminophen 650 mg PO Q6H PRN 08/02/17 Insulin Detemir [Levemir Flextouch] 20 unit SQ BID 08/02/17 Insulin Regular Human [NovoLIN R] 0 - 5 unit SUBQ TIDWM 08/02/17 Lactulose 15 ml PO BID PRN 08/02/17 Polyethylene Glycol 3350 17 g PO DAILY 08/02/17 traMADol [Ultram] 50 mg PO 0800,1200,1700,2100 08/02/17 DULoxetine [Cymbalta] 20 mg PO 1400 12/19/17 Gabapentin [Neurontin] 600 mg PO 0800,1200,1700 12/19/17 LORazepam [Lorazepam] 1 mg PO TID PRN 12/19/17 Loperamide HCl [Loperamide] 2 mg PO DAILY PRN MDD 8MG 12/19/17 Magnesium Hydroxide [Milk of Magnesia] 2,400 mg PO TID PRN 12/19/17 Trazodone HCl 100 mg PO QPM 12/19/17 Objective - Vital Signs/Intake & Output Reviewed Vital Signs: Yes Vital Signs: Vital Signs x48h Temp Pulse Pulse Resp BP Pulse Ox 12/21/17 11:00 64 16 12/21/17 08:00 36.4 C L 66 18 103/71 95 Intake & Output: Intake & Output 12/18/17 12/19/17 12/20/17 12/21/17 23:59 23:59 23:59 23:59 Intake Total 3620 3560.833 1152.5 Output Total 700 225 175 Balance 2920 3335.833 977.5 - Objective General Appearance: positive: No acute distress, Alert. negative: Lethargic Eyes Bilateral: positive: Normal inspection, PERRL, No lid inflammation, Conjunctivae nml ENT: positive: ENT inspection nml, Pharynx nml, No signs of dehydration. negative: Purulent nasal drainage, Pharyngeal erythema, Oral lesions Neck: positive: Nml inspection, Thyroid nml, No JVD, Trachea midline. negative: Thyromegaly, Stiff neck, Swelling/bruising, Tracheal deviation Respiratory: positive: Chest non-tender, No respiratory distress, Breath sounds nml. negative: Wheezes, Rales, Rhonchi Cardiovascular: positive: Regular rate & rhythm, No murmur, No gallop. negative: Irregularly irregular, Extrasystoles, Tachycardia, JVD present, Systolic murmur, Diastolic murmur Peripheral Pulses: 2+ Radial (R), 2+ Radial (L), 2+ Dorsalis pedis (L) Abdomen: positive: Non-tender, No organomegaly, Nml bowel sounds, No distention. negative: Tenderness, Guarding, Rebound Back: positive: Nml inspection. negative: CVA tenderness (R), CVA tenderness (L) Skin: positive: Color nml, No rash, Warm, Dry. negative: Cyanosis, Diaphoresis, Pallor Extremities: positive: Non-tender. negative: Pedal edema, Calf tenderness, Joint swelling, Ruth Ann's sign/cords Neurologic/Psychiatric: positive: Oriented x3, Sensation nml, Mood/affect nml. negative: Weakness, Sensory loss, Facial droop, Slurred/abnml speech, Depressed mood/affect - Lab Results Fish Bones: 12/21/17 06:33 12/21/17 06:33 Other Labs: Lab Results x24hrs 12/21/17 12/21/17 12/21/17 Range/Units 11:29 07:28 06:33 WBC (4.8-10.8) x10^3/uL RBC (4.70-6.10) 10^6/uL Hgb (14.0-18.0) g/dL Hct (42.0-52.0) % MCV (80.0-94.0) fL MCH (27.0-31.0) pg MCHC (32.0-36.0) g/dL RDW (12.0-15.0) % Plt Count (130-450) 10^3/uL MPV (7.4-11.4) fL Neut # (Auto) (1.5-6.6) 10^3/uL Lymph # (Auto) (1.5-3.5) 10^3/uL [place] # (Auto) (0.0-1.0) 10^3/uL Eos # (Auto) (0.0-0.7) 10^3/uL Baso # (Auto) (0.0-0.1) 10^3/uL Absolute Nucleated RBC x10^3/uL Nucleated RBC % /100WBC Sodium 139 (135-145) mmol/L Potassium 3.6 (3.5-5.0) mmol/L Chloride 104 (101-111) mmol/L Carbon Dioxide 27 (21-32) mmol/L Anion Gap 8.0 (6-13) BUN 12 (6-20) mg/dL Creatinine 1.0 (0.6-1.2) mg/dL Estimated GFR (MDRD) 73 L (>89) Glucose 100 (70-100) mg/dL POC Whole Bld Glucose 132 H 102 H (70 - 100) mg/dL Calcium 8.9 (8.5-10.3) mg/dL Total Bilirubin 0.6 (0.2-1.0) mg/dL AST 19 (10-42) IU/L ALT 20 (10-60) IU/L Alkaline Phosphatase 98 (42-121) IU/L Total Protein 6.9 (6.7-8.2) g/dL Albumin 3.0 L (3.2-5.5) g/dL Globulin 3.9 (2.1-4.2) g/dL Albumin/Globulin Ratio 0.8 L (1.0-2.2) 12/21/17 12/20/17 12/20/17 Range/Units 06:33 21:15 16:42 WBC 9.5 (4.8-10.8) x10^3/uL RBC 4.02 L (4.70-6.10) 10^6/uL Hgb 11.8 L (14.0-18.0) g/dL Hct 34.2 L (42.0-52.0) % MCV 85.0 (80.0-94.0) fL MCH 29.4 (27.0-31.0) pg MCHC 34.6 (32.0-36.0) g/dL RDW 14.4 (12.0-15.0) % Plt Count 203 (130-450) 10^3/uL MPV 8.2 (7.4-11.4) fL Neut # (Auto) 7.2 H (1.5-6.6) 10^3/uL Lymph # (Auto) 1.5 (1.5-3.5) 10^3/uL [place] # (Auto) 0.5 (0.0-1.0) 10^3/uL Eos # (Auto) 0.2 (0.0-0.7) 10^3/uL Baso # (Auto) 0.1 (0.0-0.1) 10^3/uL Absolute Nucleated RBC 0.01 x10^3/uL Nucleated RBC % 0.1 /100WBC Sodium (135-145) mmol/L Potassium (3.5-5.0) mmol/L Chloride (101-111) mmol/L Carbon Dioxide (21-32) mmol/L Anion Gap (6-13) BUN (6-20) mg/dL Creatinine (0.6-1.2) mg/dL Estimated GFR (MDRD) (>89) Glucose (70-100) mg/dL POC Whole Bld Glucose 182 H 129 H (70 - 100) mg/dL Calcium (8.5-10.3) mg/dL Total Bilirubin (0.2-1.0) mg/dL AST (10-42) IU/L ALT (10-60) IU/L Alkaline Phosphatase (42-121) IU/L Total Protein (6.7-8.2) g/dL Albumin (3.2-5.5) g/dL Globulin (2.1-4.2) g/dL Albumin/Globulin Ratio (1.0-2.2) ABX Reporting Has patient been on IV antibiotics over the past 48 hours?: Yes Assessment/Plan - Problem List (1) Pyelonephritis Impression: Impression: 12/21 recurrence UTI. The sensitivity study reveals sensitive to Gentamicin. discuss with pt about d/c plan, plan to [facility] with IV of gentamicin, pt agree that. order PICC line, and called picc team, thank PICC team help start gentamicin, lab for through The patient has a urine sample that shows a likely UTI with having a cloudy appearance, moderate bacteria, elevated urine WBCs of >25. He has been continued on IV Cipro that was first given in the ED. He has profound altered mental status and this is a frequent cause of his admission. Imaging showed a thickened bladder wall. His presenting complaints were headache, and abdominal pain that are not present after arriving to the nursing floor. Preliminary urine culture results show gram negative rods, with final cultures pending. Plan: Continue IV cipro, gentle IVFs, strict I/O, bladder scans, and await culture results. (2) CESARIO (acute kidney injury) Impression: resolved. The patient had evidence of acute kidney injury with improved labs today; showing an elevated creatinine of 1.1, a BUN of 19, and a reduced GFR of 65. This is likely a consequence of mild dehydration in the setting of acute illness verses urinary retention caused by chronic BPH. His Lisinopril will be on hold until these labs improve. Today, I have adjusted his hourly IVF rate lower to prevent fluid overload. Plan: Gentle IVFs, bladder scans, monitor daily labs, strict I/O, continue to hold lisinopril. (3) Altered mental status Impression: as pt's baseline, resolved The patient is profoundly disorientated and is not answering questions when asked. Emma, his via phone interview, states that for the past 2 days his mentation has been getting worse with more sluggish speech, and she states, "it is almost like he forgot how to talk". A head CT was completed on this admit, and shows no evidence of acute ischemia or bleeding. This is common for this patient when he presents with acute infections. Plan: Continue to monitor and treat acute illness with IV antibiotics. (4) Type 2 diabetes mellitus with diabetic chronic kidney disease Impression: The patient has long standing disease with both microvascular and macrovascular disease. He is prescribed Levemir 20 units BID with a SSI of Novolin R 0-5 units with meals. The patient continues on SSI using Aspart and daily lantus that was reduced to 12 units BID based on early AM sugars. A current HgA1C is 6.3%, showing good control and this morning his early AM sugar was a bit low at 113. Plan: Continue to monitor sugars, encourage meals and use SSI with scheduled Lantus. (5) Dementia Impression: The patient has a history of CVA and had life long alcoholism and life long tobacco dependence. He has cervantes-white matter differentiation that is distinct, diffuse chronic microangiopathic with matter changes that are evident on head CT that was completed in the ED for AMS and headaches. Even with the patient's advanced dementia, Emma, the patient's admits to some what meaningful phone conversations on a daily basis prior to this acute infection. His AMS is mildly improved today. Plan: Continue to treat underlying infection, monitor mental status. (6) Phantom limb syndrome Impression: The patient has a right AKA and has had phantom limp pain likely caused by peripheral neuropathy. He is prescribed gabapentin, and Cymbalta at home. Plan: Continue to monitor and start gabapentin at 1/2 his usual dose for CESARIO. (7) Legally blind Impression: The patient has been legally blind for the past several years as a consequence to his years of uncontrolled diabetes, and chronic alcoholism. Plan: Fall precautions and frequent nursing cares. (8) COPD (chronic obstructive pulmonary disease) Impression: The patient likely has COPD as a consequence of his life long tobacco dependence. It is not clear as to his current smoking status. The patient is prescribed Proair, and duo-nebs at [facility]. He is not thought to be in any exacerbation upon admission and his lungs are diminished, without wheezes on exam. Plan: Continue Duo-nebs, PRN and incentive spirometry. (9) Hypertension Impression: The patient is prescribed only Lisinopril at home at 5mg PO daily. Upon admission the patient is found to have a blood pressure of 124/53. With his CESARIO, the lisinopril remains on hold. Plan: Continue to monitor vital signs, and hold Lisinopril until kidney function improves. (10) Sacral decubitus ulcer, stage II Impression: 12/21, continue wound care, nursing care with 2 hours turn, continue support This is a long standing issue for Douglas, see chart for detailed pictures. The patient has one area of tunnelling and continues to get home health nursing that comes to [facility] for ongoing wound care. It does not appear to be infected and this non-healing wound is most likely from being in his wheelchair for prolonged periods and fail to heal due to his long list of chronic diseases. Plan: Continue wound care, frequent nursing cares with every 2 hour turns, and obtain a WCON consult. 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 He does not currently have purulent wounds on his body. Plan: Contact precautions and infection control to review case.
[2017-12-21] MEDS: SODIUM CHLORIDE 0.9% 1,000 ML IV SCH (20:15)
[2017-12-21] MEDS: traZODone 50 MG TABLET PO SCH (20:15)
[2017-12-21] MEDS: ATORVASTATIN 10 MG TABLET PO SCH (20:16)
[2017-12-21] MEDS: SENNA 8.6 MG TABLET PO SCH (20:16)
[2017-12-21 22:59] LABS: GENTAMICIN,RANDOM 7.7 ug/mL
[2017-12-22] MEDS: SODIUM CHLORIDE FLUSH 0.9% 10 ML SYRINGE IVP SCH ×3 (00:38→17:16)
[2017-12-22] MEDS: LORazepam 1 MG TABLET PO PRN (03:15)
[2017-12-22 06:06] LABS: BASOPHILS % (AUTO) 0.6 %; EOSINOPHILS # (AUTO) 0.2 10^3/uL (0.0-0.7); EOSINOPHILS % (AUTO) 2.6 %; HGB - HEMOGLOBIN 12.4 g/dL (14.0-18.0); LYMPHOCYTES # (AUTO) 1.4 10^3/uL (1.5-3.5); LYMPHOCYTES % (AUTO) 18.3 %; MEAN CORPUSCULAR HGB CONC 33.7 g/dL (32.0-36.0); MEAN PLATELET VOLUME 8.2 fL (7.4-11.4); MONOCYTES # (AUTO) 0.5 10^3/uL (0.0-1.0); MONOCYTES % (AUTO) 6.3 %; NEUTROPHILS # (AUTO) 5.5 10^3/uL (1.5-6.6); NEUTROPHILS % (AUTO) 72.2 %; PLT - PLATELET COUNT 209 10^3/uL (130-450); RED BLOOD COUNT 4.29 10^6/uL (4.70-6.10); RED CELL DISTRIBUTION WIDTH 14.6 % (12.0-15.0); WHITE BLOOD COUNT 7.7 x10^3/uL (4.8-10.8)
[2017-12-22 06:20] LABS: ALBUMIN 3.1 g/dL (3.2-5.5); ALBUMIN/GLOBULIN RATIO 0.8 (1.0-2.2); BILIRUBIN,TOTAL 0.6 mg/dL (0.2-1.0); TOTAL PROTEIN 7.1 g/dL (6.7-8.2)
[2017-12-22] MEDS ORDERED: MULTIVITAMIN W/MINERALS TABLET PO SCH (08:00)
[2017-12-22] MEDS: buPROPion SR 150 MG TABLET PO SCH (08:19)
[2017-12-22] MEDS: CLOPIDOGREL 75 MG TABLET PO SCH (08:19)
[2017-12-22] MEDS: GABAPENTIN 300 MG CAPSULE PO SCH ×3 (08:20→17:15)
[2017-12-22] MEDS: LISINOPRIL 5 MG TABLET PO SCH (08:20)
[2017-12-22] MEDS: ENOXAPARIN 40 MG/0.4 ML SYRINGE SUBQ SCH (08:21)
[2017-12-22] MEDS: MAGNESIUM OXIDE 400 MG TABLET PO SCH ×2 (08:21→20:59)
[2017-12-22] MEDS: MULTIVITAMIN W/MINERALS TABLET PO SCH (08:21)
[2017-12-22] MEDS: NICOTINE 21 MG PATCH TOP SCH (08:22)
[2017-12-22] MEDS: SACCHAROMYCES BOULARDII 250 MG CAPSULE PO SCH ×2 (08:22→17:15)
[2017-12-22] MEDS: POLYETHYLENE GLYCOL 3350 17 GM PACKET PO SCH (08:23)
[2017-12-22] MEDS: INSULIN ASPART 300 UNIT/3 ML PEN SUBQ SCH ×4 (08:24→20:59)
[2017-12-22] MEDS: DOCUSATE SODIUM 250 MG CAPSULE PO SCH ×2 (08:24→21:00)
[2017-12-22] MEDS: INSULIN GLARGINE 300 UNIT/3 ML PEN SUBQ SCH ×2 (08:35→20:59)
[2017-12-22] MEDS: SODIUM CHLORIDE FLUSH 0.9% 10 ML SYRINGE IVP PRN (12:26)
--- NOTE | 2017-12-22 16:17 | PROVIDER PROGRESS NOTE ---
Subjective - Prog Note Date Prog Note Date: 12/22/17 - Subjective Pt reports feeling: Improved Subjective: I called ID to consult which antibiotics for pt's d/c. ID recommends continuing finish two dosage of gentamicin in hospital, then pt can be witched to Macrobid po for d/c to home according to sensitivity study. Current Medications - Current Medications Current Medications: Active Medications Acetaminophen (Tylenol) 650 mg PO Q6HR PRN PRN Reason: Pain or Fever > 38C (100.4F) Last Admin: 12/21/17 01:59 Dose: 650 mg Albuterol/Ipratropium (Duoneb) 3 ml INH RTQ4H PRN PRN Reason: Wheezing Atorvastatin Calcium (Lipitor) 10 mg PO QPM [facility] Last Admin: 12/21/17 20:16 Dose: 10 mg Bupropion HCl (Wellbutrin Sr) 300 mg PO 0800 [facility] Last Admin: 12/22/17 08:19 Dose: 300 mg Clopidogrel Bisulfate (Plavix) 75 mg PO DAILY [facility] Last Admin: 12/22/17 08:19 Dose: 75 mg Docusate Sodium (Colace 250mg Capsule) 250 mg PO BID [facility] Last Admin: 12/22/17 08:24 Dose: Not Given Enoxaparin Sodium (Lovenox) 40 mg SUBQ DAILY [facility] Last Admin: 12/22/17 08:21 Dose: 40 mg Gabapentin (Neurontin) 300 mg PO 0800,1200,1700 [facility] Last Admin: 12/22/17 12:38 Dose: 300 mg Sodium Chloride (Normal Saline 0.9%) 1,000 mls @ 50 mls/hr IV .Q20H [facility] Last Admin: 12/21/17 20:15 Dose: 50 mls/hr Gentamicin Sulfate 500 mg/ (Sodium Chloride) 112.5 mls @ 100 mls/hr IV Q24H [facility] Insulin Aspart (Novolog) 1 - 5 unit SUBQ 0800,1200,1700,2100 [facility]; Protocol Last Admin: 12/22/17 11:33 Dose: Not Given Insulin Glargine (Lantus Solostar) 12 unit SUBQ BID [facility] Last Admin: 12/22/17 08:35 Dose: 12 unit Lactulose (Enulose) 10 gm PO BID PRN PRN Reason: CONSTIPATION Lisinopril (Zestril) 5 mg PO DAILY [facility] Last Admin: 12/22/17 08:20 Dose: 5 mg Loperamide HCl (Imodium) 2 mg PO DAILY PRN PRN Reason: LOOSE STOOL Lorazepam (Ativan) 1 mg PO TID PRN PRN Reason: Anxiety Last Admin: 12/22/17 03:15 Dose: 1 mg Magnesium Hydroxide (Milk Of Magnesia) 2,400 mg PO TID PRN PRN Reason: CONSTIPATION Magnesium Oxide (Mag Ox) 400 mg PO BID [facility] Last Admin: 12/22/17 08:21 Dose: 400 mg Mineral Oil (Cavilon) 1 applic TOP PRN PRN PRN Reason: Skin Care Multivitamins/Minerals (Theragran M) 1 tab PO DAILYWM [facility] Last Admin: 12/22/17 08:21 Dose: 1 tab Nicotine (Nicoderm) 1 patch TOP DAILY [facility] Last Admin: 12/22/17 08:22 Dose: 1 patch Polyethylene Glycol (Miralax) 17 gm PO DAILY [facility] Last Admin: 12/22/17 08:23 Dose: Not Given Saccharomyces Boulardii (Florastor) 250 mg PO BIDWM [facility] Last Admin: 12/22/17 08:22 Dose: 250 mg Senna (Senokot) 17.2 mg PO QPM [facility] Last Admin: 12/21/17 20:16 Dose: Not Given Sodium Chloride (Normal Saline Flush 0.9%) 10 ml IVP PRN PRN PRN Reason: NEEDED PER PROVIDER ORDERS Last Admin: 12/22/17 12:26 Dose: 10 ml Sodium Chloride (Normal Saline Flush 0.9%) 10 ml IVP 0100,0900,1700 [facility] Last Admin: 12/22/17 01:04 Dose: 10 ml Trazodone HCl (Desyrel) 50 mg PO QPM PRN PRN Reason: SLEEP Trazodone HCl (Desyrel) 100 mg PO QPM [facility] Last Admin: 12/21/17 20:15 Dose: 100 mg Zinc Oxide (Desitin) 113 gm TOP PRN PRN PRN Reason: Skin Care Trazodone HCl 50 mg PO QPM PRN 07/08/13 Clopidogrel Bisulfate [Plavix] 75 mg PO DAILY 09/15/14 Acetaminophen 650 mg PO Q6H PRN 08/02/17 Insulin Detemir [Levemir Flextouch] 20 unit SQ BID 08/02/17 Insulin Regular Human [NovoLIN R] 0 - 5 unit SUBQ TIDWM 08/02/17 Lactulose 15 ml PO BID PRN 08/02/17 Polyethylene Glycol 3350 17 g PO DAILY 08/02/17 traMADol [Ultram] 50 mg PO 0800,1200,1700,2100 08/02/17 DULoxetine [Cymbalta] 20 mg PO 1400 12/19/17 Gabapentin [Neurontin] 600 mg PO 0800,1200,1700 12/19/17 LORazepam [Lorazepam] 1 mg PO TID PRN 12/19/17 Loperamide HCl [Loperamide] 2 mg PO DAILY PRN MDD 8MG 12/19/17 Magnesium Hydroxide [Milk of Magnesia] 2,400 mg PO TID PRN 12/19/17 Trazodone HCl 100 mg PO QPM 12/19/17 Objective - Vital Signs/Intake & Output Reviewed Vital Signs: Yes Vital Signs: Vital Signs x48h Temp Pulse Resp BP Pulse Ox 12/22/17 15:51 36.4 C L 64 18 132/59 H 97 Intake & Output: Intake & Output 12/19/17 12/20/17 12/21/17 12/22/17 23:59 23:59 23:59 23:59 Intake Total 3620 3560.833 2251.667 400 Output Total 700 225 525 Balance 2920 3335.833 1726.667 400 - Objective General Appearance: positive: No acute distress, Alert. negative: Lethargic Eyes Bilateral: positive: Normal inspection, PERRL, No lid inflammation, Conju nctivae nml ENT: positive: ENT inspection nml, Pharynx nml, No signs of dehydration. negative: Purulent nasal drainage, Pharyngeal erythema, Oral lesions, Dry mucous membranes Neck: positive: Nml inspection, Thyroid nml, No JVD, Trachea midline. negative: Thyromegaly, Lymphadenopathy (R), Lymphadenopathy (L), Stiff neck, Swelling/bruising, Tracheal deviation Respiratory: positive: Chest non-tender, No respiratory distress, Breath sounds nml. negative: Wheezes, Rales, Rhonchi Cardiovascular: positive: Regular rate & rhythm, No murmur, No gallop. negative: Irregularly irregular, Extrasystoles, Bradycardia, JVD present, Systolic murmur, Diastolic murmur Peripheral Pulses: 2+ Radial (R), 2+ Radial (L), 2+ Dorsalis pedis (L) Abdomen: positive: Non-tender, No organomegaly, Nml bowel sounds, No distention. negative: Tenderness, Guarding, Rebound Back: positive: Nml inspection. negative: CVA tenderness (R), CVA tenderness (L) Skin: positive: Color nml, No rash, Warm, Dry. negative: Cyanosis, Diaphoresis, Pallor Extremities: positive: Non-tender. negative: Calf tenderness, Joint swelling, Ruth Ann's sign/cords Neurologic/Psychiatric: positive: Oriented x3, Sensation nml, Mood/affect nml. negative: Weakness, Sensory loss, Facial droop, Slurred/abnml speech, Depressed mood/affect - Lab Results Fish Bones: 12/22/17 05:32 12/22/17 05:32 Other Labs: Lab Results x24hrs 12/22/17 12/22/17 12/22/17 Range/Units 11:26 07:43 05:32 WBC (4.8-10.8) x10^3/uL RBC (4.70-6.10) 10^6/uL Hgb (14.0-18.0) g/dL Hct (42.0-52.0) % MCV (80.0-94.0) fL MCH (27.0-31.0) pg MCHC (32.0-36.0) g/dL RDW (12.0-15.0) % Plt Count (130-450) 10^3/uL MPV (7.4-11.4) fL Neut # (Auto) (1.5-6.6) 10^3/uL Lymph # (Auto) (1.5-3.5) 10^3/uL Greeley # (Auto) (0.0-1.0) 10^3/uL Eos # (Auto) (0.0-0.7) 10^3/uL Baso # (Auto) (0.0-0.1) 10^3/uL Absolute Nucleated RBC x10^3/uL Nucleated RBC % /100WBC Sodium 138 (135-145) mmol/L Potassium 3.7 (3.5-5.0) mmol/L Chloride 103 (101-111) mmol/L Carbon Dioxide 26 (21-32) mmol/L Anion Gap 9.0 (6-13) BUN 11 (6-20) mg/dL Creatinine 1.0 (0.6-1.2) mg/dL Estimated GFR (MDRD) 73 L (>89) Glucose 110 H (70-100) mg/dL POC Whole Bld Glucose 136 H 133 H (70 - 100) mg/dL Calcium 9.0 (8.5-10.3) mg/dL Total Bilirubin 0.6 (0.2-1.0) mg/dL AST 22 (10-42) IU/L ALT 26 (10-60) IU/L Alkaline Phosphatase 116 (42-121) IU/L Total Protein 7.1 (6.7-8.2) g/dL Albumin 3.1 L (3.2-5.5) g/dL Globulin 4.0 (2.1-4.2) g/dL Albumin/Globulin Ratio 0.8 L (1.0-2.2) Last Dose Date Last Dose Time Random Gentamicin ug/mL 12/22/17 12/21/17 12/21/17 Range/Units 05:32 22:02 20:32 WBC 7.7 (4.8-10.8) x10^3/uL RBC 4.29 L (4.70-6.10) 10^6/uL Hgb 12.4 L (14.0-18.0) g/dL Hct 36.9 L (42.0-52.0) % MCV 86.0 (80.0-94.0) fL MCH 29.0 (27.0-31.0) pg MCHC 33.7 (32.0-36.0) g/dL RDW 14.6 (12.0-15.0) % Plt Count 209 (130-450) 10^3/uL MPV 8.2 (7.4-11.4) fL Neut # (Auto) 5.5 (1.5-6.6) 10^3/uL Lymph # (Auto) 1.4 L (1.5-3.5) 10^3/uL Greeley # (Auto) 0.5 (0.0-1.0) 10^3/uL Eos # (Auto) 0.2 (0.0-0.7) 10^3/uL Baso # (Auto) 0.0 (0.0-0.1) 10^3/uL Absolute Nucleated RBC 0.00 x10^3/uL Nucleated RBC % 0.0 /100WBC Sodium (135-145) mmol/L Potassium (3.5-5.0) mmol/L Chloride (101-111) mmol/L Carbon Dioxide (21-32) mmol/L Anion Gap (6-13) BUN (6-20) mg/dL Creatinine (0.6-1.2) mg/dL Estimated GFR (MDRD) (>89) Glucose (70-100) mg/dL POC Whole Bld Glucose 168 H (70 - 100) mg/dL Calcium (8.5-10.3) mg/dL Total Bilirubin (0.2-1.0) mg/dL AST (10-42) IU/L ALT (10-60) IU/L Alkaline Phosphatase (42-121) IU/L Total Protein (6.7-8.2) g/dL Albumin (3.2-5.5) g/dL Globulin (2.1-4.2) g/dL Albumin/Globulin Ratio (1.0-2.2) Last Dose Date 12-21-17 Last Dose Time 1342 Random Gentamicin 7.7 ug/mL 12/21/17 Range/Units 16:29 WBC (4.8-10.8) x10^3/uL RBC (4.70-6.10) 10^6/uL Hgb (14.0-18.0) g/dL Hct (42.0-52.0) % MCV (80.0-94.0) fL MCH (27.0-31.0) pg MCHC (32.0-36.0) g/dL RDW (12.0-15.0) % Plt Count (130-450) 10^3/uL MPV (7.4-11.4) fL Neut # (Auto) (1.5-6.6) 10^3/uL Lymph # (Auto) (1.5-3.5) 10^3/uL Greeley # (Auto) (0.0-1.0) 10^3/uL Eos # (Auto) (0.0-0.7) 10^3/uL Baso # (Auto) (0.0-0.1) 10^3/uL Absolute Nucleated RBC x10^3/uL Nucleated RBC % /100WBC Sodium (135-145) mmol/L Potassium (3.5-5.0) mmol/L Chloride (101-111) mmol/L Carbon Dioxide (21-32) mmol/L Anion Gap (6-13) BUN (6-20) mg/dL Creatinine (0.6-1.2) mg/dL Estimated GFR (MDRD) (>89) Glucose (70-100) mg/dL POC Whole Bld Glucose 124 H (70 - 100) mg/dL Calcium (8.5-10.3) mg/dL Total Bilirubin (0.2-1.0) mg/dL AST (10-42) IU/L ALT (10-60) IU/L Alkaline Phosphatase (42-121) IU/L Total Protein (6.7-8.2) g/dL Albumin (3.2-5.5) g/dL Globulin (2.1-4.2) g/dL Albumin/Globulin Ratio (1.0-2.2) Last Dose Date Last Dose Time Random Gentamicin ug/mL ABX Reporting Has patient been on IV antibiotics over the past 48 hours?: Yes Assessment/Plan - Problem List (1) Pyelonephritis Impression: 12/22 cancelled PICC according ID recommendation, plan d/c tomorrow after finishing of second dosage of gentamicin 12/21 recurrence UTI. The sensitivity study reveals sensitive to Gentamicin. discuss with pt about d/c plan, plan to [facility] with IV of gentamicin, pt agree that. order PICC line, and called picc team, thank PICC team help start gentamicin, lab for through The patient has a urine sample that shows a likely UTI with having a cloudy appearance, moderate bacteria, elevated urine WBCs of >25. He has been continued on IV Cipro that was first given in the ED. He has profound altered mental status and this is a frequent cause of his admission. Imaging showed a thickened bladder wall. His presenting complaints were headache, and abdominal pain that are not present after arriving to the nursing floor. Preliminary urine culture results show gram negative rods, with final cultures pending. Plan: Continue IV cipro, gentle IVFs, strict I/O, bladder scans, and await culture results. (2) CESARIO (acute kidney injury) Impression: resolved. The patient had evidence of acute kidney injury with improved labs today; showing an elevated creatinine of 1.1, a BUN of 19, and a reduced GFR of 65. This is likely a consequence of mild dehydration in the setting of acute illness verses urinary retention caused by chronic BPH. His Lisinopril will be on hold until these labs improve. Today, I have adjusted his hourly IVF rate lower to prevent fluid overload. Plan: Gentle IVFs, bladder scans, monitor daily labs, strict I/O, continue to hold lisinopril. (3) Altered mental status Impression: as pt's baseline, resolved The patient is profoundly disorientated and is not answering questions when asked. Emma, his via phone interview, states that for the past 2 days his mentation has been getting worse with more sluggish speech, and she states, "it is almost like he forgot how to talk". A head CT was completed on this admit, and shows no evidence of acute ischemia or bleeding. This is common for this patient when he presents with acute infections. Plan: Continue to monitor and treat acute illness with IV antibiotics. (4) Type 2 diabetes mellitus with diabetic chronic kidney disease Impression: The patient has long standing disease with both microvascular and macrovascular disease. He is prescribed Levemir 20 units BID with a SSI of Novolin R 0-5 units with meals. The patient continues on SSI using Aspart and daily lantus that was reduced to 12 units BID based on early AM sugars. A current HgA1C is 6.3%, showing good control and this morning his early AM sugar was a bit low at 113. Plan: Continue to monitor sugars, encourage meals and use SSI with scheduled Lantus. (5) Dementia Impression: stable The patient has a history of CVA and had life long alcoholism and life long tobacco dependence. He has cervantes-white matter differentiation that is distinct, diffuse chronic microangiopathic with matter changes that are evident on head CT that was completed in the ED for AMS and headaches. Even with the patient's advanced dementia, Emma, the patient's admits to some what meaningful p jeffry conversations on a daily basis prior to this acute infection. His AMS is mildly improved today. Plan: Continue to treat underlying infection, monitor mental status. (6) Phantom limb syndrome Impression: The patient has a right AKA and has had phantom limp pain likely caused by peripheral neuropathy. He is prescribed gabapentin, and Cymbalta at home. Plan: Continue to monitor and start gabapentin at 1/2 his usual dose for CESARIO. (7) Legally blind Impression: The patient has been legally blind for the past several years as a consequence to his years of uncontrolled diabetes, and chronic alcoholism. Plan: Fall precautions and frequent nursing cares. (8) COPD (chronic obstructive pulmonary disease) Impression: stable The patient likely has COPD as a consequence of his life long tobacco dependence. It is not clear as to his current smoking status. The patient is prescribed Proair, and duo-nebs at [facility]. He is not thought to be in any exacerbation upon admission and his lungs are diminished, without wheezes on exam. Plan: Continue Duo-nebs, PRN and incentive spirometry. (9) Hypertension Impression: The patient is prescribed only Lisinopril at home at 5mg PO daily. Upon admission the patient is found to have a blood pressure of 124/53. With his CESARIO, the lisinopril remains on hold. Plan: Continue to monitor vital signs, and hold Lisinopril until kidney function improves. (10) Sacral decubitus ulcer, stage II Impression: 12/21, continue wound care, nursing care with 2 hours turn, continue support This is a long standing issue for Douglas, see chart for detailed pictures. The patient has one area of tunnelling and continues to get home health nursing that comes to [facility] for ongoing wound care. It does not appear to be infected and this non-healing wound is most likely from being in his wheelchair for prolonged periods and fail to heal due to his long list of chronic diseases. Plan: Continue wound care, frequent nursing cares with every 2 hour turns, and obtain a WCON consult. (11) MRSA nasal colonization continue contact precaution
[2017-12-22] MEDS: COD LIVER OIL/ZINC OXIDE 113 GM TUBE TOP PRN ×2 (17:15→20:59)
[2017-12-22] MEDS: SODIUM CHLORIDE 0.9% 1,000 ML IV SCH (17:15)
[2017-12-22] MEDS: traZODone 50 MG TABLET PO SCH (20:59)
[2017-12-22] MEDS: ATORVASTATIN 10 MG TABLET PO SCH (20:59)
[2017-12-22] MEDS: SENNA 8.6 MG TABLET PO SCH (21:00)
[2017-12-23] MEDS ORDERED: GENTAMICIN IV SCH ×2 (00:30→11:02)
[2017-12-23] MEDS ORDERED: SODIUM CHLORIDE 0.9% IV SCH ×2 (00:30→11:02)
[2017-12-23] MEDS: SODIUM CHLORIDE FLUSH 0.9% 10 ML SYRINGE IVP SCH ×2 (04:31→08:31)
[2017-12-23] MEDS: buPROPion SR 150 MG TABLET PO SCH (08:28)
[2017-12-23] MEDS: MULTIVITAMIN W/MINERALS TABLET PO SCH (08:29)
[2017-12-23] MEDS: GABAPENTIN 300 MG CAPSULE PO SCH ×2 (08:29→12:45)
[2017-12-23] MEDS: CLOPIDOGREL 75 MG TABLET PO SCH (08:30)
[2017-12-23] MEDS: MAGNESIUM OXIDE 400 MG TABLET PO SCH (08:30)
[2017-12-23] MEDS: SACCHAROMYCES BOULARDII 250 MG CAPSULE PO SCH (08:30)
[2017-12-23] MEDS: NICOTINE 21 MG PATCH TOP SCH (08:30)
[2017-12-23] MEDS: LISINOPRIL 5 MG TABLET PO SCH (08:30)
[2017-12-23] MEDS: ENOXAPARIN 40 MG/0.4 ML SYRINGE SUBQ SCH (08:31)
[2017-12-23] MEDS: POLYETHYLENE GLYCOL 3350 17 GM PACKET PO SCH (08:32)
[2017-12-23] MEDS: DOCUSATE SODIUM 250 MG CAPSULE PO SCH (08:32)
[2017-12-23] MEDS: INSULIN ASPART 300 UNIT/3 ML PEN SUBQ SCH ×2 (08:37→12:45)
[2017-12-23] MEDS: INSULIN GLARGINE 300 UNIT/3 ML PEN SUBQ SCH (08:38)
[2017-12-23 10:59] LABS: BASOPHILS % (AUTO) 0.4 %; EOSINOPHILS # (AUTO) 0.2 10^3/uL (0.0-0.7); EOSINOPHILS % (AUTO) 2.5 %; HGB - HEMOGLOBIN 11.6 g/dL (14.0-18.0); LYMPHOCYTES # (AUTO) 1.4 10^3/uL (1.5-3.5); LYMPHOCYTES % (AUTO) 14.5 %; MEAN CORPUSCULAR HEMOGLOBIN 29.3 pg (27.0-31.0); MEAN CORPUSCULAR HGB CONC 34.4 g/dL (32.0-36.0); MEAN CORPUSCULAR VOLUME 85.2 fL (80.0-94.0); MEAN PLATELET VOLUME 8.1 fL (7.4-11.4); MONOCYTES # (AUTO) 0.5 10^3/uL (0.0-1.0); NEUTROPHILS # (AUTO) 7.5 10^3/uL (1.5-6.6); NEUTROPHILS % (AUTO) 77.6 %; PLT - PLATELET COUNT 196 10^3/uL (130-450); RED BLOOD COUNT 3.95 10^6/uL (4.70-6.10); RED CELL DISTRIBUTION WIDTH 14.4 % (12.0-15.0); WHITE BLOOD COUNT 9.6 x10^3/uL (4.8-10.8)
[2017-12-23 11:13] LABS: ALBUMIN 2.8 g/dL (3.2-5.5); ALBUMIN/GLOBULIN RATIO 0.8 (1.0-2.2); BILIRUBIN,TOTAL 0.4 mg/dL (0.2-1.0); CALCIUM 8.6 mg/dL (8.5-10.3); CREATININE 1.1 mg/dL (0.6-1.2); TOTAL PROTEIN 6.5 g/dL (6.7-8.2)
[2017-12-23] MEDS ORDERED: POTASSIUM CHLORIDE 20 MEQ TABLET PO ONE (12:14)
--- NOTE | 2017-12-23 12:17 | Discharge Plan ---
"Discharge Plan for SNF / [facility] - Discharge Plan And Transition Orders Disposition: 01 Home, Self Care Condition: Poor Allergies and Adverse Reactions: Allergies Allergy/AdvReac Type Severity Reaction Status Date / Time Penicillins Allergy Intermediate Rash Verified 05/30/17 12:06 morphine AdvReac Unknown I go Verified 05/30/17 12:06 berserk - SNF / [facility] Transition Orders Admit to (Facility): [facility] Under the care of (Name): Mariaa Shah Discharge Diagnosis: AMS, UTI, acute on chronic renal insufficiency, DM2, Dementia, phantom limb syndrome, legally blind, COPD, sacral decubitus ulcer stage II, HTN Medicare Certification Statement: I do not certify that [facility] group home care is medically necessary on a continuing basis for any of the conditions for which she/he is receiving care during hospitalization. Notify PCP of admission and forward orders to primary provider for signature. Weight on admission and: Daily Call PCP immediately if weight increases by: 2 kg Other Notification Orders: Call PCP immediately if patient develops dyspnea, chest pain/tightness or edema. House Bowel Program: Yes Additional Bowel Program Orders: If no BM after 2 days, nurse may give M.O.M. 30ml PO PRN and/or ducolax Supp 1 MA and/or PATI 250mg P.O., and/or senna 1-2 tabs PO. On day 3 nurse may give repeat above order until residents constipation is resolved. Annual Influenza Vaccine (between Nov 20 and June 19): Yes Two-step PPD per [facility] [phone] or approved exception documents: Yes Medication Orders: PLEASE REFER TO THE DISCHARGE MEDICATION LIST. Insulin Orders?: Yes - Medications New Prescriptions: Nitrofurantoin Monohyd/M-Cryst [Macrobid 100 mg Capsule] 100 mg PO BID #12 capsule - Diet Type: Geriatric Texture: Regular Liquids: Thin May have monthly special meal: Yes - Therapies | Activity Activity: Activity as Tolerated Additional Instructions: You may follow up your PCP when you arrival to [facility]. You was found to have UTI in hospital. You were treated with antibiotics. Please finish the prescribed antibiotics course. Should your symptoms return or worsen, you may present ER or call 911 for help."
--- NOTE | 2017-12-23 13:31 | DISCHARGE SUMMARY ---
Discharge Summary Discharge Date: 12/23/17 Discharging Provider: MILTON Primary Care Provider: Mariaa Weaver Condition at Discharge: Poor Discharge Disposition: 01 Home, Self Care Discharge Facility Name: [facility] Admission Diagnoses: (1) Pyelonephritis (2) Altered mental status (3) CESARIO (acute kidney injury) (4) Type 2 diabetes mellitus with diabetic chronic kidney disease (5) Dementia (6) Phantom limb syndrome (7) Legally blind (8) COPD (chronic obstructive pulmonary disease) (9) Hypertension (10) Sacral decubitus ulcer, stage II (11) MRSA nasal colonization Discharge Diagnoses with Status of Each Condition: (1) Pyelonephritis pt denies dysuria, no fever, chill. WBC is normal. consult with ID, according to UA sensitivity study, pt is prescribed Macrobid for continue antibiotics course (2) Altered mental status resolved (3) CESARIO (acute kidney injury) resolved as the pt's baseline (4) Type 2 diabetes mellitus with diabetic chronic kidney disease stable, follow up PCP (5) Dementia stable, follow up PCP (6) Phantom limb syndrome stable (7) Legally blind stable (8) COPD (chronic obstructive pulmonary disease) stable, follow up PCP (9) Hypertension stable (10) Sacral decubitus ulcer, stage II stable, followup nurse instruction for care of chronic ulcer, follow up PCP management - HPI History of Present Illness: refer from Whitney Hawley's HPI for pt as the following: Douglas Bowles is an ill-appearing 77-year old male with an extensive past medical history of BPH, urinary incontinence, urinary frequency, hypertension, hyperlipidemia, CAD, [place]-status post cardiac stents, CVA-multiple, dementia, diabetes mellitus type 2-insulin dependent, depression, anxiety, COPD, pneumonia, splenectomy, PVD, right AKA leg, blindness, and peripheral neuropathy. He resides at [facility] in [place] and was found to below his baseline mentation and more lethargic for the past 48 hours. EMS was called and he was brought to the ED for complaints of altered mental status, headaches, and abdominal pain. A chest x-ray was completed and showed atelectasis with low lung volumes, a head CT shows no bleeding, masses or other discrete intracranial process identified. A urine sample taken is suspicious for UTI with cultures indicated. Kidney function seems altered with an elevated creatinine of 1.3, an elevated BUN of 31, and a reduced GFR of 54. A phone called was made by myself to Emma, the patient's to assist with this H & P and re-confirm his code status. The patient normally speaks daily on the phone with Emma, and for the past 2 days, he has been more sluggish in his speech, cannot remember the things that he used to, and she states, "it was almost like he forgot how to talk". Nursing reports from [facility] deny recent falls or injury. On my exam, the patient is not able to answer que stions when asked, but will become more alert if touched on the shoulder. He is disorientated, and does not appear to be in respiratory distress. He will be admitted for IV antibiotics, IV fluids for his CESARIO, electrolyte balance, and blood sugar control. Confirmed with , patient wishes to be a DNR. - ALLERGIES Allergies/Adverse Reactions: Allergies Allergy/AdvReac Type Severity Reaction Status Date / Time Penicillins Allergy Intermediate Rash Verified 05/30/17 12:06 morphine AdvReac Unknown I go Verified 05/30/17 12:06 [email or web address] - MEDICATIONS Home Medications: Ambulatory Orders Medication Instructions Recorded Confirmed Trazodone HCl 50 mg PO QPM PRN 07/08/13 12/19/17 Clopidogrel Bisulfate [Plavix] 75 mg PO DAILY 09/15/14 12/19/17 Albuterol [Ventolin Hfa] 2 puffs INH Q4H PRN #1 inhaler 01/30/15 12/19/17 Bupropion HCl [Bupropion HCl Sr] 300 mg PO 0800 #30 04/24/17 12/19/17 Docusate Sodium 250Mg Capsule 250 mg PO BID #30 04/24/17 12/19/17 [Colace 250Mg Capsule] Ipratropium/Albuterol Sulfate 3 ml IH Q4H PRN #1 04/24/17 12/19/17 [Iprat-Albut 0.5-3(2.5) mg/3 ml] Lisinopril 5 mg PO DAILY #30 04/24/17 12/19/17 Multivitamin W/Minerals [Theragran 1 tab PO DAILYWM #30 tablet 04/24/17 12/19/17 M] Senna [Senokot] 17.2 mg PO QPM #30 18 12/19/17 Simvastatin [Zocor] 10 mg PO QPM #30 04/24/17 12/19/17 Acetaminophen 650 mg PO Q6H PRN 08/02/17 12/19/17 Insulin Detemir [Levemir Flextouch] 20 unit SQ BID 08/02/17 12/19/17 Insulin Regular Human [NovoLIN R] 0 - 5 unit SUBQ TIDWM 08/02/17 12/19/17 Lactulose 15 ml PO BID PRN 08/02/17 12/19/17 Polyethylene Glycol 3350 17 g PO DAILY 08/02/17 12/19/17 traMADol [Ultram] 50 mg PO 0800,1200,1700,2100 08/02/17 12/19/17 DULoxetine [Cymbalta] 20 mg PO 1400 12/19/17 12/19/17 Gabapentin [Neurontin] 600 mg PO 0800,1200,1700 12/19/17 12/19/17 LORazepam [Lorazepam] 1 mg PO TID PRN 12/19/17 12/19/17 Loperamide HCl [Loperamide] 2 mg PO DAILY PRN MDD 8MG 12/19/17 12/19/17 Magnesium Hydroxide [Milk of 2,400 mg PO TID PRN 12/19/17 12/19/17 Magnesia] Trazodone HCl 100 mg PO QPM 12/19/17 12/19/17 Nitrofurantoin Monohyd/M-Cryst 100 mg PO BID #12 capsule 12/23/17 [Macrobid 100 mg Capsule] - PHYSICAL EXAM AT DISCHARGE General Appearance: positive: No acute distress, Alert. negative: Lethargic Eyes Bilateral: positive: Normal inspection, PERRL, No lid inflammation, Conjunctivae nml, No scleral icterus ENT: positive: ENT inspection nml, Pharynx nml, No signs of dehydration. neg ative: Purulent nasal drainage, Pharyngeal erythema, Oral lesions Neck: positive: Nml inspection, Thyroid nml, No JVD, Trachea midline. negative: Thyromegaly, Lymphadenopathy (R), Lymphadenopathy (L), Stiff neck, Swelling/bruising, Tracheal deviation Respiratory: positive: Chest non-tender, No respiratory distress, Breath sounds nml. negative: Wheezes, Rales, Rhonchi Cardiovascular: positive: Regular rate & rhythm, No murmur, No gallop. negative: Irregularly irregular, Extrasystoles, Tachycardia, Bradycardia, JVD present, Systolic murmur, Diastolic murmur Peripheral Pulses: positive: 2+ Abdomen: positive: Non-tender, No organomegaly, Nml bowel sounds, No distention. negative: Tenderness, Guarding, Rebound Back: positive: Nml inspection. negative: CVA tenderness (R), CVA tenderness (L) Skin: positive: Color nml, No rash, Warm, Dry. negative: Cyanosis, Diaphoresis, Pallor Extremities: positive: Non-tender. negative: Calf tenderness, Joint swelling, Ruth Ann's sign/cords Neurologic/Psychiatric: positive: Oriented x3, Sensation nml, Mood/affect nml. negative: Weakness, Sensory loss, Facial droop, Slurred/abnml speech, Depressed mood/affect - LABS Result Diagrams: 12/23/17 10:44 12/23/17 10:44 - FOLLOW UP Follow Up: You may follow up your PCP when you arrival to [facility]. You was found to have UTI in hospital. You were treated with antibiotics. Please finish the pre scribed antibiotics course. Should your symptoms return or worsen, you may present ER or call 911 for help. - TIME SPENT Time Spent in Discharge (Minutes): 50
[2017-12-23] MEDS: ACETAMINOPHEN 325 MG TABLET PO PRN (14:56)
[2017-12-23 15:36] VITALS: BP 123/64
[2017-12-24] MEDS ORDERED: SODIUM CHLORIDE 0.9% IV SCH (12:30)
[2017-12-24] MEDS ORDERED: GENTAMICIN IV SCH (12:30)
== END 2017-12-23 17:05 | disposition home or self-care (01) | DRG 872 ==
LOC: EDUNIT# → ED 10:09 → MS2 13:03
PROVIDERS: ADMIT Nurse Practitioner; ATTEND Nurse Practitioner Gerontology
DX: A41.9 Sepsis, unspecified organism (principal); N39.0 Urinary tract infection, site not specified; L98.8 Other specified disorders of the skin and subcutaneous tissue; A41.59 Other Gram-negative sepsis; F01.51 Vascular dementia, unspecified severity, with behavioral disturbance; N10 Acute pyelonephritis; N17.9 Acute kidney failure, unspecified; E11.22 Type 2 diabetes mellitus with diabetic chronic kidney disease; N18.9 Chronic kidney disease, unspecified; G54.6 Phantom limb syndrome with pain; E11.39 Type 2 diabetes mellitus with other diabetic ophthalmic complication; H54.8 Legal blindness, as defined in USA; E11.51 Type 2 diabetes mellitus with diabetic peripheral angiopathy without gangrene; E11.42 Type 2 diabetes mellitus with diabetic polyneuropathy; J44.9 Chronic obstructive pulmonary disease, unspecified; I15.2 Hypertension secondary to endocrine disorders; L89.152 Pressure ulcer of sacral region, stage 2; E86.0 Dehydration; I69.318 Other symptoms and signs involving cognitive functions following cerebral infarction; N40.1 Benign prostatic hyperplasia with lower urinary tract symptoms; N39.498 Other specified urinary incontinence; R35.0 Frequency of micturition; I25.10 Atherosclerotic heart disease of native coronary artery without angina pectoris; E78.5 Hyperlipidemia, unspecified; K21.9 Gastro-esophageal reflux disease without esophagitis; F32.9 Major depressive disorder, single episode, unspecified; F41.9 Anxiety disorder, unspecified; K59.09 Other constipation; F17.200 Nicotine dependence, unspecified, uncomplicated; R35.1 Nocturia; H91.90 Unspecified hearing loss, unspecified ear; Z66 Do not resuscitate; F10.20 Alcohol dependence, uncomplicated; R41.0 Disorientation, unspecified; Z16.24 Resistance to multiple antibiotics; I25.2 Old myocardial infarction; Z95.5 Presence of coronary angioplasty implant and graft; Z22.322 Carrier or suspected carrier of Methicillin resistant Staphylococcus aureus; Z88.0 Allergy status to penicillin; Z79.4 Long term (current) use of insulin; Z79.899 Other long term (current) drug therapy; Z79.02 Long term (current) use of antithrombotics/antiplatelets; Z87.01 Personal history of pneumonia (recurrent); Z89.611 Acquired absence of right leg above knee; Z90.81 Acquired absence of spleen; Z99.3 Dependence on wheelchair
CPT/HCPCS: 36415; 70450; 71046; 74176; 80053; 80170; 81001; 81003; 83036; 83605; 83690; 83735; 84100; 84484; 85025; 87040; 87077; 87086; 87181; 87640; 93005; 94640; 96365; 96366; 99284; 99285

== ENCOUNTER 2018-08-19 08:00 | Outpatient (CLI) | payer MEDICARE, MEDICAID ==
[2018-08-19 16:32] LABS: BASOPHILS % (AUTO) 0.5 %; EOSINOPHILS # (AUTO) 0.4 10^3/uL (0.0-0.7); EOSINOPHILS % (AUTO) 5.3 %; HGB - HEMOGLOBIN 13.3 g/dL (14.0-18.0); LYMPHOCYTES # (AUTO) 1.2 10^3/uL (1.5-3.5); LYMPHOCYTES % (AUTO) 16.2 %; MEAN CORPUSCULAR HEMOGLOBIN 28.1 pg (27.0-31.0); MEAN CORPUSCULAR HGB CONC 32.8 g/dL (32.0-36.0); MEAN CORPUSCULAR VOLUME 85.6 fL (80.0-94.0); MEAN PLATELET VOLUME 8.9 fL (7.4-11.4); MONOCYTES # (AUTO) 0.4 10^3/uL (0.0-1.0); MONOCYTES % (AUTO) 5.7 %; NEUTROPHILS # (AUTO) 5.3 10^3/uL (1.5-6.6); NEUTROPHILS % (AUTO) 72.3 %; PLT - PLATELET COUNT 202 10^3/uL (130-450); RED BLOOD COUNT 4.72 10^6/uL (4.70-6.10); RED CELL DISTRIBUTION WIDTH 14.8 % (12.0-15.0); WHITE BLOOD COUNT 7.4 x10^3/uL (4.8-10.8)
[2018-08-19 16:34] LABS: ALBUMIN 3.3 g/dL (3.2-5.5); ALBUMIN/GLOBULIN RATIO 0.7 (1.0-2.2); BILIRUBIN,TOTAL 0.5 mg/dL (0.2-1.0); CALCIUM 9.4 mg/dL (8.5-10.3); CREATININE 1.1 mg/dL (0.6-1.2)
== END 2018-08-19 23:59 | disposition home or self-care (01) ==
LOC: LAB.R 08:00
DX: Z79.899 Other long term (current) drug therapy (principal)
CPT/HCPCS: 80053; 85025

== ENCOUNTER 2018-08-24 15:21 | Outpatient (CLI) | payer MEDICARE, MEDICAID | END 2018-08-24 15:22 | disposition critical access hospital (66) | LOC: EMS 15:21 | PROVIDERS: ATTEND Surgery | DX: R09.89 Other specified symptoms and signs involving the circulatory and respiratory systems (principal); R50.9 Fever, unspecified; R11.0 Nausea | CPT/HCPCS: A0425; A0429 ==

== ENCOUNTER 2018-08-24 15:41 | Emergency (ER) | payer MEDICARE, MEDICAID ==
[2018-08-24] MEDS ORDERED: GABAPENTIN 100 MG CAPSULE PO STA (16:07)
[2018-08-24] MEDS ORDERED: traMADol 50 MG TABLET PO STA (16:07)
--- NOTE | 2018-08-24 16:10 | ED Physician Documentation ---
History of Present Illness - Stated complaint Stated Complaint: CHILLS - Chief complaint Chief Complaint: Resp - History obtained from History obtained from: Patient, EMS - History of Present Illness Timing: Today (77-year-old gentleman who lives in a local assisted living facility. He has diabetes which has ccost him his eyesight and his right leg. He has had a nonproductive cough for about a week. He was reportedly febrile today. He denies shortness of breath or increased pain but he does have chronic body wide pain.) Review of Systems Ten Systems: 10 systems reviewed and negative Constitutional: reports: Chills. denies: Fever Ears: denies: Loss of hearing, Ear pain Nose: denies: Rhinorrhea / runny nose, Congestion Cardiac: denies: Chest pain / pressure, Palpitations, Pedal edema, Calf pain Respiratory: reports: Cough. denies: Dyspnea GI: denies: Abdominal Pain, Nausea, Vomiting PD PAST MEDICAL HISTORY - Past Medical History Cardiovascular: Hypertension, High cholesterol, Coronary artery disease, Peripheral Vascular Disease, [place], Murmur Respiratory: COPD, Pneumonia, Shortness of breath Neuro: Dementia, CVA, Headaches, Peripheral neuropathy, Other Endocrine/Autoimmune: Type 2 diabetes GI: GERD, Chronic constipation : Benign prostate hypertrophy, Incontinence, Chronic bladder infection, Nocturia, Frequency HEENT: Chronic vision loss, Chronic sinusitis, Chronic hearing loss Psych: Depression, Anxiety Musculoskeletal: Osteoarthritis, Hemiplegia Derm: None - Past Surgical History Past Surgical History: Yes General: Splenectomy Ortho: Amputation (R AKA) Cardiovascular: Coronary stent, Cardiac catheterization, Vascular surgery, Angioplasty 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 - Present Medications Home Medications: Ambulatory Orders Medication Instructions Recorded Confirmed Trazodone HCl 50 mg PO QPM PRN 07/08/13 08/24/18 Clopidogrel Bisulfate [Plavix] 75 mg PO DAILY 09/15/14 08/24/18 Albuterol [Ventolin Hfa] 2 puffs INH Q4H PRN #1 inhaler 01/30/15 08/24/18 Bupropion HCl [Bupropion HCl Sr] 300 mg PO 0800 #30 04/24/17 08/24/18 Docusate Sodium 250Mg Capsule 250 mg PO BID #30 04/24/17 08/24/18 [Colace 250Mg Capsule] Ipratropium/Albuterol Sulfate 3 ml IH Q4H PRN #1 04/24/17 08/24/18 [Iprat-Albut 0.5-3(2.5) mg/3 ml] Lisinopril 5 mg PO DAILY #30 04/24/17 08/24/18 Multivitamin W/Minerals [Theragran 1 tab PO DAILYWM #30 tablet 04/24/17 08/24/18 M] Senna [Senokot] 17.2 mg PO QPM #30 04/24/17 08/24/18 Simvastatin [Zocor] 10 mg PO QPM #30 04/24/17 08/24/18 Acetaminophen 650 mg PO Q6H PRN 08/02/17 08/24/18 Insulin Detemir [Levemir Flextouch] 20 unit SQ BID 08/02/17 08/24/18 Insulin Regular Human [NovoLIN R] 0 - 5 unit SUBQ TIDWM 08/02/17 08/24/18 Lactulose 15 ml PO BID PRN 08/02/17 08/24/18 Polyethylene Glycol 3350 17 g PO DAILY 08/02/17 08/24/18 traMADol [Ultram] 50 mg PO 0800,1200,1700,2100 08/02/17 08/24/18 DULoxetine [Cymbalta] 20 mg PO 1400 12/19/17 08/24/18 Gabapentin [Neurontin] 600 mg PO 0800,1200,1700 12/19/17 08/24/18 LORazepam [Lorazepam] 1 mg PO TID PRN 12/19/17 08/24/18 Loperamide HCl [Loperamide] 2 mg PO DAILY PRN MDD 8MG 12/19/17 08/24/18 Magnesium Hydroxide [Milk of 2,400 mg PO TID PRN 12/19/17 08/24/18 Magnesia] Trazodone HCl 100 mg PO QPM 12/19/17 08/24/18 Doxycycline Hyclate 100 mg PO BID #20 capsule 08/24/18 - Allergies Allergies/Adverse Reactions: Allergies Allergy/AdvReac Type Severity Reaction Status Date / Time Penicillins Allergy Intermediate Rash Verified 08/24/18 15:47 morphine AdvReac Unknown I go Verified 08/24/18 15:47 berserk - Social History Does the pt smoke?: Yes Smoking Status: Current every day smoker Does the pt drink ETOH?: Yes Does the pt have substance abuse?: No - Family History Family history: reports: Non contributory - Immunizations Immunizations are current?: Yes - POLST Patient has POLST: Yes POLST Status: DNR PD ED PE NORMAL - Vitals Vital signs reviewed: Yes - General General: Alert and oriented X 3, No acute distress - HEENT HEENT: Other (Small pupils with nystagmus and poor vision) - Neck Neck: Supple, no meningeal sign, No bony TTP - Cardiac Cardiac: RRR (Distant heart sounds) - Respiratory Respiratory: No respiratory distress, Other (Diminished at the left base and rhonchorous there) - Abdomen Abdomen: Non tender - Derm Derm: Normal color, Warm and dry - Extremities Extremities: Other (Absent right leg) - Neuro Neuro: Alert and oriented X 3, Normal speech Results - Vitals Vitals: Vital Signs - 24 hr 08/24/18 15:43 Temperature 36.8 C Heart Rate 82 Respiratory 14 Rate Blood Pressure 98/72 O2 Saturation 92 Oxygen O2 Source Nasal cannula Oxygen Flow Rate 2 - EKG (time done) 1556 Rate: Rate (enter#) (79) Rhythm: NSR Mason: Normal Intervals: Normal PA QRS: Normal Ischemia: Q waves (inferior). No: ST elevation c/w ischemia Computer interpretation: Agree with computer - Labs Labs: Laboratory Tests 08/24/18 08/24/18 08/24/18 16:09 16:09 16:09 WBC 9.3 RBC 4.99 Hgb 14.2 Hct 43.3 MCV 86.7 MCH 28.4 MCHC 32.7 RDW 15.2 H Plt Count 243 MPV 8.6 Neut # (Auto) 7.1 H Lymph # (Auto) 1.2 L [place] # (Auto) 0.6 Eos # (Auto) 0.4 Baso # (Auto) 0.0 Absolute Nucleated RBC 0.00 Nucleated RBC % 0.0 Sodium 136 Potassium 4.4 Chloride 94 L Carbon Dioxide 33 H Anion Gap 9.0 BUN 23 H Creatinine 1.3 H Estimated GFR (MDRD) 54 L Glucose 159 H Lactic Acid 1.3 Calcium 9.3 Total Bilirubin 0.6 AST 24 ALT 26 Alkaline Phosphatase 161 H Total Protein 8.2 Albumin 3.4 Globulin 4.8 H Albumin/Globulin Ratio 0.7 L Lipase 31 PD MEDICAL DECISION MAKING - ED course ED course: 77-year-old gentleman with multiple comorbidities presents with a cough and reported fever. No pneumonia on chest x-ray and his lab work is reassuring with no white count or lactic acidosis. Given his comorbidities he is treated for bronchitis with doxycycline. 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 Given his comorbidities we are starting on antibiotics. The antibiotics must be taken at least an hour from his multivitamin and calcium supplements. Return anytime if worse or if new symptoms develop. He should follow-up with his doctor in 2 days for recheck.
[2018-08-24 16:21] LABS: BASOPHILS % (AUTO) 0.4 %; EOSINOPHILS # (AUTO) 0.4 10^3/uL (0.0-0.7); EOSINOPHILS % (AUTO) 4.1 %; HGB - HEMOGLOBIN 14.2 g/dL (14.0-18.0); LYMPHOCYTES # (AUTO) 1.2 10^3/uL (1.5-3.5); LYMPHOCYTES % (AUTO) 13.3 %; MEAN CORPUSCULAR HEMOGLOBIN 28.4 pg (27.0-31.0); MEAN CORPUSCULAR HGB CONC 32.7 g/dL (32.0-36.0); MEAN CORPUSCULAR VOLUME 86.7 fL (80.0-94.0); MEAN PLATELET VOLUME 8.6 fL (7.4-11.4); MONOCYTES # (AUTO) 0.6 10^3/uL (0.0-1.0); NEUTROPHILS # (AUTO) 7.1 10^3/uL (1.5-6.6); NEUTROPHILS % (AUTO) 76.2 %; PLT - PLATELET COUNT 243 10^3/uL (130-450); RED BLOOD COUNT 4.99 10^6/uL (4.70-6.10); RED CELL DISTRIBUTION WIDTH 15.2 % (12.0-15.0); WHITE BLOOD COUNT 9.3 x10^3/uL (4.8-10.8)
[2018-08-24 16:33] LABS: ALBUMIN 3.4 g/dL (3.2-5.5); ALBUMIN/GLOBULIN RATIO 0.7 (1.0-2.2); BILIRUBIN,TOTAL 0.6 mg/dL (0.2-1.0); CALCIUM 9.3 mg/dL (8.5-10.3); CREATININE 1.3 mg/dL (0.6-1.2); TOTAL PROTEIN 8.2 g/dL (6.7-8.2)
--- NOTE | 2018-08-24 16:54 | XRAY Report ---
Reason: cough Procedure Date: 08/24/2018 Accession Number: [id number] / [id number] Procedure: XR - Chest 2 View X-Ray CPT Code: 03418 FULL RESULT: EXAM: CHEST RADIOGRAPHY EXAM DATE: 08/24/2018 04:47 PM. CLINICAL HISTORY: Cough. COMPARISON: CHEST 2 VIEW 12/19/2017 10:35 AM. TECHNIQUE: 2 views. FINDINGS: Lungs/Pleura: No focal opacities evident. No pleural effusion. No pneumothorax. Low volumes. Mediastinum: Heart and mediastinal contours are unremarkable. Other: None. IMPRESSION: Low lung volumes, otherwise, no cardiopulmonary abnormality demonstrated. RADIA
[2018-08-24] MEDS ORDERED: DOXYCYCLINE 100 MG TABLET PO STA (17:00)
[2018-08-24 18:38] VITALS: BP 112/67
== END 2018-08-24 18:39 | disposition home or self-care (01) ==
LOC: EDUNIT# → ED 15:41
DX: J40 Bronchitis, not specified as acute or chronic (principal); E11.22 Type 2 diabetes mellitus with diabetic chronic kidney disease; I12.9 Hypertensive chronic kidney disease with stage 1 through stage 4 chronic kidney disease, or unspecified chronic kidney disease; N18.3 Chronic kidney disease, stage 3 (moderate); F17.200 Nicotine dependence, unspecified, uncomplicated; Z79.4 Long term (current) use of insulin
CPT/HCPCS: 36415; 71046; 80053; 83605; 83690; 85025; 87040; 93005; 99283; A9270

== ENCOUNTER 2018-08-24 18:39 | Outpatient (CLI) | payer MEDICARE, MEDICAID | END 2018-08-24 18:40 | disposition home or self-care (01) | LOC: EMS 18:39 | PROVIDERS: ATTEND Surgery | DX: R06.00 Dyspnea, unspecified (principal); R53.1 Weakness; Z74.01 Bed confinement status | CPT/HCPCS: A0425; A0428 ==

== ENCOUNTER 2018-09-07 13:40 | Outpatient (CLI) | payer MEDICARE, MEDICAID ==
[2018-09-07 17:57] LABS: BILIRUBIN,URINE NEGATIVE (NEGATIVE); GLUCOSE, URINE (UA) NEGATIVE (NEGATIVE); KETONES,URINE (UA) NEGATIVE (NEGATIVE); LEUKOCYTE ESTERASE, URINE NEGATIVE (NEGATIVE); NITRITE,URINE NEGATIVE (NEGATIVE); OCCULT BLOOD,URINE TRACE-LYSE (NEGATIVE); PROTEIN,URINE NEGATIVE (NEGATIVE); UROBILINOGEN,URINE 0.2 (NORMAL) E.U./dL (NORMAL)
[2018-09-07 18:01] LABS: CLARITY,URINE CLEAR (CLEAR)
== END 2018-09-07 23:59 | disposition home or self-care (01) ==
LOC: LAB.R 13:40
PROVIDERS: ATTEND Internal Medicine
DX: N39.0 Urinary tract infection, site not specified (principal)
CPT/HCPCS: 81001; 81003; 87086

== ENCOUNTER 2018-09-17 07:00 | Outpatient (CLI) | payer MEDICARE, MEDICAID | END 2018-09-17 07:01 | disposition critical access hospital (66) | LOC: EMS 07:00 | PROVIDERS: ATTEND Surgery | DX: R41.82 Altered mental status, unspecified (principal); R47.81 Slurred speech | CPT/HCPCS: A0425; A0427 ==

== ENCOUNTER 2018-09-17 07:13 | Emergency (ER) | payer MEDICARE, MEDICAID ==
--- NOTE | 2018-09-17 08:02 | ED Physician Documentation ---
PD HPI ALTERED MENTAL STATUS - Stated complaint Stated Complaint: UNRESPONSIVE - Chief complaint Chief Complaint: Neuro - History obtained from History obtained from: Patient, EMS - History of Present Illness Timing - onset: Today Timing - duration: Hours Timing - details: Abrupt onset, Now resolved Quality / character: Unresponsive Associated symptoms: Cough, General weakness. No: Fever, Headache, Stiff neck, Dyspnea, NVD, Urinary sx, Focal weakness, Seizure activity Contributing factors: Diabetic Basline status: Alert and oriented X 3, Bedbound Similar symptoms before: Diagnosis (metabolic encecephalopathy with UTI) Recently seen: Emergency Dept (Seen in the ED with cough and treated with doxy for bronchitis 3 weeks ago.) - Additional information Additional information: 77-year-old diabetic male with a right AKA is a resident of [facility] and was last known normal at 6 AM. He was found unresponsive and unarousable and was transported to the hospital by ambulance. He did begin to talk [facility] and he currently is complaining of a cough. Review of Systems Constitutional: reports: Chills. denies: Fever PD PAST MEDICAL HISTORY - Past Medical History Cardiovascular: Hypertension, High cholesterol, Coronary artery disease, Peripheral Vascular Disease, [place], Murmur Respiratory: COPD, Pneumonia, Shortness of breath Neuro: Dementia, CVA, Headaches, Peripheral neuropathy, Other Endocrine/Autoimmune: Type 2 diabetes GI: GERD, Chronic constipation : Benign prostate hypertrophy, Incontinence, Chronic bladder infection, Nocturia, Frequency HEENT: Chronic vision loss, Chronic sinusitis, Chronic hearing loss Psych: Depression, Anxiety Musculoskeletal: Osteoarthritis, Hemiplegia Derm: None - Past Surgical History Past Surgical History: Yes General: Splenectomy Ortho: Amputation (R AKA) Cardiovascular: Coronary stent, Cardiac catheterization, Vascular surgery, Angioplasty 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 - Present Medications Home Medications: Ambulatory Orders Medication Instructions Recorded Confirmed RX: Trazodone HCl 50 mg PO QPM PRN 07/08/13 08/24/18 RX: Clopidogrel Bisulfate [Plavix] 75 mg PO DAILY 09/15/14 08/24/18 RX: Albuterol [Ventolin Hfa] 2 puffs INH Q4H PRN #1 inhaler 01/30/15 08/24/18 RX: Bupropion HCl [Bupropion HCl 300 mg PO 0800 #30 04/24/17 08/24/18 Sr] RX: Docusate Sodium 250Mg Capsule 250 mg PO BID #30 04/24/17 08/24/18 [Colace 250Mg Capsule] RX: Ipratropium/Albuterol Sulfate 3 ml IH Q4H PRN #1 04/24/17 08/24/18 [Iprat-Albut 0.5-3(2.5) mg/3 ml] RX: Lisinopril 5 mg PO DAILY #30 04/24/17 08/24/18 RX: Multivitamin W/Minerals 1 tab PO DAILYWM #30 tablet 04/24/17 08/24/18 [Theragran M] RX: Senna [Senokot] 17.2 mg PO QPM #30 04/24/17 08/24/18 RX: Simvastatin [Zocor] 10 mg PO QPM #30 04/24/17 08/24/18 RX: Acetaminophen 650 mg PO Q6H PRN 08/02/17 08/24/18 RX: Insulin Detemir [Levemir 20 unit SQ BID 08/02/17 08/24/18 Flextouch] RX: Insulin Regular Human [NovoLIN 0 - 5 unit SUBQ TIDWM 08/02/17 08/24/18 R] RX: Lactulose 15 ml PO BID PRN 08/02/17 08/24/18 RX: Polyethylene Glycol 3350 17 g PO DAILY 08/02/17 08/24/18 RX: traMADol [Ultram] 50 mg PO 0800,1200,1700,2100 08/02/17 08/24/18 RX: DULoxetine [Cymbalta] 20 mg PO 1400 12/19/17 08/24/18 RX: Gabapentin [Neurontin] 600 mg PO 0800,1200,1700 12/19/17 08/24/18 RX: LORazepam [Lorazepam] 1 mg PO TID PRN 12/19/17 08/24/18 RX: Loperamide HCl [Loperamide] 2 mg PO DAILY PRN MDD 8MG 12/19/17 08/24/18 RX: Magnesium Hydroxide [Milk of 2,400 mg PO TID PRN 12/19/17 08/24/18 Magnesia] RX: Trazodone HCl 100 mg PO QPM 12/19/17 08/24/18 RX: Doxycycline Hyclate 100 mg PO BID #20 capsule 08/24/18 RX: Azithromycin [Zithromax] 250 mg PO DAILY #6 tablet 09/17/18 - Allergies Allergies/Adverse Reactions: Allergies Allergy/AdvReac Type Severity Reaction Status Date / Time Penicillins Allergy Intermediate Rash Verified 09/17/18 07:59 morphine AdvReac Unknown I go Verified 09/17/18 07:59 berserk - Social History Does the pt smoke?: Yes Smoking Status: Current every day smoker Does the pt drink ETOH?: Yes Does the pt have substance abuse?: No - Immunizations Immunizations are current?: Yes - POLST Patient has POLST: Yes POLST Status: DNR PD ED PE NORMAL - Vitals Vital signs reviewed: Yes (hypertensive ) - General General: Alert and oriented X 3, No acute distress, Well developed/nourished, Other (blind stare is present but the patient is able to make out that I am wearing a bright colored tie.) - HEENT HEENT: Atraumatic - Neck Neck: Supple, no meningeal sign - Cardiac Cardiac: RRR, No murmur, Other (distant heart sounds. ) - Respiratory Respiratory: No respiratory distress, Clear bilaterally - Abdomen Abdomen: Soft, Non tender - Back Back: No CVA TTP, No spinal TTP - Derm Derm: Normal color, Warm and dry, No rash - Extremities Extremities: Other (There is a right AKA and no inflamation to the stump or the other leg) - Neuro Neuro: Alert and oriented X 3, Normal speech, Other (The patient requires assistance ) Eye Opening: Spontaneous Motor: Obeys Commands Verbal: Oriented GCS Score: 15 - Psych Psych: Normal mood, Normal affect Results - Vitals Vitals: Vital Signs - 24 hr 09/17/18 09/17/18 09/17/18 07:20 08:12 08:58 Temperature 36 C L 35.9 C L 36.6 C Heart Rate 71 76 68 Respiratory 16 11 L 18 Rate Blood Pressure 144/81 H 119/64 90/47 L O2 Saturation 93 95 96 09/17/18 09/17/18 09/17/18 09:30 10:30 11:00 Temperature 36.6 C Heart Rate 76 75 75 Respiratory 18 15 17 Rate Blood Pressure 122/56 L 127/72 130/59 L O2 Saturation 94 97 97 09/17/18 09/17/18 11:30 13:30 Temperature 37.2 C Heart Rate 74 70 Respiratory 16 18 Rate Blood Pressure 124/96 H 109/77 O2 Saturation 98 97 Oxygen O2 Source Room air - EKG (time done) 0815 Rate: Rate (enter#) (69) Rhythm: NSR Intervals: Prolonged ID Ischemia: Q waves Compare to prior EKG: Changed from prior EKG (SPT 08-24-18 the ID interval has increased) Computer interpretation: Agree with computer - Labs Labs: Laboratory Tests 09/17/18 09/17/18 09/17/18 08:01 08:01 08:01 WBC 8.0 RBC 4.55 L Hgb 12.9 L Hct 40.7 L MCV 89.5 MCH 28.4 MCHC 31.7 L RDW 13.9 Plt Count 203 MPV 10.2 Neut # (Auto) 5.6 Lymph # (Auto) 1.5 Travis # (Auto) 0.6 Eos # (Auto) 0.3 Baso # (Auto) 0.0 Absolute Nucleated RBC 0.00 Nucleated RBC % 0.0 Sodium 135 Potassium 4.5 Chloride 99 L Carbon Dioxide 27 Anion Gap 9.0 BUN 33 H Creatinine 1.4 H Estimated GFR (MDRD) 49 L Glucose 124 H Calcium 9.1 Total Bilirubin 0.6 AST 20 ALT 18 Alkaline Phosphatase 137 H Troponin I < 0.04 Total Protein 7.7 Albumin 3.2 Globulin 4.5 H Albumin/Globulin Ratio 0.7 L Lipase 34 Urine Color Urine Clarity Urine pH Ur Specific [place] Urine Protein Urine Glucose (UA) Urine Ketones Urine Occult Blood Urine Nitrite Urine Bilirubin Urine Urobilinogen Ur Leukocyte Esterase Ur Microscopic Review Urine Culture Comments 09/17/18 08:15 WBC RBC Hgb Hct MCV MCH MCHC RDW Plt Count MPV Neut # (Auto) Lymph # (Auto) Travis # (Auto) Eos # (Auto) Baso # (Auto) Absolute Nucleated RBC Nucleated RBC % Sodium Potassium Chloride Carbon Dioxide Anion Gap BUN Creatinine Estimated GFR (MDRD) Glucose Calcium Total Bilirubin AST ALT Alkaline Phosphatase Troponin I Total Protein Albumin Globulin Albumin/Globulin Ratio Lipase Urine Color YELLOW Urine Clarity CLEAR Urine pH 6.0 Ur Specific [place] 1.020 Urine Protein NEGATIVE Urine Glucose (UA) NEGATIVE Urine Ketones NEGATIVE Urine Occult Blood TRACE-INTA Urine Nitrite NEGATIVE Urine Bilirubin NEGATIVE Urine Urobilinogen 0.2 (NORMAL) Ur Leukocyte Esterase NEGATIVE Ur Microscopic Review NOT INDICATED Urine Culture Comments NOT INDICATED - Rads (name of study) chest Radiology: Prelim report reviewed (Impression: Mild lateral left basilar opacity, probable atelectasis.), EMP read indepedently, See rad report Procedures - IVC sono (time) 0755 Bedside IVC sono: IVC measures (cm) (1.3), Dehydration (est 1 liter deficit) PD MEDICAL DECISION MAKING - ED course Complexity details: reviewed old records, reviewed results, re-evaluated patient, considered differential, d/w patient ED course: 77-year-old male who became unresponsive this morning is responsive here in the emergency department he is found to have infiltrate on his chest x-ray and is treated for pneumonia. He does not meet criteria for admission into the hospital. Departure - Departure Disposition: 01 Home, Self Care Clinical Impression: Pneumonia Condition: Stable Instructions: ED Pneumonia Adult Follow-Up: Mariaa Marx MD [Provider Admit Priv/Credential] - Prescriptions: RX: Azithromycin [Zithromax] 250 mg PO DAILY #6 tablet Discharge Date/Time: 09/17/18 14:02
[2018-09-17 08:08] LABS: BASOPHILS % (AUTO) 0.5 %; EOSINOPHILS # (AUTO) 0.3 10^3/uL (0.0-0.7); EOSINOPHILS % (AUTO) 3.6 %; HGB - HEMOGLOBIN 12.9 g/dL (14.0-18.0); LYMPHOCYTES # (AUTO) 1.5 10^3/uL (1.5-3.5); LYMPHOCYTES % (AUTO) 18.3 %; MEAN CORPUSCULAR HEMOGLOBIN 28.4 pg (27.0-31.0); MEAN CORPUSCULAR HGB CONC 31.7 g/dL (32.0-36.0); MEAN CORPUSCULAR VOLUME 89.5 fL (80.0-94.0); MEAN PLATELET VOLUME 10.2 fL (7.4-11.4); MONOCYTES # (AUTO) 0.6 10^3/uL (0.0-1.0); MONOCYTES % (AUTO) 6.9 %; NEUTROPHILS # (AUTO) 5.6 10^3/uL (1.5-6.6); NEUTROPHILS % (AUTO) 70.2 %; PLT - PLATELET COUNT 203 10^3/uL (130-450); RED BLOOD COUNT 4.55 10^6/uL (4.70-6.10); RED CELL DISTRIBUTION WIDTH 13.9 % (12.0-15.0)
--- NOTE | 2018-09-17 08:14 | CT Report ---
Reason: unresponsive Procedure Date: 09/17/2018 Accession Number: [id number] / [id number] Procedure: CT - Head W/O Stroke Protocol CPT Code: FULL RESULT: EXAM: CT HEAD EXAM DATE: 09/17/2018 07:45 AM. CLINICAL HISTORY: Report of left facial droop and unresponsiveness. Reported history of CVA. COMPARISON: None. TECHNIQUE: Multiaxial CT images were obtained from the foramen magnum to the vertex. Reformats: Sagittal and coronal. IV contrast: None. In accordance with CT protocol optimization, one or more of the following dose reduction techniques were utilized for this exam: automated exposure control, adjustment of mA and/or KV based on patient size, or use of iterative reconstructive technique. FINDINGS: Prominent diffuse brain atrophy. Previous craniotomy on the right, surgical changes appear chronic. No evidence for acute hemorrhage or acute cortical ischemic infarct. White matter hypoattenuation suggests small vessel ischemic disease. Ventriculomegaly is present, more likely from atrophy than hydrocephalus. No midline shift or abnormal subdural fluid collection. Minimal nonspecific paranasal sinus mucosal thickening. Cavernous carotid atherosclerotic calcifications. Nodular subcutaneous density in the upper posterior scalp measuring about 1 cm, nonspecific, possible sebaceous cyst. IMPRESSION: Prominent diffuse atrophy. No definite CT evidence of acute intracranial abnormality at this time. Early infarct is difficult to entirely rule out, if symptoms persist or worsen consider follow-up head CT or additional evaluation with brain MRI. RADIA The critical test notification system was initiated by Dr. Robbi Barahona at 08:07 AM on 09/17/2018. The above critical test findings were discussed with Oscar Bey by Dr. Robbi Barahona at 08:12 AM on 09/17/2018.
[2018-09-17 08:17] LABS: BILIRUBIN,URINE NEGATIVE (NEGATIVE); GLUCOSE, URINE (UA) NEGATIVE (NEGATIVE); KETONES,URINE (UA) NEGATIVE (NEGATIVE); LEUKOCYTE ESTERASE, URINE NEGATIVE (NEGATIVE); NITRITE,URINE NEGATIVE (NEGATIVE); OCCULT BLOOD,URINE TRACE-INTA (NEGATIVE); PROTEIN,URINE NEGATIVE (NEGATIVE); UROBILINOGEN,URINE 0.2 (NORMAL) E.U./dL (NORMAL)
--- NOTE | 2018-09-17 08:17 | CT Report ---
Reason: L sided facial droop Procedure Date: 09/17/2018 Accession Number: [id number] / [id number] Procedure: CT - ANGIO HEAD W CPT Code: FULL RESULT: EXAM: CT ANGIOGRAM HEAD. CT SCAN OF THE HEAD WITH CONTRAST. EXAM DATE: 09/17/2018 07:45 AM CLINICAL HISTORY: Left-sided facial droop. Reportedly unresponsive. COMPARISON: None. TECHNIQUE: - CT Scan Head: Using a multidetector scanner, axial images were acquired from the foramen magnum to the skull vertex following contrast administration. - CT Angiogram: Using a multidetector scanner, high-resolution axial images were acquired from the skull base through vertex following rapid infusion of intravenous contrast. Reformats: Multiplanar MIP reformats were reconstructed. Nascet criteria used for stenosis measurement. IV Contrast: 80 mL Optiray 320. In accordance with CT protocol optimization, one or more of the following dose reduction techniques were utilized for this exam: automated exposure control, adjustment of mA and/or KV based on patient size, or use of iterative reconstructive technique. FINDINGS: Brain CT with IV contrast: No abnormal enhancement. Head CT angiogram: Distal right ICA occlusion. The right middle cerebral artery appears to reconstitute from collaterals but reduced vessel caliber is present consistent with reduced perfusion pressure. Very small right GUILLAUME A1 segment. The left GUILLAUME A1 segment is strongly dominant. Posterior communicating arteries are not visualized. Prominent atherosclerotic calcifications of the distal left ICA at the skull base but this vessel is patent. No proximal occlusion or flow-limiting stenosis of the main anterior cerebral artery or left middle cerebral artery branches. No evidence for intracranial vertebrobasilar insufficiency. Patent bilateral posterior cerebral arteries. IMPRESSION: 1. Right ICA occlusion. 2. Relatively small but grossly patent right MCA which appears to fill/reconstitute from collateral circulation. 3. No other evidence of intracranial large vessel occlusion or high-grade stenosis. 4. Prominent atherosclerosis of the cavernous segments of the internal carotid arteries. RADIA The call report notification system was initiated by Dr. Robbi Barahona at 08:07 AM on 09/17/2018. The above call report findings were discussed with Oscar Bey by Dr. Robbi Barahona at 08:14 AM on 09/17/2018.
[2018-09-17 08:18] LABS: CLARITY,URINE CLEAR (CLEAR)
[2018-09-17] MEDS ORDERED: SODIUM CHLORIDE 0.9% 1,000 ML IV ONE (08:21)
[2018-09-17] MEDS ORDERED: IOVERSOL 320 100 ML VIAL IVP ONE (08:22)
--- NOTE | 2018-09-17 08:58 | XRAY Report ---
Reason: chest pain Procedure Date: 09/17/2018 Accession Number: [id number] / [id number] Procedure: XR - Chest 1 View X-Ray CPT Code: 25356 FULL RESULT: EXAM: CHEST RADIOGRAPHY EXAM DATE: 09/17/2018 08:44 AM. CLINICAL HISTORY: Chest pain. COMPARISON: CHEST 2 VIEW 08/24/2018 4:28 PM. TECHNIQUE: 1 view. FINDINGS: Lungs/Pleura: Mild left basilar opacity, probable atelectasis. No pneumothorax. Mediastinum: Atherosclerotic aortic calcification. Other: Old, healed left clavicle fracture. IMPRESSION: Mild lateral left basilar opacity, probable atelectasis. RADIA
[2018-09-17] MEDS ORDERED: cefTRIAXone 1 GM in SODIUM CHLORIDE 0.9% MINIBAG 100 ML IV STA (09:20)
[2018-09-17 10:52] LABS: ALBUMIN 3.2 g/dL (3.2-5.5); ALBUMIN/GLOBULIN RATIO 0.7 (1.0-2.2); BILIRUBIN,TOTAL 0.6 mg/dL (0.2-1.0); CALCIUM 9.1 mg/dL (8.5-10.3); CREATININE 1.4 mg/dL (0.6-1.2); TOTAL PROTEIN 7.7 g/dL (6.7-8.2)
[2018-09-17 13:37] VITALS: BP 109/77
== END 2018-09-17 14:02 | disposition home or self-care (01) ==
LOC: EDUNIT# → EDBD → ED 07:13
DX: J18.9 Pneumonia, unspecified organism (principal); J44.0 Chronic obstructive pulmonary disease with (acute) lower respiratory infection; F17.200 Nicotine dependence, unspecified, uncomplicated; E86.0 Dehydration; E11.42 Type 2 diabetes mellitus with diabetic polyneuropathy; E11.51 Type 2 diabetes mellitus with diabetic peripheral angiopathy without gangrene; Z79.4 Long term (current) use of insulin; I10 Essential (primary) hypertension; I44.0 Atrioventricular block, first degree; I25.10 Atherosclerotic heart disease of native coronary artery without angina pectoris; I25.2 Old myocardial infarction; Z95.5 Presence of coronary angioplasty implant and graft; I69.359 Hemiplegia and hemiparesis following cerebral infarction affecting unspecified side; Z79.02 Long term (current) use of antithrombotics/antiplatelets; F03.90 Unspecified dementia, unspecified severity, without behavioral disturbance, psychotic disturbance, mood disturbance, and anxiety
CPT/HCPCS: 36415; 70450; 70496; 71045; 80053; 81003; 83690; 84484; 85025; 93005; 96361; 96365; 99283; 99284; Q9967; 81001; 87086

== ENCOUNTER 2018-09-17 14:08 | Outpatient (CLI) | payer MEDICARE, MEDICAID | END 2018-09-17 14:09 | disposition home or self-care (01) | LOC: EMS 14:08 | PROVIDERS: ATTEND Surgery | DX: J18.9 Pneumonia, unspecified organism (principal); I63.9 Cerebral infarction, unspecified; F03.90 Unspecified dementia, unspecified severity, without behavioral disturbance, psychotic disturbance, mood disturbance, and anxiety | CPT/HCPCS: A0425; A0428 ==

== ENCOUNTER 2018-09-18 22:29 | Outpatient (CLI) | payer MEDICARE | END 2018-09-18 22:30 | disposition critical access hospital (66) | LOC: EMS 22:29 | PROVIDERS: ATTEND Surgery | DX: R41.82 Altered mental status, unspecified (principal) ==

== ENCOUNTER 2018-09-18 22:42 | Inpatient (IN) | payer MEDICARE, MEDICAID ==
[2018-09-18] MEDS ORDERED: CEFEPIME 2 GM in SODIUM CHLORIDE 0.9% MINIBAG 100 ML IV STA (22:57)
--- NOTE | 2018-09-18 22:57 | ED Physician Documentation ---
PD HPI ALTERED MENTAL STATUS - Stated complaint Stated Complaint: AMS - Chief complaint Chief Complaint: Neuro - History obtained from History obtained from: EMS, Caregiver - History of Present Illness Timing - onset: How many days ago (few) Timing - duration: Days Timing - details: Gradual onset, Still present (worse this evening, with poor interaction and not rousable, according to family. Has had similar the past few days, attributed to pneumonia on xray. Given Abx and was dischaged home. Worse interaction today.) Quality / character: Less responsive. No: Agitated Associated symptoms: Dyspnea, General weakness. No: Fever, Focal weakness Contributing factors: Recent med change (had antibiotic zithromax added yesterday). No: Anticoagulated Basline status: Alert and oriented X 3, [place], [facility] facility Similar symptoms before: No diagnosis (presumed pneumonia recently, with altered mentation.) Recently seen: Emergency Dept (past couple of days) Review of Systems Unable to obtain: Unresponsive Cardiac: denies: Chest pain / pressure Respiratory: reports: Cough GI: denies: Vomiting, Diarrhea Neurologic: reports: Generalized weakness, Altered mental status PD PAST MEDICAL HISTORY - Past Medical History Cardiovascular: High cholesterol, SC, Coronary artery disease, Peripheral Vascular Disease, Hypertension, Murmur Respiratory: Shortness of breath, COPD, Pneumonia Neuro: Headaches, Dementia, Other, Peripheral neuropathy, CVA Endocrine/Autoimmune: Type 2 diabetes GI: Chronic constipation, GERD : Benign prostate hypertrophy, Frequency, Incontinence, Chronic bladder infection, Nocturia HEENT: Chronic hearing loss, Chronic vision loss, Chronic sinusitis Psych: Depression, Anxiety Musculoskeletal: Osteoarthritis, Hemiplegia Derm: None - Past Surgical History Past Surgical History: Yes General: Splenectomy Ortho: Amputation (R AKA) Cardiovascular: Coronary stent, Vascular surgery, Angioplasty, Cardiac catheterization Neuro: CLUB STEWARD shunt - Present Medications Home Medications: Ambulatory Orders Medication Instructions Recorded Confirmed RX: Trazodone HCl 50 mg PO QPM PRN 07/08/13 08/24/18 RX: Clopidogrel Bisulfate [Plavix] 75 mg PO DAILY 09/15/14 08/24/18 RX: Albuterol [Ventolin Hfa] 2 puffs INH Q4H PRN #1 inhaler 01/30/15 08/24/18 RX: Bupropion HCl [Bupropion HCl 300 mg PO 0800 #30 04/24/17 08/24/18 Sr] RX: Docusate Sodium 250Mg Capsule 250 mg PO BID #30 04/24/17 08/24/18 [Colace 250Mg Capsule] RX: Ipratropium/Albuterol Sulfate 3 ml IH Q4H PRN #1 04/24/17 08/24/18 [Iprat-Albut 0.5-3(2.5) mg/3 ml] RX: Lisinopril 5 mg PO DAILY #30 04/24/17 08/24/18 RX: Multivitamin W/Minerals 1 tab PO DAILYWM #30 tablet 04/24/17 08/24/18 [Theragran M] RX: Senna [Senokot] 17.2 mg PO QPM #30 04/24/17 08/24/18 RX: Simvastatin [Zocor] 10 mg PO QPM #30 04/24/17 08/24/18 RX: Acetaminophen 650 mg PO Q6H PRN 08/02/17 08/24/18 RX: Insulin Detemir [Levemir 20 unit SQ BID 08/02/17 08/24/18 Flextouch] RX: Insulin Regular Human [NovoLIN 0 - 5 unit SUBQ TIDWM 08/02/17 08/24/18 R] RX: Lactulose 15 ml PO BID PRN 08/02/17 08/24/18 RX: Polyethylene Glycol 3350 17 g PO DAILY 08/02/17 08/24/18 RX: traMADol [Ultram] 50 mg PO 0800,1200,1700,2100 08/02/17 08/24/18 RX: DULoxetine [Cymbalta] 20 mg PO 1400 12/19/17 08/24/18 RX: Gabapentin [Neurontin] 600 mg PO 0800,1200,1700 12/19/17 08/24/18 RX: LORazepam [Lorazepam] 1 mg PO TID PRN 12/19/17 08/24/18 RX: Loperamide HCl [Loperamide] 2 mg PO DAILY PRN MDD 8MG 12/19/17 08/24/18 RX: Magnesium Hydroxide [Milk of 2,400 mg PO TID PRN 12/19/17 08/24/18 Magnesia] RX: Trazodone HCl 100 mg PO QPM 12/19/17 08/24/18 RX: Doxycycline Hyclate 100 mg PO BID #20 capsule 08/24/18 RX: Azithromycin [Zithromax] 250 mg PO DAILY #6 tablet 09/17/18 - Allergies Allergies/Adverse Reactions: Allergies Allergy/AdvReac Type Severity Reaction Status Date / Time Penicillins Allergy Intermediate Rash Verified 09/17/18 07:59 morphine AdvReac Unknown I go Verified 09/17/18 07:59 [email or web address] - Social History Does the pt smoke?: Yes Smoking Status: Current every day smoker Does the pt drink ETOH?: Yes Does the pt have substance abuse?: No - Immunizations Immunizations are current?: Yes - POLST Patient has POLST: Yes POLST Status: DNR PD ED PE NORMAL - Vitals Vital signs reviewed: Yes (brief hypotension, improved with IV fluids. ) - General General: No: Alert and oriented X 3 (opens eyes to tactile stimulus. ) - HEENT HEENT: Pharynx benign, Other (he does have a gag reflex. ). No: Moist mucous membranes - Neck Neck: Supple, no meningeal sign - Cardiac Cardiac: RRR, No murmur - Respiratory Respiratory: Clear bilaterally - Abdomen Abdomen: Soft, Non tender, Non distended. No: Normal bowel sounds (diminished) - Male Male : Deferred - Rectal Rectal: Deferred - Derm Derm: Warm and dry. No: Normal color (some pallor) - Extremities Extremities: No tenderness to palpate, Normal ROM s pain, Other (prior right AKA amputation silvio.) - Neuro Neuro: No motor deficit, Normal speech. No: Alert and oriented X 3 Results - Vitals Vitals: Vital Signs - 24 hr 09/18/18 09/18/18 09/18/18 22:46 22:53 22:57 Temperature 36.8 C Heart Rate 88 82 82 Respiratory 19 14 14 Rate Blood Pressure 117/54 L 117/54 L 112/63 O2 Saturation 96 95 94 09/18/18 09/18/18 09/18/18 23:27 23:30 23:39 Temperature Heart Rate 82 83 83 Respiratory 14 16 16 Rate Blood Pressure 92/56 L 89/58 L 89/58 L O2 Saturation 95 94 94 09/19/18 09/19/18 00:00 00:04 Temperature Heart Rate 81 81 Respiratory 16 15 Rate Blood Pressure 107/63 107/63 O2 Saturation 93 97 Oxygen O2 Source Nasal cannula Oxygen Flow Rate 2 - Labs Labs: Laboratory Tests 09/18/18 09/18/18 09/18/18 22:50 22:50 22:50 WBC 12.1 H RBC 4.22 L Hgb 12.1 L Hct 37.6 L MCV 89.1 MCH 28.7 MCHC 32.2 RDW 13.9 Plt Count 211 MPV 10.3 Neut # (Auto) 9.9 H Lymph # (Auto) 1.3 L [place] # (Auto) 0.6 Eos # (Auto) 0.2 Baso # (Auto) 0.1 Absolute Nucleated RBC 0.00 Nucleated RBC % 0.0 D-Dimer Bld Gas Analysis Time Sample Site ABG pH ABG pCO2 ABG pO2 ABG HCO3 ABG Total CO2 ABG O2 Saturation ABG Base Excess Linus Test Sodium 140 Potassium 4.7 Chloride 104 Carbon Dioxide 29 Anion Gap 7.0 BUN 23 H Creatinine 1.2 Estimated GFR (MDRD) 59 L Glucose 125 H Glycated Hemoglobin Estim Average Glucose Lactic Acid 0.9 Calcium 8.9 Magnesium Total Bilirubin 0.4 AST 23 ALT 22 Alkaline Phosphatase 129 H Troponin I Total Protein 7.0 Albumin 2.9 L Globulin 4.1 Albumin/Globulin Ratio 0.7 L Lipase 40 TSH Urine Color Urine Clarity Urine pH Ur Specific [place] Urine Protein Urine Glucose (UA) Urine Ketones Urine Occult Blood Urine Nitrite Urine Bilirubin Urine Urobilinogen Ur Leukocyte Esterase Urine RBC Urine WBC Ur Squamous Epith Cells Urine Bacteria Urine Culture Comments Nasal Screen MRSA (PCR) Urine Opiates Screen Ur Oxycodone Screen Urine Methadone Screen Ur Propoxyphene Screen Ur Barbiturates Screen Ur Tricyclics Screen Ur Phencyclidine Scrn Ur Amphetamine Screen U Methamphetamines Scrn U Benzodiazepines Scrn Urine Cocaine Screen U Cannabinoids Screen Ethyl Alcohol 09/18/18 09/18/18 09/18/18 22:50 22:50 22:57 WBC RBC Hgb Hct MCV MCH MCHC RDW Plt Count MPV Neut # (Auto) Lymph # (Auto) [place] # (Auto) Eos # (Auto) Baso # (Auto) Absolute Nucleated RBC Nucleated RBC % D-Dimer Bld Gas Analysis Time 2305 Sample Site LEFT RADIAL ABG pH 7.37 ABG pCO2 49 H ABG pO2 60 L ABG HCO3 27.2 H ABG Total CO2 28.7 ABG O2 Saturation 90 L ABG Base Excess 1.3 Linus Test POSITIVE Sodium Potassium Chloride Carbon Dioxide Anion Gap BUN Creatinine Estimated GFR (MDRD) Glucose Glycated Hemoglobin Estim Average Glucose Lactic Acid Calcium Magnesium 2.0 Total Bilirubin AST ALT Alkaline Phosphatase Troponin I Total Protein Albumin Globulin Albumin/Globulin Ratio Lipase TSH 0.76 Urine Color Urine Clarity Urine pH Ur Specific [place] Urine Protein Urine Glucose (UA) Urine Ketones Urine Occult Blood Urine Nitrite Urine Bilirubin Urine Urobilinogen Ur Leukocyte Esterase Urine RBC Urine WBC Ur Squamous Epith Cells Urine Bacteria Urine Culture Comments Nasal Screen MRSA (PCR) Urine Opiates Screen Ur Oxycodone Screen Urine Methadone Screen Ur Propoxyphene Screen Ur Barbiturates Screen Ur Tricyclics Screen Ur Phencyclidine Scrn Ur Amphetamine Screen U Methamphetamines Scrn U Benzodiazepines Scrn Urine Cocaine Screen U Cannabinoids Screen Ethyl Alcohol 09/18/18 09/19/18 09/19/18 23:00 00:01 00:01 WBC RBC Hgb Hct MCV MCH MCHC RDW Plt Count MPV Neut # (Auto) Lymph # (Auto) [place] # (Auto) Eos # (Auto) Baso # (Auto) Absolute Nucleated RBC Nucleated RBC % D-Dimer 492.5 H Bld Gas Analysis Time Sample Site ABG pH ABG pCO2 ABG pO2 ABG HCO3 ABG Total CO2 ABG O2 Saturation ABG Base Excess Linus Test Sodium Potassium Chloride Carbon Dioxide Anion Gap BUN Creatinine Estimated GFR (MDRD) Glucose Glycated Hemoglobin Estim Average Glucose Lactic Acid Calcium Magnesium Total Bilirubin AST ALT Alkaline Phosphatase Troponin I < 0.04 Total Protein Albumin Globulin Albumin/Globulin Ratio Lipase TSH Urine Color YELLOW Urine Clarity CLEAR Urine pH 5.5 Ur Specific [place] 1.025 Urine Protein NEGATIVE Urine Glucose (UA) NEGATIVE Urine Ketones TRACE Urine Occult Blood SMALL H Urine Nitrite NEGATIVE Urine Bilirubin NEGATIVE Urine Urobilinogen 0.2 (NORMAL) Ur Leukocyte Esterase NEGATIVE Urine RBC 6-10 H Urine WBC 0-3 Ur Squamous Epith Cells RARE Squamous Urine Bacteria None Seen Urine Culture Comments NOT INDICATED Nasal Screen MRSA (PCR) Urine Opiates Screen Ur Oxycodone Screen Urine Methadone Screen Ur Propoxyphene Screen Ur Barbiturates Screen Ur Tricyclics Screen Ur Phencyclidine Scrn Ur Amphetamine Screen U Methamphetamines Scrn U Benzodiazepines Scrn Urine Cocaine Screen U Cannabinoids Screen Ethyl Alcohol 09/19/18 09/19/18 09/19/18 00:01 00:01 00:01 WBC RBC Hgb Hct MCV MCH MCHC RDW Plt Count MPV Neut # (Auto) Lymph # (Auto) [place] # (Auto) Eos # (Auto) Baso # (Auto) Absolute Nucleated RBC Nucleated RBC % D-Dimer Bld Gas Analysis Time Sample Site ABG pH ABG pCO2 ABG pO2 ABG HCO3 ABG Total CO2 ABG O2 Saturation ABG Base Excess Linus Test Sodium Potassium Chloride Carbon Dioxide Anion Gap BUN Creatinine Estimated GFR (MDRD) Glucose Glycated Hemoglobin 7.4 H Estim Average Glucose 166 H Lactic Acid Calcium Magnesium Total Bilirubin AST ALT Alkaline Phosphatase Troponin I Total Protein Albumin Globulin Albumin/Globulin Ratio Lipase TSH Urine Color Urine Clarity Urine pH Ur Specific [place] Urine Protein Urine Glucose (UA) Urine Ketones Urine Occult Blood Urine Nitrite Urine Bilirubin Urine Urobilinogen Ur Leukocyte Esterase Urine RBC Urine WBC Ur Squamous Epith Cells Urine Bacteria Urine Culture Comments Nasal Screen MRSA (PCR) Urine Opiates Screen NEGATIVE Ur Oxycodone Screen NEGATIVE Urine Methadone Screen NEGATIVE Ur Propoxyphene Screen NEGATIVE Ur Barbiturates Screen NEGATIVE Ur Tricyclics Screen NEGATIVE Ur Phencyclidine Scrn NEGATIVE Ur Amphetamine Screen NEGATIVE U Methamphetamines Scrn NEGATIVE U Benzodiazepines Scrn POSITIVE H Urine Cocaine Screen NEGATIVE U Cannabinoids Screen NEGATIVE Ethyl Alcohol < 5.0 09/19/18 00:05 WBC RBC Hgb Hct MCV MCH MCHC RDW Plt Count MPV Neut # (Auto) Lymph # (Auto) [place] # (Auto) Eos # (Auto) Baso # (Auto) Absolute Nucleated RBC Nucleated RBC % D-Dimer Bld Gas Analysis Time Sample Site ABG pH ABG pCO2 ABG pO2 ABG HCO3 ABG Total CO2 ABG O2 Saturation ABG Base Excess Linus Test Sodium Potassium Chloride Carbon Dioxide Anion Gap BUN Creatinine Estimated GFR (MDRD) Glucose Glycated Hemoglobin Estim Average Glucose Lactic Acid Calcium Magnesium Total Bilirubin AST ALT Alkaline Phosphatase Troponin I Total Protein Albumin Globulin Albumin/Globulin Ratio Lipase TSH Urine Color Urine Clarity Urine pH Ur Specific [place] Urine Protein Urine Glucose (UA) Urine Ketones Urine Occult Blood Urine Nitrite Urine Bilirubin Urine Urobilinogen Ur Leukocyte Esterase Urine RBC Urine WBC Ur Squamous Epith Cells Urine Bacteria Urine Culture Comments Nasal Screen MRSA (PCR) NEGATIVE Urine Opiates Screen Ur Oxycodone Screen Urine Methadone Screen Ur Propoxyphene Screen Ur Barbiturates Screen Ur Tricyclics Screen Ur Phencyclidine Scrn Ur Amphetamine Screen U Methamphetamines Scrn U Benzodiazepines Scrn Urine Cocaine Screen U Cannabinoids Screen Ethyl Alcohol - Rads (name of study) head CT Radiology: Prelim report reviewed (no acute problems seen), EMP read contemporaneously, See rad report chest xray Radiology: Prelim report reviewed, See rad report PD MEDICAL DECISION MAKING - ED course Complexity details: reviewed results, re-evaluated patient (Still with diminished interaction. He is able to respond to tactile stimulus. He does not have spontaneous eye opening. He still seems altered. Will presume there is some element of response to infection. Consider medication interactions. He has not been in any new medicines however. His blood pressure was transiently low and improved with fluids. He does not appear septic per se. His chest x- ray does look pneumonic. I talked with the hospitalist who will see the patient and assume care.), considered differential, d/w family Departure - Departure Disposition: 66 [facility] DC/Xfer Clinical Impression: Altered mental status Qualifiers: Altered mental status type: somnolence Qualified Code(s): R40.0 - Somnolence Hypotension Qualifiers: Hypotension type: unspecified hypotension type Qualified Code(s): I95.9 - Hypotension, unspecified Pneumonia Qualifiers: Pneumonia type: due to unspecified organism Laterality: left Lung location: lower lobe of lung Qualified Code(s): J18.1 - Lobar pneumonia, unspecified organism Condition: Serious Record reviewed to determine appropriate education?: Yes Discharge Date/Time: 09/19/18 00:40
[2018-09-18] MEDS ORDERED: VANCOMYCIN INJ 1 GM in SODIUM CHLORIDE 0.9% 500 ML IV STA (23:00)
[2018-09-18] MEDS ORDERED: SODIUM CHLORIDE 0.9% 1,000 ML IV ONE (23:00)
[2018-09-18 23:12] LABS: BASOPHILS # (AUTO) 0.1 10^3/uL (0.0-0.1); BASOPHILS % (AUTO) 0.5 %; EOSINOPHILS # (AUTO) 0.2 10^3/uL (0.0-0.7); EOSINOPHILS % (AUTO) 1.3 %; HGB - HEMOGLOBIN 12.1 g/dL (14.0-18.0); LYMPHOCYTES # (AUTO) 1.3 10^3/uL (1.5-3.5); LYMPHOCYTES % (AUTO) 10.6 %; MEAN CORPUSCULAR HEMOGLOBIN 28.7 pg (27.0-31.0); MEAN CORPUSCULAR HGB CONC 32.2 g/dL (32.0-36.0); MEAN CORPUSCULAR VOLUME 89.1 fL (80.0-94.0); MEAN PLATELET VOLUME 10.3 fL (7.4-11.4); MONOCYTES # (AUTO) 0.6 10^3/uL (0.0-1.0); MONOCYTES % (AUTO) 5.2 %; NEUTROPHILS # (AUTO) 9.9 10^3/uL (1.5-6.6); NEUTROPHILS % (AUTO) 81.9 %; PLT - PLATELET COUNT 211 10^3/uL (130-450); RED BLOOD COUNT 4.22 10^6/uL (4.70-6.10); RED CELL DISTRIBUTION WIDTH 13.9 % (12.0-15.0); WHITE BLOOD COUNT 12.1 x10^3/uL (4.8-10.8)
[2018-09-18 23:24] LABS: ALBUMIN 2.9 g/dL (3.2-5.5); ALBUMIN/GLOBULIN RATIO 0.7 (1.0-2.2); BILIRUBIN,TOTAL 0.4 mg/dL (0.2-1.0); CALCIUM 8.9 mg/dL (8.5-10.3); CREATININE 1.2 mg/dL (0.6-1.2)
--- NOTE | 2018-09-18 23:25 | HISTORY & PHYSICAL EXAMINATION ---
Chief Complaint - Chief Complaint Chief Complaint: Patient was found unresponsive and presented with similar symptoms on 09/17 Respiratory Admission HPI - Admitted From Admitted from: ED (Patient was initially encephalopathic but did awake once transferred to floor.) - History Obtained From Records Reviewed: RN notes reviewed History obtained from: Patient Exam limitations: Clinical condition - History of Present Illness HPI Comment/Other: Mr. Douglas Bowles is a 77-year-old male who is well-known to the hospital service with an extensive and complicated past medical history of various cardiac, vascular and respiratory comorbidities to include COPD, peripheral vascular disease, right AKA, legally blind from diabetic complication with peripheral neuropathy and nephropathy and CKD of stage III, type 2 diabetes mellitus insulin-dependent, hypertension, hyperlipidemia, CAD with CT status post cardiac stents, multiple CVA with vascular dementia, BPH with urinary incontinence and urinary frequency, polypharmacy, who resides over in [facility] adult living facility who was essentially brought in for altered mental status and unresponsiveness on 09/17 with a diagnosis of pneumonia and given azithromycin and sent back to [facility]. On this visitation patient presents with similar symptomatology of unresponsiveness with a finger stick glucose that was normal and essentially worked up for etiologies causing patient's encephalopathy which were likely attributable to pneumonia. Vital signs were somewhat unstable wit hypotension, NT/NT/Afebrile. On exam patient was Encephalopathic and was responsive to painful stimuli, did not appear to have neurological deficits on DTRs and Babinski and did not present with nuchal rigidity other than altered mental status. Lab and neuroimaging showed, CT head unofficial read did not show hemorrhagic CVA other than old infarct with encephalomalacia in keeping with multiple CVAs in the past. Chest x-ray showed left lower lung base consolidation in keeping with pne umonia.. Head catheter was placed on admission and did not appear to have pyuria on UA. Lactic acid was only 0.9, CBC showed WBC elevated 12.1, no electrolyte disturbance with baseline creatinine of chronic kidney disease stage III, 94% O2 saturation on 2 L nasal cannula with improvement to blood pressure 103/55 from previous 89/58, nontachypneic non-hypoxemic and afebrile. Patient was given 1 dose of IV cefepime and vancomycin in the ED and received 1 L normal saline bolus in the ED. After patient was admitted and transferred to floor patient was alert and oriented x3. Was able to tell me that multiple medications were dispensed and some of which he states that are given without knowing their purpose. Seems to have a poor understanding to his multiple medical conditions. PMH/PSH - Past Medical History Cardiovascular: positive: High cholesterol, CT, Coronary artery disease, Peripheral Vascular Disease, Hypertension, Murmur Respiratory: positive: Shortness of breath, COPD, Pneumonia Neuro: positive: Headaches, Dementia, Other, Peripheral neuropathy, CVA Endocrine/Autoimmune: positive: Type 2 diabetes GI: positive: Chronic constipation, GERD : positive: Benign prostate hypertrophy, Frequency, Incontinence, Chronic bladder infection, Nocturia HEENT: positive: Chronic hearing loss, Chronic vision loss, Chronic sinusitis Psych: positive: Depression, Anxiety Musculoskeletal: positive: Osteoarthritis, Hemiplegia Derm: positive: None MRSA Hx?: Yes - Past Surgical History General: positive: Splenectomy Ortho: positive: Amputation (R AKA) Cardiovascular: positive: Coronary stent, Vascular surgery, Angioplasty, Cardiac catheterization Neuro: positive: BRUSHER MACHINE shunt Social & Family Hx - Social History Does the pt smoke?: Yes Smoking Status: Current every day smoker Does the pt drink ETOH?: Yes Does the pt have substance abuse?: No - POLST Patient has POLST: Yes POLST Status: DNR Meds/Allgy - Home Medications Home Medications: Ambulatory Orders Medication Instructions Recorded Confirmed Trazodone HCl 50 mg PO QPM PRN 07/08/13 08/24/18 Clopidogrel Bisulfate [Plavix] 75 mg PO DAILY 09/15/14 08/24/18 Albuterol [Ventolin Hfa] 2 puffs INH Q4H PRN #1 inhaler 01/30/15 08/24/18 Bupropion HCl [Bupropion HCl Sr] 300 mg PO 0800 #30 04/24/17 08/24/18 Docusate Sodium 250Mg Capsule 250 mg PO BID #30 04/24/17 08/24/18 [Colace 250Mg Capsule] Ipratropium/Albuterol Sulfate 3 ml IH Q4H PRN #1 04/24/17 08/24/18 [Iprat-Albut 0.5-3(2.5) mg/3 ml] Lisinopril 5 mg PO DAILY #30 04/24/17 08/24/18 Multivitamin W/Minerals [Theragran 1 tab PO DAILYWM #30 tablet 04/24/17 08/24/18 M] Senna [Senokot] 17.2 mg PO QPM #30 04/24/17 08/24/18 Simvastatin [Zocor] 10 mg PO QPM #30 04/24/17 08/24/18 Acetaminophen 650 mg PO Q6H PRN 08/02/17 08/24/18 Insulin Detemir [Levemir Flextouch] 20 unit SQ BID 08/02/17 08/24/18 Insulin Regular Human [NovoLIN R] 0 - 5 unit SUBQ TIDWM 08/02/17 08/24/18 Lactulose 15 ml PO BID PRN 08/02/17 08/24/18 Polyethylene Glycol 3350 17 g PO DAILY 08/02/17 08/24/18 traMADol [Ultram] 50 mg PO 0800,1200,1700,2100 08/02/17 08/24/18 DULoxetine [Cymbalta] 20 mg PO 1400 12/19/17 08/24/18 Gabapentin [Neurontin] 600 mg PO 0800,1200,1700 12/19/17 08/24/18 LORazepam [Lorazepam] 1 mg PO TID PRN 12/19/17 08/24/18 Loperamide HCl [Loperamide] 2 mg PO DAILY PRN MDD 8MG 12/19/17 08/24/18 Magnesium Hydroxide [Milk of 2,400 mg PO TID PRN 12/19/17 08/24/18 Magnesia] Trazodone HCl 100 mg PO QPM 12/19/17 08/24/18 Doxycycline Hyclate 100 mg PO BID #20 capsule 08/24/18 Azithromycin [Zithromax] 250 mg PO DAILY #6 tablet 09/17/18 - Allergies Allergies/Adverse Reactions: Allergies Allergy/AdvReac Type Severity Reaction Status Date / Time Penicillins Allergy Intermediate Rash Verified 09/17/18 07:59 morphine AdvReac Unknown I go Verified 09/17/18 07:59 [email or web address] Review of Systems - All Other Systems All Other Systems: reports: Reviewed and negative Prior Level of Functionality: Unknown prior functional status. Home ADLs unknown Exam - Vital Signs Reviewed Vital Signs: Yes Vital Signs: Vital Signs x48h Temp Pulse Resp BP Pulse Ox 09/18/18 22:53 82 16 117/54 L 98 09/18/18 22:46 36.8 C 88 19 117/54 L 96 - Physical Exam General Appearance: positive: No acute distress, Lethargic, Other (Patient is encephalopathic) Eyes Bilateral: positive: PERRL (Sluggish pupils yet reactive), Conjunctivae nml ENT: positive: Pharynx nml, No signs of dehydration. negative: Oral lesions Neck: positive: Thyroid nml, No JVD, Trachea midline, Thyromegaly Respiratory: positive: Chest non-tender, No respiratory distress, Rhonchi. negative: Wheezes, Rales Cardiovascular: positive: Regular rate & rhythm, No murmur, No gallop. negative: JVD present Peripheral Pulses: positive: 1+ (To the left dorsalis pedis) Abdomen: positive: Non-tender, No organomegaly, Nml bowel sounds, No distention Extremities: positive: Nml appearance, No pedal edema, Other (Left AKA.) Neurologic/Psychiatric: positive: Depressed mood/affect, Other (Unable to assess neurologic/psychiatric exam due to encephalopathy). negative: Facial droop, Slurred/abnml speech Reflexes: Knee (R): 2+, Knee (L): 2+ Babinski Reflex: Right: Absent, Left: Absent Results - Lab Results Lab results reviewed: Yes Fish Bones: 09/19/18 06:00 09/18/18 22:50 - Diagnostic Imaging Results Diagnostic Imaging Results: positive: Final report reviewed - EKG Results EKG Interpreted Independently: Yes EKG Comparison: positive: Old EKG unavailable Sepsis Event Note (H) - Evaluation Possible source of Sepsis: positive: Pulmonary - Sepsis Criteria Sepsis Criteria: WBC count greater than 12,000 or less than 4000, [employer]: altered consciousness (unrelated to primary neuro pathology), SBP less than 90 mmHg Impression/Plan - Problem List Problem List: 1. Acute encephalopathy sec to infection/PNA with polypharmacy Patient was found unresponsive for the second time in 2 days. Unclear if this was related to patient's polypharmacy superimposed on left sided pneumonia. Patient is non-hypoxemic and his ABGs are essentially normal. Lactic acid was 0.9. In addition patient CT head does not show intracranial bleeding and shows old infarcts. Patient is on Plavix for history of coronary disease with CT./Stents. Would query on patient's polypharmacy with bupropion, Cymbalta, gabapentin teen, Ativan, tramadol, trazodone and would resume only those that are needed. Urine drug screen to follow. Does not appear to have a UTI on UA. Multifactorial cause of patient's encephalopathy at this point. We will continue with IV fluids, supportive care, oxygenation. 2. Healthcare associated pneumonia -Patient had been in adult living facility at [facility] [place] and was given a azithromycin on his last visitation. Previous to that patient on 08/24/2018 was also seen for bronchitis and given doxycycline. Likely has healthcare associated pneumonia as he has been on prior antibiotics and in an adult living facility where he is checked on by healthcare providers. We will continue with IV vancomycin renal adjusted by pharmacy along with cefepime as patient is allergic to penicillin. Obtain sputum Gram stain and culture. Lactic acid was only 0.9. Do not believe that patient presented with sepsis on admission and his low blood pressure attributable to polypharmacy likely with slightly elevated white count. Patient had 2 sets of blood cultures to follow. Continue with O2 supplementation as well as duo nebs as needed and pulmonary toileting. 3. Drug-induced hypotension -Unlikely that this is sepsis as lactic acid 0.9, blood cultures have been drawn, UA does not show UTI although has a history of UTIs in the past. Patient is on polypharmacy which would better explain patient's drug-induced hypotension. We will keep his home meds on hold for now. Will do orthostats and midodrine PRN if needed. Continue to follow clinically. Will place on IV fluid boluses as needed and if patient is refractory will need pressor support and possibly central line 4. Chronic kidney disease stage III -Patient's baseline runs between 1.3 and 1.6 and currently does not appear to be dehydrated. Avoid nephrotoxic agents, although we will place on aspirin due to patient's history of PVD/coronary artery disease. IV fluids to perfuse kidneys correct underlying electrolyte disturbances. 5. Vascular dementia -Patient CT of the head shows old infarcts and with encephalomalacia likely attributable to small vessel ischemia. Does not appear to have hemorrhagic bleeding. May need to reconcile home medications which patient is more alert and awake and likely need social work job titles to evaluate patient's mental state for handling or taking care of his home medications. 6. Type 2 diabetes mellitus with complications of nephropathy, retinopathy, polyneuropathy -Patient to be placed on bolus coverage with insulin sliding scale eating protocol. Hemoglobin A1c to follow. Glycemic control and optimization of his nutrition. 7. Hypertension -Patient is currently hypotensive, patient was previously on lisinopril and will reconcile home medications and placed these on hold for now. 8. Hyperlipidemia -Will continue on statin. 9. History of UTIs -Current UA does not appear to be infected and would follow clinically. Due to patient's diabetes he is at increased risk for infections such as UTIs. 10. History of CVAs -As evidence on CT of the head with old infarcts. Patient currently on Plavix however unable to swallow and would need to convert to aspirin per rectum for now. No evidence of hemorrhagic CVA on CT head. 11. COPD non-oxygen dependent -Currently on 2 L nasal cannula and with no evidence of wheezing on exam. Does have inspiratory rhonchi and is snoring. Patient does have underlying pneumonia on presentation. Continue with duo nebs, incentive spirometry while awake, pulmonary toileting, induce sputum for Gram stain culture, will add Pulmicort twice daily and Perforomist twice daily. Singulair once patient is more alert and oriented. 12. Peripheral vascular disease -Will resume statin Plavix as patient is less encephalopathic and once passing swallow bedside eval may resume. 13. History of CAD/CT status post cardiac stents -Due to patient's inability to swallow and encephalopathic state initially held Plavix statin and BP meds but now is more alert and awake and will resume his home regimen 14. Urinary Incontinence with hx UTI's, BPH -Patient received a Head catheterization and bag to gravity on admission. Will monitor for any changes or occult infections. 15. History of MRSA nasal colonization -Will place on contact precautions for now. 16. SACRAl/buttocks Pressure Ulcer -POA. Obtain wound care as needed, barrier protection. Will initiate DVT prophylaxis with heparin or Lovenox. H2-jose luis for GI prophy laxis CODE STATUS: DNR with Limited interventions as per POL on 02/03. Patient would benefit from care palliative care services. Total critical care time 35 minutes Core Measures - Anticipated LOS I expect patient to be DC'd or transferred within 96 hours.: Yes - Issues Hospital Issues and Management Plan: Patient to receive IV antibiotics, aggressive medical management for various ca rdiac and respiratory comorbidities, insulin and glycemic control, O2 supplementation, further work-up as deemed necessary for various comorbidities. Treatment for pneumonia with supportive care. Palliative care management for various comorbidities and DNR status per - DVT/VTE - Prophylaxis VTE/DVT Device ordered at admit?: No Not Ordered - Medical Reason: Not tolerated VTE/DVT Prophylaxis med ordered at admit?: Yes - Stroke - Rehab Assessment Rehab services assessment to be ordered?: No Not Ordered - Medical Reason: Not indicated - AMI - Statin at Admit Aspirin Prescribed on Admit: Yes
[2018-09-18 23:26] LABS: BILIRUBIN,URINE NEGATIVE (NEGATIVE); GLUCOSE, URINE (UA) NEGATIVE (NEGATIVE); KETONES,URINE (UA) TRACE mg/dL (NEGATIVE); LEUKOCYTE ESTERASE, URINE NEGATIVE (NEGATIVE); NITRITE,URINE NEGATIVE (NEGATIVE); OCCULT BLOOD,URINE SMALL (NEGATIVE); PH,URINE 5.5 PH (5.0-7.5); PROTEIN,URINE NEGATIVE (NEGATIVE); UROBILINOGEN,URINE 0.2 (NORMAL) E.U./dL (NORMAL)
[2018-09-18 23:49] LABS: BACTERIA,URINE None Seen /HPF (None Seen); CLARITY,URINE CLEAR (CLEAR); SQUAMOUS EPITHELIAL CELL,UR RARE Squamous (<= Few)
--- NOTE | 2018-09-18 23:49 | XRAY Report ---
Reason: recent pneumonia Procedure Date: 09/18/2018 Accession Number: [id number] / [id number] Procedure: XR - Chest 1 View X-Ray CPT Code: 00773 FULL RESULT: EXAM: CHEST RADIOGRAPHY EXAM DATE: 09/18/2018 11:17 PM. CLINICAL HISTORY: Recent pneumonia. COMPARISON: CHEST 1 VIEW 09/17/2018 8:29 AM. TECHNIQUE: 1 view. FINDINGS: Lungs/Pleura: New mild diffuse bilateral airspace disease. No pleural effusion or pneumothorax. Mediastinum: Within exam limitations, the cardiomediastinal contour is normal. IMPRESSION: New mild diffuse bilateral airspace disease, could represent mild pulmonary edema versus atelectasis. Pneumonia not excluded. RADIA
--- NOTE | 2018-09-18 23:58 | CT Report ---
Reason: poorly responsive at [facility] Procedure Date: 09/18/2018 Accession Number: [id number] / [id number] Procedure: CT - HEAD WO CPT Code: FULL RESULT: EXAM: CT HEAD EXAM DATE: 09/18/2018 11:33 PM. CLINICAL HISTORY: Poorly responsive at [facility]. COMPARISON: HEAD W/O 12/19/2017 11:02 AM. TECHNIQUE: Multiaxial CT images were obtained from the foramen magnum to the vertex. Reformats: Sagittal and coronal. IV contrast: None. In accordance with CT protocol optimization, one or more of the following dose reduction techniques were utilized for this exam: automated exposure control, adjustment of mA and/or KV based on patient size, or use of iterative reconstructive technique. FINDINGS: Parenchyma: No intraparenchymal hemorrhage. No evidence of mass, midline shift, or CT findings of infarction. Montalvo-white differentiation is distinct. Periventricular hypodensity appears unchanged, likely secondary to chronic microvascular ischemia. Extraaxial Spaces: Normal for age. No subdural or epidural collections identified. Ventricles: Stable again demonstrating mild diffuse atrophy. Sinuses and Orbits: Imaged paranasal sinuses, orbits, and mastoids show no significant abnormality. Changes of cataract surgery are noted bilaterally. There is mild mucosal thickening in the maxillary sinuses and ethmoid air cells. Bones: Changes prior right craniotomy are again noted. The skull base and calvarium are intact.. Other: Atherosclerotic calcification is visualized in the cavernous ICAs. IMPRESSION: 1. Stable age-related and mild chronic microvascular ischemic change. 2. No definite CT evidence of acute intracranial pathology. No significant interval change. RADIA
[2018-09-19] MEDS ORDERED: ONDANSETRON 4 MG/2 ML VIAL IVP PRN (00:06)
[2018-09-19] MEDS ORDERED: IPRATROPIUM 0.2 MG/ML NEB INH PRN (00:06)
[2018-09-19] MEDS ORDERED: PROCHLORPERAZINE 10 MG/2 ML VIAL IVP PRN (00:06)
[2018-09-19] MEDS ORDERED: SODIUM CHLORIDE 0.9% 1,000 ML IV ONE (00:09)
[2018-09-19] MEDS ORDERED: INSULIN REGULAR HUMAN 100 UNIT/1 ML 10 ML MDV SUBQ SCH (00:17)
[2018-09-19] MEDS ORDERED: SODIUM CHLORIDE 0.9% 500 ML IV PRN (00:19)
[2018-09-19] MEDS ORDERED: ACETAMINOPHEN 1,000 MG/100 ML 100 ML IV PRN (00:40)
[2018-09-19] MEDS ORDERED: ASPIRIN 300 MG SUPP PR STA (00:42)
[2018-09-19] MEDS ORDERED: LACTATED RINGERS 1,000 ML IV SCH (01:00)
[2018-09-19] MEDS ORDERED: [UNRECOGNIZED DRUG - OTHER] IV SCH (01:00)
[2018-09-19] MEDS ORDERED: VANCOMYCIN PER PHARMACY 100 GM in SODIUM CHLORIDE 0.9% 250 ML IV SCH (01:00)
[2018-09-19 01:02] LABS: HB2 TOTAL 12.1 g/dL; HEMOGLOBIN A1C 0.7 g/dL; HEMOGLOBIN A1C % 7.4 % (4.6-6.2)
[2018-09-19] MEDS ORDERED: CALAMINE/ZINC OXIDE 118 ML BOTTLE TOP PRN (01:07)
[2018-09-19] MEDS: FAMOTIDINE 20 MG/2 ML VIAL IVP SCH ×3 (01:43→21:26)
[2018-09-19] MEDS: MIN OIL/DIMETHICON/COCONUT OIL 92 GM TUBE TOP PRN (01:43)
[2018-09-19] MEDS: SODIUM CHLORIDE FLUSH 0.9% 10 ML SYRINGE IVP SCH ×3 (01:44→17:02)
[2018-09-19] MEDS ORDERED: MIDODRINE 2.5 MG TABLET PO PRN (01:46)
[2018-09-19 02:02] LABS: MUDS CUTOFF CONCENTRATIONS CUTOFF CONC BELOW:
[2018-09-19 02:03] LABS: ABG BASE EXCESS 1.3 mmol/L (-2.0-3.0); ABG HCO3 27.2 mmol/L (22.0-26.0); ABG OXYGEN SATURATION 90 % (94-98); ABG PCO2 49 mmHg (34-45); ABG PH 7.37 (7.35-7.45); ABG PO2 60 mmHg (80-100); ABG TCO2 28.7 MMOL/L (21.0-29.0); ALLEN TEST POSITIVE
[2018-09-19 02:22] LABS: AMPHETAMINE SCREEN,URINE NEGATIVE (NEGATIVE); BENZODIAZEPINES SCREEN, URINE POSITIVE (NEGATIVE); COCAINE SCREEN URINE NEGATIVE (NEGATIVE); METHADONE SCREEN, URINE NEGATIVE (NEGATIVE); METHAMPHETAMINES SCREEN, URINE NEGATIVE (NEGATIVE); OPIATE SCREEN, URINE NEGATIVE (NEGATIVE); OXYCODONE SCREEN, URINE NEGATIVE (NEGATIVE); PROPOXYPHENE SCREEN, URINE NEGATIVE (NEGATIVE); TRICYCLIC ANTIDEPRESSANT,URINE NEGATIVE (NEGATIVE)
[2018-09-19 06:11] LABS: BASOPHILS # (AUTO) 0.1 10^3/uL (0.0-0.1); BASOPHILS % (AUTO) 0.5 %; EOSINOPHILS # (AUTO) 0.2 10^3/uL (0.0-0.7); EOSINOPHILS % (AUTO) 1.6 %; HGB - HEMOGLOBIN 12.4 g/dL (14.0-18.0); LYMPHOCYTES # (AUTO) 1.3 10^3/uL (1.5-3.5); LYMPHOCYTES % (AUTO) 11.9 %; MEAN CORPUSCULAR HEMOGLOBIN 28.6 pg (27.0-31.0); MEAN CORPUSCULAR HGB CONC 31.3 g/dL (32.0-36.0); MEAN CORPUSCULAR VOLUME 91.5 fL (80.0-94.0); MEAN PLATELET VOLUME 9.8 fL (7.4-11.4); MONOCYTES # (AUTO) 0.6 10^3/uL (0.0-1.0); MONOCYTES % (AUTO) 5.1 %; NEUTROPHILS # (AUTO) 8.8 10^3/uL (1.5-6.6); NEUTROPHILS % (AUTO) 80.3 %; PLT - PLATELET COUNT 184 10^3/uL (130-450); RED BLOOD COUNT 4.33 10^6/uL (4.70-6.10); RED CELL DISTRIBUTION WIDTH 13.9 % (12.0-15.0); WHITE BLOOD COUNT 10.9 x10^3/uL (4.8-10.8)
[2018-09-19 07:19] LABS: ABG BASE EXCESS 0.1 mmol/L (-2.0-3.0); ABG HCO3 26.9 mmol/L (22.0-26.0); ABG OXYGEN SATURATION 96 % (94-98); ABG PCO2 53 mmHg (34-45); ABG PH 7.33 (7.35-7.45); ABG PO2 87 mmHg (80-100); ABG TCO2 28.5 MMOL/L (21.0-29.0); ALLEN TEST POSITIVE
[2018-09-19] MEDS: INSULIN ASPART 300 UNIT/3 ML PEN SUBQ SCH ×4 (08:00→21:26)
[2018-09-19] MEDS: FORMOTEROL FUMARATE NEB 20 MCG/2 ML INH SCH ×2 (08:21→21:18)
[2018-09-19] MEDS: BUDESONIDE 0.5 MG/2 ML NEB INH SCH ×2 (08:21→21:18)
[2018-09-19] MEDS ORDERED: DULoxetine 20 MG CAPSULE PO SCH (09:00)
[2018-09-19 10:34] LABS: ACETAMINOPHEN < 10 ug/mL (10-30); SALICYLATE < 6.0 mg/dL
[2018-09-19] MEDS: ENOXAPARIN 40 MG/0.4 ML SYRINGE SUBQ SCH (11:11)
[2018-09-19] MEDS: CEFEPIME 2 GM in SODIUM CHLORIDE 0.9% MINIBAG 100 ML IV SCH (11:12)
[2018-09-19] MEDS: CLOPIDOGREL 75 MG TABLET PO SCH (11:17)
[2018-09-19] MEDS: VANCOMYCIN INJ 1 GM in SODIUM CHLORIDE 0.9% 250 ML IV SCH (13:50)
[2018-09-19] MEDS: ALBUTEROL NEB 2.5 MG/3 ML INH PRN (21:18)
[2018-09-19] MEDS: ATORVASTATIN 10 MG TABLET PO SCH (21:26)
[2018-09-19] MEDS: LORazepam 0.5 MG TABLET SL PRN (23:33)
[2018-09-19] MEDS ORDERED: SCOPOLAMINE PATCH TOP SCH (23:45)
[2018-09-20] MEDS: VANCOMYCIN INJ 1 GM in SODIUM CHLORIDE 0.9% 250 ML IV SCH ×2 (02:55→14:55)
[2018-09-20] MEDS: SODIUM CHLORIDE FLUSH 0.9% 10 ML SYRINGE IVP SCH ×3 (03:21→19:42)
[2018-09-20 05:20] LABS: CALCIUM 8.9 mg/dL (8.5-10.3); PHOSPHORUS 1.7 mg/dL (2.5-4.6)
[2018-09-20] MEDS: NEUTRA-PHOS 250 MG TABLET PO SCH ×2 (06:17→10:15)
[2018-09-20] MEDS: BUDESONIDE 0.5 MG/2 ML NEB INH SCH ×2 (07:59→23:22)
[2018-09-20] MEDS: FORMOTEROL FUMARATE NEB 20 MCG/2 ML INH SCH ×2 (07:59→23:22)
[2018-09-20] MEDS: ALBUTEROL NEB 2.5 MG/3 ML INH PRN (07:59)
[2018-09-20] MEDS: DULoxetine 20 MG CAPSULE PO SCH (10:15)
[2018-09-20] MEDS: CLOPIDOGREL 75 MG TABLET PO SCH (10:15)
[2018-09-20] MEDS: ENOXAPARIN 40 MG/0.4 ML SYRINGE SUBQ SCH (10:15)
[2018-09-20] MEDS: INSULIN ASPART 300 UNIT/3 ML PEN SUBQ SCH ×4 (10:35→20:51)
[2018-09-20] MEDS: CEFEPIME 2 GM in SODIUM CHLORIDE 0.9% MINIBAG 100 ML IV SCH (10:38)
[2018-09-20] MEDS: FAMOTIDINE 20 MG/2 ML VIAL IVP SCH ×2 (10:40→20:48)
[2018-09-20] MEDS: SODIUM CHLORIDE FLUSH 0.9% 10 ML SYRINGE IVP PRN ×2 (10:41→20:49)
[2018-09-20] MEDS: MIN OIL/DIMETHICON/COCONUT OIL 92 GM TUBE TOP PRN ×2 (11:07→12:51)
[2018-09-20 13:46] LABS: VANCOMYCIN,TROUGH 13.9 ug/mL (10.0-20.0)
--- NOTE | 2018-09-20 16:01 | PROVIDER PROGRESS NOTE ---
Assessment/Plan - Problem List (1) Altered mental status Qualifiers: Altered mental status type: somnolence Qualified Code(s): R40.0 - Somnolence Assessment/Plan: He is more awake since admission, since the sedatives were stopped. His infection may also have added to fatigue and obtundation and is being treated. If mental status remains this improved, he will transfer out of ICU and be evaluated by PT (2) Pneumonia Qualifiers: Pneumonia type: due to unspecified organism Laterality: left Lung location: lower lobe of lung Qualified Code(s): J18.1 - Lobar pneumonia, unspecified organism Assessment/Plan: Patient was started on empiric antibiotics. He denies any respiratory distress or cough. We will plan a 7 to 10-day course total of antibiotics. (3) Diarrhea Assessment/Plan: Will send samples for C. difficile and bacterial culture (4) T2DM (type 2 diabetes mellitus) Assessment/Plan: Continue carb controlled diet, fingerstick checks, assess insulin coverage (5) Legally blind Assessment/Plan: Stable - Current Meds Current Meds: Current Medications Generic Name Dose Route Start Last Admin Trade Name Freq PRN Reason Stop Dose Admin Albuterol 2.5 mg 09/19/18 00:06 09/20/18 07:59 INH 2.5 mg Q4HR PRN Administration Wheezing Atorvastatin Calcium 10 mg 09/19/18 21:00 09/19/18 21:26 Lipitor PO 10 mg QPM EILEEN Administration Budesonide 0.5 mg 09/19/18 07:00 09/20/18 07:59 Pulmicort INH 0.5 mg RTBID EILEEN Administration Clopidogrel Bisulfate 75 mg 09/19/18 09:00 09/20/18 10:15 Plavix PO 75 mg DAILY EILEEN Administration Duloxetine HCl 20 mg 09/20/18 09:00 09/20/18 10:15 Cymbalta PO 20 mg DAILY EILEEN Administration Enoxaparin Sodium 40 mg 09/19/18 09:00 09/20/18 10:15 Lovenox SUBQ 40 mg DAILY EILEEN Administration Famotidine 20 mg 09/19/18 01:00 09/20/18 10:40 Pepcid IVP 20 mg BID EILEEN Administration Formoterol Fumarate 20 mcg 09/19/18 07:00 09/20/18 07:59 Perforomist INH 20 mcg RTBID EILEEN Administration Cefepime HCl 2 gm/ Sodium 100 mls @ 200 mls/hr 09/19/18 09:00 09/20/18 10:38 Chloride IV 200 mls/hr DAILY EILEEN Administration Vancomycin HCl 1 gm/ Sodium 250 mls @ 167 mls/hr 09/19/18 14:00 09/20/18 14:55 Chloride IV 167 mls/hr Q12H EILEEN Administration Insulin Aspart 1 - 9 unit 09/19/18 08:00 09/20/18 12:50 Novolog SUBQ Not Given 0800,1200,1700,2100 [facility] Protocol Lorazepam 2 mg 09/19/18 23:15 09/19/18 23:33 Ativan SL 2 mg Q4H PRN Administration Anxiety Mineral Oil 1 applic 09/19/18 01:30 09/20/18 12:51 Cavilon TOP 1 applic PRN PRN Administration Skin Care Scopolamine HBr 1 patch 09/19/18 23:45 09/19/18 23:33 Transderm-Scop TOP 1 patch Q3D EILEEN Administration Sodium Chloride 10 ml 09/19/18 01:00 09/20/18 10:41 Normal Saline Flush 0.9% IVP 10 ml 0100,0900,1700 EILEEN Administration Sodium Chloride 10 ml 09/19/18 00:06 09/20/18 10:41 Normal Saline Flush 0.9% IVP 10 ml PRN PRN Administration NEEDED PER PROVIDER ORDERS - Lab Result Fish Bone Diagrams: 09/19/18 06:00 09/20/18 04:20 - Additional Planning My Orders: My Active Orders 09/20/18 C DIFF PCR Urgent CULTURE, STOOL [RM] Urgent Subjective - Subjective Patient Reports: No Complaints Nursing Reports: Confused Objective Vital Signs: Vital Signs - 24 hr 09/19/18 09/19/18 09/19/18 16:10 16:15 16:16 Temperature Heart Rate 79 83 82 Heart Rate [ Monitoring electrodes] Respiratory 17 19 13 Rate Blood Pressure Blood Pressure [Right Brachial artery] O2 Saturation 09/19/18 09/19/18 09/19/18 16:17 16:20 16:25 Temperature Heart Rate 82 83 81 Heart Rate [ Monitoring electrodes] Respiratory 8 L 13 18 Rate Blood Pressure 124/59 L Blood Pressure [Right Brachial artery] O2 Saturation 09/19/18 09/19/18 09/19/18 16:30 16:34 16:35 Temperature 36.6 C Heart Rate 84 89 Heart Rate [ 89 Monitoring electrodes] Respiratory 21 15 21 Rate Blood Pressure Blood Pressure 124/59 L [Right Brachial artery] O2 Saturation 100 09/19/18 09/19/18 09/19/18 16:40 16:45 16:50 Temperature Heart Rate 89 84 83 Heart Rate [ Monitoring electrodes] Respiratory 18 27 H 14 Rate Blood Pressure Blood Pressure [Right Brachial artery] O2 Saturation 09/19/18 09/19/18 09/19/18 16:55 16:59 17:00 Temperature Heart Rate 85 83 85 Heart Rate [ Monitoring electrodes] Respiratory 20 19 17 Rate Blood Pressure 98/85 H Blood Pressure [Right Brachial artery] O2 Saturation 09/19/18 09/19/18 09/19/18 17:01 17:05 17:10 Temperature Heart Rate 83 88 88 Heart Rate [ Monitoring electrodes] Respiratory 13 29 H 24 Rate Blood Pressure Blood Pressure [Right Brachial artery] O2 Saturation 09/19/18 09/19/18 09/19/18 17:15 17:20 17:25 Temperature Heart Rate 85 90 89 Heart Rate [ Monitoring electrodes] Respiratory 20 18 18 Rate Blood Pressure Blood Pressure [Right Brachial artery] O2 Saturation 09/19/18 09/19/18 09/19/18 17:30 17:35 17:40 Temperature Heart Rate 88 86 81 Heart Rate [ Monitoring electrodes] Respiratory 17 17 17 Rate Blood Pressure Blood Pressure [Right Brachial artery] O2 Saturation 09/19/18 09/19/18 09/19/18 17:45 17:50 17:55 Temperature Heart Rate 81 81 80 Heart Rate [ Monitoring electrodes] Respiratory 15 18 18 Rate Blood Pressure Blood Pressure [Right Brachial artery] O2 Saturation 09/19/18 09/19/18 09/19/18 17:59 18:00 18:01 Temperature Heart Rate 83 87 86 Heart Rate [ Monitoring electrodes] Respiratory 16 18 16 Rate Blood Pressure 124/54 L Blood Pressure [Right Brachial artery] O2 Saturation 09/19/18 09/19/18 09/19/18 18:05 18:10 18:15 Temperature Heart Rate 87 82 85 Heart Rate [ Monitoring electrodes] Respiratory 19 9 L 20 Rate Blood Pressure Blood Pressure [Right Brachial artery] O2 Saturation 09/19/18 09/19/18 09/19/18 18:20 18:25 18:30 Temperature Heart Rate 86 87 85 Heart Rate [ Monitoring electrodes] Respiratory 24 14 13 Rate Blood Pressure Blood Pressure [Right Brachial artery] O2 Saturation 09/19/18 09/19/18 09/19/18 18:35 18:40 18:45 Temperature Heart Rate 83 85 84 Heart Rate [ Monitoring electrodes] Respiratory 12 17 16 Rate Blood Pressure Blood Pressure [Right Brachial artery] O2 Saturation 09/19/18 09/19/18 09/19/18 18:50 18:55 18:59 Temperature Heart Rate 85 84 85 Heart Rate [ Monitoring electrodes] Respiratory 20 17 18 Rate Blood Pressure Blood Pressure [Right Brachial artery] O2 Saturation 09/19/18 09/19/18 09/19/18 19:00 19:01 19:05 Temperature Heart Rate 85 86 83 Heart Rate [ Monitoring electrodes] Respiratory 22 18 17 Rate Blood Pressure 111/61 Blood Pressure [Right Brachial artery] O2 Saturation 09/19/18 09/19/18 09/19/18 19:10 19:15 19:20 Temperature Heart Rate 82 85 83 Heart Rate [ Monitoring electrodes] Respiratory 11 L 20 14 Rate Blood Pressure Blood Pressure [Right Brachial artery] O2 Saturation 09/19/18 09/19/18 09/19/18 19:25 19:30 19:35 Temperature Heart Rate 81 83 86 Heart Rate [ Monitoring electrodes] Respiratory 15 27 H 17 Rate Blood Pressure Blood Pressure [Right Brachial artery] O2 Saturation 09/19/18 09/19/18 09/19/18 20:00 21:00 21:20 Temperature 36.7 C 36.3 C L Heart Rate 87 Heart Rate [ 88 87 Monitoring electrodes] Respiratory 21 18 18 Rate Blood Pressure Blood Pressure 119/94 H 109/56 L [Right Brachial artery] O2 Saturation 95 96 09/19/18 09/19/18 09/20/18 22:00 23:00 00:00 Temperature 37.1 C 37.0 C Heart Rate Heart Rate [ 94 93 95 Monitoring electrodes] Respiratory 21 15 20 Rate Blood Pressure Blood Pressure 146/74 H 130/108 H 141/55 H [Right Brachial artery] O2 Saturation 99 94 99 09/20/18 09/20/18 09/20/18 01:00 02:00 03:00 Temperature Heart Rate Heart Rate [ 90 90 90 Monitoring electrodes] Respiratory 28 H 18 23 Rate Blood Pressure Blood Pressure 126/57 L 133/67 H 148/110 H [Right Brachial artery] O2 Saturation 94 95 92 09/20/18 09/20/18 09/20/18 04:00 05:00 06:00 Temperature 37.1 C Heart Rate Heart Rate [ 94 86 86 Monitoring electrodes] Respiratory 14 17 23 Rate Blood Pressure Blood Pressure 149/59 H 132/61 H 142/66 H [Right Brachial artery] O2 Saturation 93 91 L 09/20/18 09/20/18 09/20/18 06:59 08:00 09:00 Temperature 36.9 C Heart Rate 84 Heart Rate [ 84 87 87 Monitoring electrodes] Respiratory 22 20 22 Rate Blood Pressure Blood Pressure 138/64 H 139/72 H 120/50 L [Right Brachial artery] O2 Saturation 93 93 94 09/20/18 09/20/18 09/20/18 10:00 11:06 12:00 Temperature 36.6 C Heart Rate Heart Rate [ 87 83 87 Monitoring electrodes] Respiratory 22 17 25 H Rate Blood Pressure Blood Pressure 124/57 L 121/69 92/55 L [Right Brachial artery] O2 Saturation 95 93 94 09/20/18 09/20/18 09/20/18 12:20 13:00 14:00 Temperature Heart Rate Heart Rate [ 81 84 Monitoring electrodes] Respiratory 14 17 Rate Blood Pressure Blood Pressure 133/61 H 128/61 99/78 [Right Brachial artery] O2 Saturation 94 93 09/20/18 09/20/18 14:33 15:00 Temperature Heart Rate Heart Rate [ 84 Monitoring electrodes] Respiratory 16 Rate Blood Pressure Blood Pressure 151/71 H 136/76 H [Right Brachial artery] O2 Saturation 95 Oxygen O2 Source Room air Oxygen Flow Rate 2 I&O (Last 24 Hrs): Intake and Output Totals x24h 09/18/18 09/19/18 09/20/18 23:59 23:59 23:59 Intake Total 1000 2750 480 Output Total 3135 1235 Balance 2141 -316 -955 General: No acute distress HEENT: Other (Blind) Neck: Supple, No JVD Neuro: Alert, Other (Blind) Cardiovascular: Regular rate, No murmurs Respiratory: No respiratory distress, Breath sounds nml Abdomen: Soft Extremities: No edema, Other (R AKA) - Results Results: Laboratory Results WBC 10.9 x10^3/uL (4.8-10.8) H 09/19/18 06:00 RBC 4.33 10^6/uL (4.70-6.10) L 09/19/18 06:00 Hgb 12.4 g/dL (14.0-18.0) L 09/19/18 06:00 Hct 39.6 % (42.0-52.0) L 09/19/18 06:00 MCV 91.5 fL (80.0-94.0) 09/19/18 06:00 MCH 28.6 pg (27.0-31.0) 09/19/18 06:00 MCHC 31.3 g/dL (32.0-36.0) L 09/19/18 06:00 RDW 13.9 % (12.0-15.0) 09/19/18 06:00 Plt Count 184 10^3/uL (130-450) 09/19/18 06:00 MPV 9.8 fL (7.4-11.4) 09/19/18 06:00 Neut # (Auto) 8.8 10^3/uL (1.5-6.6) H 09/19/18 06:00 Lymph # (Auto) 1.3 10^3/uL (1.5-3.5) L 09/19/18 06:00 [place] # (Auto) 0.6 10^3/uL (0.0-1.0) 09/19/18 06:00 Eos # (Auto) 0.2 10^3/uL (0.0-0.7) 09/19/18 06:00 Baso # (Auto) 0.1 10^3/uL (0.0-0.1) 09/19/18 06:00 Absolute Nucleated RBC 0.00 x10^3/uL 09/19/18 06:00 Nucleated RBC % 0.0 /100WBC 09/19/18 06:00 D-Dimer 492.5 ng/mL (200.0-255.0) H 09/19/18 00:01 Bld Gas Analysis Time 0711 09/19/18 07:11 Sample Site RIGHT RADIAL 09/19/18 07:11 ABG pH 7.33 (7.35-7.45) L 09/19/18 07:11 ABG pCO2 53 mmHg (34-45) H 09/19/18 07:11 ABG pO2 87 mmHg (80-100) 09/19/18 07:11 ABG HCO3 26.9 mmol/L (22.0-26.0) H 09/19/18 07:11 ABG Total CO2 28.5 MMOL/L (21.0-29.0) 09/19/18 07:11 ABG O2 Saturation 96 % (94-98) 09/19/18 07:11 ABG Base Excess 0.1 mmol/L (-2.0-3.0) 09/19/18 07:11 Linus Test POSITIVE 09/19/18 07:11 Respiration Rate 12 b/min 09/19/18 07:11 O2 Delivery Device NASAL CANNULA 09/19/18 07:11 O2 Liters/Min 1.50 LPM 09/19/18 07:11 Sodium 139 mmol/L (135-145) 09/20/18 04:20 Potassium 4.0 mmol/L (3.5-5.0) 09/20/18 04:20 Chloride 103 mmol/L (101-111) 09/20/18 04:20 Carbon Dioxide 26 mmol/L (21-32) 09/20/18 04:20 Anion Gap 10.0 (6-13) 09/20/18 04:20 BUN 22 mg/dL (6-20) H 09/20/18 04:20 Creatinine 1.0 mg/dL (0.6-1.2) 09/20/18 04:20 Estimated GFR (MDRD) 73 (>89) L 09/20/18 04:20 Glucose 134 mg/dL (70-100) H 09/20/18 04:20 Glycated Hemoglobin 7.4 % (4.6-6.2) H 09/19/18 00:01 Estim Average Glucose 166 (70-100) H 09/19/18 00:01 Lactic Acid 0.9 mmol/L (0.5-2.2) 09/18/18 22:50 Calcium 8.9 mg/dL (8.5-10.3) 09/20/18 04:20 Phosphorus 1.7 mg/dL (2.5-4.6) L 09/20/18 04:20 Magnesium 1.8 mg/dL (1.7-2.8) 09/20/18 07:48 Total Bilirubin 0.4 mg/dL (0.2-1.0) 09/18/18 22:50 AST 23 IU/L (10-42) 09/18/18 22:50 ALT 22 IU/L (10-60) 09/18/18 22:50 Alkaline Phosphatase 129 IU/L (42-121) H 09/18/18 22:50 Ammonia < 10.0 umol/L (7-35) 09/19/18 10:15 Troponin I < 0.04 ng/mL (<0.49) 09/19/18 00:01 Total Protein 7.0 g/dL (6.7-8.2) 09/18/18 22:50 Albumin 3.0 g/dL (3.2-5.5) L 09/20/18 04:20 Globulin 4.1 g/dL (2.1-4.2) 09/18/18 22:50 Albumin/Globulin Ratio 0.7 (1.0-2.2) L 09/18/18 22:50 Lipase 40 U/L (22-51) 09/18/18 22:50 TSH 0.76 uIU/mL (0.34-5.60) 09/18/18 22:50 Urine Color YELLOW 09/18/18 23:00 Urine Clarity CLEAR (CLEAR) 09/18/18 23:00 Urine pH 5.5 PH (5.0-7.5) 09/18/18 23:00 Ur Specific [place] 1.025 (1.002-1.030) 09/18/18 23:00 Urine Protein NEGATIVE mg/dL (NEGATIVE) 09/18/18 23:00 Urine Glucose (UA) NEGATIVE mg/dL (NEGATIVE) 09/18/18 23:00 Urine Ketones TRACE mg/dL (NEGATIVE) 09/18/18 23:00 Urine Occult Blood SMALL (NEGATIVE) H 09/18/18 23:00 Urine Nitrite NEGATIVE (NEGATIVE) 09/18/18 23:00 Urine Bilirubin NEGATIVE (NEGATIVE) 09/18/18 23:00 Urine Urobilinogen 0.2 (NORMAL) E.U./dL (NORMAL) 09/18/18 23:00 Ur Leukocyte Esterase NEGATIVE (NEGATIVE) 09/18/18 23:00 Urine RBC 6-10 /HPF (0-5) H 09/18/18 23:00 Urine WBC 0-3 /HPF (0-3) 09/18/18 23:00 Ur Squamous Epith Cells RARE Squamous (<= Few) 09/18/18 23:00 Urine Bacteria None Seen /HPF (None Seen) 09/18/18 23:00 Urine Culture Comments NOT INDICATED 09/18/18 23:00 Nasal Screen MRSA (PCR) NEGATIVE (NEGATIVE) 09/19/18 00:05 Last Dose Date UNK 09/20/18 13:30 Last Dose Time UNK 09/20/18 13:30 Vancomycin Trough 13.9 ug/mL (10.0-20.0) 09/20/18 13:30 Salicylates < 6.0 mg/dL 09/19/18 10:15 Urine Opiates Screen NEGATIVE (NEGATIVE) 09/19/18 00:01 Ur Oxycodone Screen NEGATIVE (NEGATIVE) 09/19/18 00:01 Urine Methadone Screen NEGATIVE (NEGATIVE) 09/19/18 00:01 Ur Propoxyphene Screen NEGATIVE (NEGATIVE) 09/19/18 00:01 Acetaminophen < 10 ug/mL (10-30) L 09/19/18 10:15 Ur Barbiturates Screen NEGATIVE (NEGATIVE) 09/19/18 00:01 Ur Tricyclics Screen NEGATIVE (NEGATIVE) 09/19/18 00:01 Ur Phencyclidine Scrn NEGATIVE (NEGATIVE) 09/19/18 00:01 Ur Amphetamine Screen NEGATIVE (NEGATIVE) 09/19/18 00:01 U Methamphetamines Scrn NEGATIVE (NEGATIVE) 09/19/18 00:01 U Benzodiazepines Scrn POSITIVE (NEGATIVE) H 09/19/18 00:01 Urine Cocaine Screen NEGATIVE (NEGATIVE) 09/19/18 00:01 U Cannabinoids Screen NEGATIVE (NEGATIVE) 09/19/18 00:01 Ethyl Alcohol < 5.0 mg/dL 09/19/18 00:01 Sepsis Event Note (H) - Evaluation Possible source of Sepsis: positive: Pulmonary - Sepsis Criteria Sepsis Criteria: WBC count greater than 12,000 or less than 4000, [employer]: altered consciousness (unrelated to primary neuro pathology), SBP less than 90 mmHg
--- NOTE | 2018-09-20 17:45 | XRAY Report ---
Reason: Pre-MRI screening for metal in orbits Procedure Date: 09/20/2018 Accession Number: [id number] / [id number] Procedure: XR - Eye Foreign Body CPT Code: FULL RESULT: EXAM: ORBITS RADIOGRAPHY EXAM DATE: 09/20/2018 05:06 PM. HISTORY: MRI needed. Patient history makes an orbital metallic foreign body possible. COMPARISONS: None. TECHNIQUE: 1 view. FINDINGS: Bones: No fractures or bone lesions. Sinuses: Poorly seen. Other: No radiopaque foreign bodies. IMPRESSION: No radiopaque orbital foreign bodies. RADIA
--- NOTE | 2018-09-20 18:19 | MRI Report ---
Reason: cva Procedure Date: 09/20/2018 Accession Number: [id number] / [id number] Procedure: MRI - Brain W/O CPT Code: FULL RESULT: EXAM: MRI BRAIN WITHOUT CONTRAST. EXAM DATE: 09/20/2018 05:30 PM. CLINICAL HISTORY: 77-year-old confused patient. Evaluate for intracranial pathology. COMPARISON: CT head 09/18/2018; MR brain 07/29/2015. TECHNIQUE: Multiplanar, multisequence T1-weighted and fluid-sensitive MR sequences of the brain were performed. Sequences optimized for routine evaluation. Other: None. IV Contrast: None. FINDINGS: Significant motion artifact technically limits evaluation. Brain Volume: Normal for age. Parenchyma/Dura: No acute parenchymal hemorrhage, mass, or midline shift. There is mild to moderate bilateral areas of T2/FLAIR signal hyperintensity seen that appear similar to MR brain 07/29/2015. There is no definite areas of restricted diffusion seen to suggest acute infarct. Motion artifact technically limits evaluation of T2 star-weighted sequences. No definite abnormal areas of parenchymal susceptibility artifact seen. Ventricles/Cisterns: No hydrocephalus. No abnormal extra-axial fluid collection or hemorrhage. Orbits: Changes of bilateral lens replacement. Sella [place]: The pituitary gland, cavernous sinuses, suprasellar cistern and optic chiasm are unremarkable. IAC: Symmetric and unremarkable. Vasculature: Normal signal flow void is seen in the major arterial structures at the skull base. Sinuses: No acute appearing sinus disease. Bones: No focal pathologic appearing marrow signal changes. Other: None. IMPRESSION: 1. Significant motion artifact technically limits evaluation. Motion artifact limits evaluation for small or subtle pathology. Repeat examination with sedation or anesthesia support is suggested. 2. When accounting for technical limitations no definite acute infarct, acute intracranial hemorrhage, mass, hydrocephalus, or midline shift. 3. When accounting for technical limitations there is mild to moderate white matter changes seen that appears similar MR brain 07/29/2015 and may represent sequela of chronic small vessel ischemic disease. RADIA
[2018-09-20] MEDS: ATORVASTATIN 10 MG TABLET PO SCH (20:49)
[2018-09-21] MEDS ORDERED: HALOPERIDOL 5 MG/ML VIAL IVP ONE (02:08)
[2018-09-21] MEDS: VANCOMYCIN INJ 1 GM in SODIUM CHLORIDE 0.9% 250 ML IV SCH ×2 (02:20→14:09)
[2018-09-21] MEDS: SODIUM CHLORIDE FLUSH 0.9% 10 ML SYRINGE IVP SCH ×3 (02:37→16:04)
[2018-09-21] MEDS: INSULIN ASPART 300 UNIT/3 ML PEN SUBQ SCH ×4 (08:30→21:51)
[2018-09-21] MEDS: NEUTRA-PHOS 250 MG TABLET PO SCH ×2 (08:39→10:33)
[2018-09-21] MEDS: CLOPIDOGREL 75 MG TABLET PO SCH (08:39)
[2018-09-21] MEDS: DULoxetine 20 MG CAPSULE PO SCH (08:39)
[2018-09-21] MEDS: CEFEPIME 2 GM in SODIUM CHLORIDE 0.9% MINIBAG 100 ML IV SCH (09:49)
[2018-09-21] MEDS: FAMOTIDINE 20 MG/2 ML VIAL IVP SCH (09:57)
[2018-09-21] MEDS: ENOXAPARIN 40 MG/0.4 ML SYRINGE SUBQ SCH (09:57)
[2018-09-21] MEDS: SODIUM CHLORIDE FLUSH 0.9% 10 ML SYRINGE IVP PRN ×2 (09:58→10:33)
[2018-09-21] MEDS: FORMOTEROL FUMARATE NEB 20 MCG/2 ML INH SCH ×2 (10:08→22:24)
[2018-09-21] MEDS: BUDESONIDE 0.5 MG/2 ML NEB INH SCH ×2 (10:08→22:24)
[2018-09-21] MEDS ORDERED: ACETAMINOPHEN 325 MG TABLET PO PRN (12:36)
[2018-09-21] MEDS ORDERED: LOPERAMIDE 2 MG CAPSULE PO PRN (14:09)
--- NOTE | 2018-09-21 14:12 | PROVIDER PROGRESS NOTE ---
Assessment/Plan - Problem List (1) Altered mental status Qualifiers: Altered mental status type: somnolence Qualified Code(s): R40.0 - Somnolence Assessment/Plan: Resolved by holding his pain and depressant meds. Will restart antidepressants slowly. We will transfer out of ICU. Will have evaluation by PT and OT (2) Pneumonia Qualifiers: Pneumonia type: due to unspecified organism Laterality: left Lung location: lower lobe of lung Qualified Code(s): J18.1 - Lobar pneumonia, unspecified organism Assessment/Plan: No cultures are positive get. The patient denies any respiratory symptoms. He remains on empiric IV antibiotics. We will transition to oral antibiotics tomorrow and plan a 7 to 10-day total course (3) Diarrhea Assessment/Plan: Today the patient had 5 soft brown BMs, yesterday more than 5 and were mucousy. He denies abdominal pain with these. C. difficile toxin is negative. Cultures are negative for Campylobacter. We will start Imodium as needed and add Florastor for improving gut padmini (4) Sacral decubitus ulcer, stage II Assessment/Plan: We will order a wound consult for possible debridement and for recommendations regarding management. We will continue Head for more rapid skin healing, stop it tomorrow. (5) Legally blind Assessment/Plan: Stable (6) T2DM (type 2 diabetes mellitus) Assessment/Plan: Continue carb controlled diet, fingerstick checks, SS insulin coverage - Current Meds Current Meds: Current Medications Generic Name Dose Route Start Last Admin Trade Name Freq PRN Reason Stop Dose Admin Albuterol 2.5 mg 09/19/18 00:06 09/20/18 07:59 INH 2.5 mg Q4HR PRN Administration Wheezing Atorvastatin Calcium 10 mg 09/19/18 21:00 09/20/18 20:49 Lipitor PO 10 mg QPM EILEEN Administration Budesonide 0.5 mg 09/19/18 07:00 09/21/18 10:08 Pulmicort INH 0.5 mg RTBID EILEEN Administration Enoxaparin Sodium 40 mg 09/19/18 09:00 09/21/18 09:57 Lovenox SUBQ 40 mg DAILY EILEEN Administration Formoterol Fumarate 20 mcg 09/19/18 07:00 09/21/18 10:08 Perforomist INH 20 mcg RTBID EILEEN Administration Cefepime HCl 2 gm/ Sodium 100 mls @ 200 mls/hr 09/19/18 09:00 09/21/18 10:20 Chloride IV Infused DAILY EILEEN Infusion Vancomycin HCl 1 gm/ Sodium 250 mls @ 167 mls/hr 09/19/18 14:00 09/21/18 04:08 Chloride IV Infused Q12H EILEEN Infusion Insulin Aspart 1 - 9 unit 09/19/18 08:00 09/21/18 12:20 Novolog SUBQ Not Given 0800,1200,1700,2100 [facility] Protocol Lorazepam 2 mg 09/19/18 23:15 09/19/18 23:33 Ativan SL 2 mg Q4H PRN Administration Anxiety Mineral Oil 1 applic 09/19/18 01:30 09/20/18 12:51 Cavilon TOP 1 applic PRN PRN Administration Skin Care Sodium Chloride 10 ml 09/19/18 01:00 09/21/18 09:52 Normal Saline Flush 0.9% IVP 10 ml 0100,0900,1700 EILEEN Administration Sodium Chloride 10 ml 09/19/18 00:06 09/21/18 10:33 Normal Saline Flush 0.9% IVP 10 ml PRN PRN Administration NEEDED PER PROVIDER ORDERS - Lab Result Fish Bone Diagrams: 09/19/18 06:00 09/20/18 04:20 - Additional Planning My Orders: My Active Orders 09/20/18 18:09 CULTURE, STOOL [RM] Urgent 09/21/18 Evaluate and Treat OT [OT] Routine 09/21/18 07:57 Transfer [Admit \ Transfer \ Status] [RC] .ONCE 09/21/18 12:36 Acetaminophen [Tylenol] 650 mg PO Q4HR PRN 09/21/18 14:09 Loperamide [Imodium] 2 mg PO QID PRN 09/21/18 17:00 Saccharomyces Boulardii [Florastor] 250 mg PO BIDWM 09/21/18 21:00 Docusate Sodium 250Mg Capsule [Colace 250Mg Capsule] 250 mg PO BID Famotidine [Pepcid] 20 mg PO BID 09/22/18 08:00 Multivitamin W/Minerals [Theragran M] 1 tab PO DAILYWM 09/22/18 09:00 Clopidogrel [Plavix] 75 mg PO DAILY 09/22/18 14:00 DULoxetine [Cymbalta] 20 mg PO 1400 Subjective - Subjective Patient Reports: Feeling Better, Resting Comfortably Objective Vital Signs: Vital Signs - 24 hr 09/20/18 09/20/18 09/20/18 14:33 15:00 16:00 Temperature 36.7 C Heart Rate Heart Rate [ 84 82 Monitoring electrodes] Respiratory 16 15 Rate Blood Pressure [Left Brachial artery] Blood Pressure 151/71 H 136/76 H 153/72 H [Right Brachial artery] O2 Saturation 95 95 09/20/18 09/20/18 09/20/18 17:46 18:00 19:00 Temperature 36.4 C L 36.5 C 36.3 C L Heart Rate Heart Rate [ 82 91 82 Monitoring electrodes] Respiratory 21 18 20 Rate Blood Pressure 161/68 H [Left Brachial artery] Blood Pressure 157/58 H 145/76 H [Right Brachial artery] O2 Saturation 98 98 95 09/20/18 09/20/18 09/20/18 20:00 21:00 21:57 Temperature 36.7 C 36.2 C L 36.2 C L Heart Rate Heart Rate [ 82 85 82 Monitoring electrodes] Respiratory 23 20 16 Rate Blood Pressure [Left Brachial artery] Blood Pressure 157/71 H 144/95 H 163/72 H [Right Brachial artery] O2 Saturation 98 95 95 09/20/18 09/21/18 09/21/18 23:00 00:00 01:00 Temperature 36.3 C L 36.6 C Heart Rate Heart Rate [ 80 83 83 Monitoring electrodes] Respiratory 19 21 20 Rate Blood Pressure [Left Brachial artery] Blood Pressure 139/66 H 124/68 158/78 H [Right Brachial artery] O2 Saturation 94 99 95 09/21/18 09/21/18 09/21/18 02:00 03:00 04:00 Temperature Heart Rate Heart Rate [ 79 87 70 Monitoring electrodes] Respiratory 19 19 18 Rate Blood Pressure [Left Brachial artery] Blood Pressure 135/68 H 153/74 H 156/65 H [Right Brachial artery] O2 Saturation 92 93 96 09/21/18 09/21/18 09/21/18 05:00 06:00 07:00 Temperature Heart Rate Heart Rate [ 74 81 80 Monitoring electrodes] Respiratory 19 14 18 Rate Blood Pressure [Left Brachial artery] Blood Pressure 127/70 111/67 152/67 H [Right Brachial artery] O2 Saturation 94 96 94 09/21/18 09/21/18 09/21/18 08:00 09:00 10:08 Temperature 36.3 C L Heart Rate 86 Heart Rate [ 68 68 Monitoring electrodes] Respiratory 14 16 15 Rate Blood Pressure [Left Brachial artery] Blood Pressure 150/61 H 156/64 H [Right Brachial artery] O2 Saturation 95 95 Oxygen O2 Source Room air Oxygen Flow Rate 2 I&O (Last 24 Hrs): Intake and Output Totals x24h 09/19/18 09/20/18 09/21/18 23:59 23:59 23:59 Intake Total 2750 905 1670 Output Total 3135 2170 1148 Balance -385 -1265 522 General: Alert, No acute distress HEENT: Mucous membr. moist/pink, Other (Blind) Neck: Supple, No JVD Neuro: Non Focal, Other (Blind) Cardiovascular: Regular rate Respiratory: No respiratory distress Abdomen: Soft Extremities: No edema, Other (Right AKA) - Results Results: Laboratory Results WBC 10.9 x10^3/uL (4.8-10.8) H 09/19/18 06:00 RBC 4.33 10^6/uL (4.70-6.10) L 09/19/18 06:00 Hgb 12.4 g/dL (14.0-18.0) L 09/19/18 06:00 Hct 39.6 % (42.0-52.0) L 09/19/18 06:00 MCV 91.5 fL (80.0-94.0) 09/19/18 06:00 MCH 28.6 pg (27.0-31.0) 09/19/18 06:00 MCHC 31.3 g/dL (32.0-36.0) L 09/19/18 06:00 RDW 13.9 % (12.0-15.0) 09/19/18 06:00 Plt Count 184 10^3/uL (130-450) 09/19/18 06:00 MPV 9.8 fL (7.4-11.4) 09/19/18 06:00 Neut # (Auto) 8.8 10^3/uL (1.5-6.6) H 09/19/18 06:00 Lymph # (Auto) 1.3 10^3/uL (1.5-3.5) L 09/19/18 06:00 [place] # (Auto) 0.6 10^3/uL (0.0-1.0) 09/19/18 06:00 Eos # (Auto) 0.2 10^3/uL (0.0-0.7) 09/19/18 06:00 Baso # (Auto) 0.1 10^3/uL (0.0-0.1) 09/19/18 06:00 Absolute Nucleated RBC 0.00 x10^3/uL 09/19/18 06:00 Nucleated RBC % 0.0 /100WBC 09/19/18 06:00 D-Dimer 492.5 ng/mL (200.0-255.0) H 09/19/18 00:01 Bld Gas Analysis Time 0709/19/18 07:11 Sample Site RIGHT RADIAL 09/19/18 07:11 ABG pH 7.33 (7.35-7.45) L 09/19/18 07:11 ABG pCO2 53 mmHg (34-45) H 09/19/18 07:11 ABG pO2 87 mmHg (80-100) 09/19/18 07:11 ABG HCO3 26.9 mmol/L (22.0-26.0) H 09/19/18 07:11 ABG Total CO2 28.5 MMOL/L (21.0-29.0) 09/19/18 07:11 ABG O2 Saturation 96 % (94-98) 09/19/18 07:11 ABG Base Excess 0.1 mmol/L (-2.0-3.0) 09/19/18 07:11 Linus Test POSITIVE 09/19/18 07:11 Respiration Rate 12 b/min 09/19/18 07:11 O2 Delivery Device NASAL CANNULA 09/19/18 07:11 O2 Liters/Min 1.50 LPM 09/19/18 07:11 Sodium 139 mmol/L (135-145) 09/20/18 04:20 Potassium 4.0 mmol/L (3.5-5.0) 09/20/18 04:20 Chloride 103 mmol/L (101-111) 09/20/18 04:20 Carbon Dioxide 26 mmol/L (21-32) 09/20/18 04:20 Anion Gap 10.0 (6-13) 09/20/18 04:20 BUN 22 mg/dL (6-20) H 09/20/18 04:20 Creatinine 1.0 mg/dL (0.6-1.2) 09/20/18 04:20 Estimated GFR (MDRD) 73 (>89) L 09/20/18 04:20 Glucose 134 mg/dL (70-100) H 09/20/18 04:20 Glycated Hemoglobin 7.4 % (4.6-6.2) H 09/19/18 00:01 Estim Average Glucose 166 (70-100) H 09/19/18 00:01 Lactic Acid 0.9 mmol/L (0.5-2.2) 09/18/18 22:50 Calcium 8.9 mg/dL (8.5-10.3) 09/20/18 04:20 Phosphorus 1.7 mg/dL (2.5-4.6) L 09/20/18 04:20 Magnesium 1.8 mg/dL (1.7-2.8) 09/20/18 07:48 Total Bilirubin 0.4 mg/dL (0.2-1.0) 09/18/18 22:50 AST 23 IU/L (10-42) 09/18/18 22:50 ALT 22 IU/L (10-60) 09/18/18 22:50 Alkaline Phosphatase 129 IU/L (42-121) H 09/18/18 22:50 Ammonia < 10.0 umol/L (7-35) 09/19/18 10:15 Troponin I < 0.04 ng/mL (<0.49) 09/19/18 00:01 Total Protein 7.0 g/dL (6.7-8.2) 09/18/18 22:50 Albumin 3.0 g/dL (3.2-5.5) L 09/20/18 04:20 Globulin 4.1 g/dL (2.1-4.2) 09/18/18 22:50 Albumin/Globulin Ratio 0.7 (1.0-2.2) L 09/18/18 22:50 Lipase 40 U/L (22-51) 09/18/18 22:50 TSH 0.76 uIU/mL (0.34-5.60) 09/18/18 22:50 Urine Color YELLOW 09/18/18 23:00 Urine Clarity CLEAR (CLEAR) 09/18/18 23:00 Urine pH 5.5 PH (5.0-7.5) 09/18/18 23:00 Ur Specific [place] 1.025 (1.002-1.030) 09/18/18 23:00 Urine Protein NEGATIVE mg/dL (NEGATIVE) 09/18/18 23:00 Urine Glucose (UA) NEGATIVE mg/dL (NEGATIVE) 09/18/18 23:00 Urine Ketones TRACE mg/dL (NEGATIVE) 09/18/18 23:00 Urine Occult Blood SMALL (NEGATIVE) H 09/18/18 23:00 Urine Nitrite NEGATIVE (NEGATIVE) 09/18/18 23:00 Urine Bilirubin NEGATIVE (NEGATIVE) 09/18/18 23:00 Urine Urobilinogen 0.2 (NORMAL) E.U./dL (NORMAL) 09/18/18 23:00 Ur Leukocyte Esterase NEGATIVE (NEGATIVE) 09/18/18 23:00 Urine RBC 6-10 /HPF (0-5) H 09/18/18 23:00 Urine WBC 0-3 /HPF (0-3) 09/18/18 23:00 Ur Squamous Epith Cells RARE Squamous (<= Few) 09/18/18 23:00 Urine Bacteria None Seen /HPF (None Seen) 09/18/18 23:00 Urine Culture Comments NOT INDICATED 09/18/18 23:00 Nasal Screen MRSA (PCR) NEGATIVE (NEGATIVE) 09/19/18 00:05 Last Dose Date UNK 09/20/18 13:30 Last Dose Time K 09/20/18 13:30 Vancomycin Trough 13.9 ug/mL (10.0-20.0) 09/20/18 13:30 Salicylates < 6.0 mg/dL 09/19/18 10:15 Urine Opiates Screen NEGATIVE (NEGATIVE) 09/19/18 00:01 Ur Oxycodone Screen NEGATIVE (NEGATIVE) 09/19/18 00:01 Urine Methadone Screen NEGATIVE (NEGATIVE) 09/19/18 00:01 Ur Propoxyphene Screen NEGATIVE (NEGATIVE) 09/19/18 00:01 Acetaminophen < 10 ug/mL (10-30) L 09/19/18 10:15 Ur Barbiturates Screen NEGATIVE (NEGATIVE) 09/19/18 00:01 Ur Tricyclics Screen NEGATIVE (NEGATIVE) 09/19/18 00:01 Ur Phencyclidine Scrn NEGATIVE (NEGATIVE) 09/19/18 00:01 Ur Amphetamine Screen NEGATIVE (NEGATIVE) 09/19/18 00:01 U Methamphetamines Scrn NEGATIVE (NEGATIVE) 09/19/18 00:01 U Benzodiazepines Scrn POSITIVE (NEGATIVE) H 09/19/18 00:01 Urine Cocaine Screen NEGATIVE (NEGATIVE) 09/19/18 00:01 U Cannabinoids Screen NEGATIVE (NEGATIVE) 09/19/18 00:01 Ethyl Alcohol < 5.0 mg/dL 09/19/18 00:01 C. difficile Tox B Gene NEGATIVE (NEGATIVE) 09/20/18 18:09 Sepsis Event Note (H) - Evaluation Possible source of Sepsis: positive: Pulmonary - Sepsis Criteria Sepsis Criteria: WBC count greater than 12,000 or less than 4000, STRA[employer] MACHINE: altered consciousness (unrelated to primary neuro pathology), SBP less than 90 mmHg
[2018-09-21] MEDS: SACCHAROMYCES BOULARDII 250 MG CAPSULE PO SCH (16:04)
[2018-09-21] MEDS: LORazepam 0.5 MG TABLET SL PRN (20:41)
[2018-09-21] MEDS: FAMOTIDINE 20 MG TABLET PO SCH (20:41)
[2018-09-21] MEDS: DOCUSATE SODIUM 250 MG CAPSULE PO SCH (20:42)
[2018-09-21] MEDS: ATORVASTATIN 10 MG TABLET PO SCH (20:42)
[2018-09-21] MEDS: ALBUTEROL NEB 2.5 MG/3 ML INH PRN (22:24)
[2018-09-22] MEDS: LORazepam 0.5 MG TABLET SL PRN (00:31)
[2018-09-22] MEDS: VANCOMYCIN INJ 1 GM in SODIUM CHLORIDE 0.9% 250 ML IV SCH ×2 (01:55→13:31)
[2018-09-22] MEDS: SODIUM CHLORIDE FLUSH 0.9% 10 ML SYRINGE IVP SCH ×3 (01:55→13:31)
[2018-09-22] MEDS ORDERED: SODIUM CHLORIDE 0.9% 500 ML IV PRN (02:32)
[2018-09-22] MEDS: MIN OIL/DIMETHICON/COCONUT OIL 92 GM TUBE TOP PRN (02:37)
[2018-09-22] MEDS: BUDESONIDE 0.5 MG/2 ML NEB INH SCH (07:50)
[2018-09-22] MEDS: FORMOTEROL FUMARATE NEB 20 MCG/2 ML INH SCH ×2 (07:50→17:35)
[2018-09-22 08:49] LABS: BASOPHILS # (AUTO) 0.1 10^3/uL (0.0-0.1); BASOPHILS % (AUTO) 0.6 %; EOSINOPHILS # (AUTO) 0.2 10^3/uL (0.0-0.7); EOSINOPHILS % (AUTO) 1.9 %; HGB - HEMOGLOBIN 12.5 g/dL (14.0-18.0); LYMPHOCYTES # (AUTO) 1.4 10^3/uL (1.5-3.5); LYMPHOCYTES % (AUTO) 12.2 %; MEAN CORPUSCULAR HEMOGLOBIN 28.4 pg (27.0-31.0); MEAN CORPUSCULAR HGB CONC 33.2 g/dL (32.0-36.0); MEAN CORPUSCULAR VOLUME 85.5 fL (80.0-94.0); MEAN PLATELET VOLUME 10.2 fL (7.4-11.4); MONOCYTES # (AUTO) 0.7 10^3/uL (0.0-1.0); MONOCYTES % (AUTO) 6.1 %; NEUTROPHILS # (AUTO) 9.2 10^3/uL (1.5-6.6); NEUTROPHILS % (AUTO) 78.6 %; PLT - PLATELET COUNT 247 10^3/uL (130-450); RED CELL DISTRIBUTION WIDTH 13.3 % (12.0-15.0); WHITE BLOOD COUNT 11.7 x10^3/uL (4.8-10.8)
[2018-09-22 09:02] LABS: ALBUMIN 3.1 g/dL (3.2-5.5); ALBUMIN/GLOBULIN RATIO 0.7 (1.0-2.2); BILIRUBIN,TOTAL 0.7 mg/dL (0.2-1.0); CALCIUM 8.9 mg/dL (8.5-10.3); CREATININE 1.1 mg/dL (0.6-1.2); MAGNESIUM 1.7 mg/dL (1.7-2.8); TOTAL PROTEIN 7.4 g/dL (6.7-8.2)
[2018-09-22] MEDS: INSULIN ASPART 300 UNIT/3 ML PEN SUBQ SCH ×4 (09:11→21:20)
[2018-09-22] MEDS: CEFEPIME 2 GM in SODIUM CHLORIDE 0.9% MINIBAG 100 ML IV SCH (09:12)
[2018-09-22] MEDS: ENOXAPARIN 40 MG/0.4 ML SYRINGE SUBQ SCH (09:16)
[2018-09-22] MEDS: CLOPIDOGREL 75 MG TABLET PO SCH ×2 (09:16→11:43)
[2018-09-22] MEDS: DOCUSATE SODIUM 250 MG CAPSULE PO SCH ×2 (09:17→11:42)
[2018-09-22] MEDS: FAMOTIDINE 20 MG TABLET PO SCH ×2 (09:19→11:42)
[2018-09-22] MEDS: MULTIVITAMIN W/MINERALS TABLET PO SCH ×2 (10:53→11:43)
[2018-09-22] MEDS: SACCHAROMYCES BOULARDII 250 MG CAPSULE PO SCH ×3 (10:53→17:29)
[2018-09-22] MEDS ORDERED: DULoxetine 20 MG CAPSULE PO SCH (14:00)
--- NOTE | 2018-09-22 14:11 | PROVIDER PROGRESS NOTE ---
Subjective - Prog Note Date Prog Note Date: 09/22/18 Prog Note Time: 14:10 - Subjective Pt reports feeling: No change Subjective: Douglas has no complaints and appears lethargic today. Reports of him being up all night, with agitation. He remains with an indwelling webb for wound protection and for accurate I/Os. His , Emma was called by myself for a medical update. Objective - Vital Signs/Intake & Output Reviewed Vital Signs: Yes Vital Signs: Vital Signs x48h Temp Pulse Pulse Resp BP Pulse Ox 09/22/18 08:27 76 16 09/22/18 08:00 36.4 C L 66 16 121/67 97 Intake & Output: Intake & Output 09/19/18 09/20/18 09/21/18 09/22/18 23:59 23:59 23:59 23:59 Intake Total 2750 905 2770 829.667 Output Total 3135 2170 1648 1200 Balance -385 -1265 1122 -370.333 - Objective General Appearance: positive: No acute distress, Lethargic Eyes Bilateral: positive: No lid inflammation Eyes: OU Scleral icterus ENT: positive: Pharynx nml, Dry mucous membranes Neck: positive: No JVD Respiratory: positive: Chest non-tender, No respiratory distress, Other (diminished bilaterally) Cardiovascular: positive: No gallop, Irregularly irregular, Systolic murmur, Decreased pulse(s) Peripheral Pulses: 1+ Radial (R), 1+ Radial (L), 1+ Popliteal (R), 1+ Popliteal (L) Abdomen: positive: Non-tender, Nml bowel sounds, Hepatomegaly, Other (rounded, soft) Back: positive: Nml inspection Skin: positive: No rash, Warm, Dry, Pallor Extremities: positive: Non-tender, Pedal edema, Other (Right AKA, dependent edema to LLE) Neurologic/Psychiatric: positive: Disoriented to place, Disoriented to time, Weakness, Sensory loss, Depressed mood/affect, Other (baseline impaired communication given blindness,) - Lab Results Fish Bones: 09/23/18 09:00 09/23/18 09:00 Other Labs: Lab Results x24hrs 09/22/18 09/22/18 Range/Units 08:42 08:42 WBC 11.7 H (4.8-10.8) x10^3/uL RBC 4.40 L (4.70-6.10) 10^6/uL Hgb 12.5 L (14.0-18.0) g/dL Hct 37.6 L (42.0-52.0) % MCV 85.5 (80.0-94.0) fL MCH 28.4 (27.0-31.0) pg MCHC 33.2 (32.0-36.0) g/dL RDW 13.3 (12.0-15.0) % Plt Count 247 (130-450) 10^3/uL MPV 10.2 (7.4-11.4) fL Neut # (Auto) 9.2 H (1.5-6.6) 10^3/uL Lymph # (Auto) 1.4 L (1.5-3.5) 10^3/uL [place] # (Auto) 0.7 (0.0-1.0) 10^3/uL Eos # (Auto) 0.2 (0.0-0.7) 10^3/uL Baso # (Auto) 0.1 (0.0-0.1) 10^3/uL Absolute Nucleated RBC 0.00 x10^3/uL Nucleated RBC % 0.0 /100WBC Sodium 138 (135-145) mmol/L Potassium 3.5 (3.5-5.0) mmol/L Chloride 100 L (101-111) mmol/L Carbon Dioxide 27 (21-32) mmol/L Anion Gap 11.0 (6-13) BUN 14 (6-20) mg/dL Creatinine 1.1 (0.6-1.2) mg/dL Estimated GFR (MDRD) 65 L (>89) Glucose 147 H (70-100) mg/dL Calcium 8.9 (8.5-10.3) mg/dL Magnesium 1.7 (1.7-2.8) mg/dL Total Bilirubin 0.7 (0.2-1.0) mg/dL AST 26 (10-42) IU/L ALT 25 (10-60) IU/L Alkaline Phosphatase 107 (42-121) IU/L Total Protein 7.4 (6.7-8.2) g/dL Albumin 3.1 L (3.2-5.5) g/dL Globulin 4.3 H (2.1-4.2) g/dL Albumin/Globulin Ratio 0.7 L (1.0-2.2) ABX Reporting Has patient been on IV antibiotics over the past 48 hours?: Yes Sepsis Event Note (H) - Evaluation Current Stage of Sepsis: Resolved Assessment/Plan - Problem List (1) Altered mental status Impression: -Resolved by holding his pain and depressant meds - Now transferred out of ICU - Ongoing evaluations by PT and OT Plan: Continue to monitor for improvement, resume meds on discharge Qualifiers: Altered mental status type: somnolence Qualified Code(s): R40.0 - Somnolence (2) Pneumonia Impression: - No cultures are positive - No longer needs oxygen today, baseline with coarse crackles that clear after coughing - Patient denies any respiratory symptoms. - Continues on empiric IV antibiotics Plan: Antibiotics for a total of 7 to 10-days Qualifiers: Pneumonia type: due to unspecified organism Laterality: left Lung location: lower lobe of lung Qualified Code(s): J18.1 - Lobar pneumonia, unspecified organism (3) Diarrhea Impression: - The patient had multiple loose stools while in ICU, now resolving - He denies abdominal pain with these - C. difficile toxin is negative - Cultures are negative for Campylobacter Plan: Continue to monitor (4) Sacral decubitus ulcer, stage II Impression: - A wound consult was made, for possible debridement and for recommendations regarding management - See chart for recommendations- creams, turns in bed, avoid long periods in the chair -Orders to D/C [place] Plan: continue wound care orders, turns in bed, monitor for improvement (5) Legally blind Impression: No issues (6) Controlled type 2 diabetes mellitus with complication, with long-term current use of insulin Impression: - Continue carb controlled diet, fingerstick checks, SS insulin coverage - Blood sugars 137/145 - Below goal of ~180 - No Lantus (long acting) insulin has been given while in the hospital - Gets 20 units BID at [facility] Plan: Continue to monitor, recommend a lower dose when returning home (7) COPD (chronic obstructive pulmonary disease) Impression: - inhalers at [facility] - Recurrent PNA Qualifiers: COPD type: unspecified COPD Qualified Code(s): J44.9 - Chronic obstructive pulmonary disease, unspecified (8) Dementia Impression: - longstanding, complicated by blindness and poor health Qualifiers: Dementia type: vascular dementia Dementia behavioral disturbance: with behavioral disturbance Qualified Code(s): F01.51 - Vascular dementia with behavioral disturbance
[2018-09-22] MEDS: ATORVASTATIN 10 MG TABLET PO SCH (21:52)
[2018-09-23] MEDS: SODIUM CHLORIDE FLUSH 0.9% 10 ML SYRINGE IVP SCH ×2 (00:42→10:17)
[2018-09-23] MEDS: VANCOMYCIN INJ 1 GM in SODIUM CHLORIDE 0.9% 250 ML IV SCH (02:06)
[2018-09-23] MEDS: MIN OIL/DIMETHICON/COCONUT OIL 92 GM TUBE TOP PRN (06:43)
[2018-09-23] MEDS: INSULIN ASPART 300 UNIT/3 ML PEN SUBQ SCH ×2 (09:20→11:41)
[2018-09-23] MEDS: FORMOTEROL FUMARATE NEB 20 MCG/2 ML INH SCH (09:24)
[2018-09-23 09:27] LABS: ALBUMIN 3.2 g/dL (3.2-5.5); ALBUMIN/GLOBULIN RATIO 0.7 (1.0-2.2); BILIRUBIN,TOTAL 0.7 mg/dL (0.2-1.0); MAGNESIUM 1.7 mg/dL (1.7-2.8); TOTAL PROTEIN 7.5 g/dL (6.7-8.2)
[2018-09-23 09:31] LABS: BASOPHILS # (AUTO) 0.1 10^3/uL (0.0-0.1); BASOPHILS % (AUTO) 0.5 %; EOSINOPHILS # (AUTO) 0.2 10^3/uL (0.0-0.7); EOSINOPHILS % (AUTO) 2.2 %; HGB - HEMOGLOBIN 12.5 g/dL (14.0-18.0); LYMPHOCYTES # (AUTO) 1.5 10^3/uL (1.5-3.5); LYMPHOCYTES % (AUTO) 14.4 %; MEAN CORPUSCULAR HGB CONC 32.6 g/dL (32.0-36.0); MEAN CORPUSCULAR VOLUME 86.1 fL (80.0-94.0); MEAN PLATELET VOLUME 10.3 fL (7.4-11.4); MONOCYTES # (AUTO) 0.6 10^3/uL (0.0-1.0); MONOCYTES % (AUTO) 6.1 %; NEUTROPHILS # (AUTO) 7.7 10^3/uL (1.5-6.6); NEUTROPHILS % (AUTO) 76.2 %; PLT - PLATELET COUNT 255 10^3/uL (130-450); RED BLOOD COUNT 4.46 10^6/uL (4.70-6.10); RED CELL DISTRIBUTION WIDTH 13.8 % (12.0-15.0); WHITE BLOOD COUNT 10.1 x10^3/uL (4.8-10.8)
[2018-09-23] MEDS ORDERED: MAGNESIUM OXIDE 400 MG TABLET PO SCH (10:00)
[2018-09-23] MEDS: CEFEPIME 2 GM in SODIUM CHLORIDE 0.9% MINIBAG 100 ML IV SCH (10:15)
[2018-09-23] MEDS: SACCHAROMYCES BOULARDII 250 MG CAPSULE PO SCH (10:16)
[2018-09-23] MEDS: CLOPIDOGREL 75 MG TABLET PO SCH (10:17)
[2018-09-23] MEDS: MULTIVITAMIN W/MINERALS TABLET PO SCH (10:17)
[2018-09-23] MEDS: DOCUSATE SODIUM 250 MG CAPSULE PO SCH (10:17)
[2018-09-23] MEDS: ENOXAPARIN 40 MG/0.4 ML SYRINGE SUBQ SCH (10:17)
[2018-09-23] MEDS: FAMOTIDINE 20 MG TABLET PO SCH (10:17)
--- NOTE | 2018-09-23 11:47 | Discharge Plan ---
"Discharge Plan for SNF / [facility] - Discharge Plan And Transition Orders Problem Reviewed?: Yes Disposition: 03 SNF DC/Xfer Condition: Good Allergies and Adverse Reactions: Allergies Allergy/AdvReac Type Severity Reaction Status Date / Time Penicillins Allergy Intermediate Rash Verified 09/17/18 07:59 morphine AdvReac Unknown I go Verified 09/17/18 07:59 [facility] Concerns: Pneumonia Blindness Quality of life COPD CAD Plan of Treatment: Continue 5 more days of antibiotics Care Goals: Avoid hospital stays Take all medications as prescribed - SNF / SKILLED NURSING Transition Orders Admit to (Facility): [facility] Under the care of (Name): Mariaa Francisco J Discharge Diagnosis: Altered mental status- Resolved Pneumonia, lobar- Continue antibiotics for the next 5 days, stable Diarrhea- resolved Sacral decubitus ulcer, stage II- chronic, stable Legal blindness- chronic, stable, no improvement Type 2 diabetes mellitus- chronic, stable COPD without exacerbation- chronic, stable Dementia- chronic, stable History of right AKA- chronic, stable Weight on admission and: Monthly Medication Orders: PLEASE REFER TO THE DISCHARGE MEDICATION LIST. - Medications New Prescriptions: levoFLOXacin [Levofloxacin] 500 mg PO DAILY #5 tablet Linezolid [Zyvox] 600 mg PO BID #10 tablet - Diet Type: Geriatric Texture: Regular Liquids: Thin May have monthly special meal: Yes - Therapies | Activity Rehabilitation Potential: Return to independent living Activity: Activity as Tolerated Assistance Devices: Wheelchair"
[2018-09-23 12:58] VITALS: BP 125/60
[2018-09-23] MEDS ORDERED: VANCOMYCIN INJ 1 GM, VANCOMYCIN INJ 250 MG in SODIUM CHLORIDE 0.9% 250 ML IV SCH (14:00)
--- NOTE | 2018-09-24 16:20 | DISCHARGE SUMMARY ---
Discharge Summary Admit Date: 09/18/18 Discharge Date: 09/23/18 Discharging Provider: EVERARDO Mccracken Primary Care Provider: Mariaa Marx Code Status: Do Not Attempt Resuscitation Condition at Discharge: Good Discharge Disposition: SNF DC/Xfer Discharge Facility Name: [facility] - DIAGNOSES Admission Diagnoses: Acute Metabolic encephalopathy Health care associated pneumonia, lobar Drug induced hypotension CKD stage III Diarrhea Vascular dementia Type 2 diabetes mellitus Hypertension Hyperlipidemia History of UTI History of CVA COPD without exacerbation PVD History of CAD/MD History of MRSA colonization Sacral decubitus ulcer, stage II Discharge Diagnoses with Status of Each Condition: Altered mental status- Resolved Pneumonia, lobar- Continue antibiotics for the next 5 days, stable Diarrhea- resolved Sacral decubitus ulcer, stage II- chronic, stable Legal blindness- chronic, stable, no improvement Type 2 diabetes mellitus- chronic, stable- reduced Levemir from 20 to 5 units BID COPD without exacerbation- chronic, stable Dementia- chronic, stable History of right AKA- chronic, stable - HPI History of Present Illness: HPI per Dr. Franco: Mr. Douglas Bowles is a 77-year-old male who is well-known to the hospital service with an extensive and complicated past medical history of various cardiac, vascular and respiratory comorbidities to include COPD, peripheral vascular disease, right AKA, legally blind from diabetic complication with peripheral neuropathy and nephropathy and CKD of stage III, type 2 diabetes mellitus insulin-dependent, hypertension, hyperlipidemia, CAD with MD status post cardiac stents, multiple CVA with vascular dementia, BPH with urinary incontinence and urinary frequency, polypharmacy, who resides over in [facility] adult living facility who was essentially brought in for altered mental status and unresponsiveness on 09/17 with a diagnosis of pneumonia and given azithromycin and sent back to [facility]. On this visitation patient presents with similar symptomatology of unresponsiveness with a finger stick glucose that was normal and essentially worked up for etiologies causing patient's encephalopathy which were likely attributable to pneumonia. Vital signs were somewhat unstable wit hypotension, NT/NT/Afebrile. On exam patient was Encephalopathic and was responsive to painful stimuli, did not appear to have neurological deficits on DTRs and Babinski and did not present with nuchal rigidity other than altered mental status. Lab and neuroimaging showed, CT head unofficial read did not show hemorrhagic CVA other than old infarct with encephalomalacia in keeping with multiple CVAs in the past. Chest x-ray showed left lower lung base consolidation in keeping with pneumonia.. Head catheter was placed on admission and did not appear to have pyuria on UA. Lactic acid was only 0.9, CBC showed WBC elevated 12.1, no electrolyte disturbance with baseline creatinine of chronic kidney disease stage III, 94% O2 saturation on 2 L nasal cannula with improvement to blood pressure 103/55 from previous 89/58, nontachypneic non-hypoxemic and afebrile. Patient was given 1 dose of IV cefepime and vancomycin in the ED and received 1 L normal saline bolus in the ED. After patient was admitted and transferred to floor patient was alert and oriented x3. Was able to tell me that multiple medications were dispensed and some of which he states that are given without knowing their purpose. Seems to have a poor understanding to his multiple medical conditions. - HOSPITAL COURSE Hospital Course: The patient had an expected length of hospital stay including at least 2 days of ICU level care for his HAP of which he was treated with IV vancomycin, IV Cefepime, regular nebulizer treatments, pulmonary toileting, and steroids. The patient's acute encephalopathy was thought to be secondary to his acute illness, which resolved prior to the time of discharge. A CT head did not show intracranial bleeding, only old infarcts. Patient is on Plavix for history of coronary disease with MD./Stents. The patient's medication list was concerning for polypharmacy with bupropion, Cymbalta, gabapentin, Ativan, tramadol, and trazodone. Regarding the patient's known history of chronic kidney disease stage III, he has a baseline serum creatinine between 1.3 and 1.6. Nephrotoxic agents were avoided, although we will place on aspirin due to patient's history of PVD/coronary artery disease. IV fluids were initially given to perfuse kidneys and to correct underlying electrolyte disturbances. The patient has had long standing type 2 diabetes mellitus with complications of nephropathy, retinopathy, polyneuropathy. His long acting insulin was not started, and he remained with early AM sugars in the low 100's. This may have been due to poor appetite initially, that began to improve upon discharge. The patient was in stable condition and transported back to [facility] via ambulance with antibiotics to continue, also covering for his history of MRSA. His Emma was personally called by me at least 2 times, the last being the day after discharge. I also called [facility] to ensure they had all orders correct and for an update as to how Douglas was doing since he returned, which they said he was doing fair- sleepy at times, but maybe his normal. - ALLERGIES Allergies/Adverse Reactions: Allergies Allergy/AdvReac Type Severity Reaction Status Date / Time Penicillins Allergy Intermediate Rash Verified 09/17/18 07:59 morphine AdvReac Unknown I go Verified 09/17/18 07:59 berserk - MEDICATIONS Home Medications: Ambulatory Orders Medication Instructions Recorded Confirmed Trazodone HCl 50 mg PO QPM PRN 07/08/13 09/20/18 Clopidogrel Bisulfate [Plavix] 75 mg PO DAILY 09/15/14 09/20/18 Docusate Sodium 250Mg Capsule 250 mg PO BID #30 04/24/17 09/20/18 [Colace 250Mg Capsule] Lisinopril 5 mg PO DAILY #30 04/24/17 09/20/18 Multivitamin W/Minerals [Theragran 1 tab PO DAILYWM #30 tablet 04/24/17 09/20/18 M] Simvastatin [Zocor] 10 mg PO QPM #30 04/24/17 09/20/18 Acetaminophen 650 mg PO DAILY PRN 08/02/17 09/20/18 Insulin Regular Human [NovoLIN R] 0 - 5 unit SUBQ TIDWM 08/02/17 09/20/18 Lactulose 15 ml PO BID PRN 08/02/17 09/20/18 traMADol [Ultram] 50 mg PO 0800,1200,1700,2100 08/02/17 09/20/18 DULoxetine [Cymbalta] 20 mg PO 1400 12/19/17 09/20/18 Gabapentin [Neurontin] 900 mg PO QID 12/19/17 09/20/18 LORazepam [Lorazepam] 0.5 mg PO TID PRN 12/19/17 09/20/18 Loperamide HCl [Loperamide] 2 mg PO DAILY PRN MDD 8MG 12/19/17 09/20/18 Magnesium Hydroxide [Milk of 2,400 mg PO TID PRN 12/19/17 08/24/18 Magnesia] Trazodone HCl 100 mg PO QPM 12/19/17 09/20/18 Albuterol Sulfate [Proair Hfa 2 puffs PO Q4H PRN 09/20/18 09/20/18 Inhaler] Azithromycin [Zithromax] 250 mg PO DAILY PM 09/20/18 09/20/18 Bacitracin Zinc 1 applic TOP PRN PRN 09/20/18 09/20/18 Bisacodyl 10 mg .ROUTE PRN PRN 09/20/18 09/20/18 Bupropion HCl [Bupropion HCl Sr] 300 mg PO DAILY 09/20/18 09/20/18 Ipratropium/Albuterol Sulfate 3 ml INH Q4H PRN 09/20/18 09/20/18 [Iprat-Albut 0.5-3(2.5) mg/3 ml] Polyethylene Glycol 3350 17 g PO DAILY 09/20/18 09/20/18 Senna [Senokot] 8.6 mg PO QPM 09/20/18 09/20/18 Insulin Detemir [Levemir Flextouch] 5 unit SQ BID #1 09/23/18 09/20/18 Linezolid [Zyvox] 600 mg PO BID #10 tablet 09/23/18 levoFLOXacin [Levofloxacin] 500 mg PO DAILY #5 tablet 09/23/18 - PHYSICAL EXAM AT DISCHARGE General Appearance: positive: No acute distress, Alert Eyes Bilateral: positive: No lid inflammation ENT: positive: Pharynx nml, No signs of dehydration Neck: positive: Thyroid nml, No JVD, Trachea midline Respiratory: positive: Chest non-tender, No respiratory distress, Other (diminished with coarse crackles that clear after a cough) Cardiovascular: positive: No gallop, Irregularly irregular, Systolic murmur, Decreased pulse(s) Peripheral Pulses: positive: 1+ Abdomen: positive: Non-tender, Nml bowel sounds, Hepatomegaly, Other (rounded, soft) Back: positive: Nml inspection Skin: positive: No rash, Warm, Dry, Pallor Extremities: positive: Non-tender, Pedal edema, Joint swelling, Other (chronic R AKA, chronic LLE edema- dependent) Neurologic/Psychiatric: positive: Oriented x3, Weakness, Sensory loss, Slurred/abnml speech (baseline sluggish speech), Depressed mood/affect, Other (baseline moderate edema) Reflexes: Bicep (R): 2+, Bicep (L): 2+ - LABS Result Diagrams: 09/23/18 09:00 09/23/18 09:00 - DIAGNOSTIC IMAGING Diagnostic Imaging Results: Final report reviewed Diagnostic Imaging Results Comments: EXAM: CT ANGIOGRAM HEAD/CT SCAN OF THE HEAD WITH CONTRAST EXAM DATE: 09/17/2018 07:45 AM IMPRESSION: 1. Right ICA occlusion. 2. Relatively small but grossly patent right MCA which appears to fill/reconstitute from collateral circulation. 3. No other evidence of intracranial large vessel occlusion or high-grade stenosis. 4. Prominent atherosclerosis of the cavernous segments of the internal carotid arteries. EXAM: CHEST RADIOGRAPHY EXAM DATE: 09/17/2018 08:44 AM IMPRESSION: Mild lateral left basilar opacity, probable atelectasis. EXAM: CHEST RADIOGRAPHY EXAM DATE: 09/18/2018 11:17 PM IMPRESSION: New mild diffuse bilateral airspace disease, could represent mild pulmonary edema versus atelectasis. Pneumonia not excluded. EXAM: CT HEAD EXAM DATE: 09/18/2018 11:33 PM IMPRESSION: 1. Stable age-related and mild chronic microvascular ischemic change. 2. No definite CT evidence of acute intracranial pathology. No s ignificant interval change. EXAM: ORBITS RADIOGRAPHY EXAM DATE: 09/20/2018 05:06 PM IMPRESSION: No radiopaque orbital foreign bodies. EXAM: MRI BRAIN WITHOUT CONTRAST EXAM DATE: 09/20/2018 05:30 PM IMPRESSION: 1. Significant motion artifact technically limits evaluation. Motion artifact limits evaluation for small or subtle pathology. Repeat examination with sedation or anesthesia support is suggested. 2. When accounting for technical limitations no definite acute infarct, acute intracranial hemorrhage, mass, hydrocephalus, or midline shift. 3. When accounting for technical limitations there is mild to moderate white matter changes seen that appears similar MR brain 07/29/2015 and may represent sequela of chronic small vessel ischemic disease. - SEPSIS Current Stage of Sepsis: Resolved - FOLLOW UP Follow Up: See PCP within one week, watch for hyperglycemia with reduced dose of insulin. - TIME SPENT Time Spent in Discharge (Minutes): 55
== END 2018-09-23 14:18 | DRG 193 ==
LOC: EDUNIT# → ED 22:42 → ICU 09-19 00:06 → MS3 09-21 14:52
PROVIDERS: ADMIT Family Medicine; ATTEND Nurse Practitioner
DX: J18.1 Lobar pneumonia, unspecified organism (principal); G93.41 Metabolic encephalopathy; F01.51 Vascular dementia, unspecified severity, with behavioral disturbance; G81.90 Hemiplegia, unspecified affecting unspecified side; I69.398 Other sequelae of cerebral infarction; Y95 Nosocomial condition; R19.7 Diarrhea, unspecified; L89.152 Pressure ulcer of sacral region, stage 2; L89.312 Pressure ulcer of right buttock, stage 2; E11.319 Type 2 diabetes mellitus with unspecified diabetic retinopathy without macular edema; H54.8 Legal blindness, as defined in USA; J44.9 Chronic obstructive pulmonary disease, unspecified; G93.89 Other specified disorders of brain; I12.9 Hypertensive chronic kidney disease with stage 1 through stage 4 chronic kidney disease, or unspecified chronic kidney disease; E11.22 Type 2 diabetes mellitus with diabetic chronic kidney disease; I10 Essential (primary) hypertension; N18.3 Chronic kidney disease, stage 3 (moderate); E78.5 Hyperlipidemia, unspecified; I25.10 Atherosclerotic heart disease of native coronary artery without angina pectoris; Z89.611 Acquired absence of right leg above knee; E11.42 Type 2 diabetes mellitus with diabetic polyneuropathy; F03.90 Unspecified dementia, unspecified severity, without behavioral disturbance, psychotic disturbance, mood disturbance, and anxiety; E11.51 Type 2 diabetes mellitus with diabetic peripheral angiopathy without gangrene; J32.9 Chronic sinusitis, unspecified; I95.2 Hypotension due to drugs; N40.1 Benign prostatic hyperplasia with lower urinary tract symptoms; N39.498 Other specified urinary incontinence; R35.1 Nocturia; H54.7 Unspecified visual loss; R35.0 Frequency of micturition; E78.00 Pure hypercholesterolemia, unspecified; H91.90 Unspecified hearing loss, unspecified ear; F32.9 Major depressive disorder, single episode, unspecified; F41.9 Anxiety disorder, unspecified; Z86.14 Personal history of Methicillin resistant Staphylococcus aureus infection; K59.09 Other constipation; F17.200 Nicotine dependence, unspecified, uncomplicated; M19.90 Unspecified osteoarthritis, unspecified site; Z66 Do not resuscitate; Z96.89 Presence of other specified functional implants; Z79.4 Long term (current) use of insulin; Z79.51 Long term (current) use of inhaled steroids; Z79.02 Long term (current) use of antithrombotics/antiplatelets; I25.2 Old myocardial infarction; Z95.5 Presence of coronary angioplasty implant and graft; Z87.440 Personal history of urinary (tract) infections; Z86.73 Personal history of transient ischemic attack (TIA), and cerebral infarction without residual deficits; Z87.01 Personal history of pneumonia (recurrent); Z90.49 Acquired absence of other specified parts of digestive tract
CPT/HCPCS: 36415; 36600; 51702; 70030; 70450; 70551; 71045; 80053; 80069; 80202; 81001; 82140; 82803; 83036; 83605; 83690; 83735; 84443; 84484; 85025; 85379; 87040; 87045; 87046; 87150; 87493; 93005; 94640; 96365; 97162; 97165; 97530; 99284; A6250; A9270; J1650; J3370; J3490; J7626; 80306; 80307; 80320; 80329; 87086; 99283

== ENCOUNTER 2018-09-23 14:19 | Outpatient (CLI) | payer MEDICARE, MEDICAID | END 2018-09-23 14:20 | disposition home or self-care (01) | LOC: EMS 14:19 | PROVIDERS: ATTEND Surgery | DX: J18.9 Pneumonia, unspecified organism (principal); N18.3 Chronic kidney disease, stage 3 (moderate); Z74.01 Bed confinement status | CPT/HCPCS: A0425; A0428 ==

== ENCOUNTER 2018-12-07 14:14 | Outpatient (CLI) | payer MEDICARE, MEDICAID | END 2018-12-07 14:15 | disposition critical access hospital (66) | LOC: EMS 14:14 | PROVIDERS: ATTEND Surgery | DX: R10.30 Lower abdominal pain, unspecified (principal); R11.2 Nausea with vomiting, unspecified | CPT/HCPCS: A0425; A0427 ==

== ENCOUNTER 2018-12-07 14:32 | Inpatient (IN) | payer MEDICARE, MEDICAID ==
[2018-12-07] MEDS ORDERED: HYDROmorphone 1 MG/ML CARPUJECT IVP STA (15:12)
[2018-12-07] MEDS ORDERED: SODIUM CHLORIDE 0.9% 1,000 ML IV ONE (15:12)
[2018-12-07] MEDS ORDERED: ONDANSETRON 4 MG/2 ML VIAL IVP STA (15:12)
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
[2018-12-07 15:28] LABS: BASOPHILS # (AUTO) 0.1 10^3/uL (0.0-0.1); BASOPHILS % (AUTO) 0.4 %; EOSINOPHILS # (AUTO) 0.1 10^3/uL (0.0-0.7); EOSINOPHILS % (AUTO) 0.6 %; HGB - HEMOGLOBIN 14.4 g/dL (14.0-18.0); LYMPHOCYTES # (AUTO) 1.4 10^3/uL (1.5-3.5); LYMPHOCYTES % (AUTO) 8.3 %; MEAN CORPUSCULAR HEMOGLOBIN 28.3 pg (27.0-31.0); MEAN CORPUSCULAR HGB CONC 31.5 g/dL (32.0-36.0); MEAN CORPUSCULAR VOLUME 89.8 fL (80.0-94.0); MONOCYTES # (AUTO) 0.7 10^3/uL (0.0-1.0); MONOCYTES % (AUTO) 4.2 %; NEUTROPHILS # (AUTO) 14.7 10^3/uL (1.5-6.6); NEUTROPHILS % (AUTO) 85.5 %; PLT - PLATELET COUNT 318 10^3/uL (130-450); RED BLOOD COUNT 5.09 10^6/uL (4.70-6.10); RED CELL DISTRIBUTION WIDTH 14.6 % (12.0-15.0); WHITE BLOOD COUNT 17.2 x10^3/uL (4.8-10.8)
[2018-12-07] MEDS ORDERED: IOVERSOL 320 50 ML VIAL ONE (15:31)
[2018-12-07] MEDS ORDERED: IOVERSOL 320 100 ML VIAL IVP ONE (15:31)
[2018-12-07 15:34] LABS: INR 1.4 (0.8-1.2); PT - PROTHROMBIN TIME 15.3 secs (9.9-12.6)
[2018-12-07 15:41] LABS: ALBUMIN 3.4 g/dL (3.2-5.5); ALBUMIN/GLOBULIN RATIO 0.7 (1.0-2.2); BILIRUBIN,TOTAL 1.1 mg/dL (0.2-1.0); CALCIUM 9.1 mg/dL (8.5-10.3); CREATININE 2.5 mg/dL (0.6-1.2); TOTAL PROTEIN 8.4 g/dL (6.7-8.2)
--- NOTE | 2018-12-07 17:18 | Ultrasound Report ---
Reason: elev liver enz Procedure Date: 12/07/2018 Accession Number: [id number] / [id number] Procedure: US - Abdomen Limited CPT Code: FULL RESULT: EXAM: ABDOMEN ULTRASOUND LIMITED, RUQ EXAM DATE: 12/07/2018 04:26 PM. CLINICAL HISTORY: Elevated liver enzymes. Patient reports history of cholecystectomy. COMPARISON: None. TECHNIQUE: Real-time scanning was performed with static images obtained. FINDINGS: Liver: Mildly inhomogeneous, increased echogenicity, suggesting diffuse fatty infiltration.No focal lesion. Liver measures 14.9 cm craniocaudally. Main portal vein flow: Hepatopetal. Gallbladder: Not clearly visualized, may be surgically absent or obscured by bowel gas. Biliary System: Common bile duct measures 7.6 mm. No intrahepatic ductal dilatation. Pancreas: Visualized portion is unremarkable. Right Kidney: 10.1 cm longitudinally. Normal echotexture.No hydronephrosis.No contour-deforming mass.No calculus. Other: IMPRESSION: 1. Gallbladder not clearly visualized, may be surgically absent or obscured by bowel gas. 2. Common bile duct is mildly enlarged. MRCP could be considered for further evaluation as clinically warranted. 3. There may be mild fatty liver infiltration. RADIA
[2018-12-07] MEDS ORDERED: IOVERSOL 320 50 ML VIAL PO ONE (17:46)
--- NOTE | 2018-12-07 17:59 | CT Report ---
Reason: abd pain Procedure Date: 12/07/2018 Accession Number: [id number] / [id number] Procedure: CT - Abdomen/Pelvis WO CPT Code: FULL RESULT: EXAM: CT ABDOMEN AND PELVIS EXAM DATE: 12/07/2018 05:29 PM. CLINICAL HISTORY: Abd pain. COMPARISONS: ABDOMEN/PELVIS W/O 12/19/2017 11:05 AM. TECHNIQUE: Routine axial helical CT imaging was performed through the abdomen and pelvis without IV contrast. Reconstructions: Coronal and sagittal. In accordance with CT protocol optimization, one or more of the following dose reduction techniques were utilized for this exam: automated exposure control, adjustment of mA and/or KV based on patient size, or use of iterative reconstructive technique. FINDINGS: Lung Bases: There is mild reticular density within the left lower lobe. There is opacification of the bronchi supplying the left lower lobe. There is cardiomegaly. Abdominal Organs: The liver, spleen, pancreas, and adrenal glands 7 straight no acute abnormalities. There is nephrolithiasis. There is a 0.4 cm stone within the right renal pelvis. There is no evidence of distal obstructing stone or significant hydronephrosis. Gallbladder/bile ducts: No significant abnormalities. Peritoneal Cavity: Stomach and small bowel demonstrate no acute abnormalities. There is moderate to large volume stool within colon. The rectum is distended to 9 cm with stool. No evidence of significant mesenteric inflammation. Pelvic Organs: No acute pelvic organ abnormalities are seen. Vasculature: There are atheromatous calcifications of the aorta and branch vessels. No acute vascular abnormalities are seen. Other: There is multilevel spine degenerative disease. No acute bony abnormalities are seen. IMPRESSION: 1. No evidence of bowel obstruction. 2. There is large volume stool within colon. The rectum is distended to 9 cm with stool. 3. There is nephrolithiasis. There is a 0.4 cm stone within the right renal pelvis. No evidence of obstructing stone or hydronephrosis. 4. There is opacification of bronchi supplying the left lower lobe. There is reticulonodular density within the left lower lobe. Findings are suspicious for aspiration.
[2018-12-07] MEDS ORDERED: metroNIDAZOLE 500 MG/100 ML 500 MG/100 ML BAG IV ONE (18:09)
[2018-12-07] MEDS ORDERED: cefTRIAXone 2 GM in SODIUM CHLORIDE 0.9% MINIBAG 100 ML IV STA (18:09)
[2018-12-07] MEDS ORDERED: HYDROmorphone 1 MG/ML CARPUJECT IVP PRN (19:40)
[2018-12-07] MEDS ORDERED: ONDANSETRON 4 MG/2 ML VIAL IVP PRN (19:40)
--- NOTE | 2018-12-07 20:07 | HISTORY & PHYSICAL EXAMINATION ---
Chief Complaint - Chief Complaint Chief Complaint: Abdominal pain History of Present Illness - Admitted From Admitted From:: [facility] - History Obtained From Records Reviewed: Yes History obtained from: ER Physician, EMR Exam Limitations: Patient is encephalopathic opon my examination - History of Present Illness HPI Comment/Other: This is a 77 year old male with a history significant for diabetes, COPD (not on home O2), CAD, CVA, and right AKA who presents complaining of abdominal pain and nausea/vomiting. History is obtained from the ER physician as upon my evaluation, he is encephalopathic and unable to participate in conversation. He reportedly has been having abdominal pain about two days ago. This was assoc iated with nausea and vomiting. He was not having bowel movements and did not recall passing gas. In the ER, he was initially hypertensive with systolic in the 160's and tachycardic in the 90's. Labs were significant for leukocytosis, elevated LFTS, and elevated creatinine. He was given Dilaudid and Zofran with improvement in his pain. He then had an abdominal ultrasound performed which did not visualize the gallbladder but did show a mildly enlarged CBD. He then had a CT of the abdomen/pelvis which did not show obstruction but did show a large amount of stool consistent with impaction. He received an enema in the ER for this large stool burden. Medicine was then consulted for admission. When I went to evaluate the patient, he had become hypotensive with systolic in the 90's. He initially would open his eyes and attempt to follow commands. I asked him to give me a thumbs up and he was able to do this but he was extremely lethargic and would fall back to sleep quickly. His speech was mumbled and he would say one to two words at a time. Of note, he has a POLST form from 2015 which stats he is a DNR. He will be made a DNR per that form until I am able to confirm his wishes and goals. History - Past Medical History Cardiovascular: reports: High cholesterol, DE, Coronary artery disease, Peripheral Vascular Disease, Hypertension, Murmur Respiratory: reports: Shortness of breath, COPD, Pneumonia Neuro: reports: Headaches, Dementia, Other, Peripheral neuropathy, CVA Endocrine/Autoimmune: reports: Type 2 diabetes GI: reports: Chronic constipation, GERD : reports: Benign prostate hypertrophy, Frequency, Incontinence, Chronic bladder infection, Nocturia HEENT: reports: Chronic hearing loss, Chronic vision loss, Chronic sinusitis Psych: reports: Depression, Anxiety Musculoskeletal: reports: Osteoarthritis, Hemiplegia Derm: reports: None MRSA Hx?: No - Past Surgical History General: reports: Splenectomy Ortho: reports: Amputation Cardiovascular: reports: Coronary stent, Vascular surgery, Angioplasty, Cardiac catheterization Neuro: reports: TENANT SELECTOR shunt - Family & Social History Family History: Mother: , Father: , Brother: Alive and Well Family History Comment/Other: Unable to obtain family history due to his mental status. Prior documentation noted that patient is unaware of his parents medical history. Social History Notes: Unable to obtain a more recent social history but prior documentation noted that his lives in [place]. He resides at [facility]. He is wheelchair bound and he has been a life long smoker. Also had alcohol abuse and occasional marijua use. - Substance History Use: Uses substance without health or social issues: NONE - POLST Patient has POLST: Yes POLST Status: DNR Meds/Allgy - Home Medications Home Medications: Ambulatory Orders Medication Instructions Recorded Confirmed Trazodone HCl 50 mg PO QPM PRN 07/08/13 09/20/18 Clopidogrel Bisulfate [Plavix] 75 mg PO DAILY 09/15/14 09/20/18 Docusate Sodium 250Mg Capsule 250 mg PO BID #30 04/24/17 09/20/18 [Colace 250Mg Capsule] Lisinopril 5 mg PO DAILY #30 04/24/17 09/20/18 Multivitamin W/Minerals [Theragran 1 tab PO DAILYWM #30 tablet 04/24/17 09/20/18 M] Simvastatin [Zocor] 10 mg PO QPM #30 04/24/17 09/20/18 Acetaminophen 650 mg PO DAILY PRN 08/02/17 09/20/18 Insulin Regular Human [NovoLIN R] 0 - 5 unit SUBQ TIDWM 08/02/17 09/20/18 Lactulose 15 ml PO BID PRN 08/02/17 09/20/18 traMADol [Ultram] 50 mg PO 0800,1200,1700,2100 08/02/17 09/20/18 DULoxetine [Cymbalta] 20 mg PO 1400 12/19/17 09/20/18 Gabapentin [Neurontin] 900 mg PO QID 12/19/17 09/20/18 LORazepam [Lorazepam] 0.5 mg PO TID PRN 12/19/17 09/20/18 Loperamide HCl [Loperamide] 2 mg PO DAILY PRN MDD 8MG 12/19/17 09/20/18 Magnesium Hydroxide [Milk of 2,400 mg PO TID PRN 12/19/17 08/24/18 Magnesia] Trazodone HCl 100 mg PO QPM 12/19/17 09/20/18 Albuterol Sulfate [Proair Hfa 2 puffs PO Q4H PRN 09/20/18 09/20/18 Inhaler] Azithromycin [Zithromax] 250 mg PO DAILY PM 09/20/18 09/20/18 Bacitracin Zinc 1 applic TOP PRN PRN 09/20/18 09/20/18 Bisacodyl 10 mg .ROUTE PRN PRN 09/20/18 09/20/18 Bupropion HCl [Bupropion HCl Sr] 300 mg PO DAILY 09/20/18 09/20/18 Ipratropium/Albuterol Sulfate 3 ml INH Q4H PRN 09/20/18 09/20/18 [Iprat-Albut 0.5-3(2.5) mg/3 ml] Polyethylene Glycol 3350 17 g PO DAILY 09/20/18 09/20/18 Senna [Senokot] 8.6 mg PO QPM 09/20/18 09/20/18 Insulin Detemir [Levemir Flextouch] 5 unit SQ BID #1 09/23/18 09/20/18 Linezolid [Zyvox] 600 mg PO BID #10 tablet 09/23/18 levoFLOXacin [Levofloxacin] 500 mg PO DAILY #5 tablet 09/23/18 - Allergies Allergies/Adverse Reactions: Allergies Allergy/AdvReac Type Severity Reaction Status Date / Time Penicillins Allergy Intermediate Rash Verified 12/07/18 14:46 morphine AdvReac Unknown I go Verified 12/07/18 14:46 [email or web address] Review of Systems - All Other Systems All Other Systems: reports: Other (Unable to obtain ROS at this time due to the decline in his mental status.) Prior Level of Functionality: Dependent with ADL's. Wheelchair bound at baseline. Exam - Vital Signs Reviewed Vital Signs: Yes Vital Signs: Vital Signs x48h Temp Pulse Resp BP Pulse Ox 12/07/18 18:00 94 16 160/90 H 98 12/07/18 16:50 92 16 100/63 96 12/07/18 14:45 95 14 162/136 H 98 12/07/18 14:37 36.3 C L 96 18 115/71 97 - Physical Exam General Appearance: positive: Mild distress, Lethargic Eyes Bilateral: positive: PERRL, Conjunctivae nml ENT: positive: Dry mucous membranes Neck: positive: Nml inspection Respiratory: positive: No respiratory distress. negative: Wheezes, Rales, Rhonchi Cardiovascular: positive: Regular rate & rhythm, No murmur, Tachycardia. negative: Systolic murmur, Diastolic murmur Abdomen: positive: Non-tender, Nml bowel sounds, No distention. negative: Tenderness, Guarding, Rebound Skin: positive: No rash, Other (Significant excoriates in the sacrum noted. There is a small 1cm wound in the right inguinal fold. No evidence of purulent d ischarge.) Extremities: positive: No pedal edema, Other (Right AKA noted.) Neurologic/Psychiatric: positive: Other (He is able to move his extremities. Appears to try and follow commands when asked. 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 Although he does have evidence of aspiration on CT, he is not hypoxic and the infiltrate is not large. CT of the abdomen without evidence of another source. Urinalysis is pending. He does have leukocytosis, encephalopathy, tachycardia and hypotension. - Ceftriaxone IV and Flagyl IV given his pencillin allergy to cover for gram negatives and anaerobes - If remains hypotensive, will add Vancomycin - Follow up cultures (2) Encephalopathy acute Conclusion/Plan: He was initially alert and talkative upon arrival to the ED per the ER physician. Upon my evaluation, he is extremely lethargic and is only able to mumble a few words. He does appear to try and follow commands as he does try to give me a thumbs up when asked. Suspect that this is related to sepsis and hypotension as his blood pressure is now in the 90's sytolic compared to 160's on arrival. - IV hydration, will transfer to ICU if blood pressure does not improve with IV hydration - Check Ammonia given abnormal LFT's - Will consider CT of the head if no improvement (3) Hypotension Conclusion/Plan: Presented hypertensive with systolic in the 160's but now hypotensive with systolic in the 90's. Has had associated decline in mental status. Likely secondary to sepsis. Normally hypertensive and is on Lisinopril at home. - Hold Lisinopril due to hypotension - IV Hydration Qualifiers: Hypotension type: unspecified hypotension type Qualified Code(s): I95.9 - Hypotension, unspecified (4) Abdominal pain Conclusion/Plan: Presented with abdominal pain along with nausea and vomiting. Suspect that this may be related to his fecal impaction or what is causing his transaminitis. CT negative for obstruction. Urinalysis pending. - Dilaudid PRN - Zofran PRN - MRCP in AM - NPO for now - Follow up urinalysis (5) Elevated liver enzymes Conclusion/Plan: Etiology is unclear at this time. Ultrasound unable to visualize gallbladder although it appears her had cholecystectomy in the past. CBD is slightly dilated. INR is 1.4 - Check hepatitis panel, tylenol level, CK - MRCP in AM - Trend LFT's (6) CESARIO (acute kidney injury) Conclusion/Plan: Suspect this is likely pre-renal in nature given his poor oral intake. Has a history of CKD but his baseline creatinine is 1.0. Creatinine elevated at 2.5 on admission with elevated BUN. - IV hydration - Bladder scan q shift - Monitor renal function (7) Aspiration pneumonia Conclusion/Plan: Evident on CT of the abdomen/pelvis. He is fortunately not hypoxic nor tachypnic. - Ceftriaxone and Flagyl IV given his penicillin allergy - Obtain chest x-ray to eval for infiltrate as the CT was not of the chest Qualifiers: Laterality: left Lung location: lower lobe of lung (8) Constipation Conclusion/Plan: Chronic in nature likely due to his poor mobility. On multiple laxatives at home. CT of the abdomen/pelvis concerning for impaction but no obstruction. He was given an enema in the ER. - He will likely require manual disimpaction - Continue bowel regimen (9) COPD (chronic obstructive pulmonary disease) Conclusion/Plan: Chronic and not in exacerbation. - Duoneb PRN Qualifiers: COPD type: unspecified COPD Qualified Code(s): J44.9 - Chronic obstructive pulmonary disease, unspecified (10) Controlled type 2 diabetes mellitus with complication, with long-term current use of insulin Conclusion/Plan: He is on Levemir and novolin at home. Blood glucose just below 200 on admission. On gabapentin for neuropathy. - Continue Levemir + ISS - Continue gabapentin - CC diet once taking PO (11) History of coronary artery disease Conclusion/Plan: He is on Plavix and statin at home. Stable. - Continue Plavix and statin. (12) History of CVA (cerebrovascular accident) Conclusion/Plan: He is on Plavix and statin at home. Stable. - Continue Plavix and statin - Lab Results Lab results reviewed: Yes Fish Bones: 12/07/18 15:21 12/07/18 15:21 - Diagnostic Imaging Results Diagnostic Imaging Results: positive: Final report reviewed Core Measures - Anticipated LOS I expect patient to be DC'd or transferred within 96 hours.: Yes - Issues Hospital Issues and Management Plan: Transaminitis requiring further workup and acute kidney injury requiring IV hydration. - DVT/VTE - Prophylaxis VTE/DVT Device ordered at admit?: Yes VTE/DVT Prophylaxis med ordered at admit?: Yes
[2018-12-07] MEDS ORDERED: IPRATROPIUM/ALBUTEROL 3 ML NEB INH PRN (20:20)
[2018-12-07 20:42] LABS: ACETAMINOPHEN < 10 ug/mL (10-30); CK- CREATINE KINASE 60 IU/L (22-269); MAGNESIUM 2.4 mg/dL (1.7-2.8); PHOSPHORUS 5.7 mg/dL (2.5-4.6)
[2018-12-07] MEDS ORDERED: LACTATED RINGERS 500 ML IV ONE ×2 (20:51→21:26)
[2018-12-07] MEDS ORDERED: INSULIN GLARGINE 300 UNIT/3 ML PEN SUBQ SCH (21:00)
[2018-12-07] MEDS: LACTATED RINGERS 1,000 ML IV SCH (21:11)
[2018-12-07] MEDS: HEPARIN 5,000 UNIT/ML VIAL SUBQ SCH (21:19)
[2018-12-07] MEDS: INSULIN REGULAR HUMAN 100 UNIT/1 ML 10 ML MDV SUBQ SCH (21:20)
[2018-12-07] MEDS ORDERED: VANCOMYCIN INJ 1.25 GM in SODIUM CHLORIDE 0.9% 500 ML IV STA (21:26)
--- NOTE | 2018-12-07 22:17 | XRAY Report ---
Reason: Cough and emesis. Eval for infiltrate. Procedure Date: 12/07/2018 Accession Number: [id number] / [id number] Procedure: XR - Chest 1 View X-Ray CPT Code: 88530 FULL RESULT: EXAM: CHEST RADIOGRAPHY EXAM DATE: 12/07/2018 08:32 PM. CLINICAL HISTORY: . Emesis. COMPARISON: CHEST 1 VIEW 09/18/2018 11:03 PM ABDOMEN/PELVIS W/O 12/07/2018 5:22 PM. TECHNIQUE: 1 view. FINDINGS: Lungs/Pleura: Hypoinflated lungs. Mild haziness at the left base, otherwise no focal opacities evident. No pleural effusion. No pneumothorax. Mediastinum: Within exam limitations, the cardiomediastinal contour is normal. Calcified aortic arch noted. Other: Old left clavicle fracture deformity noted. IMPRESSION: Mild left base atelectasis/infiltrate. RADIA
[2018-12-07 22:21] LABS: GLUCOSE, URINE (UA) NEGATIVE (NEGATIVE); KETONES,URINE (UA) TRACE mg/dL (NEGATIVE); LEUKOCYTE ESTERASE, URINE TRACE (NEGATIVE); NITRITE,URINE NEGATIVE (NEGATIVE); OCCULT BLOOD,URINE LARGE (NEGATIVE); PROTEIN,URINE TRACE mg/dL (NEGATIVE); UROBILINOGEN,URINE 0.2 (NORMAL) E.U./dL (NORMAL)
[2018-12-07 22:29] LABS: BILIRUBIN,URINE NEGATIVE (NEGATIVE); CLARITY,URINE HAZY (CLEAR); ICTOTEST,URINE NEGATIVE
[2018-12-07 22:33] LABS: RBC,URINE TNTC /HPF (0-5); SQUAMOUS EPITHELIAL CELL,UR FEW Squamous (<= Few)
[2018-12-07 22:34] LABS: CASTS, URINE 6-10 Course Granular /LPF
[2018-12-07 22:35] LABS: BACTERIA,URINE Few /HPF (None Seen)
[2018-12-07] MEDS ORDERED: HYDROmorphone 2 MG/ML VIAL IVP PRN (23:55)
[2018-12-08] MEDS: INSULIN REGULAR HUMAN 100 UNIT/1 ML 10 ML MDV SUBQ SCH ×4 (00:50→18:15)
[2018-12-08] MEDS: SODIUM CHLORIDE FLUSH 0.9% 10 ML SYRINGE IVP SCH ×3 (02:51→16:45)
[2018-12-08] MEDS ORDERED: LACTATED RINGERS 500 ML IV ONE (03:46)
[2018-12-08] MEDS ORDERED: SODIUM CHLORIDE 0.9% 0 ML ONE (04:14)
[2018-12-08 05:00] LABS: BASOPHILS % (AUTO) 0.4 %; EOSINOPHILS # (AUTO) 0.2 10^3/uL (0.0-0.7); EOSINOPHILS % (AUTO) 1.4 %; HGB - HEMOGLOBIN 11.3 g/dL (14.0-18.0); LYMPHOCYTES # (AUTO) 0.9 10^3/uL (1.5-3.5); LYMPHOCYTES % (AUTO) 8.9 %; MEAN CORPUSCULAR HEMOGLOBIN 28.3 pg (27.0-31.0); MEAN CORPUSCULAR HGB CONC 31.3 g/dL (32.0-36.0); MEAN CORPUSCULAR VOLUME 90.5 fL (80.0-94.0); MEAN PLATELET VOLUME 10.3 fL (7.4-11.4); MONOCYTES # (AUTO) 0.6 10^3/uL (0.0-1.0); MONOCYTES % (AUTO) 6.1 %; NEUTROPHILS # (AUTO) 8.7 10^3/uL (1.5-6.6); NEUTROPHILS % (AUTO) 82.4 %; PLT - PLATELET COUNT 223 10^3/uL (130-450); RED BLOOD COUNT 3.99 10^6/uL (4.70-6.10); RED CELL DISTRIBUTION WIDTH 14.6 % (12.0-15.0); WHITE BLOOD COUNT 10.6 x10^3/uL (4.8-10.8)
[2018-12-08 05:18] LABS: ALBUMIN 2.6 g/dL (3.2-5.5); BILIRUBIN,DIRECT 0.2 mg/dL (0.1-0.5); BILIRUBIN,TOTAL 0.8 mg/dL (0.2-1.0); CALCIUM 8.4 mg/dL (8.5-10.3); PHOSPHORUS 3.5 mg/dL (2.5-4.6); TOTAL PROTEIN 6.5 g/dL (6.7-8.2)
[2018-12-08] MEDS: metroNIDAZOLE 500 MG/100 ML 500 MG/100 ML BAG IV SCH ×2 (05:28→13:24)
[2018-12-08] MEDS: LACTATED RINGERS 1,000 ML IV SCH ×2 (06:31→16:45)
[2018-12-08] MEDS: GABAPENTIN 300 MG CAPSULE PO SCH ×2 (06:31→13:24)
[2018-12-08] MEDS ORDERED: PANTOPRAZOLE 40 MG VIAL IVP SCH (07:00)
[2018-12-08] MEDS: SODIUM CHLORIDE FLUSH 0.9% 10 ML SYRINGE IVP PRN ×2 (08:05→18:49)
[2018-12-08] MEDS ORDERED: POLYETHYLENE GLYCOL 3350 17 GM PACKET PO SCH (09:00)
[2018-12-08] MEDS ORDERED: CLOPIDOGREL 75 MG TABLET PO SCH (09:00)
[2018-12-08] MEDS: HEPARIN 5,000 UNIT/ML VIAL SUBQ SCH (09:05)
--- NOTE | 2018-12-08 10:40 | PROVIDER PROGRESS NOTE ---
Subjective - Prog Note Date Prog Note Date: 12/08/18 Prog Note Time: 10:54 - Subjective Pt reports feeling: Improved Subjective: his abd pain is much better than yesterday. he has no flatus. no emesis. Still no sucess w evacuation of stool. Current Medications - Current Medications Current Medications: Active Medications Albuterol/Ipratropium (Duoneb) 3 ml INH Q4HR PRN PRN Reason: Wheezing Last Admin: 12/08/18 07:26 Dose: 3 ml Atorvastatin Calcium (Lipitor) 10 mg PO QPM EILEEN Clopidogrel Bisulfate (Plavix) 75 mg PO DAILY [facility] Last Admin: 12/08/18 09:01 Dose: 75 mg Gabapentin (Neurontin) 300 mg PO TID [facility] Last Admin: 12/08/18 06:31 Dose: Not Given Heparin Sodium (Porcine) () 5,000 unit SUBQ BID [facility] Last Admin: 12/08/18 09:05 Dose: 5,000 unit Hydromorphone HCl (Dilaudid (Vial)) 1 mg IVP Q2H PRN PRN Reason: PAIN Lactated Ringer's (Lr) 1,000 mls @ 100 mls/hr IV .Q10H [facility] Last Infusion: 12/08/18 06:32 Dose: 100 mls/hr Ceftriaxone Sodium 1 gm/ (Sodium Chloride) 100 mls @ 200 mls/hr IV Q24H EILEEN Metronidazole (Flagyl 500 Mg/100 Ml) 500 mg in 100 mls @ 100 mls/hr IV Q8H [facility] Last Infusion: 12/08/18 06:32 Dose: Infused Insulin Glargine (Lantus Solostar) 5 unit SUBQ QPM [facility] Last Admin: 12/07/18 21:20 Dose: 5 unit Insulin Human Regular (Novolin R) 1 - 9 unit SUBQ Q6HR [facility]; Protocol Last Admin: 12/08/18 06:30 Dose: Not Given Ondansetron HCl (Zofran Inj) 4 mg IVP Q6HR PRN PRN Reason: Nausea / Vomiting Last Admin: 12/08/18 08:04 Dose: 4 mg Pantoprazole Sodium (Protonix) 40 mg IVP QDAC [facility] Last Admin: 12/08/18 07:02 Dose: 40 mg Polyethylene Glycol (Miralax) 17 gm PO DAILY [facility] Last Admin: 12/08/18 09:01 Dose: 17 gm Sodium Chloride (Normal Saline Flush 0.9%) 10 ml IVP PRN PRN PRN Reason: NEEDED PER PROVIDER ORDERS Last Admin: 12/08/18 08:05 Dose: 10 ml Sodium Chloride (Normal Saline Flush 0.9%) 10 ml IVP 0100,0900,1700 EILEEN Last Admin: 12/08/18 07:02 Dose: 10 ml Trazodone HCl 50 mg PO QPM PRN 07/08/13 Clopidogrel Bisulfate [Plavix] 75 mg PO DAILY 09/15/14 Acetaminophen 650 mg PO DAILY PRN 08/02/17 Insulin Regular Human [NovoLIN R] 0 - 5 unit SUBQ TIDWM 08/02/17 Lactulose 15 ml PO BID PRN 08/02/17 traMADol [Ultram] 50 mg PO 0800,1200,1700,2100 08/02/17 DULoxetine [Cymbalta] 20 mg PO 1400 12/19/17 Gabapentin [Neurontin] 900 mg PO QID 12/19/17 LORazepam [Lorazepam] 0.5 mg PO TID PRN 12/19/17 Loperamide HCl [Loperamide] 2 mg PO DAILY PRN MDD 8MG 12/19/17 Magnesium Hydroxide [Milk of Magnesia] 2,400 mg PO TID PRN 12/19/17 Trazodone HCl 100 mg PO QPM 12/19/17 Albuterol Sulfate [Proair Hfa Inhaler] 2 puffs PO Q4H PRN 09/20/18 Azithromycin [Zithromax] 250 mg PO DAILY PM 09/20/18 Bacitracin Zinc 1 applic TOP PRN PRN 09/20/18 Bisacodyl 10 mg .ROUTE PRN PRN 09/20/18 Bupropion HCl [Bupropion HCl Sr] 300 mg PO DAILY 09/20/18 Ipratropium/Albuterol Sulfate [Iprat-Albut 0.5-3(2.5) mg/3 ml] 3 ml INH Q4H PRN 09/20/18 Polyethylene Glycol 3350 17 g PO DAILY 09/20/18 Senna [Senokot] 8.6 mg PO QPM 09/20/18 Objective - Vital Signs/Intake & Output Reviewed Vital Signs: Yes Vital Signs: Vital Signs x48h Temp Pulse Pulse Pulse Resp BP Pulse Ox 12/08/18 08:04 36.8 C 111 H 18 126/78 96 12/08/18 07:27 96 18 12/08/18 04:38 97 152/73 H 12/08/18 03:35 36.7 C 98 18 101/46 L 96 Intake & Output: Intake & Output 12/05/18 12/06/18 12/07/18 12/08/18 23:59 23:59 23:59 23:59 Intake Total 2200 1500 Output Total 330 500 Balance 1870 1000 - Objective General Appearance: positive: No acute distress, Alert, Other (elderly white male with morales, mustache, seems to be with cognitive deficit in communicating. Keeps eyes closed during visit until I ask him to please open his eyes and look at me.) Eyes Bilateral: positive: PERRL, EOMI ENT: positive: Pharynx nml Neck: positive: No JVD. negative: Stiff neck, Carotid bruit Respiratory: positive: Chest non-tender. negative: Wheezes, Rales, Rhonchi Cardiovascular: positive: Regular rate & rhythm. negative: Gallop/S4, Friction rub Abdomen: positive: Non-tender, No organomegaly, Nml bowel sounds, Other (mild distension, not tympanitic) Skin: positive: Warm, Dry Extremities: positive: Full ROM, No pedal edema Neurologic/Psychiatric: positive: Oriented x3, CN's nml (2-12) (but may be deaf), Motor nml - Lab Results Fish Bones: 12/08/18 04:30 12/08/18 04:30 Other Labs: Lab Results x24hrs 12/08/18 12/08/18 12/07/18 Range/Units 04:30 04:30 22:00 WBC 10.6 (4.8-10.8) x10^3/uL RBC 3.99 L (4.70-6.10) 10^6/uL Hgb 11.3 L (14.0-18.0) g/dL Hct 36.1 L (42.0-52.0) % MCV 90.5 (80.0-94.0) fL MCH 28.3 (27.0-31.0) pg MCHC 31.3 L (32.0-36.0) g/dL RDW 14.6 (12.0-15.0) % Plt Count 223 (130-450) 10^3/uL MPV 10.3 (7.4-11.4) fL Neut # (Auto) 8.7 H (1.5-6.6) 10^3/uL Lymph # (Auto) 0.9 L (1.5-3.5) 10^3/uL [place] # (Auto) 0.6 (0.0-1.0) 10^3/uL Eos # (Auto) 0.2 (0.0-0.7) 10^3/uL Baso # (Auto) 0.0 (0.0-0.1) 10^3/uL Absolute Nucleated RBC 0.00 x10^3/uL Nucleated RBC % 0.0 /100WBC PT (9.9-12.6) secs INR (0.8-1.2) Sodium 142 (135-145) mmol/L Potassium 3.8 (3.5-5.0) mmol/L Chloride 106 (101-111) mmol/L Carbon Dioxide 30 (21-32) mmol/L Anion Gap 6.0 (6-13) BUN 52 H (6-20) mg/dL Creatinine 2.0 H (0.6-1.2) mg/dL Estimated GFR (MDRD) 33 L (>89) Glucose 126 H (70-100) mg/dL Lactic Acid (0.5-2.2) mmol/L Calcium 8.4 L (8.5-10.3) mg/dL Phosphorus 3.5 (2.5-4.6) mg/dL Magnesium 2.0 (1.7-2.8) mg/dL Total Bilirubin 0.8 (0.2-1.0) mg/dL Direct Bilirubin 0.2 (0.1-0.5) mg/dL AST 57 H (10-42) IU/L ALT 136 H (10-60) IU/L Alkaline Phosphatase 156 H (42-121) IU/L Ammonia (7-35) umol/L Total Creatine Kinase (22-269) IU/L Total Protein 6.5 L (6.7-8.2) g/dL Albumin 2.6 L (3.2-5.5) g/dL Globulin 3.9 (2.1-4.2) g/dL Albumin/Globulin Ratio (1.0-2.2) Lipase (22-51) U/L Urine Color DARK YELLOW Urine Clarity HAZY (CLEAR) Urine pH 5.0 (5.0-7.5) PH Ur Specific [place] >=1.030 H (1.002-1.030) Urine Protein TRACE (NEGATIVE) mg/dL Urine Glucose (UA) NEGATIVE (NEGATIVE) mg/dL Urine Ketones TRACE (NEGATIVE) mg/dL Urine Occult Blood LARGE H (NEGATIVE) Urine Nitrite NEGATIVE (NEGATIVE) Urine Bilirubin NEGATIVE (NEGATIVE) Urine Urobilinogen 0.2 (NORMAL) (NORMAL) E.U./dL Ur Leukocyte Esterase TRACE H (NEGATIVE) Urine RBC TNTC H (0-5) /HPF Urine WBC 6-10 H (0-3) /HPF Ur Squamous Epith Cells FEW Squamous (<= Few) Urine Bacteria Few (None Seen) /HPF Urine Casts 6-10 Course Granular /LPF Urine Culture Comments INDICATED Acetaminophen (10-30) ug/mL 12/07/18 12/07/18 12/07/18 Range/Units 21:04 20:24 18:25 WBC (4.8-10.8) x10^3/uL RBC (4.70-6.10) 10^6/uL Hgb (14.0-18.0) g/dL Hct (42.0-52.0) % MCV (80.0-94.0) fL MCH (27.0-31.0) pg MCHC (32.0-36.0) g/dL RDW (12.0-15.0) % Plt Count (130-450) 10^3/uL MPV (7.4-11.4) fL Neut # (Auto) (1.5-6.6) 10^3/uL Lymph # (Auto) (1.5-3.5) 10^3/uL [place] # (Auto) (0.0-1.0) 10^3/uL Eos # (Auto) (0.0-0.7) 10^3/uL Baso # (Auto) (0.0-0.1) 10^3/uL Absolute Nucleated RBC x10^3/uL Nucleated RBC % /100WBC PT (9.9-12.6) secs INR (0.8-1.2) Sodium (135-145) mmol/L Potassium (3.5-5.0) mmol/L Chloride (101-111) mmol/L Carbon Dioxide (21-32) mmol/L Anion Gap (6-13) BUN (6-20) mg/dL Creatinine (0.6-1.2) mg/dL Estimated GFR (MDRD) (>89) Glucose (70-100) mg/dL Lactic Acid 1.6 (0.5-2.2) mmol/L Calcium (8.5-10.3) mg/dL Phosphorus 5.7 H (2.5-4.6) mg/dL Magnesium 2.4 (1.7-2.8) mg/dL Total Bilirubin (0.2-1.0) mg/dL Direct Bilirubin (0.1-0.5) mg/dL AST (10-42) IU/L ALT (10-60) IU/L Alkaline Phosphatase (42-121) IU/L Ammonia 29.2 (7-35) umol/L Total Creatine Kinase 60 (22-269) IU/L Total Protein (6.7-8.2) g/dL Albumin (3.2-5.5) g/dL Globulin (2.1-4.2) g/dL Albumin/Globulin Ratio (1.0-2.2) Lipase (22-51) U/L Urine Color Urine Clarity (CLEAR) Urine pH (5.0-7.5) PH Ur Specific [place] (1.002-1.030) Urine Protein (NEGATIVE) mg/dL Urine Glucose (UA) (NEGATIVE) mg/dL Urine Ketones (NEGATIVE) mg/dL Urine Occult Blood (NEGATIVE) Urine Nitrite (NEGATIVE) Urine Bilirubin (NEGATIVE) Urine Urobilinogen (NORMAL) E.U./dL Ur Leukocyte Esterase (NEGATIVE) Urine RBC (0-5) /HPF Urine WBC (0-3) /HPF Ur Squamous Epith Cells (<= Few) Urine Bacteria (None Seen) /HPF Urine Casts /LPF Urine Culture Comments Acetaminophen < 10 L (10-30) ug/mL 12/07/18 12/07/18 12/07/18 Range/Units 15:21 15:21 15:21 WBC 17.2 H (4.8-10.8) x10^3/uL RBC 5.09 (4.70-6.10) 10^6/uL Hgb 14.4 (14.0-18.0) g/dL Hct 45.7 (42.0-52.0) % MCV 89.8 (80.0-94.0) fL MCH 28.3 (27.0-31.0) pg MCHC 31.5 L (32.0-36.0) g/dL RDW 14.6 (12.0-15.0) % Plt Count 318 (130-450) 10^3/uL MPV 10.0 (7.4-11.4) fL Neut # (Auto) 14.7 H (1.5-6.6) 10^3/uL Lymph # (Auto) 1.4 L (1.5-3.5) 10^3/uL [place] # (Auto) 0.7 (0.0-1.0) 10^3/uL Eos # (Auto) 0.1 (0.0-0.7) 10^3/uL Baso # (Auto) 0.1 (0.0-0.1) 10^3/uL Absolute Nucleated RBC 0.00 x10^3/uL Nucleated RBC % 0.0 /100WBC PT 15.3 H (9.9-12.6) secs INR 1.4 H (0.8-1.2) Sodium 138 (135-145) mmol/L Potassium 4.2 (3.5-5.0) mmol/L Chloride 94 L (101-111) mmol/L Carbon Dioxide 32 (21-32) mmol/L Anion Gap 12.0 (6-13) BUN 58 H (6-20) mg/dL Creatinine 2.5 H (0.6-1.2) mg/dL Estimated GFR (MDRD) 25 L (>89) Glucose 192 H (70-100) mg/dL Lactic Acid (0.5-2.2) mmol/L Calcium 9.1 (8.5-10.3) mg/dL Phosphorus (2.5-4.6) mg/dL Magnesium (1.7-2.8) mg/dL Total Bilirubin 1.1 H (0.2-1.0) mg/dL Direct Bilirubin (0.1-0.5) mg/dL AST 129 H (10-42) IU/L ALT 233 H (10-60) IU/L Alkaline Phosphatase 235 H (42-121) IU/L Ammonia (7-35) umol/L Total Creatine Kinase (22-269) IU/L Total Protein 8.4 H (6.7-8.2) g/dL Albumin 3.4 (3.2-5.5) g/dL Globulin 5.0 H (2.1-4.2) g/dL Albumin/Globulin Ratio 0.7 L (1.0-2.2) Lipase 23 (22-51) U/L Urine Color Urine Clarity (CLEAR) Urine pH (5.0-7.5) PH Ur Specific [place] (1.002-1.030) Urine Protein (NEGATIVE) mg/dL Urine Glucose (UA) (NEGATIVE) mg/dL Urine Ketones (NEGATIVE) mg/dL Urine Occult Blood (NEGATIVE) Urine Nitrite (NEGATIVE) Urine Bilirubin (NEGATIVE) Urine Urobilinogen (NORMAL) E.U./dL Ur Leukocyte Esterase (NEGATIVE) Urine RBC (0-5) /HPF Urine WBC (0-3) /HPF Ur Squamous Epith Cells (<= Few) Urine Bacteria (None Seen) /HPF Urine Casts /LPF Urine Culture Comments Acetaminophen (10-30) ug/mL ABX Reporting Has patient been on IV antibiotics over the past 48 hours?: Yes Sepsis Event Note (H) - Evaluation Current Stage of Sepsis: Resolved Possible source of Sepsis: positive: Unknown - Sepsis Criteria Sepsis Criteria: Recorded Heart Rate greater than 90 bpm, WBC count greater than 12,000 or less than 4000, [employer]: altered consciousness (unrelated to primary neuro pathology), SBP drop more than 40mHg Assessment/Plan - Problem List (1) Sepsis Impression: He presents as abdominal pain with N/V for 3 days. Found to have sepsis criteria. Source of his infection is unclear at this time. Although he does have evidence of aspiration on CT, he is not hypoxic and the infiltrate is not large. CT of the abdomen without evidence of another source other than CBD stone but not felt to have acute cholecystisis or pancreatitis. He is severely constipated but no diverticulitis.Urinalysis has high specific gravity, large amount of occult blood, trace leukocyte [place], too numerous to count red cells, 6-10 white cells, few squamous cells, a few bacteria, coarse granular casts, and culture is pending. Argument could be made that he has a UTI but this is a very weakly positive urine. He does have leukocytosis, encephalopathy, tachycardia and hypotension. Since treatment with Rocephin and Flagyl, his blood pressures rebounded back to 152/73 at 4:30 this morning. Currently 126/78. Still a little tachycardic at 111. But afebrile. - Ceftriaxone IV and Flagyl IV Day #2, given his pencillin allergy to cover for gram negatives and anaerobes. No change in this for now. - Follow up cultures (2) Encephalopathy acute, waxes and wanes Conclusion/Plan: He was initially alert and talkative upon arrival to the ED per the ER physician. Upon evaluation once he was on Med Surg, he is extremely lethargic and was only able to mumble a few words. He does appear to try and follow commands as he does try to give me a thumbs up when asked. Suspected that this was related to sepsis and hypotension as his blood pressure is now in the 90's sytolic compared to 160's on arrival. In am alert, oriented, but then received ativan for his MRI and he promptly went to sleep. Ammonia was normal at 29. - IV hydration, and transfer to ICU if blood pressure did not improve with IV hydration. It did so no transfer. - No CT of the head since he has improvement (3) Hypotension resolved without pressors, needing only IVF and abx. Conclusion/Plan: Presented hypertensive with systolic in the 160's but now hypotensive with systolic in the 90's. Has had associated decline in mental status. Likely se condary to sepsis. Normally hypertensive and is on Lisinopril at home. - Hold Lisinopril due to hypotension - IV Hydration Qualifiers: Hypotension type: unspecified hypotension type Qualified Code(s): I95.9 - Hypotension, unspecified (4) Abdominal pain resolved. Conclusion/Plan: Presented with abdominal pain along with nausea and vomiting. Suspect that this may be related to his fecal impaction or what is causing his transaminitis. CT negative for obstruction. UA has UTI and on abx. - Dilaudid PRN - Zofran PRN - MRCP today - NPO for now (5) Elevated liver enzymes improved Conclusion/Plan: Etiology is unclear at this time. Ultrasound unable to visualize gallbladder although it appears he had cholecystectomy in the past. CBD is slightly dilated. INR is 1.4. CK is normal. Tylenol level undetectable on tox screen. Hepatitis panel pending. Laboratory Tests 12/07/18 12/08/18 15:21 04:30 Total Bilirubin 1.1 H 0.8 AST 129 H 57 H ALT 233 H 136 H Alkaline Phosphatase 235 H 156 H - MRCP today - Trend LFT's (6) CESARIO (acute kidney injury) improving but still present Conclusion/Plan: Suspect this is likely pre-renal in nature given his poor oral intake. Has a hi story of CKD but his baseline creatinine is 1.0. Creatinine elevated at 2.5 on admission with elevated BUN. Creatinine 2.5> 2.0 today - IV hydration to continue - Bladder scan q shift - Monitor renal function (7) Aspiration pneumonia Conclusion/Plan: Evident on CT of the abdomen/pelvis. He is fortunately not hypoxic nor tachypnic. Nursing reports he chokes and coughs just on his pills. Hates thickened liquids. Chest xray with Hyperinflated lungs. Mild haziness at the left base, otherwise no focal opacities evident. No pleural effusion. No pneumothorax. - Ceftriaxone and Flagyl IV given his penicillin allergy - Obtain chest x-ray to eval for infiltrate as the CT was not of the chest and negative. - Speech eval ordered since he continues to choke Qualifiers: Laterality: left Lung location: lower lobe of lung (8) Constipation Conclusion/Plan: Chronic in nature likely due to his poor mobility. On multiple laxatives at home. CT of the abdomen/pelvis concerning for impaction but no obstruction. He was given an enema in the ER. - He will likely require manual disimpaction today - Continue bowel regimen (9) COPD (chronic obstructive pulmonary disease) Conclusion/Plan: Chronic and not in exacerbation. - Duoneb PRN Qualifiers: COPD type: unspecified COPD Qualified Code(s): J44.9 - Chronic obstructive pulmonary disease, unspecified (10) Controlled type 2 diabetes mellitus with complication, with long-term current use of insulin Conclusion/Plan: He is on Levemir and novolin at home. Blood glucose just below 200 on admission. On gabapentin for neuropathy. Glucose 12/07: 161 Glucose 919: 144, 112 - Continue Levemir + ISS - Continue gabapentin - CC diet once taking PO (11) History of coronary artery disease Conclusion/Plan: He is on Plavix and statin at home. Stable. - Continue Plavix and statin. (12) History of CVA (cerebrovascular accident) Conclusion/Plan: He is on Plavix and statin at home. Stable. - Continue Plavix and statin
[2018-12-08] MEDS ORDERED: LORazepam 2 MG/ML VIAL IVP STA (11:48)
--- NOTE | 2018-12-08 15:53 | DISCHARGE SUMMARY ---
"Discharge Summary Admit Date: 12/07/18 Discharge Date: 12/08/18 Discharging Provider: Diane Santiago MD Code Status: Do Not Attempt Resuscitation Condition at Discharge: Fair Discharge Disposition: 02 Transfer Acute Care Hosp Discharge Facility Name: [facility] - DIAGNOSES Discharge Diagnoses with Status of Each Condition: 1. Sepsis, resolved 2. Elevated liver enzymes with obstructive pattern 3. Metabolic encephalopathy, acute 4. Hypotension associated with sepsis, resolved 5. Generalized abdominal pain improved 6. Abnormal CT with aspiration pneumonia 7. Constipation, chronic 8. COPD without exacerbation, not on O2 9. Controlled type 2 diabetes mellitus with complication of neuropathy, with long-term use of insulin 10. History of coronary artery disease 11. History of stroke 12. 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 Residual dysphagia secondary to stroke, chronic 14. Acute kidney injury 15. UTI - HPI History of Present Illness: This is a 77 year old male with a history significant for diabetes, COPD (not on home O2), CAD, CVA, and right AKA who presents complaining of abdominal pain and nausea/vomiting. History is obtained from the ER physician as upon my evaluation, he is encephalopathic and unable to participate in conversation. He reportedly has been having abdominal pain about two days ago. This was associated with nausea and vomiting. He was not having bowel movements and did not recall passing gas. In the ER, he was initially hypertensive with systolic in the 160's and tachycardic in the 90's. Labs were significant for l eukocytosis, elevated LFTS, and elevated creatinine. He was given Dilaudid and Zofran with improvement in his pain. He then had an abdominal ultrasound performed which did not visualize the gallbladder but did show a mildly enlarged CBD. He then had a CT of the abdomen/pelvis which did not show obstruction but did show a large amount of stool consistent with impaction. He received an enema in the ER for this large stool burden. Medicine was then consulted for admission. When I went to evaluate the patient, he had become hypotensive with systolic in the 90's. He initially would open his eyes and attempt to follow commands. I asked him to give me a thumbs up and he was able to do this but he w as extremely lethargic and would fall back to sleep quickly. His speech was mumbled and he would say one to two words at a time. Of note, he has a POLST form from 2015 which stats he is a DNR. He will be made a DNR per that form until I am able to confirm his wishes and goals. History - Past Medical History Cardiovascular: reports: High cholesterol, [place], Coronary artery disease, Peripheral Vascular Disease, Hypertension, Murmur Respiratory: reports: Shortness of breath, COPD, Pneumonia Neuro: reports: Headaches, Dementia, Other, Peripheral neuropathy, CVA Endocrine/Autoimmune: reports: Type 2 diabetes GI: reports: Chronic constipation with previous admission for constipation and abd pain, GERD : reports: Benign prostate hypertrophy, Frequency, Incontinence, Chronic bladder infection, Nocturia HEENT: reports: Chronic hearing loss, Chronic vision loss, Chronic sinusitis Psych: reports: Depression, Anxiety Musculoskeletal: reports: Osteoarthritis, Hemiplegia Derm: reports: None MRSA Hx?: No - Past Surgical History General: reports: Splenectomy Ortho: reports: Amputation with R AKA Cardiovascular: reports: Coronary stent, Vascular surgery, Angioplasty, Cardiac catheterization Neuro: reports: [employer] shunt - CONSULTS | PROCEDURES Procedures: 1. Abdominal ultrasound, limited to right upper quadrant showing a gallbladder that is not clearly visualized. May be surgically absent or obscured by bowel gas. Common bile duct is mildly enlarged. 7.6 mm. No intrahepatic ductal dilatation. MRCP could be considered for further evaluation as clinically warranted. Mild fatty liver infiltration. 2. Abdomen pelvis CT no evidence of bowel obstruction, large volume stool within colon, rectum distended to 9 cm with stool. Nephrolithiasis of a 0.4 cm stone within the right renal pelvis. No evidence of obstructing stone or hydronephrosis. Opacification of the bronchi supplying the left lower lobe. Reticular nodular density within the left lower lobe. Suspicious for aspiration. 3. Chest x-ray with mild left base atelectasis/infiltrate. 4. Urine culture in progress, results to follow - HOSPITAL COURSE Hospital Course: The patient is a 77-year-old white male who lives at a boarding care/assisted living facility called [facility] [place]. He has lived there since approximately 2009 after he could no longer live at home from the sequela of heart disease and stroke. He is mildly to moderately demented. Emotionally labile, cries and gets anxious easily. And needs a lot of help with ADL's. He has had peripheral vascular disease with a distal right leg amputation. He has been seen many times in our facility. Once he was admitted for abdominal pain due to constipation because of chronic constipation. He presented to us as above in the history of present illness. We initially thought he was constipated again and gave him an enema in the emergency room. No sucess and there was elevated liver enzymes noted as possibly cause of his abd pain. CT and US of abd were done and he has mildly dilated CBD, and a dilated rectum from stool. However he met criteria for sepsis once he was transferred to [facility]. Initially he was hemodynamically stable in the ER, and met sepsis criteria with hypotension tachycardia on [facility]. He responded to IV fluid boluses, and Rocephin and Flagyl. Urinalysis was not done in the emergency room but once on [facility] he was identified as having a possible UTI. However the cause of his abdominal pain which could include constipation also could indicate possible acute cholecystitis because of his transaminitis. We did attempt an MRCP. He asked for Ativan for sedation. We gave 1 mg. That successfully valentín yaniv him to the point that he could get on the [place] without anxiety but once on the gurney in the MRI room, he was unable to follow instructions. Could not hold his breath for 18 to 19 seconds for static images. As such I contacted Gastrology on-call at [facility]. The has identified [facility] as where she would want her to go if we needed to transfer. Gastroenterology on-call reviewed the case with me. He says he would prefer an MRCP be done before an ERCP. It is not clear to me whether this patient had a cholecystectomy. CT scan shows he has no gallbladder present but in review of her past medical history there is no set surgery noted. As such I have called the hospitalist on service. They have accepted the patient. Other issues during his stay were metabolic encephalopathy. He was waxing and waning with his mental status in the ER. On the floor he was awake, alert, crying at the idea of being here. He did not become sedated until he got Ativan. We investigated the possibility of aspiration pneumonia that we saw on CT of the abdomen with the lower slices of his lung. He does choke on pills. And we ordered a swallow evaluation. That was not done before discharge. We suspect he may have residual cognitive and swallowing difficulties from his old strokes. Acute kidney injury did improve while here. His baseline creatinine is usually 1 and he was 2.5. It improved to 2 by the time of discharge. AST was initially 129 and came down to 57. ALT was 233 and came down to 136. Alk phos was 235 and came down to 156. Total bili was 1.1 and came down to 0.8. Ammonia level is 29. Urinalysis did show infection and culture is pending at the time of discharge. Acetaminophen level is less than 10. White cell count was initially elevated at 17.2 and a came down to 10.6. At discharge the patient is sleepy but responds to my voice. Nursing began doing manual disimpaction for the constipation and he is wide awake now. Temperature is 36.7 pulse, pulse is 100, blood pressure 126/78 respirations 16 and 97% on 3 L. He is 5 foot 8 inches tall and weighs 88 kg. Full morales and mustache that is well-groomed. Poor dentition. Neck is supple, upper airway breath sounds are transmitted up into his neck. He has a prolonged and exhalation phase of breathing but no acute respiratory distress. He does not have crackles rhonchi or wheezing. PMI is normally placed with a regular rate and rhythm. The abdomen is soft, slightly distended but not tympanitic. Distended with gas. Generalized aching. He says it is much better than it was yesterday. He has hypoactive bowel sounds. No rebound or guarding. Extremit ies on the left are without clubbing cyanosis or edema. He has a right leg amputation on the right. Right before discharge the [facility] director did bring in his dentures and his glasses. They were left at the bedside. During this brief stay, the patient was very anxious about these items. Kept on crying because they were not at his bedside. It is anticipated that once he is done at [facility], he will return to [facility] in [place]. Greater than 30 minutes was spent correlating discharge. - ALLERGIES Allergies/Adverse Reactions: Allergies Allergy/AdvReac Type Severity Reaction Status Date / Time Penicillins Allergy Intermediate Rash Verified 12/07/18 14:46 morphine AdvReac Unknown I go Verified 12/07/18 14:46 [email or web address] - MEDICATIONS Home Medications: Ambulatory Orders Medication Instructions Recorded Confirmed Trazodone HCl 50 mg PO QPM PRN 07/08/13 09/20/18 Clopidogrel Bisulfate [Plavix] 75 mg PO DAILY 09/15/14 09/20/18 Docusate Sodium 250Mg Capsule 250 mg PO BID #30 04/24/17 09/20/18 [Colace 250Mg Capsule] Lisinopril 5 mg PO DAILY #30 04/24/17 09/20/18 Multivitamin W/Minerals [Theragran 1 tab PO DAILYWM #30 tablet 04/24/17 09/20/18 M] Simvastatin [Zocor] 10 mg PO QPM #30 04/24/17 09/20/18 Acetaminophen 650 mg PO DAILY PRN 08/02/17 09/20/18 Insulin Regular Human [NovoLIN R] 0 - 5 unit SUBQ TIDWM 08/02/17 09/20/18 Lactulose 15 ml PO BID PRN 08/02/17 09/20/18 traMADol [Ultram] 50 mg PO 0800,1200,1700,2100 08/02/17 09/20/18 DULoxetine [Cymbalta] 20 mg PO 1400 12/19/17 09/20/18 Gabapentin [Neurontin] 900 mg PO QID 12/19/17 09/20/18 LORazepam [Lorazepam] 0.5 mg PO TID PRN 12/19/17 09/20/18 Loperamide HCl [Loperamide] 2 mg PO DAILY PRN MDD 8MG 12/19/17 09/20/18 Magnesium Hydroxide [Milk of 2,400 mg PO TID PRN 12/19/17 08/24/18 Magnesia] Trazodone HCl 100 mg PO QPM 12/19/17 09/20/18 Albuterol Sulfate [Proair Hfa 2 puffs PO Q4H PRN 09/20/18 09/20/18 Inhaler] Azithromycin [Zithromax] 250 mg PO DAILY PM 09/20/18 09/20/18 Bacitracin Zinc 1 applic TOP PRN PRN 09/20/18 09/20/18 Bisacodyl 10 mg .ROUTE PRN PRN 09/20/18 09/20/18 Bupropion HCl [Bupropion HCl Sr] 300 mg PO DAILY 09/20/18 09/20/18 Ipratropium/Albuterol Sulfate 3 ml INH Q4H PRN 09/20/18 09/20/18 [Iprat-Albut 0.5-3(2.5) mg/3 ml] Polyethylene Glycol 3350 17 g PO DAILY 09/20/18 09/20/18 Senna [Senokot] 8.6 mg PO QPM 09/20/18 09/20/18 Insulin Detemir [Levemir Flextouch] 5 unit SQ BID #1 09/23/18 09/20/18 Linezolid [Zyvox] 600 mg PO BID #10 tablet 09/23/18 levoFLOXacin [Levofloxacin] 500 mg PO DAILY #5 tablet 09/23/18 - LABS Result Diagrams: 12/08/18 04:30 12/08/18 04:30 - SEPSIS Current Stage of Sepsis: Resolved Possible source of Sepsis: Unknown Sepsis Criteria: Recorded Heart Rate greater than 90 bpm, WBC count greater than 12,000 or less than 4000, [employer]: altered consciousness (unrelated to primary neuro pathology), SBP drop more than 40mHg"
[2018-12-08] MEDS ORDERED: cefTRIAXone 1 GM in SODIUM CHLORIDE 0.9% MINIBAG 100 ML IV SCH (18:00)
[2018-12-08 18:34] VITALS: BP 103/57
[2018-12-08] MEDS ORDERED: ATORVASTATIN 10 MG TABLET PO SCH (21:00)
[2018-12-09 14:01] LABS: HEPATITIS A IGM NON-REACTIVE (NON-REACTIVE); HEPATITIS B SURFACE ANTIGEN NON-REACTIVE (NON-REACTIVE); HEPATITIS C ANTIBODY NON-REACTIVE (NON-REACTIVE)
== END 2018-12-08 18:27 | disposition short-term general hospital (02) | DRG 871 ==
LOC: EDUNIT# → ED 14:32 → MS2 19:40
PROVIDERS: ADMIT Internal Medicine; ATTEND Specialist
DX: A41.9 Sepsis, unspecified organism (principal); G93.41 Metabolic encephalopathy; J69.0 Pneumonitis due to inhalation of food and vomit; N17.9 Acute kidney failure, unspecified; N18.3 Chronic kidney disease, stage 3 (moderate); N39.0 Urinary tract infection, site not specified; R74.8 Abnormal levels of other serum enzymes; K83.8 Other specified diseases of biliary tract; I95.9 Hypotension, unspecified; K59.09 Other constipation; R65.20 Severe sepsis without septic shock; I69.391 Dysphagia following cerebral infarction; K21.9 Gastro-esophageal reflux disease without esophagitis; R13.10 Dysphagia, unspecified; H54.7 Unspecified visual loss; I69.319 Unspecified symptoms and signs involving cognitive functions following cerebral infarction; E78.5 Hyperlipidemia, unspecified; E11.51 Type 2 diabetes mellitus with diabetic peripheral angiopathy without gangrene; E11.42 Type 2 diabetes mellitus with diabetic polyneuropathy; E11.22 Type 2 diabetes mellitus with diabetic chronic kidney disease; I12.9 Hypertensive chronic kidney disease with stage 1 through stage 4 chronic kidney disease, or unspecified chronic kidney disease; N18.9 Chronic kidney disease, unspecified; I25.10 Atherosclerotic heart disease of native coronary artery without angina pectoris; F03.90 Unspecified dementia, unspecified severity, without behavioral disturbance, psychotic disturbance, mood disturbance, and anxiety; J44.9 Chronic obstructive pulmonary disease, unspecified; F32.9 Major depressive disorder, single episode, unspecified; F41.9 Anxiety disorder, unspecified; K76.0 Fatty (change of) liver, not elsewhere classified; N20.0 Calculus of kidney; F17.200 Nicotine dependence, unspecified, uncomplicated; H91.90 Unspecified hearing loss, unspecified ear; I25.2 Old myocardial infarction; Z66 Do not resuscitate; Z79.02 Long term (current) use of antithrombotics/antiplatelets; Z79.899 Other long term (current) drug therapy; Z95.5 Presence of coronary angioplasty implant and graft; Z79.4 Long term (current) use of insulin; Z89.611 Acquired absence of right leg above knee; Z99.3 Dependence on wheelchair; Z87.898 Personal history of other specified conditions; Z88.0 Allergy status to penicillin; Z87.19 Personal history of other diseases of the digestive system
CPT/HCPCS: 36415; 71045; 74176; 76705; 80048; 80053; 80074; 80076; 81001; 82140; 82550; 83605; 83690; 83735; 84100; 85025; 85610; 87040; 87086; 94640; 96361; 96365; 96375; 99283; 99285; A9270; J1170; J1815; J2060; J3370; J7120; 80307